=== PATIENT | female | born 1945 | race Caucasian/White ===

== ENCOUNTER 2019-12-14 10:10 | Outpatient (REF) | payer MEDICARE, SELFPAY ==
[2019-12-14 11:24] LABS: Hematocrit 44.5 % (37-47); Hemoglobin 14.5 g/dl (12.0-16.0); Mean Corpuscular HGB Conc 32.6 g/dl (31.0-35.0); Mean Corpuscular Volume 98.2 fL (80-98); Mean Platelet Volume 9.4 fL (9.4-12.3); Platelet Count 350 X10*3/uL (160-400); Red Blood Count 4.53 X10*6/uL (4.20-5.50); Red Cell Distribution Width 13.3 % (11.0-16.0); White Blood Count 7.1 X10*3/uL (4.8-10.8)
[2019-12-14 11:39] LABS: Alanine Aminotransferase 22 U/L (0-31); Albumin Level 4.3 g/dL (3.5-5.0); Alkaline Phosphatase 99 U/L (39-117); Anion Gap 14 (12-20); Aspartate Amino Transferase 26 U/L (5-31); Bilirubin Total 0.6 mg/dL (0.0-1.0); Blood Urea Nitrogen 9 mg/dL (9-16); Calcium 9.4 mg/dL (8.4-10.2); Carbon Dioxide 27 mmol/L (22-29); Chloride 104 mmol/L (96-108); Estimated Glomerular Filt Rate > 60; Glucose Fasting 96 mg/dL (60-99); Potassium 4.5 mmol/l (3.3-5.1); Sodium 140 mmol/L (135-145); Total Protein 7.3 g/dL (6.5-8.0)
[2019-12-14 11:50] LABS: Estimated Average Glucose 100 mg/dL; Hemoglobin A1c % 5.1 %
[2019-12-14 12:00] LABS: Vitamin D 25-OH Total 30.3 ng/mL (>30)
[2019-12-14 12:16] LABS: Folate 15.8 ng/mL (> or = 4.0); Vitamin B12 919 pg/mL (200-900)
== END 2019-12-14 10:11 | disposition home or self-care (01) ==
LOC: HO.HMGCLDS 10:10
PROVIDERS: PCP Internal Medicine; Visit Provider Internal Medicine
DX: Z01.810 Encounter for preprocedural cardiovascular examination (principal); E78.2 Mixed hyperlipidemia; I48.0 Paroxysmal atrial fibrillation; E55.9 Vitamin D deficiency, unspecified; F41.9 Anxiety disorder, unspecified; E53.8 Deficiency of other specified B group vitamins; I71.4 Abdominal aortic aneurysm, without rupture; F17.200 Nicotine dependence, unspecified, uncomplicated; E78.5 Hyperlipidemia, unspecified; I10 Essential (primary) hypertension
CPT/HCPCS: 36415; 80053; 82306; 82607; 82746; 83036; 85027; 99214

== ENCOUNTER → 2020-01-27 11:01 | Outpatient (BNVA) | payer MEDICARE, SELFPAY | PROVIDERS: PCP Internal Medicine; Visit Provider Internal Medicine | DX: I48.0 Paroxysmal atrial fibrillation (principal); I48.92 Unspecified atrial flutter; Z79.01 Long term (current) use of anticoagulants; Z51.81 Encounter for therapeutic drug level monitoring | CPT/HCPCS: 85610; 99201 ==

== ENCOUNTER → 2020-01-29 13:46 | Outpatient (BNVA) | payer MEDICARE, SELFPAY | PROVIDERS: PCP Internal Medicine; Visit Provider Internal Medicine | DX: I48.0 Paroxysmal atrial fibrillation (principal); Z51.81 Encounter for therapeutic drug level monitoring; Z79.01 Long term (current) use of anticoagulants | CPT/HCPCS: 85610; 99211 ==

== ENCOUNTER → 2020-02-01 13:23 | Outpatient (BNVA) | payer MEDICARE, SELFPAY | PROVIDERS: PCP Internal Medicine; Visit Provider Internal Medicine | DX: I48.0 Paroxysmal atrial fibrillation (principal); Z51.81 Encounter for therapeutic drug level monitoring; Z79.01 Long term (current) use of anticoagulants | CPT/HCPCS: 85610; 99211 ==

== ENCOUNTER → 2020-02-05 13:02 | Outpatient (BNVA) | payer MEDICARE, SELFPAY | PROVIDERS: PCP Internal Medicine; Visit Provider Internal Medicine | DX: I48.0 Paroxysmal atrial fibrillation (principal); Z51.81 Encounter for therapeutic drug level monitoring; Z79.01 Long term (current) use of anticoagulants | CPT/HCPCS: 85610; 99211 ==

== ENCOUNTER → 2020-02-12 13:02 | Outpatient (BNVA) | payer MEDICARE, SELFPAY | PROVIDERS: PCP Internal Medicine; Visit Provider Internal Medicine | DX: I48.0 Paroxysmal atrial fibrillation (principal); Z51.81 Encounter for therapeutic drug level monitoring; Z79.01 Long term (current) use of anticoagulants | CPT/HCPCS: 85610; 99211 ==

== ENCOUNTER → 2020-02-23 13:12 | Outpatient (BNVA) | payer MEDICARE, SELFPAY | PROVIDERS: PCP Internal Medicine; Visit Provider Internal Medicine | DX: I48.0 Paroxysmal atrial fibrillation (principal); Z51.81 Encounter for therapeutic drug level monitoring; Z79.01 Long term (current) use of anticoagulants | CPT/HCPCS: 85610; 99211 ==

== ENCOUNTER → 2020-03-07 11:57 | Outpatient (BNVA) | payer MEDICARE, SELFPAY | PROVIDERS: PCP Internal Medicine; Visit Provider Nurse Practitioner Family | DX: I48.92 Unspecified atrial flutter (principal); I71.4 Abdominal aortic aneurysm, without rupture; F17.200 Nicotine dependence, unspecified, uncomplicated; E78.5 Hyperlipidemia, unspecified; I10 Essential (primary) hypertension; Z79.01 Long term (current) use of anticoagulants | CPT/HCPCS: 99212 ==

== ENCOUNTER → 2020-03-08 13:12 | Outpatient (BNVA) | payer MEDICARE, SELFPAY | PROVIDERS: PCP Internal Medicine; Visit Provider Internal Medicine | DX: I48.0 Paroxysmal atrial fibrillation (principal); Z51.81 Encounter for therapeutic drug level monitoring; Z79.01 Long term (current) use of anticoagulants | CPT/HCPCS: 85610; 99211 ==

== ENCOUNTER → 2020-03-17 12:59 | Outpatient (BNVA) | payer MEDICARE, SELFPAY | PROVIDERS: PCP Internal Medicine; Visit Provider Internal Medicine | DX: I48.0 Paroxysmal atrial fibrillation (principal); Z51.81 Encounter for therapeutic drug level monitoring; Z79.01 Long term (current) use of anticoagulants | CPT/HCPCS: 85610; 99211 ==

== ENCOUNTER → 2020-03-31 13:03 | Outpatient (BNVA) | payer MEDICARE, SELFPAY | PROVIDERS: PCP Internal Medicine; Visit Provider Internal Medicine | DX: I48.0 Paroxysmal atrial fibrillation (principal); Z51.81 Encounter for therapeutic drug level monitoring; Z79.01 Long term (current) use of anticoagulants | CPT/HCPCS: 85610; 99211 ==

== ENCOUNTER → 2020-04-14 11:08 | Outpatient (BNVA) | payer MEDICARE, SELFPAY | PROVIDERS: PCP Internal Medicine; Visit Provider Internal Medicine | DX: I48.0 Paroxysmal atrial fibrillation (principal); Z51.81 Encounter for therapeutic drug level monitoring; Z79.01 Long term (current) use of anticoagulants | CPT/HCPCS: 85610; 99211 ==

== ENCOUNTER → 2020-05-05 11:19 | Outpatient (BNVA) | payer MEDICARE, SELFPAY | PROVIDERS: PCP Internal Medicine; Visit Provider Internal Medicine | DX: I48.0 Paroxysmal atrial fibrillation (principal); Z51.81 Encounter for therapeutic drug level monitoring; Z79.01 Long term (current) use of anticoagulants | CPT/HCPCS: 85610; 99211 ==

== ENCOUNTER → 2020-06-02 11:21 | Outpatient (BNVA) | payer MEDICARE, SELFPAY | PROVIDERS: PCP Internal Medicine; Visit Provider Internal Medicine | DX: I48.0 Paroxysmal atrial fibrillation (principal); Z79.01 Long term (current) use of anticoagulants; Z51.81 Encounter for therapeutic drug level monitoring | CPT/HCPCS: 85610; 99211 ==

== ENCOUNTER → 2020-06-06 11:27 | Outpatient (BNVA) | payer MEDICARE, SELFPAY | PROVIDERS: PCP Internal Medicine; Visit Provider Internal Medicine | DX: I48.0 Paroxysmal atrial fibrillation (principal); Z79.01 Long term (current) use of anticoagulants; Z51.81 Encounter for therapeutic drug level monitoring | CPT/HCPCS: 85610; 99211 ==

== ENCOUNTER → 2020-06-14 11:14 | Outpatient (BNVA) | payer MEDICARE, SELFPAY | PROVIDERS: PCP Internal Medicine; Visit Provider Internal Medicine | DX: I48.0 Paroxysmal atrial fibrillation (principal); Z79.01 Long term (current) use of anticoagulants; Z51.81 Encounter for therapeutic drug level monitoring | CPT/HCPCS: 85610; 99211 ==

== ENCOUNTER → 2020-06-28 11:15 | Outpatient (BNVA) | payer MEDICARE, SELFPAY | PROVIDERS: PCP Internal Medicine; Visit Provider Internal Medicine | DX: I48.0 Paroxysmal atrial fibrillation (principal); Z51.81 Encounter for therapeutic drug level monitoring; Z79.01 Long term (current) use of anticoagulants | CPT/HCPCS: 85610; 99211 ==

== ENCOUNTER → 2020-07-06 11:13 | Outpatient (BNVA) | payer MEDICARE, SELFPAY | PROVIDERS: PCP Internal Medicine; Visit Provider Internal Medicine | DX: I48.0 Paroxysmal atrial fibrillation (principal); Z51.81 Encounter for therapeutic drug level monitoring; Z79.01 Long term (current) use of anticoagulants | CPT/HCPCS: 85610; 99211 ==

== ENCOUNTER → 2020-07-20 11:26 | Outpatient (BNVA) | payer MEDICARE, SELFPAY | PROVIDERS: PCP Internal Medicine; Visit Provider Internal Medicine | DX: I48.0 Paroxysmal atrial fibrillation (principal); Z51.81 Encounter for therapeutic drug level monitoring; Z79.01 Long term (current) use of anticoagulants | CPT/HCPCS: 85610; 99211 ==

== ENCOUNTER → 2020-07-22 10:39 | Outpatient (BNVA) | payer MEDICARE, SELFPAY | PROVIDERS: PCP Internal Medicine; Visit Provider Internal Medicine | DX: I48.0 Paroxysmal atrial fibrillation (principal); Z51.81 Encounter for therapeutic drug level monitoring; Z79.01 Long term (current) use of anticoagulants | CPT/HCPCS: 85610; 99211 ==

== ENCOUNTER → 2020-07-29 11:02 | Outpatient (BNVA) | payer MEDICARE, SELFPAY | PROVIDERS: PCP Internal Medicine; Visit Provider Internal Medicine | DX: I48.0 Paroxysmal atrial fibrillation (principal); Z51.81 Encounter for therapeutic drug level monitoring; Z79.01 Long term (current) use of anticoagulants | CPT/HCPCS: 85610; 99211 ==

== ENCOUNTER → 2020-08-12 11:14 | Outpatient (BNVA) | payer MEDICARE, SELFPAY | PROVIDERS: PCP Internal Medicine; Visit Provider Internal Medicine | DX: I48.0 Paroxysmal atrial fibrillation (principal); Z51.81 Encounter for therapeutic drug level monitoring; Z79.01 Long term (current) use of anticoagulants | CPT/HCPCS: 85610; 99211 ==

== ENCOUNTER → 2020-08-26 11:09 | Outpatient (BNVA) | payer MEDICARE, SELFPAY | PROVIDERS: PCP Internal Medicine; Visit Provider Internal Medicine | DX: I48.0 Paroxysmal atrial fibrillation (principal); Z51.81 Encounter for therapeutic drug level monitoring; Z79.01 Long term (current) use of anticoagulants | CPT/HCPCS: 85610; 99211 ==

== ENCOUNTER → 2020-09-05 12:09 | Outpatient (BNVA) | payer MEDICARE, SELFPAY | PROVIDERS: PCP Internal Medicine; Referring Provider Internal Medicine; Visit Provider Internal Medicine | DX: I48.92 Unspecified atrial flutter (principal); F10.10 Alcohol abuse, uncomplicated; F17.200 Nicotine dependence, unspecified, uncomplicated; I71.4 Abdominal aortic aneurysm, without rupture | CPT/HCPCS: 99212 ==

== ENCOUNTER 2020-09-11 17:09 | Inpatient (IN) | payer MEDICARE, SELFPAY ==
[2020-09-11] VITALS (8 sets, daily range): BP systolic 101–129; BP diastolic 64–84; PULSE 94–103; RESP 20–24; TEMP 36.8; O2SAT 93–96; BMI 29.2
--- NOTE | ~2020-09-11 | XR_ITS ---
EXAMINATION: XR CHEST CLINICAL INFORMATION: Syncope. COMPARISON: Most recent chest radiograph dated 01/06/2019. TECHNIQUE: Frontal view of the chest was obtained. FINDINGS: Diffuse interstitial prominence with patchy bilateral airspace opacities, increased when compared to the most recent chest radiograph. Findings could indicate a chronic infectious or inflammatory process versus multifocal pneumonia. No pleural effusion or pneumothorax. Stable cardiomediastinal silhouette. XR/XR chest 1V IMPRESSION: Interstitial prominence and patchy bilateral airspace opacities which has increased when compared to the prior chest radiograph. This could indicate a chronic infectious or inflammatory process versus multifocal pneumonia.
--- NOTE | ~2020-09-11 | CT_ITS ---
EXAMINATION: CT CHEST WITHOUT CONTRAST CLINICAL INFORMATION: Bilateral lung disease. Fibrosis. Infiltrate. COMPARISON: Most recent chest radiograph done earlier the same day and most recent CTA chest dated 05/31/2015. TECHNIQUE: Multidetector volumetric CT imaging of the chest was done. Axial MIP volume rendering provided. Sagittal and coronal reformatted images were obtained. This CT examination was performed using dose optimization techniques as appropriate, variously including the following: Automated exposure control. Adjustment of mA and/or kV according to patient size (this includes techniques or standardized protocols for targeted exams where dose is matched to indication/reason for exam; i.e. extremities or head). Use of iterative reconstruction technique. DLP: 261 mGy-cm FINDINGS: INTERACTIVE ACCOUNT MANAGER: Diffuse interstitial prominence. LUNGS: Diffuse interstitial prominence with peripheral honeycombing as well as scattered areas of traction bronchiectasis and patchy ground-glass airspace opacities. Findings are consistent with chronic interstitial lung disease and pulmonary fibrosis. Findings have significantly increased when compared to the CT from 2016. No large, confluent airspace consolidation. No concerning pulmonary mass. MEDIASTINUM: No cardiomegaly. Mild thoracic aortic dilatation measuring up to 4 cm, unchanged when compared to the CT from 2016. No significant superior mediastinal or hilar lymphadenopathy. Unremarkable thyroid. PLEURA: No pleural effusion or pneumothorax. AXILLA: No lymphadenopathy. UPPER ABDOMEN: Unremarkable. OSSEOUS STRUCTURES: Unremarkable. CT/CT chest wo con IMPRESSION: 1. Diffuse interstitial prominence with peripheral honeycombing as well as traction bronchiectasis and ground-glass airspace opacities, consistent with chronic interstitial lung disease/pulmonary fibrosis. Findings have significantly increased when compared to the CT from 2016. 2. Mild thoracic aortic dilatation, unchanged when compared to the CT from 2016.
--- NOTE | ~2020-09-11 | CT_ITS ---
EXAMINATION: CT HEAD WITHOUT CONTRAST CT CERVICAL SPINE WITHOUT CONTRAST CLINICAL INFORMATION: Fall. Anticoagulated. COMPARISON: Multiple priors, most recent CT head dated 06/24/2018. TECHNIQUE: Contiguous axial imaging was performed from the skull base to vertex without intravenous administration of contrast. Contiguous axial CT images of the cervical spine were obtained without contrast. Sagittal and coronal reformats were provided and reviewed. This CT examination was performed using dose optimization techniques as appropriate, variously including the following: Automated exposure control. Adjustment of mA and/or kV according to patient size (this includes techniques or standardized protocols for targeted exams where dose is matched to indication/reason for exam; i.e. extremities or head). Use of iterative reconstruction technique. DLP: 1055 mGy-cm FINDINGS: HEAD: There is no evidence of acute intracranial hemorrhage or territorial infarction. No abnormal mass effect or midline shift is seen. Wh[place] to white matter differentiation is well preserved. No extra-axial fluid collections are identified. The ventricles are normal in size. There is no abnormal attenuation within the brain parenchyma. The osseous structures and soft tissues are normal. The mastoid air cells and visualized portions of the paranasal sinuses are well aerated. CERVICAL SPINE: Reversal of the normal cervical lordosis, which may be positional or related to muscular spasm. Minimal grade 1 anterolisthesis of C4 on C5. No acute fracture. No loss of vertebral body height. Loss of intervertebral disc height with degenerative endplate changes at C5-C6 and C6-C7. Mild multilevel bilateral facet arthropathy. No lytic or blastic osseous lesion. Unremarkable prevertebral soft tissues. No abnormal soft tissue mass or fluid collection. Thyroid within normal limits. Diffuse interstitial prominence within the visualized lung apices. Mild multilevel bilateral neural foraminal stenosis. CT/CT cervical spine wo con IMPRESSION: HEAD: No acute intracranial hemorrhage or mass effect. CERVICAL SPINE: No acute fracture. Reversal of the normal cervical lordosis, which may be positional or related to muscular spasm. Minimal grade 1 anterolisthesis of C4 on C5. Prominent degenerative disc disease at C5-C6 and C6-C7 with mild multilevel bilateral facet arthropathy and multilevel bilateral neural foraminal stenosis.
--- NOTE | 2020-09-11 17:21 | ED_ITS ---
HPI - Syncope General Chief Complaint: Syncope Stated Complaint: SYNCOPE Time Seen by Provider: 09/11/20 17:21 Source: patient Mode of arrival: EMS Limitations: no limitations History of Present Illness HPI narrative: Patient drinks alcohol had couple of glasses of wine was in the parking lot and just passed out, patient had few similar episodes in the past no Holter applied, reports lightheadedness immediately prior to syncope slump down and fall. Denies any headache no chest pain no increased shortness of breath patient did not feel any palpitation or skipped beats. Also patient complaining of increased shortness of breath for last 3 months with cough with wheezing especially in the evening has not seen her primary doctor for this no fever no chest pain no leg swelling MD complaint: loss of consciousness Related Data Home Medications Medication Instructions Recorded Confirmed cholecalciferol (vitamin D3) 25 mcg PO DAILY 09/11/20 09/11/20 [Vitamin D3] Previous Rx's Medication Instructions Recorded folic acid 1 mg tablet 1 mg PO DAILY #90 tab 04/14/20 cyanocobalamin (vitamin B-12) 1,000 mcg PO DAILY #90 tab 05/05/20 1,000 mcg tablet thiamine HCl (vitamin B1) 100 mg 100 mg PO DAILY #90 tab 05/09/20 tablet metoprolol succinate 25 mg 25 mg PO DAILY #90 tab 05/10/20 tablet,extended release 24 hr atorvastatin 20 mg tablet 20 mg PO DAILY #90 tab 05/27/20 warfarin 1 mg tablet See Rx Instructions PO DAILY #90 05/31/20 tab Allergies Allergy/AdvReac Type Severity Reaction Status Date / Time citalopram AdvReac Unknown nausea Verified 09/11/20 20:49 Review of Systems Review of Systems: Constitutional : No Weight loss, No Fever, No Chills ENT/Mouth : No sore throat, No Rhinorrhea Eyes: No Eye Pain, No Swelling Cardiovascular : No Chest Pain, no palpitations Respiratory : No Cough, No Sputum, no shortness of breath Gastrointestinal : no Nausea, No Vomiting, No Diarrhea, No abdominal Pain, no black stools Genitourinary : No Dysuria, No Urinary Frequency Musculoskeletal : No joint pain, No Myalgias, No Joint Swelling Skin : No Skin Lesions, No rash Neuro : No Weakness, No Numbness, No Dizziness, No Headache Psych : No Anxiety/Panic, No Depression Heme/Lymph: No Bruising, No Lymphadenopathy Endocrine : No Polyuria, No Polydipsia All other systems reviewed and are negative [facility] Past Medical History Medical History AAA (abdominal aortic aneurysm) Anxiety Atrial flutter ETOH abuse HLD (hyperlipidemia) Insomnia Mammogram declined Nausea Osteopenia Pure hypercholesterolemia Smoking Surgical History H/O colonoscopy No pertinent past surgical history Total knee replacement status (~12/2019) Family History Family History Father CVD (cardiovascular disease) Stomach cancer History of heart attack Mother No problems noted. Sister Brain tumor Brother No problems noted. Sister No problems noted. Social History Social History Alcohol intake: current Alcohol intake frequency: a few times a week Alcohol type: wine Patient Tobacco Use Status: Current everyday Tobacco user Cigarettes Per Day: 6 Use of substances other than those prescribed or required for medical reasons: No Advance Directives: No Advance Directives Information Provided: No Physical Exam Vital Signs: Vital Signs: Last Vital Signs Temp 98.2 F 09/11/20 17:18 Pulse 98 09/11/20 23:41 Resp 24 H 09/11/20 23:41 BP 129/84 09/11/20 23:41 Pulse Ox 96 09/11/20 23:41 Body Mass Index 29.2 Appearance: Alert. Oriented X3. No acute distress. Eyes: PERRLA, No Nystagmus ENT: Pharynx normal. Oral Mucosa moist atraumatic normocephalic Neck: Normal inspection. Neck supple. No midline tenderness CVS: Normal heart rate and rhythm. Pulses normal. Respiratory: No respiratory distress. Equal air entry bilateral, prolonged expiration with fine expiratory crackles bilaterally Abdomen: Soft and nontender. Bowel sounds are present, no mass palpable, no CVA tenderness Skin: Skin warm and dry. Normal skin color. Normal skin turgor. Extremities: No lower extremity edema. No calf tenderness Neuro: Oriented X 3. No motor deficit. No sensory deficit.No cerebellar signs , cranial nerves II-XII intact MDM - Syncope MDM Narrative Medical decision making narrative: Patient had a CT chest in 2015 which showed pulmonary fibrosis patient unaware of that , not using any inhaler has not seen any contracting analyst patient used to smoke 1 pack a day now smoking 3 or 4 cigarettes a day. Patient orthostatic vitals are stable .Case discussed Dr. Sim caterpillar operator advised to give patient 324 mg aspirin daily along with Coumadin plan to do echo in the morning likely patient had an episode of AFib which cause increased troponin no acute ischemic changes in the EKG. Will admit patient for syncope with elevated troponin Medical Records Attestation: I reviewed the patient's medical records. Lab Data Attestation: I reviewed the patient's lab results. Result diagrams: 09/11/20 18:48 09/11/20 18:48 Labs: Lab Results 09/11/20 09/11/20 09/11/20 Range/Units 17:27 18:48 18:48 WBC 10.1 (4.8-10.8) X10*3/uL RBC 4.11 L (4.20-5.50) X10*6/uL Hgb 13.2 (12.0-16.0) g/dl Hct 39.5 (37-47) % MCV 96.1 (80-98) fL MCH 32.1 (27.0-33.0) pg MCHC 33.4 (31.0-35.0) g/dl RDW 15.8 (11.0-16.0) % Plt Count 272 (160-400) X10*3/uL MPV 8.8 L (9.4-12.3) fL Immature Gran % (Auto) 0.6 H (0.0-0.4) % Neut % (Auto) 78.7 H (45-73) % Lymph % (Auto) 8.8 L (20-40) % [place] % (Auto) 10.4 (2-11) % Eos % (Auto) 0.9 (0-4) % Baso % (Auto) 0.6 (0-2) % Lymph # (Auto) 0.9 L (1.2-4.9) X10*3/uL [place] # (Auto) 1.1 (0.1-1.2) X10*3/uL Eos # (Auto) 0.1 (0.0-0.4) X10*3/uL Baso # (Auto) 0.1 (0.0-0.2) X10*3/uL Abs Immat Gran (auto) 0.06 H (0.00-0.03) X10*3/uL Absolute Neuts (auto) 8.0 (2.0-8.3) X10*3/uL Absolute Nucleated RBC 0.000 (0.0-0.012) X10*3/uL Nucleated RBC % (auto) 0.0 (0.0-0.2) /100WBC PT 39.1 H (9.9-13.0) SEC INR 3.4 H (0.9-1.1) APTT 45.5 H (24.1-38.0) SEC Sodium (135-145) mmol/L Potassium (3.3-5.1) mmol/L Chloride (96-108) mmol/L Carbon Dioxide (22-29) mmol/L Anion Gap (12-20) BUN (9-16) mg/dL Creatinine (0.5-1.4) mg/dL Estim Creat Clear Calc Estimated GFR POC Glucose 144 H (60-115) mg/dL Random Glucose (60-115) mg/dL Calcium (8.4-10.2) mg/dL Magnesium (1.6-2.6) mg/dL Total Bilirubin (0.0-1.0) mg/dL Direct Bilirubin (0.0-0.5) mg/dL AST (5-31) U/L ALT (0-31) U/L Alkaline Phosphatase (39-117) U/L Troponin I High Sens (<3.5-17.0) ng/L B-Natriuretic Peptide (<100) pg/mL Total Protein (6.5-8.0) g/dL Albumin (3.5-5.0) g/dL Ethyl Alcohol mg/dL COVID-19 ([facility]) (Negative) COVID-19 Clin Com 09/11/20 09/11/20 09/11/20 Range/Units 18:48 18:48 18:48 WBC (4.8-10.8) X10*3/uL RBC (4.20-5.50) X10*6/uL Hgb (12.0-16.0) g/dl Hct (37-47) % MCV (80-98) fL MCH (27.0-33.0) pg MCHC (31.0-35.0) g/dl RDW (11.0-16.0) % Plt Count (160-400) X10*3/uL MPV (9.4-12.3) fL Immature Gran % (Auto) (0.0-0.4) % Neut % (Auto) (45-73) % Lymph % (Auto) (20-40) % [place] % (Auto) (2-11) % Eos % (Auto) (0-4) % Baso % (Auto) (0-2) % Lymph # (Auto) (1.2-4.9) X10*3/uL [place] # (Auto) (0.1-1.2) X10*3/uL Eos # (Auto) (0.0-0.4) X10*3/uL Baso # (Auto) (0.0-0.2) X10*3/uL Abs Immat Gran (auto) (0.00-0.03) X10*3/uL Absolute Neuts (auto) (2.0-8.3) X10*3/uL Absolute Nucleated RBC (0.0-0.012) X10*3/uL Nucleated RBC % (auto) (0.0-0.2) /100WBC PT (9.9-13.0) SEC INR (0.9-1.1) APTT (24.1-38.0) SEC Sodium 136 (135-145) mmol/L Potassium 4.2 (3.3-5.1) mmol/L Chloride 109 H (96-108) mmol/L Carbon Dioxide 15 L (22-29) mmol/L Anion Gap 16 (12-20) BUN 8 L (9-16) mg/dL Creatinine 0.71 (0.5-1.4) mg/dL Estim Creat Clear Calc 63.2 Estimated GFR > 60 POC Glucose (60-115) mg/dL Random Glucose 96 (60-115) mg/dL Calcium 8.2 L D (8.4-10.2) mg/dL Magnesium 2.0 (1.6-2.6) mg/dL Total Bilirubin 0.3 (0.0-1.0) mg/dL Direct Bilirubin 0.2 (0.0-0.5) mg/dL AST 32 H (5-31) U/L ALT 19 (0-31) U/L Alkaline Phosphatase 93 (39-117) U/L Troponin I High Sens 673.1 H* (<3.5-17.0) ng/L B-Natriuretic Peptide 157 H (<100) pg/mL Total Protein 6.9 (6.5-8.0) g/dL Albumin 4.0 (3.5-5.0) g/dL Ethyl Alcohol 172 mg/dL COVID-19 ([facility]) (Negative) COVID-19 Clin Com 09/11/20 09/11/20 Range/Units 20:40 21:17 WBC (4.8-10.8) X10*3/uL RBC (4.20-5.50) X10*6/uL Hgb (12.0-16.0) g/dl Hct (37-47) % MCV (80-98) fL MCH (27.0-33.0) pg MCHC (31.0-35.0) g/dl RDW (11.0-16.0) % Plt Count (160-400) X10*3/uL MPV (9.4-12.3) fL Immature Gran % (Auto) (0.0-0.4) % Neut % (Auto) (45-73) % Lymph % (Auto) (20-40) % [place] % (Auto) (2-11) % Eos % (Auto) (0-4) % Baso % (Auto) (0-2) % Lymph # (Auto) (1.2-4.9) X10*3/uL [place] # (Auto) (0.1-1.2) X10*3/uL Eos # (Auto) (0.0-0.4) X10*3/uL Baso # (Auto) (0.0-0.2) X10*3/uL Abs Immat Gran (auto) (0.00-0.03) X10*3/uL Absolute Neuts (auto) (2.0-8.3) X10*3/uL Absolute Nucleated RBC (0.0-0.012) X10*3/uL Nucleated RBC % (auto) (0.0-0.2) /100WBC PT (9.9-13.0) SEC INR (0.9-1.1) APTT (24.1-38.0) SEC Sodium (135-145) mmol/L Potassium (3.3-5.1) mmol/L Chloride (96-108) mmol/L Carbon Dioxide (22-29) mmol/L Anion Gap (12-20) BUN (9-16) mg/dL Creatinine (0.5-1.4) mg/dL Estim Creat Clear Calc Estimated GFR POC Glucose (60-115) mg/dL Random Glucose (60-115) mg/dL Calcium (8.4-10.2) mg/dL Magnesium (1.6-2.6) mg/dL Total Bilirubin (0.0-1.0) mg/dL Direct Bilirubin (0.0-0.5) mg/dL AST (5-31) U/L ALT (0-31) U/L Alkaline Phosphatase (39-117) U/L Troponin I High Sens 1738.2 H* D (<3.5-17.0) ng/L B-Natriuretic Peptide (<100) pg/mL Total Protein (6.5-8.0) g/dL Albumin (3.5-5.0) g/dL Ethyl Alcohol mg/dL COVID-19 ([facility]) Negative (Negative) COVID-19 Clin Com See Note ECG Data Attestation: I personally reviewed and interpreted this ECG as follows: Interpretation: Normal sinus rhythm heart rate 95 beats per minute left anterior fascicular block LVH no acute ST T wave changes no acute ischemia Discharge Plan Discharge Clinical Impression: Paroxysmal A-fib, Elevated troponin level not due myocardial infarction Syncope Qualifiers: Syncope type: unspecified Qualified Code(s): R55 - Syncope and collapse Patient Disposition: Admitted As Inpatient
--- NOTE | 2020-09-11 17:32 | ECG_ITS ---
Test Reason : SYNCOPE Blood Pressure : / mmHG Vent. Rate : 095 BPM Atrial Rate : 095 BPM P-R Int : 160 ms QRS Dur : 100 ms QT Int : 380 ms P-R-T Axes : 051 -45 060 degrees QTc Int : 477 ms Normal sinus rhythm Incomplete right bundle branch block Left anterior fascicular block Moderate voltage criteria for LVH, may be normal variant Abnormal ECG When compared with ECG of 06-JAN-2019 14:35, Left anterior fascicular block is now Present Incomplete right bundle branch block is now Present Referred By: Frantz Lemon Electronically Signed By:Thierno Sim
--- NOTE | 2020-09-11 17:45 | PC.NURSE ---
Pt alert and oriented x3. Pt had syncopal episode this afternoon while coming out of her car. She states she felt lightheaded then fell to the ground. Pt has hx of syncope and reports the same symptoms. Pt remembers events pre and post fall however she is unsure of how long she was down but denies hitting her head. No c/o pain/discomfort at this time, no apparent distress noted. Pt has hx of afib and is on coumadin.
[2020-09-11 18:17] LABS: Glucose, Whole Blood 144 mg/dL (60-115)
[2020-09-11 19:06] LABS: MANUAL DIFF FLAG NO
[2020-09-11 19:08] LABS: Basophils Absolute Auto 0.1 X10*3/uL (0.0-0.2); Basophils Percent Auto 0.6 % (0-2); Eosinophils Absolute Auto 0.1 X10*3/uL (0.0-0.4); Eosinophils Percent Auto 0.9 % (0-4); Hematocrit 39.5 % (37-47); Hemoglobin 13.2 g/dl (12.0-16.0); Imm Gran Abs Auto 0.06 X10*3/uL (0.00-0.03); Imm Gran Pct Auto 0.6 % (0.0-0.4); Lymphocytes Absolute Auto 0.9 X10*3/uL (1.2-4.9); Lymphocytes Percent Auto 8.8 % (20-40); Mean Corpuscular HGB Conc 33.4 g/dl (31.0-35.0); Mean Corpuscular Hemoglobin 32.1 pg (27.0-33.0); Mean Corpuscular Volume 96.1 fL (80-98); Mean Platelet Volume 8.8 fL (9.4-12.3); Monocytes Absolute Auto 1.1 X10*3/uL (0.1-1.2); Monocytes Percent Auto 10.4 % (2-11); Neutrophils Percent Auto 78.7 % (45-73); Platelet Count 272 X10*3/uL (160-400); Red Blood Count 4.11 X10*6/uL (4.20-5.50); Red Cell Distribution Width 15.8 % (11.0-16.0); White Blood Count 10.1 X10*3/uL (4.8-10.8)
[2020-09-11 19:13] LABS: INTERNATIONAL NORM RATIO 3.4 (0.9-1.1); Prothrombin Time 39.1 SEC (9.9-13.0)
[2020-09-11 19:16] LABS: Partial Thromboplastin Time 45.5 SEC (24.1-38.0)
[2020-09-11 19:34] LABS: Ethanol 172 mg/dL
[2020-09-11 19:37] LABS: Anion Gap 16 (12-20); Blood Urea Nitrogen 8 mg/dL (9-16); Calcium 8.2 mg/dL (8.4-10.2); Carbon Dioxide 15 mmol/L (22-29); Chloride 109 mmol/L (96-108); Creatinine Clr Calc Pharmacy 63.2; Estimated Glomerular Filt Rate > 60; Glucose Random 96 mg/dL (60-115); Potassium 4.2 mmol/L (3.3-5.1); Sodium 136 mmol/L (135-145)
[2020-09-11 19:48] LABS: Troponin-I High Sensitivity 673.1 ng/L (<3.5-17.0)
[2020-09-11 20:43] LABS: Alanine Aminotransferase 19 U/L (0-31); Alkaline Phosphatase 93 U/L (39-117); Aspartate Amino Transferase 32 U/L (5-31); Bilirubin Direct 0.2 mg/dL (0.0-0.5); Bilirubin Total 0.3 mg/dL (0.0-1.0); Total Protein 6.9 g/dL (6.5-8.0)
[2020-09-11] MEDS: Albuterol/Iprat 2.5/0.5MG 3 ML AMPUL.NEB INHALE (20:46)
[2020-09-11 20:49] LABS: B Type Natriuretic Peptide 157 pg/mL (<100)
[2020-09-11] MEDS: methylPREDNISolone Sod Succ 125 MG/2 ML VIAL IVPUSH (21:02)
[2020-09-11 21:04] LABS: COVID-19 Test Negative (Negative); IDNOW Serial# 9DD0AD1C
[2020-09-11 21:59] LABS: Troponin-I High Sensitivity 1738.2 ng/L (<3.5-17.0)
--- NOTE | 2020-09-11 22:05 | ECG_ITS ---
Test Reason : ELEVATED TROPONIN Blood Pressure : / mmHG Vent. Rate : 102 BPM Atrial Rate : 102 BPM P-R Int : 158 ms QRS Dur : 086 ms QT Int : 362 ms P-R-T Axes : 061 -35 029 degrees QTc Int : 471 ms Sinus tachycardia Possible Left atrial enlargement Left axis deviation Left ventricular hypertrophy Abnormal ECG When compared with ECG of 11-SEP-2020 17:38, No significant change was found Referred By: Frantz Lemon Electronically Signed By:JAN NOYOLA MD
[2020-09-11] MEDS: Aspirin 81 MG TAB.CHEW 324 MG PO (22:13)
--- NOTE | 2020-09-11 22:39 | PC.NURSE ---
Pt requesting something to help me sleep . notified. Hospitalist to evaluate patient for admission. Pt aware. Pt continues to deny pain. Repeat EKG obtained and reviewed by due to increased troponin level. training program developer (Janet Aburto) also aware of care plan.
--- NOTE | 2020-09-11 23:57 | P.HPHOSP_ITS ---
History of Present Illness Date of Service: 09/11/20 Chief Complaint: Syncope This is a 74-year-old female with past medical history of AAA, paroxysmal AFib, insomnia, HLD, HTN, GERD who presents to the hospital with complaints of syncope. Patient reports that she had 1 episode in April but at that time she went to [facility] and was told that it was secondary to her AFib, and then reoccurred today while she was getting at of somebody's car in a parking lot. She reports that the syncope occurred with no prodromal symptoms and no postictal confusion. It lasted few seconds, she did not hit her head. Patient reports no headache, no change in vision, no dizziness or vertigo, reports no chest pain or palpitations prior. Reports that she gets nervous right prior but does not have any sense that she is about to pass out. She denies any abdominal pain nausea or vomiting, no diarrhea constipation, no urinary symptoms. She reports that she drinks 1 cup of wine every day but was not drinking or drunk at the time that she syncopized. Denies any urinary symptoms and no lower extremity edema. On arrival to the ED patient hemodynamically stable with no significant abnormal vitals except for a transient heart rate of 103 that resolved Labs are significant for unremarkable CBC, PT INR of 39 with an INR 3.4, sodium of 136, BUN of 8, initial troponin of 6073, repeat of 1738, BNP of 157 EKG shows sinus rhythm with T inversion in lead [address] T-wave abnormality Case was discussed by ED physician with Cardiology and as patient has no chest pain, no significant EKG changes troponin will just be monitored. Patient will be admitted for further management Review of Systems Review of Systems: Yes all other systems are reviewed and are negative [facility] Medical History AAA (abdominal aortic aneurysm) Anxiety Atrial flutter ETOH abuse HLD (hyperlipidemia) Insomnia Mammogram declined Nausea Osteopenia Pure hypercholesterolemia Smoking Family History Father CVD (cardiovascular disease) Stomach cancer History of heart attack Mother No problems noted. Sister Brain tumor Brother No problems noted. Sister No problems noted. Surgical History H/O colonoscopy No pertinent past surgical history Total knee replacement status (~12/2019) Social History Alcohol intake: current Alcohol intake frequency: a few times a week Alcohol type: wine Patient Tobacco Use Status: Current everyday Tobacco user Cigarettes Per Day: 6 Use of substances other than those prescribed or required for medical reasons: No Advance Directives: No Advance Directives Information Provided: No Meds Allergies Allergy/AdvReac Type Severity Reaction Status Date / Time citalopram AdvReac Unknown nausea Verified 09/11/20 20:49 Active Medications: Current Medications Generic Name Dose Route Start Last Admin Trade Name Freq PRN Reason Stop Dose Admin Atorvastatin Calcium 20 mg 09/12/20 09:00 Atorvastatin Calcium 20 Mg Tablet PO DAILY [facility] Cyanocobalamin 1,000 mcg 09/12/20 09:00 Cyanocobalamin (Vitamin B-12) 1,000 Mcg Tablet PO DAILY [facility] Folic Acid 1 mg 09/12/20 09:00 Folic Acid 1 Mg Tablet PO DAILY [facility] Metoprolol Succinate 25 mg 09/12/20 09:00 Metoprolol Succinate Er 25 Mg Tab.Er.24h PO DAILY [facility] Protocol Thiamine HCl 100 mg 09/12/20 09:00 Thiamine Hcl 100 Mg Tablet PO DAILY [facility] Vitamin D 25 mcg 09/12/20 09:00 Cholecalciferol (Vitamin D3) 25 Mcg Tablet PO DAILY [facility] Home Medications Medication Instructions Recorded Confirmed Last Taken Type cholecalciferol (vitamin D3) 25 mcg PO DAILY 09/11/20 09/11/20 09/11/20 History [Vitamin D3] Physical Exam Vital Signs and Narrative: Vital Signs: Last Vital Signs Temp 98.2 F 09/11/20 17:18 Pulse 98 09/11/20 23:41 Resp 24 H 09/11/20 23:41 BP 129/84 09/11/20 23:41 Pulse Ox 96 09/11/20 23:41 Body Mass Index 29.2 Const: General: cooperative and no acute distress Orientation/consciousness: patient oriented x3 Eyes: General: appearance normal, both eyes and all related structures Pupils: Equal, round and reactive pupils present Resp: Effort & Inspection: normal respiratory effort Auscultation: clear to auscultation bilaterally Cardio: Rate: regular rate Rhythm: regular rhythm GI: Palpation (GI): Soft to palpation Auscultation: normal bowel sounds Skin: General skin exam: no rashes or lesions noted Neuro: Other: No neurological deficits General: patient oriented x3 Cranial nerves: Yes Equal, round and reactive pupils present Cognition (Neuro): normal cognition Extrem: General: Yes normal to inspection and Yes no pedal edema Results Labs CBC and Chem 7: 09/11/20 18:48 09/11/20 18:48 Labs: Laboratory Results - last 24 hr 09/11/20 09/11/20 09/11/20 17:27 18:48 18:48 MCV 96.1 MCH 32.1 MCHC 33.4 RDW 15.8 Plt Count 272 MPV 8.8 L Immature Gran % (Auto) 0.6 H Neut % (Auto) 78.7 H Lymph % (Auto) 8.8 L [place] % (Auto) 10.4 Eos % (Auto) 0.9 Baso % (Auto) 0.6 Lymph # (Auto) 0.9 L Mitchell # (Auto) 1.1 Eos # (Auto) 0.1 Baso # (Auto) 0.1 Abs Immat Gran (auto) 0.06 H Absolute Neuts (auto) 8.0 Absolute Nucleated RBC 0.000 Nucleated RBC % (auto) 0.0 PT 39.1 H INR 3.4 H APTT 45.5 H Anion Gap Estim Creat Clear Calc Estimated GFR POC Glucose 144 H Random Glucose Calcium Magnesium Total Bilirubin Direct Bilirubin AST ALT Alkaline Phosphatase Troponin I High Sens B-Natriuretic Peptide Total Protein Albumin Ethyl Alcohol COVID-19 ([facility]) COVID-19 Clin Com 09/11/20 09/11/20 09/11/20 18:48 18:48 18:48 MCV MCH MCHC RDW Plt Count MPV Immature Gran % (Auto) Neut % (Auto) Lymph % (Auto) [place] % (Auto) Eos % (Auto) Baso % (Auto) Lymph # (Auto) Mitchell # (Auto) Eos # (Auto) Baso # (Auto) Abs Immat Gran (auto) Absolute Neuts (auto) Absolute Nucleated RBC Nucleated RBC % (auto) PT INR APTT Anion Gap 16 Estim Creat Clear Calc 63.2 Estimated GFR > 60 POC Glucose Random Glucose 96 Calcium 8.2 L D Magnesium 2.0 Total Bilirubin 0.3 Direct Bilirubin 0.2 AST 32 H ALT 19 Alkaline Phosphatase 93 Troponin I High Sens 673.1 H* B-Natriuretic Peptide 157 H Total Protein 6.9 Albumin 4.0 Ethyl Alcohol 172 COVID-19 ([facility]) COVID-19 Clin Com 09/11/20 09/11/20 20:40 21:17 MCV MCH MCHC RDW Plt Count MPV Immature Gran % (Auto) Neut % (Auto) Lymph % (Auto) Mitchell % (Auto) Eos % (Auto) Baso % (Auto) Lymph # (Auto) Mitchell # (Auto) Eos # (Auto) Baso # (Auto) Abs Immat Gran (auto) Absolute Neuts (auto) Absolute Nucleated RBC Nucleated RBC % (auto) PT INR APTT Anion Gap Estim Creat Clear Calc Estimated GFR POC Glucose Random Glucose Calcium Magnesium Total Bilirubin Direct Bilirubin AST ALT Alkaline Phosphatase Troponin I High Sens 1738.2 H* D B-Natriuretic Peptide Total Protein Albumin Ethyl Alcohol COVID-19 ([facility]) Negative COVID-19 Clin Com See Note Imaging Radiologist's Impressions: Impressions Cervical Spine CT 09/11/20 17:29 IMPRESSION: HEAD: No acute intracranial hemorrhage or mass effect. CERVICAL SPINE: No acute fracture. Reversal of the normal cervical lordosis, which may be positional or related to muscular spasm. Minimal grade 1 anterolisthesis of C4 on C5. Prominent degenerative disc disease at C5-C6 and C6-C7 with mild multilevel bilateral facet arthropathy and multilevel bilateral neural foraminal stenosis. Chest X-Ray 09/11/20 17:33 IMPRESSION: Interstitial prominence and patchy bilateral airspace opacities which has increased when compared to the prior chest radiograph. This could indicate a chronic infectious or inflammatory process versus multifocal pneumonia. Head CT 09/11/20 17:33 IMPRESSION: HEAD: No acute intracranial hemorrhage or mass effect. CERVICAL SPINE: No acute fracture. Reversal of the normal cervical lordosis, which may be positional or related to muscular spasm. Minimal grade 1 anterolisthesis of C4 on C5. Prominent degenerative disc disease at C5-C6 and C6-C7 with mild multilevel bilateral facet arthropathy and multilevel bilateral neural foraminal stenosis. Chest CT 09/11/20 20:22 IMPRESSION: 1. Diffuse interstitial prominence with peripheral honeycombing as well as traction bronchiectasis and ground-glass airspace opacities, consistent with chronic interstitial lung disease/pulmonary fibrosis. Findings have significantly increased when compared to the CT from 2016. 2. Mild thoracic aortic dilatation, unchanged when compared to the CT from 2016. Assessment and Plan (1) Syncope: Qualifiers: Syncope type: unspecified Qualified Code(s): R55 - Syncope and collapse Status: Acute (2) Paroxysmal A-fib: Status: Acute (3) Elevated troponin level not due myocardial infarction: Status: Acute 74-year-old female with past medical history of paroxysmal AFib who presents the hospital with syncope # syncope - cardiogenic versus vasovagal versus neurogenic less likely - orthostatic vitals negative - has history of paroxysmal AFib - will obtain echocardiogram - consult cardiology # elevated troponin - denies any chest pain - no EKG changes suggestive of ACS - will trend troponin - cardiology on consult # daily alcohol drinker - drinks 1 cup of wine daily - denies any history of withdrawal seizures or DTs - will monitor # paroxysmal AFib - continue metoprolol - warfarin was held last night but will resume once INR less than 3 DVT prophylaxis: Coumadin Quality Stroke Does the patient have a stroke diagnosis?: No VTE Prior VTE?: No VTE Risk Level:: Medical - moderate - high VTE Device Contraindication: Treatment Not Indicated VTE Drug Contraindication: N/A - Med Ordered
[2020-09-12] VITALS (7 sets, daily range): BP systolic 104–123; BP diastolic 64–79; PULSE 83–92; RESP 14–19; TEMP 36.4–36.8; O2SAT 94–98
--- NOTE | 2020-09-12 00:03 | CA_ITS ---
Transthoracic Echocardiogram Patient (Last, First, Middle): Angeles Robert C Gender: Female Date of : 1945 Age: 74 Procedure Date: 09/12/2020 Procedure Type: Transthoracic Echocardiogram Location: ER Height: 154.94 cm Weight: 69.4 kg BSA: 1.69 m2 Heart Rate: bpm BP: 110 / 79 mmHg Alemite Operator: NELL/JOSE A Referring MD: Christiane Vera MD Symptoms: syncope Study Quality: Fair/Contrast Conclusions: - 1. [id number] LV systolic dysfunction with regional wall motion abnormality in LAD territory with pseudonormal filling pattern 2. Normal cardiac valvular Doppler with fibrocalcific aortic valve changes 3. Normal RV systolic pressure 4. Mildly dilated ascending aorta 5. No gross pericardial effusion Findings Procedure Information Contrast agent, definity, is being given per protocol without apparent complications. Left Ventricle Normal left ventricular cavity size. There is normal left ventricular wall thickness. The left ventricular systolic function is mild to moderately decreased. The visually estimated ejection fraction is between 40-45%. Spectral Doppler is indicative of a pseudonormal filling pattern. E/E prime ratio is between 8 and 15 consistent with indeterminate filling pressures. Wall Motion Rest Echo Findings The mid anterolateral and mid inferoseptal segments are hypokinetic. The apical anterior, mid anterior, apical septum, basal anterolateral, and mid anteroseptal segments are akinetic. All other scored wall segments showed normal motion. Right Ventricle Normal right ventricular cavity size and systolic function. Atria Both atria are normal in size. There is no evidence of interatrial shunt. Aortic Valve There is mild calcification of the aortic valve. There is no aortic valve stenosis. There is no aortic valve regurgitation. Mitral Valve Normal mitral valve structure and function. There is trace mitral valve regurgitation. There is no mitral valve stenosis. Pulmonic Valve The pulmonic valve was not well visualized. Tricuspid Valve Likely normal tricuspid valve structure and function. There is trace tricuspid valve regurgitation. The right ventricular systolic pressure is normal. There is no evidence of pulmonary hypertension. Great Vessels The pulmonary artery was not well visualized. There is mild dilatation of the ascending aorta measuring 3.80 cm. Venous The inferior vena cava is normal in size and collapses greater than 50% with inspiration. Pericardium/Pleural There is no evidence of pericardial effusion. Prior Study Comparison No prior study available for comparison. Measurements 2D Linear Measurements IVSd: 1.03 0.6-0.9/0.6-1.0 cm LVIDd: 4.56 3.9-5.3/4.2-5.9 cm LVIDd Index: 2.70 2.4-3.2/2.2-3.1 cm/m2 LVIDs: 3.49 2.0-3.6 cm LVPWd: 1.07 0.7-1.1 cm Ao Root: 3.30 2.1-3.5 cm LA Diam: 3.50 2.7-3.8/3.0-4.0 cm LAIDs Index: 2.07 1.5-2.3 cm/m2 LV Mass: 208.61 67-162/88-224 g LV Mass Index: 123.44 43-95/49-115 g/m2 LVOT Diam: 2.10 3.0+(-)1.3 cm Mitral Valve MV Pk E: 0.99 MV PK A: 0.73 MV Decel Time: 205.00 E/A: 1.40 E'Lateral: 4.90 E'Medial: 6.53 E/E' Med: 15.10 E/E' Lat: 20.10 PHT: 60.00 MVA PHT: 3.67 Decel Mcdonough: 4.80 Aortic Valve AoV Pk João: 1.48 AoV Mn João: 1.11 AoV VTI: 0.31 AoV Pk Grad: 9.00 Aov Mn Grad: 5.00 BRAD Cont.VTI: 2.00 LVOT LVOT Pk João: 0.80 LVOT Mn João: 0.56 LVOT VTI: 0.18 LVOT Pk Grad: 3.00 LVOT Mn Grad: 1.00 LVOT Diam: 2.10 LVOT Area: 3.46 Diastolic Function MV Pk E: 0.99 MV Pk A: 0.73 E/A: 1.40 E'Medial: 6.53 E/E' Med: 15.10 E' Laterial: 4.90 E/E' Lat: 20.10 Tricuspid Valve TR Pk João: 1.33 TR Pk Grad: 7.00 RA Press: 3.00 RVSP: 10.00 Great Vessels Aorta Ao Root-2D: 3.30 2.0-3.7 cm Ao Asc: 3.80 2.1-3.4 cm Ao Arch: 3.30 Updated in Other Vendor System with Status of Final Moi Kohler MD electronically signed on 09/12/2020 11:08:41 AM with status of Final
[2020-09-12] MEDS: traZODone HCL 25 MG HALFTAB PO (01:25)
[2020-09-12] MEDS: PHENobarbitaL sodium 130 MG/ML VIAL 192 MG IM (01:26)
[2020-09-12] MEDS: PHENobarbitaL sodium 130 MG/ML VIAL 144 MG IM ×2 (03:51→07:29)
[2020-09-12 07:16] LABS: MANUAL DIFF FLAG NO
[2020-09-12 07:24] LABS: Basophils Percent Auto 0.2 % (0-2); Hematocrit 42.9 % (37-47); Hemoglobin 13.9 g/dl (12.0-16.0); Imm Gran Abs Auto 0.04 X10*3/uL (0.00-0.03); Imm Gran Pct Auto 0.6 % (0.0-0.4); Lymphocytes Absolute Auto 0.6 X10*3/uL (1.2-4.9); Lymphocytes Percent Auto 8.9 % (20-40); Mean Corpuscular HGB Conc 32.4 g/dl (31.0-35.0); Mean Corpuscular Hemoglobin 31.5 pg (27.0-33.0); Mean Corpuscular Volume 97.3 fL (80-98); Monocytes Absolute Auto 0.1 X10*3/uL (0.1-1.2); Monocytes Percent Auto 1.8 % (2-11); Neutrophils Absolute Auto 5.5 X10*3/uL (2.0-8.3); Neutrophils Percent Auto 88.5 % (45-73); Platelet Count 278 X10*3/uL (160-400); Red Blood Count 4.41 X10*6/uL (4.20-5.50); Red Cell Distribution Width 15.9 % (11.0-16.0); White Blood Count 6.2 X10*3/uL (4.8-10.8)
[2020-09-12 07:26] LABS: INTERNATIONAL NORM RATIO 3.2 (0.9-1.1); Prothrombin Time 37.4 SEC (9.9-13.0)
[2020-09-12] MEDS: 0.9 % Sodium Chloride Flush 3 ML SYRINGE IVFLUSH ×2 (07:30→18:07)
--- NOTE | 2020-09-12 07:30 | PC.NURSE ---
Addendum entered by Erendira Gomez 09/12/20 09:03: B/L elbow abrasions noted Original Note: Pt alert/oriented x3. Denies chest pain or SOB or dizziness, reports mild nausea but pt relates to eating breakfast to fast. NSR on monitor. VSS. LS with crackles to right upper lobe and throughout left side, however pt declines any SOB. Skin pink warm and dry. Speaking full sentences. Dr Martinez aware of repeat Troponin this AM, no new orders at this time. Ambulatory with steady gait. Phenbarb given as ordered to right deltoid, no withdrawal sx noted.
[2020-09-12 07:51] LABS: Anion Gap 15 (12-20); Blood Urea Nitrogen 8 mg/dL (9-16); Carbon Dioxide 23 mmol/L (22-29); Chloride 103 mmol/L (96-108); Creatinine Clr Calc Pharmacy 53.5; Estimated Glomerular Filt Rate > 60; Glucose Random 151 mg/dL (60-115); Potassium 4.6 mmol/L (3.3-5.1); Sodium 136 mmol/L (135-145)
[2020-09-12 07:54] LABS: Troponin-I High Sensitivity 1255.4 ng/L (<3.5-17.0)
[2020-09-12] MEDS: Thiamine HCL 100 MG TABLET PO (08:23)
[2020-09-12] MEDS: Folic Acid 1 MG TABLET PO (08:23)
[2020-09-12] MEDS: Atorvastatin Calcium 20 MG TABLET PO (08:23)
[2020-09-12] MEDS: Cyanocobalamin (Vitamin B-12) 1,000 MCG TABLET 1000 MCG PO (08:23)
[2020-09-12] MEDS: Metoprolol Succinate ER 25 MG TAB.ER.24H PO (08:23)
[2020-09-12] MEDS: Cholecalciferol (Vitamin D3) 25 MCG TABLET PO (08:23)
--- NOTE | 2020-09-12 08:41 | P.PNIM_ITS ---
Subjective Subjective Date of Service: 09/12/20 Interval History: Syncope, elevated troponin Physical Exam Vital Signs: Vital Signs: Last Vital Signs Temp 98.2 F 09/11/20 17:18 Pulse 92 09/12/20 08:23 Resp 14 09/12/20 07:33 BP 110/79 09/12/20 08:23 Pulse Ox 96 09/12/20 07:33 Body Mass Index 29.2 Objective Data Current Medications Generic Name Dose Route Start Last Admin Trade Name Yanick PRN Reason Stop Dose Admin Acetaminophen 650 mg 09/12/20 00:03 Acetaminophen 325 Mg Tablet PO Q6H PRN Pain, Mild (Pain Scale 1-3) Aspirin 325 mg 09/12/20 09:00 Aspirin Enteric Coated 325 Mg Tablet. PO DAILY [facility] Atorvastatin Calcium 20 mg 09/12/20 09:00 09/12/20 08:23 Atorvastatin Calcium 20 Mg Tablet PO 20 mg DAILY [facility] Administration Cyanocobalamin 1,000 mcg 09/12/20 09:00 09/12/20 08:23 Cyanocobalamin (Vitamin B-12) 1,000 Mcg Tablet PO 1,000 mcg DAILY [facility] Administration Docusate Sodium 100 mg 09/12/20 00:03 Docusate Sodium 100 Mg Capsule PO DAILY PRN Constipation Folic Acid 1 mg 09/12/20 09:00 09/12/20 08:23 Folic Acid 1 Mg Tablet PO 1 mg DAILY [facility] Administration Medication 1 each 09/12/20 09:00 No Benzodiazepines MISCELLANE DAILY [facility] Metoprolol Succinate 25 mg 09/12/20 09:00 09/12/20 08:23 Metoprolol Succinate Er 25 Mg Tab.Er.24h PO 25 mg DAILY [facility] Administration Protocol Nicotine 21 mg 09/12/20 09:00 Nicotine 21 Mg Patch.Td24 TRANSDERMA DAILY [facility] Ondansetron HCl 4 mg 09/12/20 00:03 Ondansetron Hcl 4 Mg/2 Ml Vial IVPUSH Q8H PRN Nausea and Vomiting Phenobarbital 30 mg 09/12/20 21:00 Phenobarbital 30 Mg Tablet PO 09/14/20 09:01 BID [facility] Protocol Phenobarbital 15 mg 09/14/20 21:00 Phenobarbital 15 Mg Tablet PO 09/16/20 09:01 BID [facility] Protocol Phenobarbital 15 mg 09/17/20 09:00 Phenobarbital 15 Mg Tablet PO 09/18/20 09:01 DAILY [facility] Protocol Sodium Chloride 3 ml 09/12/20 00:03 09/12/20 07:30 0.9 % Sodium Chloride Flush 3 Ml Syringe IVFLUSH 3 ml QSHIFT [facility] Administration Thiamine HCl 100 mg 09/12/20 09:00 09/12/20 08:23 Thiamine Hcl 100 Mg Tablet PO 100 mg DAILY [facility] Administration Vitamin D 25 mcg 09/12/20 09:00 09/12/20 08:23 Cholecalciferol (Vitamin D3) 25 Mcg Tablet PO 25 mcg DAILY [facility] Administration Labs CBC & Chem 7: 09/12/20 06:57 09/12/20 06:57 Labs: Laboratory Results - last 24 hr 09/11/20 09/11/20 09/11/20 17:27 18:48 18:48 WBC 10.1 RBC 4.11 L Hgb 13.2 Hct 39.5 MCV 96.1 MCH 32.1 MCHC 33.4 RDW 15.8 Plt Count 272 MPV 8.8 L Immature Gran % (Auto) 0.6 H Neut % (Auto) 78.7 H Lymph % (Auto) 8.8 L Lipscomb % (Auto) 10.4 Eos % (Auto) 0.9 Baso % (Auto) 0.6 Lymph # (Auto) 0.9 L Lipscomb # (Auto) 1.1 Eos # (Auto) 0.1 Baso # (Auto) 0.1 Abs Immat Gran (auto) 0.06 H Absolute Neuts (auto) 8.0 Absolute Nucleated RBC 0.000 Nucleated RBC % (auto) 0.0 PT 39.1 H INR 3.4 H APTT 45.5 H Sodium Potassium Chloride Carbon Dioxide Anion Gap BUN Creatinine Estim Creat Clear Calc Estimated GFR POC Glucose 144 H Random Glucose Calcium Magnesium Total Bilirubin Direct Bilirubin AST ALT Alkaline Phosphatase Troponin I High Sens B-Natriuretic Peptide Total Protein Albumin Ethyl Alcohol COVID-19 ([facility]) COVID-19 Clin Com 09/11/20 09/11/20 09/11/20 18:48 18:48 18:48 WBC RBC Hgb Hct MCV MCH MCHC RDW Plt Count MPV Immature Gran % (Auto) Neut % (Auto) Lymph % (Auto) Lipscomb % (Auto) Eos % (Auto) Baso % (Auto) Lymph # (Auto) Lipscomb # (Auto) Eos # (Auto) Baso # (Auto) Abs Immat Gran (auto) Absolute Neuts (auto) Absolute Nucleated RBC Nucleated RBC % (auto) PT INR APTT Sodium 136 Potassium 4.2 Chloride 109 H Carbon Dioxide 15 L Anion Gap 16 BUN 8 L Creatinine 0.71 Estim Creat Clear Calc 63.2 Estimated GFR > 60 POC Glucose Random Glucose 96 Calcium 8.2 L D Magnesium 2.0 Total Bilirubin 0.3 Direct Bilirubin 0.2 AST 32 H ALT 19 Alkaline Phosphatase 93 Troponin I High Sens 673.1 H* B-Natriuretic Peptide 157 H Total Protein 6.9 Albumin 4.0 Ethyl Alcohol 172 COVID-19 ([facility]) COVID-19 [employer] Com 09/11/20 09/11/20 09/12/20 20:40 21:17 06:57 WBC 6.2 RBC 4.41 Hgb 13.9 Hct 42.9 MCV 97.3 MCH 31.5 MCHC 32.4 RDW 15.9 Plt Count 278 MPV 9.0 L Immature Gran % (Auto) 0.6 H Neut % (Auto) 88.5 H Lymph % (Auto) 8.9 L Lipscomb % (Auto) 1.8 L Eos % (Auto) 0.0 Baso % (Auto) 0.2 Lymph # (Auto) 0.6 L Lipscomb # (Auto) 0.1 Eos # (Auto) 0.0 Baso # (Auto) 0.0 Abs Immat Gran (auto) 0.04 H Absolute Neuts (auto) 5.5 Absolute Nucleated RBC 0.000 Nucleated RBC % (auto) 0.0 PT INR APTT Sodium Potassium Chloride Carbon Dioxide Anion Gap BUN Creatinine Estim Creat Clear Calc Estimated GFR POC Glucose Random Glucose Calcium Magnesium Total Bilirubin Direct Bilirubin AST ALT Alkaline Phosphatase Troponin I High Sens 1738.2 H* D B-Natriuretic Peptide Total Protein Albumin Ethyl Alcohol COVID-19 ([facility]) Negative COVID-19 [employer] Com See Note 09/12/20 09/12/20 09/12/20 06:57 06:57 06:57 WBC RBC Hgb Hct MCV MCH MCHC RDW Plt Count MPV Immature Gran % (Auto) Neut % (Auto) Lymph % (Auto) Lipscomb % (Auto) Eos % (Auto) Baso % (Auto) Lymph # (Auto) Lipscomb # (Auto) Eos # (Auto) Baso # (Auto) Abs Immat Gran (auto) Absolute Neuts (auto) Absolute Nucleated RBC Nucleated RBC % (auto) PT 37.4 H INR 3.2 H APTT Sodium 136 Potassium 4.6 Chloride 103 Carbon Dioxide 23 Anion Gap 15 BUN 8 L Creatinine 0.84 Estim Creat Clear Calc 53.5 Estimated GFR > 60 POC Glucose Random Glucose 151 H D Calcium 9.0 D Magnesium Total Bilirubin Direct Bilirubin AST ALT Alkaline Phosphatase Troponin I High Sens 1255.4 H* B-Natriuretic Peptide Total Protein Albumin Ethyl Alcohol COVID-19 ([facility]) COVID-19 Clin Com Quality Stroke Does the patient have a stroke diagnosis?: No VTE Prior VTE?: No VTE Risk Level:: Medical - moderate - high VTE Device Contraindication: Treatment Not Indicated VTE Drug Contraindication: N/A - Med Ordered
--- NOTE | 2020-09-12 09:03 | PC.NURSE ---
Bedside echo at this time
--- NOTE | 2020-09-12 10:23 | MHC.CM.PN ---
met with pt who explins that she had no services priro t o admission pt has own transportation home ?care team referral
[2020-09-12] MEDS: Nicotine 21 MG PATCH.TD24 TRANSDERMA (11:10)
--- NOTE | 2020-09-12 11:15 | P.CONCA_ITS ---
History of Present Illness History of Present Illness Date of Service: 09/12/20 Requesting physician: Josh Martinez Consult reason: troponin elevation and other (Syncope) Chief complaint: Syncope Narrative: I was requested to see Angeles in cardiology consultation today for syncope. She is a pleasant 74-year-old woman who sees Dr. Schmid in cardiology for paroxysmal atrial fibrillation, last seen Mira in February. She also has prior history of abdominal aorta atherosclerosis as well as mild abdominal aortic aneurysm. No evidence of known prior coronary artery disease with normal myocardial perfusion imaging in December of 2018. History of hypertension hyperlipidemia daily alcohol use. She was admitted in April to [facility] with syncope and was felt that this was probably alcohol related at that time. Heart yesterday she was in usual state of health came home from shopping and her friend dropped her off at her place of living. She walked to the car and was not dealing with grocery bag and then she found herself on the ground. She has lacerations on her right elbow. She had lost consciousness. Exact duration unknown but she says she was not very long. A fellow dweller noted her to be on the ground and called 911. She came to the emergency room. Initial EKG nonischemic. However troponin was significantly elevated and jennifer initially from [id number] and down trended this morning to 1255. She was not anticoagulated as she is on warfarin with supratherapeutic INR at 3.4 on admission. She says she felt funny but did not have any clear prodrome well symptoms. No chest pain or shortness of breath. No recent exertional chest pain or shortness of breath. Echocardiogram done this morning shows [id number] LV systolic dysfunction with LVEF of 40-45% with LAD territory wall motion abnormality. Cardiology consult was sought for further management. Review of Systems Constitutional: Constitutional: Reports no additional constitutional complaints Cardiovascular: Cardiovascular: Denies chest pain, Denies chest pain with activity, Denies rapid heart rate, Denies lightheadedness, Reports Loss of Consciousness, Denies palpitations, Denies dyspnea and Denies dyspnea on exertion Respiratory: Respiratory: Reports no additional respiratory complaints, Denies dyspnea and Denies dyspnea on exertion Gastrointestinal: Gastrointestinal: Reports no additional gastrointestinal complaints Musculoskeletal: Musculoskeletal: Reports no additional musculoskeletal complaints Neurologic: Reports system reviewed and no additional complaints, except as documented Psychiatric: Psychiatric: Reports no additional psychiatric complaints Endocrine: Endocrine: Reports no additional endocrine complaints and Denies palpitations Hematologic/Lymphatic: Hematologic/Lymphatic: Reports no additional hematologic/lymphatic complaints [facility] Past Medical History Medical History AAA (abdominal aortic aneurysm) Anxiety Atrial flutter ETOH abuse HLD (hyperlipidemia) Insomnia Mammogram declined Nausea Osteopenia Pure hypercholesterolemia Smoking Family History Family History Father CVD (cardiovascular disease) Stomach cancer History of heart attack Mother No problems noted. Sister Brain tumor Brother No problems noted. Sister No problems noted. Surgical History Surgical History H/O colonoscopy No pertinent past surgical history Total knee replacement status (~12/2019) Social History Social History Household Members: Significant Other Housing: Apartment Do you presently have visiting nurse or other home services: No Alcohol intake: current Alcohol intake frequency: a few times a week Alcohol type: wine Patient Tobacco Use Status: Current everyday Tobacco user Tobacco use type: Cigarette Cigarettes Per Day: 6 Smoked in Last 30 Days: Yes Patient Interested in Nicotine Replacement: No Patient Given Instructions on How to Stop Smoking: No Second Hand Smoke Exposure: No Use of substances other than those prescribed or required for medical reasons: No Currently Displaying Signs/Symptoms of Drug Intoxication Withdrawal: No Any prior treatment program specific to substance use: No Have you been hit, kicked, punched, or otherwise hurt by someone within the past year? If so, by whom?: No Do you feel safe in your current relationship?: Yes Is there a partner from a previous relationship who is making you feel unsafe now?: No Are you made to feel afraid or neglected: No Spiritual Healthcare Practices: christianity Advance Directives: No Advance Directives Information Provided: No Do you have thoughts of harming others: None Do you have a plan to hurt others: No Plan Recently lost weight without trying: No Eating poorly because of decreased appetite: Yes Nutrition Risks: No Nutritional Risk Patient : No : No Poor oral hygiene: No service: No Meds Allergies Allergy/AdvReac Type Severity Reaction Status Date / Time citalopram AdvReac Unknown nausea Verified 09/11/20 20:49 Active Medications: Current Medications Generic Name Dose Route Start Last Admin Trade Name Yanick PRN Reason Stop Dose Admin Acetaminophen 650 mg 09/12/20 00:03 Acetaminophen 325 Mg Tablet PO Q6H PRN Pain, Mild (Pain Scale 1-3) Aspirin 325 mg 09/12/20 09:00 09/12/20 10:28 Aspirin Enteric Coated 325 Mg Tablet. PO Not Given DAILY BOUBACAR Atorvastatin Calcium 20 mg 09/12/20 09:00 09/12/20 08:23 Atorvastatin Calcium 20 Mg Tablet PO 20 mg DAILY BOUBACAR Administration Cyanocobalamin 1,000 mcg 09/12/20 09:00 09/12/20 08:23 Cyanocobalamin (Vitamin B-12) 1,000 Mcg Tablet PO 1,000 mcg DAILY BOUBACAR Administration Docusate Sodium 100 mg 09/12/20 00:03 Docusate Sodium 100 Mg Capsule PO DAILY PRN Constipation Folic Acid 1 mg 09/12/20 09:00 09/12/20 08:23 Folic Acid 1 Mg Tablet PO 1 mg DAILY BOUBACAR Administration Medication 1 each 09/12/20 09:00 No Benzodiazepines MISCELLANE DAILY BOUBACAR Metoprolol Succinate 25 mg 09/12/20 09:00 09/12/20 08:23 Metoprolol Succinate Er 25 Mg Tab.Er.24h PO 25 mg DAILY BOUBACAR Administration Protocol Nicotine 21 mg 09/12/20 09:00 09/12/20 11:10 Nicotine 21 Mg Patch.Td24 TRANSDERMA 21 mg DAILY BOUBACAR Administration Ondansetron HCl 4 mg 09/12/20 00:03 Ondansetron Hcl 4 Mg/2 Ml Vial IVPUSH Q8H PRN Nausea and Vomiting Phenobarbital 30 mg 09/12/20 21:00 Phenobarbital 30 Mg Tablet PO 09/14/20 09:01 BID BOUBACAR Protocol Phenobarbital 15 mg 09/14/20 21:00 Phenobarbital 15 Mg Tablet PO 09/16/20 09:01 BID BOUBACAR Protocol Phenobarbital 15 mg 09/17/20 09:00 Phenobarbital 15 Mg Tablet PO 09/18/20 09:01 DAILY BOUBACAR Protocol Sodium Chloride 3 ml 09/12/20 00:03 09/12/20 07:30 0.9 % Sodium Chloride Flush 3 Ml Syringe IVFLUSH 3 ml QSHIFT BOUBACAR Administration Thiamine HCl 100 mg 09/12/20 09:00 09/12/20 08:23 Thiamine Hcl 100 Mg Tablet PO 100 mg DAILY BOUBACAR Administration Vitamin D 25 mcg 09/12/20 09:00 09/12/20 08:23 Cholecalciferol (Vitamin D3) 25 Mcg Tablet PO 25 mcg DAILY BOUBACAR Administration Home Medications Medication Instructions Recorded Confirmed Last Taken Type cholecalciferol (vitamin D3) 25 mcg PO DAILY 09/11/20 09/11/20 09/11/20 History [Vitamin D3] warfarin 3 mg PO BEDTIME 09/12/20 09/12/20 09/10/20 History Physical Exam Vital Signs: Vital Signs: Last Vital Signs Temp 97.5 F 09/12/20 09:53 Pulse 84 09/12/20 09:53 Resp 18 09/12/20 09:53 BP 106/64 09/12/20 09:53 Pulse Ox 96 09/12/20 09:53 Body Mass Index 29.2 Const: General: cooperative, comfortable, no acute distress, alert and awake Nutritional Appearance: overweight Orientation/consciousness: patient oriented x3 Limitations: no limitations HENMT: Head: Yes normocephalic and Yes atraumatic Neck: Neck: Yes trachea midline, Yes supple and Yes no JVD Resp: Effort & Inspection: normal respiratory effort Auscultation: clear to auscultation bilaterally Cardio: Jugular venous distension: no JVD Palpation: normal PMI Rate: regular rate Rhythm: regular rhythm Heart sounds: S1 normal heart sound present and S2 normal heart sound present GI: Auscultation: normal bowel sounds Skin: General skin exam: no rashes or lesions noted Neuro: General: patient oriented x3 and no focal motor deficits Extrem: General: Yes no clubbing, cyanosis or edema Psych: Appearance: grossly normal Results Labs and Meds Result diagrams: 09/12/20 06:57 09/12/20 06:57 Lab results: Laboratory Results - last 24 hr 09/11/20 09/11/20 09/11/20 17:27 18:48 18:48 WBC 10.1 RBC 4.11 L Hgb 13.2 Hct 39.5 MCV 96.1 MCH 32.1 MCHC 33.4 RDW 15.8 Plt Count 272 MPV 8.8 L Immature Gran % (Auto) 0.6 H Neut % (Auto) 78.7 H Lymph % (Auto) 8.8 L [place] % (Auto) 10.4 Eos % (Auto) 0.9 Baso % (Auto) 0.6 Lymph # (Auto) 0.9 L [place] # (Auto) 1.1 Eos # (Auto) 0.1 Baso # (Auto) 0.1 Abs Immat Gran (auto) 0.06 H Absolute Neuts (auto) 8.0 Absolute Nucleated RBC 0.000 Nucleated RBC % (auto) 0.0 PT 39.1 H INR 3.4 H APTT 45.5 H Sodium Potassium Chloride Carbon Dioxide Anion Gap BUN Creatinine Estim Creat Clear Calc Estimated GFR POC Glucose 144 H Random Glucose Calcium Magnesium Total Bilirubin Direct Bilirubin AST ALT Alkaline Phosphatase Troponin I High Sens B-Natriuretic Peptide Total Protein Albumin Ethyl Alcohol COVID-19 ([facility]) COVID-19 Clin Com 09/11/20 09/11/20 09/11/20 18:48 18:48 18:48 WBC RBC Hgb Hct MCV MCH MCHC RDW Plt Count MPV Immature Gran % (Auto) Neut % (Auto) Lymph % (Auto) [place] % (Auto) Eos % (Auto) Baso % (Auto) Lymph # (Auto) [place] # (Auto) Eos # (Auto) Baso # (Auto) Abs Immat Gran (auto) Absolute Neuts (auto) Absolute Nucleated RBC Nucleated RBC % (auto) PT INR APTT Sodium 136 Potassium 4.2 Chloride 109 H Carbon Dioxide 15 L Anion Gap 16 BUN 8 L Creatinine 0.71 Estim Creat Clear Calc 63.2 Estimated GFR > 60 POC Glucose Random Glucose 96 Calcium 8.2 L D Magnesium 2.0 Total Bilirubin 0.3 Direct Bilirubin 0.2 AST 32 H ALT 19 Alkaline Phosphatase 93 Troponin I High Sens 673.1 H* B-Natriuretic Peptide 157 H Total Protein 6.9 Albumin 4.0 Ethyl Alcohol 172 COVID-19 ([facility]) COVID-19 Clin Com 09/11/20 09/11/20 09/12/20 20:40 21:17 06:57 WBC 6.2 RBC 4.41 Hgb 13.9 Hct 42.9 MCV 97.3 MCH 31.5 MCHC 32.4 RDW 15.9 Plt Count 278 MPV 9.0 L Immature Gran % (Auto) 0.6 H Neut % (Auto) 88.5 H Lymph % (Auto) 8.9 L [place] % (Auto) 1.8 L Eos % (Auto) 0.0 Baso % (Auto) 0.2 Lymph # (Auto) 0.6 L [place] # (Auto) 0.1 Eos # (Auto) 0.0 Baso # (Auto) 0.0 Abs Immat Gran (auto) 0.04 H Absolute Neuts (auto) 5.5 Absolute Nucleated RBC 0.000 Nucleated RBC % (auto) 0.0 PT INR APTT Sodium Potassium Chloride Carbon Dioxide Anion Gap BUN Creatinine Estim Creat Clear Calc Estimated GFR POC Glucose Random Glucose Calcium Magnesium Total Bilirubin Direct Bilirubin AST ALT Alkaline Phosphatase Troponin I High Sens 1738.2 H* D B-Natriuretic Peptide Total Protein Albumin Ethyl Alcohol COVID-19 ([facility]) Negative COVID-19 Clin Com See Note 09/12/20 09/12/20 09/12/20 06:57 06:57 06:57 WBC RBC Hgb Hct MCV MCH MCHC RDW Plt Count MPV Immature Gran % (Auto) Neut % (Auto) Lymph % (Auto) [place] % (Auto) Eos % (Auto) Baso % (Auto) Lymph # (Auto) [place] # (Auto) Eos # (Auto) Baso # (Auto) Abs Immat Gran (auto) Absolute Neuts (auto) Absolute Nucleated RBC Nucleated RBC % (auto) PT 37.4 H INR 3.2 H APTT Sodium 136 Potassium 4.6 Chloride 103 Carbon Dioxide 23 Anion Gap 15 BUN 8 L Creatinine 0.84 Estim Creat Clear Calc 53.5 Estimated GFR > 60 POC Glucose Random Glucose 151 H D Calcium 9.0 D Magnesium Total Bilirubin Direct Bilirubin AST ALT Alkaline Phosphatase Troponin I High Sens 1255.4 H* B-Natriuretic Peptide Total Protein Albumin Ethyl Alcohol COVID-19 ([facility]) COVID-19 Clin Com EKG shows sinus tachycardia with left axis deviation with left ventricular hypertrophy Echocardiogram shows Conclusions: - 1. [id number] LV systolic dysfunction with regional wall motion abnormality in LAD territory with pseudonormal filling pattern 2. Normal cardiac valvular Doppler with fibrocalcific aortic valve changes 3. Normal RV systolic pressure 4. Mildly dilated ascending aorta 5. No gross pericardial effusion Imaging Radiologist's impression: Impressions Cervical Spine CT 09/11/20 17:29 IMPRESSION: HEAD: No acute intracranial hemorrhage or mass effect. CERVICAL SPINE: No acute fracture. Reversal of the normal cervical lordosis, which may be positional or related to muscular spasm. Minimal grade 1 anterolisthesis of C4 on C5. Prominent degenerative disc disease at C5-C6 and C6-C7 with mild multilevel bilateral facet arthropathy and multilevel bilateral neural foraminal stenosis. Chest X-Ray 09/11/20 17:33 IMPRESSION: Interstitial prominence and patchy bilateral airspace opacities which has increased when compared to the prior chest radiograph. This could indicate a chronic infectious or inflammatory process versus multifocal pneumonia. Head CT 09/11/20 17:33 IMPRESSION: HEAD: No acute intracranial hemorrhage or mass effect. CERVICAL SPINE: No acute fracture. Reversal of the normal cervical lordosis, which may be positional or related to muscular spasm. Minimal grade 1 anterolisthesis of C4 on C5. Prominent degenerative disc disease at C5-C6 and C6-C7 with mild multilevel bilateral facet arthropathy and multilevel bilateral neural foraminal stenosis. Chest CT 09/11/20 20:22 IMPRESSION: 1. Diffuse interstitial prominence with peripheral honeycombing as well as traction bronchiectasis and ground-glass airspace opacities, consistent with chronic interstitial lung disease/pulmonary fibrosis. Findings have significantly increased when compared to the CT from 2016. 2. Mild thoracic aortic dilatation, unchanged when compared to the CT from 2016. Assessment and Plan (1) NSTEMI (non-ST elevated myocardial infarction): Status: Acute Patient with elevation of troponin consistent with myocardial injury with echocardiogram showing wall motion abnormality in LAD territory. Potential differential diagnosis include significant obstructive LAD stenosis versus variant of stress-induced cardiomyopathy. She needs cardiac catheterization. This was discussed with her. She seems to have a lot of questions, they were answered. Risks, benefits, alternatives 2nd opinion to procedure were discussed. She will be transferred to [facility]. 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 Given that her INR is still elevated would hold off on any other anticoagulation. Low-dose aspirin. Beta-blockers to continue. High-intensity statin therapy. Further treatment based on the findings of cardiac catheterization. (2) Syncope: Qualifiers: Syncope type: unspecified Qualified Code(s): R55 - Syncope and collapse Status: Acute Syncope as a very unusual manifestation of cardiac ischemia. Cardiac catheterization above. Further treatment based on the findings of cardiac ernesto terization. (3) Paroxysmal A-fib: Status: Acute Paroxysmal atrial fibrillation, currently sinus rhythm. Continue m etoprolol therapy. Continue to pursue rhythm control approach. Avoidance of alcohol use was discussed. Currently on full oral anticoagulation as outpatient on warfarin therapy. Maintain target INR between 2 and 3. Will follow with the patient as outpatient. Thank you for allowing me to partake in the care Procedures Date of Service Date of Service: 09/12/20
--- NOTE | 2020-09-12 12:22 | P.DS_ITS ---
DS: Providers Provider Date of Service: 09/12/20 Date of admission: 09/11/20 23:53 Primary care physician: Brisa Cortes MD Consults: 09/12/20 05:51 Consult to Cardiology Routine Consulting Provider: Thierno Sim Reason for consultation: elevated trop, syncope Has provider been notified: No DS: Diagnosis Discharge Diagnosis (1) NSTEMI (non-ST elevated myocardial infarction): Status: Acute (2) Syncope: Status: Acute DS: Medications Discharge Medications Home Medications: Home Medications Medication Instructions Recorded Confirmed cholecalciferol (vitamin D3) 25 mcg PO DAILY 09/11/20 09/11/20 [Vitamin D3] warfarin 3 mg PO BEDTIME 09/12/20 09/12/20 Previous Rx's Medication Instructions Recorded folic acid 1 mg tablet 1 mg PO DAILY #90 tab 04/14/20 cyanocobalamin (vitamin B-12) 1,000 mcg PO DAILY #90 tab 05/05/20 1,000 mcg tablet thiamine HCl (vitamin B1) 100 mg 100 mg PO DAILY #90 tab 05/09/20 tablet metoprolol succinate 25 mg 25 mg PO DAILY #90 tab 05/10/20 tablet,extended release 24 hr atorvastatin 20 mg tablet 20 mg PO DAILY #90 tab 05/27/20 phenobarbital 15 mg PO BID #2 tab 09/12/20 phenobarbital 15 mg PO DAILY #2 tab 09/12/20 phenobarbital 30 mg PO BID #2 tab 09/12/20 DS: Summary Hospital Course Hospital Course: 74-year-old female with past medical history of AAA, paroxysmal AFib, insomnia, HLD, HTN, GERD who presents to the hospital with complaints of syncope. Patient reports that she had 1 episode in April but at that time she went to [facility] and was told that it was secondary to her AFib, and then reoccurred today while she was getting at of somebody's car in a parking lot. She reports that the syncope occurred with no prodromal symptoms and no postictal confusion. It lasted few seconds, she did not hit her head. Patient reports no headache, no change in vision, no dizziness or vertigo, reports no chest pain or palpitations prior. Reports that she gets nervous right prior but does not have any sense that she is about to pass out. She denies any abdominal pain nausea or vomiting, no diarrhea constipation, no urinary symptoms. She reports that she drinks 1 cup of wine every day but was not drinking or drunk at the time that she syncopized. Denies any urinary symptoms and no lower extremity edema. On arrival to the ED patient hemodynamically stable with no significant abnormal vitals except for a transient heart rate of 103 that resolved Labs are significant for unremarkable CBC, PT INR of 39 with an INR 3.4, sodium of 136, BUN of 8, initial troponin of 6073, repeat of 1738, BNP of 157 EKG shows sinus rhythm with T inversion in lead [address] T-wave abnormality Case was discussed by ED physician with Cardiology and as patient has no chest pain, no significant EKG changes troponin will just be monitored. Hospital Course problem ramírez section: 74-year-old female with past medical history of paroxysmal AFib who presents the hospital with syncope: Patient came with syncopal episode found to have elevated troponin subsequently seen by Cardiology and workup ramírez echo done showed wall motion abnormality in LAD territory-differential diagnosis probably stress-induced cardiomyopathy versus obstructive LAD stenosis, elevated troponins probable sec to above (secondary Nstemi)-for that region patient is to cardiac catheterization and need to go to [facility]. Cardiology recommended to start small dose aspirin which is added. Patient has AFib: What is currently on Coumadin, INR today is 3.2, hold off Coumadin for today please recheck INR in [facility] tomorrow and further and adjustment of Coumadin accordingly needs to be done. Patient also has history of alcohol use: Currently does not seem in any withdrawal, precaution only she was started on phenobarb p.o. will continue that. Monitor CIWA scale. Above management discussed with the patient in detail length she understand and in agreement with the above plan, time spent 50 minutes and 50% time spent on counseling. Significant findings: As above. Procedures performed: None. Treatment and response: As above. Complications: None. Time Spent with Patient Time attestation: Total time spent providing and/or coordinating discharge services: Discharge coordination time: Greater than 30 minutes Quality: Stroke Does the patient have a stroke diagnosis?: No Physical Exam Vital Signs: Vital Signs: Last Vital Signs Temp 97.8 F 09/12/20 11:18 Pulse 83 09/12/20 11:18 Resp 18 09/12/20 11:18 BP 104/65 09/12/20 11:18 Pulse Ox 97 09/12/20 11:18 Body Mass Index 29.2 Physical exam: Constitutional: Noted acute distress. Heent: eyes anicteric , no discharge. Cvs: rrr, [id number] , no murmur res: clear to auscultation ,no rhonchii or wheezing abd: no rebound or guarding ,nt, bs present. ext pulses present , no cyanosis neuro: axo3 , nonfocal. DS: Data Data Completed and Pending Labs on day of discharge: Laboratory Results - last 24 hr 09/11/20 09/11/20 09/11/20 17:27 18:48 18:48 WBC 10.1 RBC 4.11 L Hgb 13.2 Hct 39.5 MCV 96.1 MCH 32.1 MCHC 33.4 RDW 15.8 Plt Count 272 MPV 8.8 L Immature Gran % (Auto) 0.6 H Neut % (Auto) 78.7 H Lymph % (Auto) 8.8 L [place] % (Auto) 10.4 Eos % (Auto) 0.9 Baso % (Auto) 0.6 Lymph # (Auto) 0.9 L [place] # (Auto) 1.1 Eos # (Auto) 0.1 Baso # (Auto) 0.1 Abs Immat Gran (auto) 0.06 H Absolute Neuts (auto) 8.0 Absolute Nucleated RBC 0.000 Nucleated RBC % (auto) 0.0 PT 39.1 H INR 3.4 H APTT 45.5 H Sodium Potassium Chloride Carbon Dioxide Anion Gap BUN Creatinine Estim Creat Clear Calc Estimated GFR POC Glucose 144 H Random Glucose Calcium Magnesium Total Bilirubin Direct Bilirubin AST ALT Alkaline Phosphatase Troponin I High Sens B-Natriuretic Peptide Total Protein Albumin Ethyl Alcohol COVID-19 ([facility]ACEY) COVID-19 Clin Com 09/11/20 09/11/20 09/11/20 18:48 18:48 18:48 WBC RBC Hgb Hct MCV MCH MCHC RDW Plt Count MPV Immature Gran % (Auto) Neut % (Auto) Lymph % (Auto) [place] % (Auto) Eos % (Auto) Baso % (Auto) Lymph # (Auto) [place] # (Auto) Eos # (Auto) Baso # (Auto) Abs Immat Gran (auto) Absolute Neuts (auto) Absolute Nucleated RBC Nucleated RBC % (auto) PT INR APTT Sodium 136 Potassium 4.2 Chloride 109 H Carbon Dioxide 15 L Anion Gap 16 BUN 8 L Creatinine 0.71 Estim Creat Clear Calc 63.2 Estimated GFR > 60 POC Glucose Random Glucose 96 Calcium 8.2 L D Magnesium 2.0 Total Bilirubin 0.3 Direct Bilirubin 0.2 AST 32 H ALT 19 Alkaline Phosphatase 93 Troponin I High Sens 673.1 H* B-Natriuretic Peptide 157 H Total Protein 6.9 Albumin 4.0 Ethyl Alcohol 172 COVID-19 ([facility]ACEY) COVID-19 Clin Com 09/11/20 09/11/20 09/12/20 20:40 21:17 06:57 WBC 6.2 RBC 4.41 Hgb 13.9 Hct 42.9 MCV 97.3 MCH 31.5 MCHC 32.4 RDW 15.9 Plt Count 278 MPV 9.0 L Immature Gran % (Auto) 0.6 H Neut % (Auto) 88.5 H Lymph % (Auto) 8.9 L [place] % (Auto) 1.8 L Eos % (Auto) 0.0 Baso % (Auto) 0.2 Lymph # (Auto) 0.6 L [place] # (Auto) 0.1 Eos # (Auto) 0.0 Baso # (Auto) 0.0 Abs Immat Gran (auto) 0.04 H Absolute Neuts (auto) 5.5 Absolute Nucleated RBC 0.000 Nucleated RBC % (auto) 0.0 PT INR APTT Sodium Potassium Chloride Carbon Dioxide Anion Gap BUN Creatinine Estim Creat Clear Calc Estimated GFR POC Glucose Random Glucose Calcium Magnesium Total Bilirubin Direct Bilirubin AST ALT Alkaline Phosphatase Troponin I High Sens 1738.2 H* D B-Natriuretic Peptide Total Protein Albumin Ethyl Alcohol COVID-19 (KACEY) Negative COVID-19 Clin Com See Note 09/12/20 09/12/20 09/12/20 06:57 06:57 06:57 WBC RBC Hgb Hct MCV MCH MCHC RDW Plt Count MPV Immature Gran % (Auto) Neut % (Auto) Lymph % (Auto) [place] % (Auto) Eos % (Auto) Baso % (Auto) Lymph # (Auto) [place] # (Auto) Eos # (Auto) Baso # (Auto) Abs Immat Gran (auto) Absolute Neuts (auto) Absolute Nucleated RBC Nucleated RBC % (auto) PT 37.4 H INR 3.2 H APTT Sodium 136 Potassium 4.6 Chloride 103 Carbon Dioxide 23 Anion Gap 15 BUN 8 L Creatinine 0.84 Estim Creat Clear Calc 53.5 Estimated GFR > 60 POC Glucose Random Glucose 151 H D Calcium 9.0 D Magnesium Total Bilirubin Direct Bilirubin AST ALT Alkaline Phosphatase Troponin I High Sens 1255.4 H* B-Natriuretic Peptide Total Protein Albumin Ethyl Alcohol COVID-19 (KACEY) COVID-19 Clin Com Discharge Plan Discharge Patient Disposition: Xfer Acute Care Hospital Discharge Diagnosis: probale nstemi, syncope Referrals: [facility] [Other] - 1 Week Brisa Cortes MD [Primary Care Provider] - 1 Week Discharge Medications: New nicotine 21 mg/24 hr Patch 24 Hour 21 mg transdermal DAILY Qty: 1 RF: 0 aspirin 81 mg tablet,delayed release (DR/EC) 81 mg PO DAILY Qty: 1 RF: 0 phenobarbital 15 mg Tablet 15 mg PO BID Qty: 2 RF: 0 phenobarbital 15 mg Tablet 15 mg PO DAILY Qty: 2 RF: 0 phenobarbital 30 mg Tablet 30 mg PO BID Qty: 2 RF: 0 Continued folic acid 1 mg tablet 1 mg PO DAILY Qty: 90 RF: 3 cyanocobalamin (vitamin B-12) 1,000 mcg tablet 1,000 mcg PO DAILY Qty: 90 RF: 3 thiamine HCl (vitamin B1) 100 mg tablet 100 mg PO DAILY Qty: 90 RF: 3 metoprolol succinate 25 mg tablet extended release 24 hr 25 mg PO DAILY Qty: 90 RF: 3 atorvastatin 20 mg tablet 20 mg PO DAILY Qty: 90 RF: 0 cholecalciferol (vitamin D3) [Vitamin D3] 25 mcg (1,000 unit) Tablet 25 mcg PO DAILY RF: 0 Held warfarin 3 mg Tablet 3 mg PO BEDTIME RF: 0 Hold Instructions: Resume on 09/14/20. hold until cleared by cardiology Discharge Orders: Discharge Order (Routine); Ordered 09/12/20 Ordered By: Josh Martinez Diet: advance to usual diet, low fat, low cholesterol and low salt diet Activity on Discharge: As tolerated Stand Alone Forms: Patient Portal Discharge page Care Plan Goals: Patient came with syncopal episode found to have elevated troponin subsequently seen by Cardiology and workup ramírez echo done showed wall motion abnormality in LAD territory-differential diagnosis probably stress-induced cardiomyopathy versus obstructive LAD stenosis-for that region patient is to cardiac catheterization and need to go to [facility]. Will hold off Coumadin her last INR is 3.2 today morning. Cardiology recommended to start small dose aspirin which is added. Patient also has history of alcohol use: Currently does not seem in any withdrawal, precaution only she was started on phenobarb p.o. will continue that. Monitor CIWA scale. Health Concerns: As above. Plan of Treatment: As above. Assessment: As above. Discharge Date/Time: 09/12/20 21:45
--- NOTE | 2020-09-12 13:22 | MHC.CM.PN ---
DISCHARGE ORDER RECEIVED FEMALE 74 DX SYNCOPE. PATIENT IS DISCHARGED TODAY TO HOME NO SERVICES. FAMILY IS PROVIDING TRANSPORTATION.
--- NOTE | 2020-09-12 13:44 | MHC.CM.PN ---
Female 74 DX Syncope. She will be transfered to [facility] [place] via [facility].
--- NOTE | 2020-09-12 14:50 | MHC.CM.PN ---
transfer to [facility] today
[2020-09-12] MEDS: PHENobarbitaL 30 MG TABLET PO (20:50)
== END 2020-09-12 21:45 | disposition short-term general hospital (02) | DRG 282 ==
LOC: HO.ED 22:17 → HO.EDOVER 09-12 00:59 → HO.IMC 09-12 07:34
PROVIDERS: Admitting Provider Internal Medicine; Emergency Provider Internal Medicine; PCP Internal Medicine; Visit Provider Internal Medicine
DX: I48.0 Paroxysmal atrial fibrillation (principal); I21.A1 Myocardial infarction type 2; F41.9 Anxiety disorder, unspecified; F17.210 Nicotine dependence, cigarettes, uncomplicated; Z71.6 Tobacco abuse counseling; E78.5 Hyperlipidemia, unspecified; I10 Essential (primary) hypertension; K21.9 Gastro-esophageal reflux disease without esophagitis; Z20.822 Contact with and (suspected) exposure to COVID-19; Z79.01 Long term (current) use of anticoagulants; Z79.82 Long term (current) use of aspirin; Z79.899 Other long term (current) drug therapy
CPT/HCPCS: 36415; 70450; 71045; 71250; 72125; 80048; 80076; 82077; 82947; 83735; 83880; 84484; 85025; 85610; 85730; 87635; 93005; 93306; 94640; 99219; 99285; J2560; J2930; Q9957

== ENCOUNTER → 2020-09-16 11:10 | Outpatient (BNVA) | payer MEDICARE, SELFPAY | PROVIDERS: PCP Internal Medicine; Visit Provider Internal Medicine | DX: I48.0 Paroxysmal atrial fibrillation (principal); Z51.81 Encounter for therapeutic drug level monitoring; Z79.01 Long term (current) use of anticoagulants | CPT/HCPCS: 85610; 99211 ==

== ENCOUNTER → 2020-09-20 11:10 | Outpatient (BNVA) | payer MEDICARE, SELFPAY | PROVIDERS: PCP Internal Medicine; Visit Provider Internal Medicine | DX: I48.0 Paroxysmal atrial fibrillation (principal); Z51.81 Encounter for therapeutic drug level monitoring; Z79.01 Long term (current) use of anticoagulants | CPT/HCPCS: 85610; 99211 ==

== ENCOUNTER → 2020-09-22 13:38 | Outpatient (BNVA) | payer MEDICARE, SELFPAY | PROVIDERS: PCP Internal Medicine; Referring Provider Internal Medicine; Visit Provider Internal Medicine | DX: I48.92 Unspecified atrial flutter (principal); F10.10 Alcohol abuse, uncomplicated; F17.200 Nicotine dependence, unspecified, uncomplicated; I71.4 Abdominal aortic aneurysm, without rupture; I21.4 Non-ST elevation (NSTEMI) myocardial infarction | CPT/HCPCS: 99212 ==

== ENCOUNTER → 2020-09-26 11:43 | Outpatient (BNVA) | payer MEDICARE, SELFPAY | PROVIDERS: PCP Internal Medicine; Visit Provider Internal Medicine | DX: I48.0 Paroxysmal atrial fibrillation (principal); Z51.81 Encounter for therapeutic drug level monitoring; Z79.01 Long term (current) use of anticoagulants | CPT/HCPCS: 85610; 99211 ==

== ENCOUNTER → 2020-09-30 11:12 | Outpatient (BNVA) | payer MEDICARE, SELFPAY | PROVIDERS: PCP Internal Medicine; Visit Provider Internal Medicine | DX: I48.0 Paroxysmal atrial fibrillation (principal); Z51.81 Encounter for therapeutic drug level monitoring; Z79.01 Long term (current) use of anticoagulants | CPT/HCPCS: 85610; 99211 ==

== ENCOUNTER 2020-10-07 08:30 | Outpatient (REF) | payer MEDICARE, SELFPAY ==
[2020-10-07 11:27] LABS: Prothrombin Time 80.4 SEC (9.9-13.0)
[2020-10-07 11:31] LABS: INTERNATIONAL NORM RATIO 6.8 (0.9-1.1)
== END 2020-10-07 08:31 | disposition home or self-care (01) ==
LOC: HO.LAB 08:30
PROVIDERS: PCP Internal Medicine; Visit Provider Internal Medicine
DX: I48.0 Paroxysmal atrial fibrillation (principal); Z51.81 Encounter for therapeutic drug level monitoring; Z79.01 Long term (current) use of anticoagulants
CPT/HCPCS: 36415; 85610; 99212

== ENCOUNTER → 2020-10-11 10:59 | Outpatient (BNVA) | payer MEDICARE, SELFPAY | PROVIDERS: PCP Internal Medicine; Visit Provider Internal Medicine | DX: I48.0 Paroxysmal atrial fibrillation (principal); Z51.81 Encounter for therapeutic drug level monitoring; Z79.01 Long term (current) use of anticoagulants | CPT/HCPCS: 85610; 99211 ==

== ENCOUNTER → 2020-10-18 10:56 | Outpatient (BNVA) | payer MEDICARE, SELFPAY | PROVIDERS: PCP Internal Medicine; Visit Provider Internal Medicine | DX: I48.0 Paroxysmal atrial fibrillation (principal); Z51.81 Encounter for therapeutic drug level monitoring; Z79.01 Long term (current) use of anticoagulants | CPT/HCPCS: 85610; 99211 ==

== ENCOUNTER → 2020-10-21 11:00 | Outpatient (BNVA) | payer MEDICARE, SELFPAY | PROVIDERS: PCP Internal Medicine; Visit Provider Internal Medicine | DX: I48.0 Paroxysmal atrial fibrillation (principal); Z51.81 Encounter for therapeutic drug level monitoring; Z79.01 Long term (current) use of anticoagulants | CPT/HCPCS: 85610; 99211 ==

== ENCOUNTER → 2020-10-27 11:19 | Outpatient (BNVA) | payer MEDICARE, SELFPAY | PROVIDERS: PCP Internal Medicine; Visit Provider Internal Medicine | DX: I48.0 Paroxysmal atrial fibrillation (principal); Z51.81 Encounter for therapeutic drug level monitoring; Z79.01 Long term (current) use of anticoagulants | CPT/HCPCS: 85610; 99211 ==

== ENCOUNTER → 2020-11-02 09:04 | Outpatient (REF) | payer MEDICARE, SELFPAY ==
--- NOTE | 2020-11-02 09:08 | CA_ITS ---
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 The calculated ejection fraction is 65% by biplane method. Findings Left Ventricle Normal left ventricular cavity size. There is normal left ventricular wall thickness. The left ventricular systolic function is normal. The calculated ejection fraction is 65% by biplane method. There is no evidence of regional wall motion abnormalities. Right Ventricle Normal right ventricular cavity size and systolic function. Prior Study Comparison Changes noted compared to prior study dated: 09/12/2020. Improved LVEF. Wall motion normalized. Measurements 2D Systolic Function EF 4C: 57.30 >55% EF 2C: 68.90 >55% EF BiP: 64.50 >55% Mitral Valve MV Pk E: 0.68 MV PK A: 0.84 MV Decel Time: 74.00 E/A: 0.80 E'Lateral: 8.70 E'Medial: 7.62 E/E' Med: 8.90 E/E' Lat: 7.80 PHT: 22.00 MVA PHT: 10.00 Decel [place]: 9.10 Diastolic Function MV Pk E: 0.68 MV Pk A: 0.84 E/A: 0.80 E'Medial: 7.62 E/E' Med: 8.90 E' Laterial: 8.70 E/E' Lat: 7.80 Right Ventricle TAPSE (mm): 2.17 Updated in Other Vendor System with Status of Final Miller Schmid MD electronically signed on 11/04/2020 10:56:20 AM with status of Final
== END ==
LOC: HO.CARD 09:04
PROVIDERS: PCP Internal Medicine; Visit Provider Internal Medicine
DX: I21.4 Non-ST elevation (NSTEMI) myocardial infarction (principal)
CPT/HCPCS: 93308

== ENCOUNTER → 2020-11-08 19:11 | Outpatient (REF) | payer MEDICARE, SELFPAY | LOC: HO.SL 19:11 | PROVIDERS: PCP Internal Medicine; Visit Provider Internal Medicine | DX: G47.33 Obstructive sleep apnea (adult) (pediatric) (principal); I48.0 Paroxysmal atrial fibrillation | CPT/HCPCS: 95810 ==

== ENCOUNTER → 2020-11-11 11:32 | Outpatient (BNVA) | payer MEDICARE, SELFPAY | PROVIDERS: PCP Internal Medicine; Visit Provider Internal Medicine | DX: I48.0 Paroxysmal atrial fibrillation (principal); Z51.81 Encounter for therapeutic drug level monitoring; Z79.01 Long term (current) use of anticoagulants | CPT/HCPCS: 85610; 99211 ==

== ENCOUNTER → 2020-11-21 13:01 | Outpatient (BNVA) | payer MEDICARE, SELFPAY | PROVIDERS: PCP Internal Medicine; Visit Provider Internal Medicine | DX: I48.0 Paroxysmal atrial fibrillation (principal); Z51.81 Encounter for therapeutic drug level monitoring; Z79.01 Long term (current) use of anticoagulants | CPT/HCPCS: 85610; 99211 ==

== ENCOUNTER → 2020-11-24 12:13 | Outpatient (BNVA) | payer MEDICARE, SELFPAY | PROVIDERS: PCP Internal Medicine; Referring Provider Internal Medicine; Visit Provider Internal Medicine | DX: I48.92 Unspecified atrial flutter (principal); I21.4 Non-ST elevation (NSTEMI) myocardial infarction; I71.4 Abdominal aortic aneurysm, without rupture; F10.10 Alcohol abuse, uncomplicated; F17.200 Nicotine dependence, unspecified, uncomplicated; Z71.6 Tobacco abuse counseling | CPT/HCPCS: 99212 ==

== ENCOUNTER → 2020-12-09 14:13 | Outpatient (BNVA) | payer MEDICARE, SELFPAY | PROVIDERS: PCP Internal Medicine; Visit Provider Internal Medicine | DX: I48.0 Paroxysmal atrial fibrillation (principal); Z51.81 Encounter for therapeutic drug level monitoring; Z79.01 Long term (current) use of anticoagulants | CPT/HCPCS: 85610; 99211 ==

== ENCOUNTER 2020-12-13 08:36 | Outpatient (REF) | payer MEDICARE, SELFPAY ==
[2020-12-13 12:24] LABS: Thyroid Stimulating Hormone 1.69 uIU/mL (0.32-4.0)
[2020-12-13 12:32] LABS: Cholesterol 184 mg/dL; HDL Cholesterol 87 mg/dL; LDL Cholesterol Calculated 85 mg/dl; Triglycerides 61 mg/dL
== END 2020-12-13 08:37 | disposition home or self-care (01) ==
LOC: HO.HMGCLDS 08:36
PROVIDERS: PCP Internal Medicine; Visit Provider Internal Medicine
DX: E78.5 Hyperlipidemia, unspecified (principal); I10 Essential (primary) hypertension; I71.4 Abdominal aortic aneurysm, without rupture; I48.92 Unspecified atrial flutter
CPT/HCPCS: 36415; 80061; 84443

== ENCOUNTER → 2020-12-30 14:19 | Outpatient (BNVA) | payer MEDICARE, SELFPAY | PROVIDERS: PCP Internal Medicine; Visit Provider Internal Medicine | DX: I48.0 Paroxysmal atrial fibrillation (principal); Z51.81 Encounter for therapeutic drug level monitoring; Z79.01 Long term (current) use of anticoagulants | CPT/HCPCS: 85610; 99211 ==

== ENCOUNTER → 2021-01-17 11:00 | Outpatient (BNVA) | payer MEDICARE, SELFPAY | PROVIDERS: PCP Internal Medicine; Visit Provider Internal Medicine | DX: I48.0 Paroxysmal atrial fibrillation (principal); Z51.81 Encounter for therapeutic drug level monitoring; Z79.01 Long term (current) use of anticoagulants | CPT/HCPCS: 85610; 99211 ==

== ENCOUNTER → 2021-01-25 13:05 | Outpatient (BNVA) | payer MEDICARE, SELFPAY | PROVIDERS: PCP Internal Medicine; Visit Provider Internal Medicine | DX: I48.0 Paroxysmal atrial fibrillation (principal); Z51.81 Encounter for therapeutic drug level monitoring; Z79.01 Long term (current) use of anticoagulants | CPT/HCPCS: 85610; 99211 ==

== ENCOUNTER → 2021-02-08 11:00 | Outpatient (BNVA) | payer MEDICARE, SELFPAY | PROVIDERS: PCP Internal Medicine; Visit Provider Internal Medicine | DX: I48.0 Paroxysmal atrial fibrillation (principal); Z51.81 Encounter for therapeutic drug level monitoring; Z79.01 Long term (current) use of anticoagulants | CPT/HCPCS: 85610; 99211 ==

== ENCOUNTER 2021-02-14 09:31 | Outpatient (REF) | payer MEDICARE, SELFPAY ==
[2021-02-14 11:48] LABS: Estimated Average Glucose 105 mg/dL; Hemoglobin A1c % 5.3 %
[2021-02-14 12:00] LABS: Alanine Aminotransferase 26 U/L (0-31); Albumin Level 4.3 g/dL (3.5-5.0); Alkaline Phosphatase 127 U/L (39-117); Anion Gap 12 (12-20); Aspartate Amino Transferase 31 U/L (5-31); Bilirubin Total 0.9 mg/dL (0.0-1.0); Blood Urea Nitrogen 9 mg/dL (9-16); Calcium 9.7 mg/dL (8.4-10.2); Carbon Dioxide 27 mmol/L (22-29); Chloride 106 mmol/L (96-108); Estimated Glomerular Filt Rate > 60; Glucose Fasting 112 mg/dL (60-99); Sodium 141 mmol/L (135-145); Total Protein 7.4 g/dL (6.5-8.0)
[2021-02-14 13:00] LABS: Folate > 20.0 ng/mL (> or = 4.0); Vitamin B12 836 pg/mL (200-900)
[2021-02-14 17:35] LABS: Influenza A PCR NEGATIVE (Negative); Influenza B PCR NEGATIVE (Negative); Resp Syncy Virus RNA Qual PCR NEGATIVE (Negative); SARS COV2 PCR INHOUSE NEGATIVE (Negative)
[2021-02-20 06:06] LABS: Vitamin B1 17 nmol/L (8-30)
== END 2021-02-14 09:32 | disposition home or self-care (01) ==
LOC: HO.HMGCLDS 09:31
PROVIDERS: Internal Medicine; PCP Internal Medicine; Visit Provider Internal Medicine
DX: E78.5 Hyperlipidemia, unspecified (principal); I10 Essential (primary) hypertension; I21.4 Non-ST elevation (NSTEMI) myocardial infarction; I48.92 Unspecified atrial flutter; J44.9 Chronic obstructive pulmonary disease, unspecified; R43.9 Unspecified disturbances of smell and taste; Z20.822 Contact with and (suspected) exposure to COVID-19
CPT/HCPCS: 0241U; 36415; 80053; 82607; 82746; 83036; 84425

== ENCOUNTER → 2021-02-22 11:18 | Outpatient (BNVA) | payer MEDICARE, SELFPAY | PROVIDERS: PCP Internal Medicine; Visit Provider Internal Medicine | DX: I48.0 Paroxysmal atrial fibrillation (principal); Z51.81 Encounter for therapeutic drug level monitoring; Z79.01 Long term (current) use of anticoagulants | CPT/HCPCS: 85610; 99211 ==

== ENCOUNTER 2021-03-02 13:17 | Outpatient (REF) | payer MEDICARE, SELFPAY ==
[2021-03-02 16:00] LABS: Binax Internal Control QC Valid; Binax Now Covid-19 Ag Negative (Negative)
== END 2021-03-02 13:18 | disposition home or self-care (01) ==
LOC: HO.LAB 13:17
PROVIDERS: Visit Provider Internal Medicine
DX: Z20.822 Contact with and (suspected) exposure to COVID-19 (principal)
CPT/HCPCS: 36415; C9803

== ENCOUNTER → 2021-03-08 11:24 | Outpatient (BNVA) | payer MEDICARE, SELFPAY | PROVIDERS: PCP Internal Medicine; Visit Provider Internal Medicine | DX: I48.0 Paroxysmal atrial fibrillation (principal); Z51.81 Encounter for therapeutic drug level monitoring; Z79.01 Long term (current) use of anticoagulants | CPT/HCPCS: 85610; 99211 ==

== ENCOUNTER → 2021-03-29 11:14 | Outpatient (BNVA) | payer MEDICARE, SELFPAY | PROVIDERS: PCP Internal Medicine; Visit Provider Internal Medicine | DX: I48.0 Paroxysmal atrial fibrillation (principal); Z51.81 Encounter for therapeutic drug level monitoring; Z79.01 Long term (current) use of anticoagulants | CPT/HCPCS: 85610; 99211 ==

== ENCOUNTER → 2021-04-19 11:12 | Outpatient (BNVA) | payer MEDICARE, SELFPAY | PROVIDERS: PCP Internal Medicine; Visit Provider Internal Medicine | DX: I48.0 Paroxysmal atrial fibrillation (principal); Z51.81 Encounter for therapeutic drug level monitoring; Z79.01 Long term (current) use of anticoagulants | CPT/HCPCS: 85610; 99211 ==

== ENCOUNTER 2021-05-01 09:14 | Outpatient (REF) | payer MEDICARE, SELFPAY ==
[2021-05-01 11:36] LABS: Hematocrit 44.3 % (37.0-47.0); Hemoglobin 14.4 g/dl (12.0-16.0); Mean Corpuscular HGB Conc 32.5 g/dl (31.0-35.0); Mean Corpuscular Volume 95.5 fL (80.0-98.0); Mean Platelet Volume 9.2 fL (9.4-12.3); Platelet Count 381 X10*3/uL (160-400); Red Blood Count 4.64 X10*6/uL (4.20-5.50); Red Cell Distribution Width 14.8 % (11.0-16.0); White Blood Count 8.4 X10*3/uL (4.8-10.8)
[2021-05-01 12:11] LABS: Alanine Aminotransferase 19 U/L (0-31); Albumin Level 4.2 g/dL (3.5-5.0); Alkaline Phosphatase 122 U/L (39-117); Anion Gap 15 (12-20); Aspartate Amino Transferase 27 U/L (5-31); Bilirubin Total 0.8 mg/dL (0.0-1.0); Blood Urea Nitrogen 10 mg/dL (9-16); Calcium 9.4 mg/dL (8.4-10.2); Carbon Dioxide 22 mmol/L (22-29); Chloride 105 mmol/L (96-108); Cholesterol 166 mg/dL; Estimated Glomerular Filt Rate > 60; Glucose Fasting 105 mg/dL (60-99); HDL Cholesterol 80 mg/dL; LDL Cholesterol Calculated 75 mg/dl; Potassium 4.2 mmol/L (3.3-5.1); Sodium 138 mmol/L (135-145); Total Protein 7.5 g/dL (6.5-8.0); Triglycerides 58 mg/dL
[2021-05-01 12:20] LABS: Estimated Average Glucose 103 mg/dL; Hemoglobin A1c % 5.2 %
== END 2021-05-01 09:15 | disposition home or self-care (01) ==
LOC: HO.HMGCLDS 09:14
PROVIDERS: Visit Provider Internal Medicine
DX: E78.5 Hyperlipidemia, unspecified (principal); I10 Essential (primary) hypertension; I48.0 Paroxysmal atrial fibrillation
CPT/HCPCS: 36415; 80053; 80061; 83036; 85027

== ENCOUNTER → 2021-05-10 11:12 | Outpatient (BNVA) | payer MEDICARE, SELFPAY | PROVIDERS: PCP Internal Medicine; Visit Provider Internal Medicine | DX: Z13.89 Encounter for screening for other disorder (principal) | CPT/HCPCS: 99211 ==

== ENCOUNTER 2021-05-10 11:37 | Emergency (ER) | payer MEDICARE, SELFPAY ==
[2021-05-10 11:38] VITALS: BP 162/107; PULSE 105; RESP 18; TEMP 36.3; O2SAT 94; BMI 29.6
--- NOTE | 2021-05-10 11:50 | ED.BACK ---
HPI - Back Pain/Injury General Chief Complaint: Back Pain/Injury Stated Complaint: pain - back pain, leg pain Time Seen by Provider: 05/10/21 11:47 Source: patient Mode of arrival: ambulatory Limitations: no limitations History of Present Illness HPI Narrative: 75 y/o female with history of COPD, GERD, anxiety, NSTEMI, paroxysmal afib, AAA, HTN, HLD, ETOH abuse who presents to the ER with lower back pain and bilateral leg pain for the last 5-6 days. She denies any known injury or trauma. She states the pains are worse at night and are aching in her entire lower back as well as cramping in her legs. She feels like her legs are restless at night. She denies any numbness, weakness or tingling sensation. She denies urinary symptoms. She denies bladder or bowel incontinence. MD elicited complaint: back pain and other (leg pain) Onset (ago): day(s) (5) Timing: intermittent Severity: moderate Similar Symptoms Previously: No Quality: aching and spasming Location: right lower back and left lower back Radiation: left upper leg, right upper leg, left leg below the knee and right leg below the knee Exacerbating factors: other (night) Relieving factors: none Context: unknown Associated symptoms: myalgias Treatments prior to arrival: acetaminophen Work related injury: No Related Data Home Medications Medication Instructions Recorded Confirmed cholecalciferol (vitamin D3) 25 25 mcg PO DAILY 09/11/20 05/02/21 mcg (1,000 unit) tablet (Vitamin D3) magnesium 250 mg tablet 250 mg PO DAILY 02/08/21 05/02/21 Previous Rx's Medication Instructions Recorded folic acid 1 mg tablet 1 mg PO DAILY #90 tab 04/14/20 cyanocobalamin (vitamin B-12) 1,000 mcg PO DAILY #90 tab 05/05/20 1,000 mcg tablet metoprolol succinate 25 mg 25 mg PO DAILY #90 tab 05/10/20 tablet,extended release 24 hr atorvastatin 40 mg tablet 40 mg PO DAILY #90 tab 11/11/20 warfarin 1 mg tablet 3 mg PO DAILY #270 tab 11/30/20 umeclidinium 62.5 mcg/actuation 1 inh INHALATION DAILY #30 ea 12/23/20 blister powder for inhalation (Incruse Ellipta) hydrocortisone 2.5 % topical cream 1 appl TOPICAL BID PRN #453.6 g 04/28/21 albuterol sulfate 90 mcg/actuation 2 puff INHALATION Q6H PRN #8.5 g 05/02/21 aerosol inhaler fluticasone 250 mcg-salmeterol 50 1 inh INHALATION BID #60 ea 05/02/21 mcg/dose blistr powdr for inhalation (Advair Diskus) thiamine HCl (vitamin B1) 100 mg 100 mg PO DAILY #90 tab 05/02/21 tablet cyclobenzaprine 5 mg tablet 5 mg PO TID PRN #10 tab 05/10/21 Allergies Allergy/AdvReac Type Severity Reaction Status Date / Time citalopram AdvReac Unknown nausea Verified 05/10/21 11:14 Review of Systems Review of Systems: Constitutional: No Fever, No Chills ENT/Mouth: No sore throat, No Rhinorrhea, No Swallowing Difficulty Cardiovascular: No Chest Pain, No SOB, No Orthopnea, No Edema Respiratory: No Cough, No Sputum, No Wheezing, No dyspnea Gastrointestinal: No Nausea, No Vomiting, No Diarrhea, No abdominal Pain Genitourinary: No Dysuria, No Urinary Frequency, No Hematuria, No incontinence Musculoskeletal: No joint pain, + Myalgias Skin: + Skin Lesions, No rash Neuro: No Weakness, No Numbness, No Dizziness, No Headache Heme/Lymph: No Bruising, No Lymphadenopathy Endocrine: No Polyuria, No Polydipsia PMFSH Past Medical History Medical History AAA (abdominal aortic aneurysm) Anxiety Atrial flutter COPD (chronic obstructive pulmonary disease) Elevated troponin level not due myocardial infarction ETOH abuse HLD (hyperlipidemia) Insomnia Mammogram declined Osteopenia Pure hypercholesterolemia Smoking Surgical History H/O colonoscopy History of cardiac catheterization (~08/2020) No pertinent past surgical history Total knee replacement status (~12/2019) Family History Family History Father CVD (cardiovascular disease) Stomach cancer History of heart attack Mother No problems noted. Sister Brain tumor Brother No problems noted. Sister No problems noted. Social History Social History Household Members: Significant Other Housing: Apartment Do you presently have visiting nurse or other home services: No Alcohol intake: current Alcohol intake frequency: a few times a week Alcohol type: wine Patient Tobacco Use Status: Former Tobacco user (2 months ago) Cigarette Packs Per Day: 0.01 Cigarettes Per Day: 2 Years Smoked: 50+ e-Cigarette/Vaping Use: Never Used Second Hand Smoke Exposure: No Advance Directives: No Advance Directives Information Provided: Yes service: No Current occupational status: retired Physical Exam Vital Signs: Vital Signs: Last Vital Signs Temp 97.3 F 05/10/21 11:38 Pulse 105 H 05/10/21 11:38 Resp 18 05/10/21 11:38 BP 162/107 H 05/10/21 11:38 Pulse Ox 94 05/10/21 11:38 BMI result Body Mass Index 29.6 Appearance: Alert. Oriented X3. No acute distress. Eyes: Normal internal inspection ENT: Pharynx normal. Neck: Normal inspection. Neck supple. CVS: Normal heart rate and rhythm. Pulses normal. Respiratory: No respiratory distress. Breath sounds normal. Abdomen: Soft and nontender. +BS x4 Back: normal inspection. mild soft tissue tenderness of the right and left lower lumbar area, no midline tenderness. normal spinal ROM. Skin: Skin warm and dry. Normal skin color. Normal skin turgor. Right lateral trunk with scarring, hyperpigmented rash consistent with prior shingles. Extremities: No lower extremity edema. Compartments soft and compressible. Neuro: Oriented X 3. No motor deficit. No sensory deficit. Steady gait. Course Course Course Narrative: 75-year-old female presenting to the ER with 5 days of low back pain and bilateral leg cramping and spasms. Symptoms are worse at night. Denies any injury. she has no red flag symptoms of low back pain. Exam is unremarkable. Will check urinalysis and basic lab workup. Reevaluation(s) Reevaluation #1: Labs are normal. Urinalysis shows microscopic hematuria, upon review this is chronic. She admits that this has been going on for years. she has never seen a urologist. She denies any urinary symptoms at this time. Will refer to urology for further evaluation. She is a former smoker. She admits to not drinking enough water throughout the day and her cramping in her legs could be due to mild dehydration or transient electrolyte derangement. Her back pain in her leg pain do not seem to be related as the leg pain starts in the calves and is in the muscles, does not radiate from the back. Her low back pain seems to be due to strain. will prescribe low-dose Flexeril and have her follow-up with her PCP for further management. Stable for discharge home. Patient agrees with plan. Return precautions were discussed. MDM - Back Pain/Injury Lab Data Result diagrams: 05/10/21 12:07 05/10/21 12:07 Labs: Lab Results 05/10/21 05/10/21 05/10/21 Range/Units 11:55 12:07 12:07 WBC 9.7 (4.8-10.8) X10*3/uL RBC 4.63 (4.20-5.50) X10*6/uL Hgb 14.3 (12.0-16.0) g/dl Hct 44.9 (37.0-47.0) % MCV 97.0 (80.0-98.0) fL MCH 30.9 (27.0-33.0) pg MCHC 31.8 (31.0-35.0) g/dl RDW 14.6 (11.0-16.0) % Plt Count 389 (160-400) X10*3/uL MPV 8.8 L (9.4-12.3) fL Immature Gran % (Auto) 0.4 (0.0-0.4) % Neut % (Auto) 68.9 (45-73) % Lymph % (Auto) 12.3 L (20-40) % [place] % (Auto) 15.4 H (2-11) % Eos % (Auto) 2.0 (0-4) % Baso % (Auto) 1.0 (0-2) % Lymph # (Auto) 1.2 (1.2-4.9) X10*3/uL [place] # (Auto) 1.5 H (0.1-1.2) X10*3/uL Eos # (Auto) 0.2 (0.0-0.4) X10*3/uL Baso # (Auto) 0.1 (0.0-0.2) X10*3/uL Abs Immat Gran (auto) 0.04 H (0.00-0.03) X10*3/uL Absolute Neuts (auto) 6.6 (2.0-8.3) x10*3/uL Absolute Nucleated RBC 0.000 (0.0-0.012) X10*3/uL Nucleated RBC % (auto) 0.0 (0.0-0.2) /100WBC Sodium 138 (135-145) mmol/L Potassium 4.1 (3.3-5.1) mmol/L Chloride 102 (96-108) mmol/L Carbon Dioxide 24 (22-29) mmol/L Anion Gap 16 (12-20) BUN 11 (9-16) mg/dL Creatinine 0.77 (0.5-1.4) mg/dL Estim Creat Clear Calc 57.8 Estimated GFR > 60 Random Glucose 112 (60-115) mg/dL Calcium 9.9 (8.4-10.2) mg/dL Magnesium 2.1 (1.6-2.6) mg/dL TSH 1.91 (0.32-4.0) uIU/mL Urine Color YELLOW Urine Appearance HAZY Urine pH 6.0 (5.0-8.0) Ur Specific [place] 1.015 (1.005-1.025) Urine Protein NEG (NEG-TRACE) MG/DL Urine Glucose (UA) NEG (NEG) MG/DL Urine Ketones NEG (NEG) MG/DL Urine Blood 1+ H (NEG) Urine Nitrite NEG (NEG) Ur Leukocyte Esterase NEG (NEG) Urine RBC 5-9 H (0) /HPF Urine WBC 5-9 H (0-4) /HPF Ur Squamous Epith Cells 1+ /LPF Urine Bacteria TRACE /LPF Discharge Plan Discharge Clinical Impression: Microscopic hematuria, Bilateral leg cramps, Low back pain Patient Disposition: Home, Self-Care Instructions: Acute Low Back Pain (ED), Leg Cramps (ED), Lower Back Exercises (ED) Additional Instructions: Your lab workup was normal today. Your urine test showed trace amounts of blood, this is a chronic issue for you and should be evaluated by a urology doctor. Call the name and number below to arrange evaluation. Take the prescribed muscle relaxer as needed for muscle spasm and cramping. Take Tylenol 1000 mg every 6 hours as needed for low back pain. Limit bending, lifting or twisting. Use ice several times per day for 20 minutes at a time for the next 48 hours and then change to heat. Follow up with your Primary Care Doctor this week. If your pain worsens, if you develop new numbness, tingling, weakness, loss of function or incontinence call 911 or come back to the ER right away for evaluation. Prescriptions: New cyclobenzaprine 5 mg tablet 5 mg PO TID PRN (Reason: muscle spasm) Qty: 10 0RF No Action folic acid 1 mg tablet 1 mg PO DAILY Qty: 90 3RF cyanocobalamin (vitamin B-12) 1,000 mcg tablet 1,000 mcg PO DAILY Qty: 90 3RF metoprolol succinate 25 mg tablet extended release 24 hr 25 mg PO DAILY Qty: 90 3RF atorvastatin 40 mg tablet 40 mg PO DAILY Qty: 90 3RF warfarin 1 mg tablet 3 mg PO DAILY Qty: 270 3RF Protocol: Dose Management Condition: Saturday (Week One) Dose/Route: 3 mg Instruction: 3 x 1 mg tablets Condition: Saturday Dose/Route: 2 mg Instruction: 2 x 1 mg tablets Condition: Saturday Dose/Route: 3 mg Instruction: 3 x 1 mg tablets Condition: Saturday Dose/Route: 2 mg Instruction: 2 x 1 mg tablets Condition: Dose/Route: 3 mg Instruction: 3 x 1 mg tablets Condition: Saturday Dose/Route: 2 mg Instruction: 2 x 1 mg tablets Condition: Saturday Dose/Route: 3 mg Instruction: 3 x 1 mg tablets Condition: Saturday (Week Two) Dose/Route: 3 mg Instruction: 3 x 1 mg tablets Condition: Saturday Dose/Route: 2 mg Instruction: 2 x 1 mg tablets Condition: Saturday Dose/Route: 3 mg Instruction: 3 x 1 mg tablets Condition: Saturday Dose/Route: 2 mg Instruction: 2 x 1 mg tablets Condition: Dose/Route: 3 mg Instruction: 3 x 1 mg tablets Condition: Saturday Dose/Route: 2 mg Instruction: 2 x 1 mg tablets Condition: Saturday Dose/Route: 3 mg Instruction: 3 x 1 mg tablets Protocol Text: Adjustment Start Date: Saturday05/10/21 INR Value: 2.3 INR Date: 05/10/21 Recheck Date: 06/07/21 Additional Instructions: CONT REG DOSING CALL WITH ANY MEDICATION CHANGES Incruse Ellipta 62.5 mcg/actuation blister with device 1 inh inhalation DAILY Qty: 30 4RF hydrocortisone 2.5 % cream 1 appl topical BID PRN (Reason: skin irritation) Qty: 453.6 0RF thiamine HCl (vitamin B1) 100 mg tablet 100 mg PO DAILY Qty: 90 3RF cholecalciferol (vitamin D3) [Vitamin D3] 25 mcg (1,000 unit) Tablet 25 mcg PO DAILY 0RF albuterol sulfate 90 mcg/actuation HFA aerosol inhaler 2 puff inhalation Q6H PRN (Reason: shortness of breath or wheezing) Qty: 8.5 3RF fluticasone propion-salmeterol [Advair Diskus] 250-50 mcg/dose blister with device 1 inh inhalation BID Qty: 60 0RF magnesium 250 mg tablet 250 mg PO DAILY 0RF Referrals: Abelino Boyle MD [Physician] - 1 week ( Chronic microscopic hematuria, former smoker)
[2021-05-10 12:03] LABS: Appearance Urine HAZY; Color Urine YELLOW; Glucose Urine UA NEG (NEG); Leukocyte Esterase Urine NEG (NEG); Nitrite Urine NEG (NEG); Specific Gravity - Urine 1.015 (1.005-1.025); UACC Culture Trigger NO; Urine Blood 1+ (NEG); Urine Ketones NEG (NEG); Urine Protein NEG (NEG-TRACE)
[2021-05-10 12:13] LABS: UACC CULT YES
[2021-05-10 12:14] LABS: Bacteria Urine TRACE /LPF; Squamous Epithelial Cell Urine 1+ /LPF
[2021-05-10 12:18] LABS: MANUAL DIFF FLAG NO
[2021-05-10 12:19] LABS: Basophils Absolute Auto 0.1 X10*3/uL (0.0-0.2); Eosinophils Absolute Auto 0.2 X10*3/uL (0.0-0.4); Hematocrit 44.9 % (37.0-47.0); Hemoglobin 14.3 g/dl (12.0-16.0); Imm Gran Abs Auto 0.04 X10*3/uL (0.00-0.03); Imm Gran Pct Auto 0.4 % (0.0-0.4); Lymphocytes Absolute Auto 1.2 X10*3/uL (1.2-4.9); Lymphocytes Percent Auto 12.3 % (20-40); Mean Corpuscular HGB Conc 31.8 g/dl (31.0-35.0); Mean Corpuscular Hemoglobin 30.9 pg (27.0-33.0); Mean Platelet Volume 8.8 fL (9.4-12.3); Monocytes Absolute Auto 1.5 X10*3/uL (0.1-1.2); Monocytes Percent Auto 15.4 % (2-11); Neutrophils Absolute Auto 6.6 x10*3/uL (2.0-8.3); Neutrophils Percent Auto 68.9 % (45-73); Platelet Count 389 X10*3/uL (160-400); Red Blood Count 4.63 X10*6/uL (4.20-5.50); Red Cell Distribution Width 14.6 % (11.0-16.0); White Blood Count 9.7 X10*3/uL (4.8-10.8)
[2021-05-10 12:37] LABS: Anion Gap 16 (12-20); Blood Urea Nitrogen 11 mg/dL (9-16); Calcium 9.9 mg/dL (8.4-10.2); Carbon Dioxide 24 mmol/L (22-29); Chloride 102 mmol/L (96-108); Creatinine Clr Calc Pharmacy 57.8; Estimated Glomerular Filt Rate > 60; Glucose Random 112 mg/dL (60-115); Magnesium 2.1 mg/dL (1.6-2.6); Potassium 4.1 mmol/L (3.3-5.1); Sodium 138 mmol/L (135-145)
[2021-05-10 12:58] LABS: TSH reflex Free T4 1.91 uIU/mL (0.32-4.0)
== END 2021-05-10 13:32 | disposition home or self-care (01) ==
PROVIDERS: Physician Assistant; Emergency Provider Emergency Medicine; PCP Internal Medicine
DX: M54.50 Low back pain, unspecified (principal); R25.2 Cramp and spasm; R31.9 Hematuria, unspecified; F17.210 Nicotine dependence, cigarettes, uncomplicated; Z79.899 Other long term (current) drug therapy; Z71.6 Tobacco abuse counseling
CPT/HCPCS: 36415; 80048; 81001; 81003; 83735; 84443; 85025; 85610; 87086; 99211; 99283

== ENCOUNTER 2021-05-14 09:17 | Emergency (ER) | payer MEDICARE, SELFPAY ==
--- NOTE | ~2021-05-14 | XR_ITS ---
EXAMINATION: XR CHEST CLINICAL INFORMATION: Palpitations COMPARISON: September 11, 2020 TECHNIQUE: AP portable view of the chest was obtained. FINDINGS: There is again noted to be diffuse bilateral interstitial lung. There is a region of increased density about the right apex and developing mass cannot be excluded. Heart normal size. No pneumothorax or pleural effusion. XR/XR chest 1V IMPRESSION: Diffuse chronic interstitial lung disease. Question increasing density about the right apex. CT scan of the chest would be of help in further evaluation of possible new mass lesion.
--- NOTE | ~2021-05-14 | CT_ITS ---
EXAMINATION: CT HEAD WITHOUT CONTRAST CLINICAL INFORMATION: Status post fall COMPARISON: Multiple previous head CT with the last CT of 09/11/2020. TECHNIQUE: Contiguous axial imaging was performed from the skull base to vertex without intravenous administration of contrast. This CT examination was performed using dose optimization techniques as appropriate, variously including the following: *Automated exposure control *Adjustment of mA and/or kV according to patient size (this includes techniques or standardized protocols for targeted exams where dose is matched to indication/reason for exam; i.e. extremities or head) *Use of iterative reconstruction technique DLP: 950 mGy-cm FINDINGS: There is no evidence of acute intracranial hemorrhage or territorial infarction. No abnormal mass effect or midline shift is seen. [place] to white matter differentiation is well preserved. No extra-axial fluid collections are identified. Ventricles and sulci are age-appropriate. There is mild global volume loss. There is no abnormal attenuation within the brain parenchyma. The osseous structures and soft tissues are normal. The mastoid air cells and visualized portions of the paranasal sinuses are well aerated. CT/CT head/brain wo con IMPRESSION: No acute intracranial pathology. Specifically, there is no evidence of acute intracranial hemorrhage or fracture of the osseous calvarium.
--- NOTE | ~2021-05-14 | CT_ITS ---
EXAMINATION: CT ANGIOGRAM ABDOMEN AND PELVIS CLINICAL INFORMATION: Low back pain. History of aortic aneurysm. Question dissection. COMPARISON: CT abdomen and pelvis 10/05/2014, chest CT 09/11/2020. TECHNIQUE: Multiple axial images were obtained through the abdomen and pelvis following the administration of 85 mL of Omnipaque 350 intravenous contrast. Images were reviewed on a dedicated 3-D workstation. This CT examination was performed using dose optimization techniques as appropriate, variously including the following: *Automated exposure control *Adjustment of mA and/or kV according to patient size (this includes techniques or standardized protocols for targeted exams where dose is matched to indication/reason for exam; i.e. extremities or head) *Use of iterative reconstruction technique DLP: 601.29 mGy-cm FINDINGS: Vascular: The descending thoracic aorta is at the upper limits of normal size, though essentially normal in course and caliber. No dissection of the thoracic aorta or other acute aortic syndrome. There is mild scattered calcified and noncalcified disease. There is an eccentric infrarenal abdominal aortic aneurysm which measures 3.3 x 2.9 cm at the level of the L3 vertebral body. When viewed on coronal images, the aneurysm arises predominantly from the left lateral aspect of the wall of the aorta. There is mild ectasia of the aorta proximally. Beyond the level of the L4 vertebral body, the aorta tapers to A more normal diameter. At the upper margin of the aneurysmal segment (image 328, series 18) as well as at the inferior margin (image 353, series 18), there is suggestion of ulceration without dissection. There are no reactive changes or extraluminal contrast to suggest rupture. Iliac bifurcation is unremarkable. The bilateral common, internal, and external iliac arteries are widely patent and there is mild scattered calcific disease. Proximal femoral vessels are patent and well opacified. There is a J-shaped orientation of the celiac trunk with calcification at its origin resulting in moderate narrowing. The branches of the celiac caliber are well opacified. Superior mesenteric artery is patent and well opacified. The inferior mesenteric artery is patent and arises just beyond the inferior margin of the aneurysmal segment of the aorta. There are 2 right renal arteries and a single left renal artery. The right kidney receives an accessory renal artery originating from the right common iliac. There is minimal plaque at the origin of each of the renal arteries without significant stenosis. There is an unremarkable appearance of the iliofemoral vessels, inferior vena cava, renal veins and portal mesenteric venous system for an arterial phase of contrast. Nonvascular: There are increasing reticular fibrotic changes of the lung bases with honeycombing more prominent on the right. There are no pleural effusions. Imaged heart is unremarkable. The liver is mildly enlarged and measures 19 cm craniocaudal. No focal hepatic lesions are identified. No intrahepatic duct dilation. The gallbladder is unremarkable. Pancreas is unremarkable. No pancreatic duct dilation. Spleen is not enlarged and is otherwise unremarkable. Adrenal glands are unremarkable. The kidneys are normal in size, shape and overall attenuation. There is no hydronephrosis, renal calculi, or hydronephrosis. No perinephric stranding. Bladder is normal in contour. No bladder calculi. There are coarse calcifications within the body of the uterus, likely degenerated fibroids. There are no adnexal lesions. The distal esophagus and stomach are unremarkable. The small and large bowel are normal in caliber. There is an unusual position of the cecum in the right upper quadrant and question trace edema within its mesentery. There is no dilation of the cecum, nor is there medial positioning of the expected in a cecal bascule. There is a normal appendix, located within the right upper quadrant as well. No bowel wall inflammatory changes are seen. No free peritoneal fluid. No abdominopelvic or retroperitoneal lymphadenopathy identified. There are multilevel degenerative changes of the thoracolumbar spine with an inferior endplate deformity of the L4 vertebral body which is new from the prior study of 2014, though given the lack of surrounding soft tissue changes I suspect is chronic. CT/CT angio abdomen pelvis IMPRESSION: Infrarenal abdominal aortic aneurysm, eccentric to the left with possible ulceration at the superior and inferior margins, as described. There are no reactive changes in the periaortic fat, nor is there contrast extravasation to suggest rupture at this time. Aortic ulceration would be on the spectrum acute aortic syndromes. Moderate stenosis of the celiac origin, likely accentuated by the position of the diaphragm. Unusual positioning of the cecum within the right upper quadrant without medial positioning or dilation of the cecum as would be expected in the setting of cecal bascule. However, there is a suggestion of mild edema within the mesentery of the cecum/ascending colon. Would correlate with clinical findings. Redemonstration of fibrotic changes of the lung bases. Fleischner guidelines were followed.
--- NOTE | 2021-05-14 09:23 | ECG_ITS ---
Test Reason : palpitations Blood Pressure : / mmHG Vent. Rate : 116 BPM Atrial Rate : 116 BPM P-R Int : 154 ms QRS Dur : 080 ms QT Int : 314 ms P-R-T Axes : 056 -29 055 degrees QTc Int : 436 ms Sinus tachycardia Minimal voltage criteria for LVH, may be normal variant ( R in aVL ) Borderline ECG When compared with ECG of 11-SEP-2020 22:05, No significant change was found Referred By: Generic ED Physician Electronically Signed By:Thierno Sim
[2021-05-14 09:33] VITALS: BP 143/83; PULSE 118; RESP 18; TEMP 36.9; O2SAT 98
[2021-05-14 09:59] VITALS: BP 157/89; PULSE 107; RESP 20; TEMP 36.8; O2SAT 94
--- NOTE | 2021-05-14 10:36 | ED_ITS ---
HPI - Arrhythmia/Palpitations General Chief Complaint: Arrhythmia/Palpitations Stated Complaint: CHEST PAIN Time Seen by Provider: 05/14/21 10:33 History of Present Illness HPI narrative: Patient is a 75-year-old female with a history of hypertension history of smoking history of hypercholesterolemia presents today with having palpitation patient feel very anxious. Has not been able to sleep in days. Patient denies any coughing congestion upper respiratory symptoms. Has a history of paroxysmal AFib and is on Coumadin. No fever no chills. No diaphoresis. Patient is from home. No AR in the past patient complaining of back pain that radiates to the legs. Been ongoing. There is no bowel urinary incontinence. There is no leg swelling. Patient feels that her heart is going fast. Related Data Home Medications Medication Instructions Recorded Confirmed cholecalciferol (vitamin D3) 25 25 mcg PO DAILY 09/11/20 05/02/21 mcg (1,000 unit) tablet (Vitamin D3) magnesium 250 mg tablet 250 mg PO DAILY 02/08/21 05/02/21 Previous Rx's Medication Instructions Recorded folic acid 1 mg tablet 1 mg PO DAILY #90 tab 04/14/20 cyanocobalamin (vitamin B-12) 1,000 mcg PO DAILY #90 tab 05/05/20 1,000 mcg tablet metoprolol succinate 25 mg 25 mg PO DAILY #90 tab 05/10/20 tablet,extended release 24 hr atorvastatin 40 mg tablet 40 mg PO DAILY #90 tab 11/11/20 warfarin 1 mg tablet 3 mg PO DAILY #270 tab 11/30/20 umeclidinium 62.5 mcg/actuation 1 inh INHALATION DAILY #30 ea 12/23/20 blister powder for inhalation (Incruse Ellipta) hydrocortisone 2.5 % topical cream 1 appl TOPICAL BID PRN #453.6 g 04/28/21 albuterol sulfate 90 mcg/actuation 2 puff INHALATION Q6H PRN #8.5 g 05/02/21 aerosol inhaler fluticasone 250 mcg-salmeterol 50 1 inh INHALATION BID #60 ea 05/02/21 mcg/dose blistr powdr for inhalation (Advair Diskus) thiamine HCl (vitamin B1) 100 mg 100 mg PO DAILY #90 tab 05/02/21 tablet cyclobenzaprine 5 mg tablet 5 mg PO TID PRN #10 tab 05/10/21 oxycodone 5 mg tablet 5 mg PO Q8H PRN #7 tab 05/14/21 Allergies Allergy/AdvReac Type Severity Reaction Status Date / Time citalopram AdvReac Unknown nausea Verified 05/14/21 09:33 Review of Systems Review of Systems: No fever no chills no chest pain no diaphoresis Yes all other systems are reviewed and are negative [facility] Past Medical History Attestation statement: The following information was validated with the patient. Medical History AAA (abdominal aortic aneurysm) Anxiety Atrial flutter COPD (chronic obstructive pulmonary disease) Elevated troponin level not due myocardial infarction ETOH abuse HLD (hyperlipidemia) Insomnia Mammogram declined Osteopenia Pure hypercholesterolemia Smoking Surgical History H/O colonoscopy History of cardiac catheterization (~08/2020) No pertinent past surgical history Total knee replacement status (~12/2019) Family History Family History Father CVD (cardiovascular disease) Stomach cancer History of heart attack Mother No problems noted. Sister Brain tumor Brother No problems noted. Sister No problems noted. Social History Social History Household Members: Significant Other Housing: Apartment Do you presently have visiting nurse or other home services: No Alcohol intake: current Alcohol intake frequency: a few times a week Alcohol type: wine Patient Tobacco Use Status: Former Tobacco user (2 months ago) Cigarette Packs Per Day: 0.01 Cigarettes Per Day: 2 Years Smoked: 50+ e-Cigarette/Vaping Use: Never Used Second Hand Smoke Exposure: No Advance Directives: Yes Advance Directives Information Provided: Yes Advance Directives on File: No service: No Current occupational status: retired Physical Exam Vital Signs: Vital Signs: Last Vital Signs Temp 98.3 F 05/14/21 09:59 Pulse 85 05/14/21 16:18 Resp 19 05/14/21 16:18 BP 135/79 05/14/21 16:18 Pulse Ox 95 05/14/21 16:18 BMI result Body Mass Index 0.0 Appearance: Alert. Oriented X3. No acute distress. Eyes: Pupils equal, round and reactive to light. ENT: Pharynx normal. Neck: Normal inspection. Neck supple. No lymph nodes noted. No crepitus CVS: Normal heart rate and rhythm. Pulses normal. Normal S1 and S2 Respiratory: No respiratory distress. Breath sounds normal. No Wheezing. No rales Abdomen: Soft and nontender. No rigidity. No distention. good BS x4 Skin: Skin warm and dry. Normal skin color. Normal skin turgor. Extremities: No lower extremity edema. Neurovascular intact to all extremities. No Lacerations. No Rash Neuro: Oriented X 3. No motor deficit. No sensory deficit. Moving all extermities. No slurred speech MDM - Arrhythmia/Palpitations MDM Narrative Medical decision making narrative: Patient had history of anxiety feels short of breath has some palpitation. Patient's INR is 3.7 unlikely to have a pulmonary emboli. Patient's cardiac enzymes were negative x2 sets. Unlikely secondary to ACS. With a history of no chest pain. Patient had some nonspecific abdominal pain. Had a history of abdominal aortic aneurysm. A CT abdomen with contrast was done. There is question ulcer noted. There is no enlargement in size of the aneurysm. There is no leaks noted. The finding was discussed with Dr. Hammond is covering for vascular. [place] comfortable follow-up on an outpatient basis. Patient given some benzo with good relief of symptoms. No distress. Patient's EKG showed a sinus tachycardia heart rate is 100 there is no acute ST segment elevation noted. There is no changes from previous. Chest x-ray showed no focal infi ltrate there is a nonspecific scarring in the apex will need follow-up on an outpatient basis. No evidence for congestive heart failure. Ambulated well symptom has relieved. We will discharge patient home. Medical Records Attestation: I reviewed the patient's medical records. Medical records narrative: Patient had Lab Data Attestation: I reviewed the patient's lab results. Result diagrams: 05/14/21 10:50 05/14/21 10:50 Labs: Lab Results 05/14/21 05/14/21 05/14/21 Range/Units 10:49 10:49 10:50 WBC 11.5 H (4.8-10.8) X10*3/uL RBC 4.70 (4.20-5.50) X10*6/uL Hgb 14.7 (12.0-16.0) g/dl Hct 45.0 (37.0-47.0) % MCV 95.7 (80.0-98.0) fL MCH 31.3 (27.0-33.0) pg MCHC 32.7 (31.0-35.0) g/dl RDW 14.3 (11.0-16.0) % Plt Count 364 (160-400) X10*3/uL MPV 8.7 L (9.4-12.3) fL Immature Gran % (Auto) 0.4 (0.0-0.4) % Neut % (Auto) 78.7 H (45-73) % Lymph % (Auto) 7.6 L (20-40) % [place] % (Auto) 11.4 H (2-11) % Eos % (Auto) 1.2 (0-4) % Baso % (Auto) 0.7 (0-2) % Lymph # (Auto) 0.9 L (1.2-4.9) X10*3/uL [place] # (Auto) 1.3 H (0.1-1.2) X10*3/uL Eos # (Auto) 0.1 (0.0-0.4) X10*3/uL Baso # (Auto) 0.1 (0.0-0.2) X10*3/uL Abs Immat Gran (auto) 0.05 H (0.00-0.03) X10*3/uL Absolute Neuts (auto) 9.0 H (2.0-8.3) x10*3/uL Absolute Nucleated RBC 0.000 (0.0-0.012) X10*3/uL Nucleated RBC % (auto) 0.0 (0.0-0.2) /100WBC PT 42.9 H (9.9-13.0) SEC INR 3.7 H (0.9-1.1) Sodium (135-145) mmol/L Potassium (3.3-5.1) mmol/L Chloride (96-108) mmol/L Carbon Dioxide (22-29) mmol/L Anion Gap (12-20) BUN (9-16) mg/dL Creatinine (0.5-1.4) mg/dL Estim Creat Clear Calc Estimated GFR Random Glucose (60-115) mg/dL Calcium (8.4-10.2) mg/dL Troponin I High Sens < 3.5 (<3.5-17.0) ng/L 05/14/21 05/14/21 Range/Units 10:50 13:01 WBC (4.8-10.8) X10*3/uL RBC (4.20-5.50) X10*6/uL Hgb (12.0-16.0) g/dl Hct (37.0-47.0) % MCV (80.0-98.0) fL MCH (27.0-33.0) pg MCHC (31.0-35.0) g/dl RDW (11.0-16.0) % Plt Count (160-400) X10*3/uL MPV (9.4-12.3) fL Immature Gran % (Auto) (0.0-0.4) % Neut % (Auto) (45-73) % Lymph % (Auto) (20-40) % [place] % (Auto) (2-11) % Eos % (Auto) (0-4) % Baso % (Auto) (0-2) % Lymph # (Auto) (1.2-4.9) X10*3/uL [place] # (Auto) (0.1-1.2) X10*3/uL Eos # (Auto) (0.0-0.4) X10*3/uL Baso # (Auto) (0.0-0.2) X10*3/uL Abs Immat Gran (auto) (0.00-0.03) X10*3/uL Absolute Neuts (auto) (2.0-8.3) x10*3/uL Absolute Nucleated RBC (0.0-0.012) X10*3/uL Nucleated RBC % (auto) (0.0-0.2) /100WBC PT (9.9-13.0) SEC INR (0.9-1.1) Sodium 138 (135-145) mmol/L Potassium 4.5 (3.3-5.1) mmol/L Chloride 104 (96-108) mmol/L Carbon Dioxide 24 (22-29) mmol/L Anion Gap 15 (12-20) BUN 13 (9-16) mg/dL Creatinine 0.77 (0.5-1.4) mg/dL Estim Creat Clear Calc TNP Estimated GFR > 60 Random Glucose 106 (60-115) mg/dL Calcium 10.0 (8.4-10.2) mg/dL Troponin I High Sens 3.5 (<3.5-17.0) ng/L Discharge Plan Discharge Clinical Impression: Sinus tachycardia Patient Disposition: Home, Self-Care Instructions: Chest Pain (DC) Additional Instructions: Nonspecific scarring at the top of your lung was noted. Please closely follow- up with her doctor. Please get a CT scan/MRI on an outpatient basis to rule out the possibility of malignancy. Prescriptions: New oxycodone 5 mg tablet 5 mg PO Q8H PRN (Reason: pain) Qty: 7 0RF No Action folic acid 1 mg tablet 1 mg PO DAILY Qty: 90 3RF cyanocobalamin (vitamin B-12) 1,000 mcg tablet 1,000 mcg PO DAILY Qty: 90 3RF metoprolol succinate 25 mg tablet extended release 24 hr 25 mg PO DAILY Qty: 90 3RF atorvastatin 40 mg tablet 40 mg PO DAILY Qty: 90 3RF warfarin 1 mg tablet 3 mg PO DAILY Qty: 270 3RF Protocol: Dose Management Condition: Saturday (Week One) Dose/Route: 3 mg Instruction: 3 x 1 mg tablets Condition: Saturday Dose/Route: 2 mg Instruction: 2 x 1 mg tablets Condition: Saturday Dose/Route: 3 mg Instruction: 3 x 1 mg tablets Condition: Saturday Dose/Route: 2 mg Instruction: 2 x 1 mg tablets Condition: Dose/Route: 3 mg Instruction: 3 x 1 mg tablets Condition: Saturday Dose/Route: 2 mg Instruction: 2 x 1 mg tablets Condition: Saturday Dose/Route: 3 mg Instruction: 3 x 1 mg tablets Condition: Saturday (Week Two) Dose/Route: 3 mg Instruction: 3 x 1 mg tablets Condition: Saturday Dose/Route: 2 mg Instruction: 2 x 1 mg tablets Condition: Saturday Dose/Route: 3 mg Instruction: 3 x 1 mg tablets Condition: Saturday Dose/Route: 2 mg Instruction: 2 x 1 mg tablets Condition: Dose/Route: 3 mg Instruction: 3 x 1 mg tablets Condition: Saturday Dose/Route: 2 mg Instruction: 2 x 1 mg tablets Condition: Saturday Dose/Route: 3 mg Instruction: 3 x 1 mg tablets Protocol Text: Adjustment Start Date: Saturday05/10/21 INR Value: 2.3 INR Date: 05/10/21 Recheck Date: 06/07/21 Additional Instructions: CONT REG DOSING CALL WITH ANY MEDICATION CHANGES Incruse Ellipta 62.5 mcg/actuation blister with device 1 inh inhalation DAILY Qty: 30 4RF hydrocortisone 2.5 % cream 1 appl topical BID PRN (Reason: skin irritation) Qty: 453.6 0RF thiamine HCl (vitamin B1) 100 mg tablet 100 mg PO DAILY Qty: 90 3RF cholecalciferol (vitamin D3) [Vitamin D3] 25 mcg (1,000 unit) Tablet 25 mcg PO DAILY 0RF cyclobenzaprine 5 mg tablet 5 mg PO TID PRN (Reason: muscle spasm) Qty: 10 0RF albuterol sulfate 90 mcg/actuation HFA aerosol inhaler 2 puff inhalation Q6H PRN (Reason: shortness of breath or wheezing) Qty: 8.5 3RF fluticasone propion-salmeterol [Advair Diskus] 250-50 mcg/dose blister with device 1 inh inhalation BID Qty: 60 0RF magnesium 250 mg tablet 250 mg PO DAILY 0RF Referrals: Brisa Cortes MD [Primary Care Provider] - 2 days
[2021-05-14 10:55] LABS: MANUAL DIFF FLAG NO
[2021-05-14 10:56] LABS: Basophils Absolute Auto 0.1 X10*3/uL (0.0-0.2); Basophils Percent Auto 0.7 % (0-2); Eosinophils Absolute Auto 0.1 X10*3/uL (0.0-0.4); Eosinophils Percent Auto 1.2 % (0-4); Hemoglobin 14.7 g/dl (12.0-16.0); Imm Gran Abs Auto 0.05 X10*3/uL (0.00-0.03); Imm Gran Pct Auto 0.4 % (0.0-0.4); Lymphocytes Absolute Auto 0.9 X10*3/uL (1.2-4.9); Lymphocytes Percent Auto 7.6 % (20-40); Mean Corpuscular HGB Conc 32.7 g/dl (31.0-35.0); Mean Corpuscular Hemoglobin 31.3 pg (27.0-33.0); Mean Corpuscular Volume 95.7 fL (80.0-98.0); Mean Platelet Volume 8.7 fL (9.4-12.3); Monocytes Absolute Auto 1.3 X10*3/uL (0.1-1.2); Monocytes Percent Auto 11.4 % (2-11); Neutrophils Percent Auto 78.7 % (45-73); Platelet Count 364 X10*3/uL (160-400); Red Cell Distribution Width 14.3 % (11.0-16.0); White Blood Count 11.5 X10*3/uL (4.8-10.8)
[2021-05-14] MEDS: LORazepam 2 MG/ML VIAL 1 MG IVPUSH (11:01)
[2021-05-14] MEDS: Aspirin 81 MG TAB.CHEW 243 MG PO (11:01)
[2021-05-14 11:05] LABS: INTERNATIONAL NORM RATIO 3.7 (0.9-1.1); Prothrombin Time 42.9 SEC (9.9-13.0)
[2021-05-14 11:13] LABS: Anion Gap 15 (12-20); Blood Urea Nitrogen 13 mg/dL (9-16); Carbon Dioxide 24 mmol/L (22-29); Chloride 104 mmol/L (96-108); Estimated Glomerular Filt Rate > 60; Glucose Random 106 mg/dL (60-115); Potassium 4.5 mmol/L (3.3-5.1); Sodium 138 mmol/L (135-145)
[2021-05-14 11:20] LABS: Troponin-I High Sensitivity < 3.5 ng/L (<3.5-17.0)
[2021-05-14 12:03] VITALS: BP 147/82; PULSE 98; RESP 21; O2SAT 95
[2021-05-14] MEDS: iohexoL 350 MG/ML 100 ML INFUS..BTL IV (12:47)
[2021-05-14 13:50] LABS: Troponin-I High Sensitivity 3.5 ng/L (<3.5-17.0)
[2021-05-14 16:18] VITALS: BP 135/79; PULSE 85; RESP 19; O2SAT 95
== END 2021-05-14 17:05 | disposition home or self-care (01) ==
PROVIDERS: Emergency Provider Emergency Medicine Emergency Medical Services; PCP Internal Medicine
DX: R00.0 Tachycardia, unspecified (principal); R00.2 Palpitations; F41.1 Generalized anxiety disorder; R07.89 Other chest pain; R51.9 Headache, unspecified; F43.0 Acute stress reaction; F17.210 Nicotine dependence, cigarettes, uncomplicated; Z79.899 Other long term (current) drug therapy; Z71.6 Tobacco abuse counseling; Z79.01 Long term (current) use of anticoagulants
CPT/HCPCS: 36415; 70450; 71045; 74174; 80048; 84484; 85025; 85610; 93005; 96374; 99284; J2060; Q9967

== ENCOUNTER → 2021-05-18 12:09 | Outpatient (BNVA) | payer MEDICARE, SELFPAY | PROVIDERS: PCP Internal Medicine; Referring Provider Internal Medicine; Visit Provider Internal Medicine | DX: I48.92 Unspecified atrial flutter (principal); I71.4 Abdominal aortic aneurysm, without rupture; F10.10 Alcohol abuse, uncomplicated; F17.200 Nicotine dependence, unspecified, uncomplicated; I25.2 Old myocardial infarction; Z79.01 Long term (current) use of anticoagulants; Z79.899 Other long term (current) drug therapy | CPT/HCPCS: 99212 ==

== ENCOUNTER 2021-05-24 09:29 | Emergency (ER) | payer MEDICARE, SELFPAY ==
--- NOTE | ~2021-05-24 | CT_ITS ---
EXAMINATION: CT LUMBAR SPINE WITHOUT CONTRAST CLINICAL INFORMATION: Back pain. Difficulty walking. COMPARISON: CT angiogram of of the abdomen and pelvis done on 05/14/2021. TECHNIQUE: Helical CT scan of the lumbosacral spine was obtained without administration of any contrast. Images were reconstructed in axial, sagittal and coronal plane. This CT examination was performed using dose optimization techniques as appropriate, variously including the following: *Automated exposure control *Adjustment of mA and/or kV according to patient size (this includes techniques or standardized protocols for targeted exams where dose is matched to indication/reason for exam; i.e. extremities or head) *Use of iterative reconstruction technique DLP; 401 mGy-cm FINDINGS: Marked diffuse osteopenia is present. Concordant with the prior CT study dated 05/14/2021, there is indeed [id number] compression fracture of mid to anterior inferior part of L4 vertebral body present. There is no evidence of any retropulsion of fracture fragment. The remainder of the lumbar vertebrae appear normal in height. Alignment is intact. Significant facet joint arthritic changes are noted bilaterally at lower lumbar spine. Moderate degenerative spondylosis related changes are noted at L5-S1 and L1-2. Mild lower lumbar levoscoliosis is noted. There is a no evidence of any paraspinal hematoma identified. No evidence of any soft tissue hematoma within the central spinal canal. Moderate diffuse disc bulge is noted at L4-5 and L5-S1. Infrarenal abdominal aortic aneurysm as was documented on the prior study dated 05/14/2021 is reidentified, measures 3.4 cm. Previously documented outpouching along the left lateral wall of the aorta is not reproduced on this noncontrast study. There is no periaortic hematoma present. The visualized bowel loops are decompressed. The visualized part of the kidney, liver and the gallbladder mostly appear unremarkable. CT/CT lumbar spine wo con IMPRESSION: 1. Marked diffuse osteopenia. 2. Mild to moderate compression fracture of mid to anterior inferior part of L4 vertebral body, similar to prior study dated 05/14/2021, indeterminate etiology. No evidence of any new additional vertebral fracture. 3. No CT evidence of any paraspinal or intraspinal soft tissue hematoma. 4. Previously documented infrarenal abdominal aortic aneurysm measuring 3.4 cm appear unchanged. Previously documented ulceration of the left lateral wall is not reproduced in the current study since no intravenous contrast was administered. 5. Moderate diffuse disc bulge at L4-5 and L5-S1.
--- NOTE | ~2021-05-24 | XR_ITS ---
EXAMINATION: XR CHEST CLINICAL INFORMATION: Decreased breath sounds in the right lower lobe. COMPARISON: 05/14/2021 portable chest, chest radiograph and chest CT scan dated 09/11/2020. TECHNIQUE: Frontal view of the chest was obtained. FINDINGS: Diffuse coarsened pulmonary interstitial markings are seen, left greater than right with mild interval increase. The heart and mediastinal structures are unremarkable. XR/XR chest 1V IMPRESSION: Diffuse coarsened pulmonary interstitial markings, left greater than right, show similar distribution, but mild interval increase suggesting an acute on chronic process, likely infectious/inflammatory. No definitive consolidation of the right lung base.
--- NOTE | 2021-05-24 09:34 | ECG_ITS ---
Test Reason : cp Blood Pressure : / mmHG Vent. Rate : 117 BPM Atrial Rate : 117 BPM P-R Int : 144 ms QRS Dur : 078 ms QT Int : 312 ms P-R-T Axes : 061 -26 058 degrees QTc Int : 435 ms Sinus tachycardia Possible Left atrial enlargement Minimal voltage criteria for LVH, may be normal variant ( R in aVL ) Borderline ECG When compared with ECG of 14-MAY-2021 09:22, No significant change was found Referred By: Generic ED Physician Electronically Signed By:DEB LÓPEZ
[2021-05-24 09:35] VITALS: BP 138/80; PULSE 116; RESP 16; TEMP 36.3; O2SAT 92; BMI 28.9
--- NOTE | 2021-05-24 10:00 | ED_ITS ---
HPI - Chest Pain General Chief Complaint: Chest Pain Stated Complaint: Chest pain Time Seen by Provider: 05/24/21 09:52 Source: patient Mode of arrival: ambulatory Limitations: no limitations History of Present Illness HPI narrative: Patient comes emergency room complaining of palpitations, intermittent chest pain with palpitations since last night. At this time, patient denies any chest pain or shortness of breath. Patient also complaining of chronic lower back pain and chronic leg pain. Patient states that she was evaluated by her primary care physician 3 days ago. She has an appointment pending for MRI. Patient states that today she has not taking any of her medications. Related Data Home Medications Medication Instructions Recorded Confirmed cholecalciferol (vitamin D3) 25 25 mcg PO DAILY 09/11/20 05/19/21 mcg (1,000 unit) tablet (Vitamin D3) magnesium 250 mg tablet 250 mg PO DAILY 02/08/21 05/19/21 Previous Rx's Medication Instructions Recorded folic acid 1 mg tablet 1 mg PO DAILY #90 tab 04/14/20 cyanocobalamin (vitamin B-12) 1,000 mcg PO DAILY #90 tab 05/05/20 1,000 mcg tablet metoprolol succinate 25 mg 25 mg PO DAILY #90 tab 05/10/20 tablet,extended release 24 hr atorvastatin 40 mg tablet 40 mg PO DAILY #90 tab 11/11/20 warfarin 1 mg tablet 3 mg PO DAILY #270 tab 11/30/20 umeclidinium 62.5 mcg/actuation 1 inh INHALATION DAILY #30 ea 12/23/20 blister powder for inhalation (Incruse Ellipta) hydrocortisone 2.5 % topical cream 1 appl TOPICAL BID PRN #453.6 g 04/28/21 albuterol sulfate 90 mcg/actuation 2 puff INHALATION Q6H PRN #8.5 g 05/02/21 aerosol inhaler thiamine HCl (vitamin B1) 100 mg 100 mg PO DAILY #90 tab 05/02/21 tablet cyclobenzaprine 5 mg tablet 5 mg PO TID PRN #10 tab 05/10/21 oxycodone 5 mg tablet 5 mg PO Q8H PRN #7 tab 05/14/21 fluticasone 250 mcg-salmeterol 50 1 inh INHALATION BID #60 ea 05/19/21 mcg/dose blistr powdr for inhalation (Advair Diskus) gabapentin 300 mg capsule 300 mg PO BEDTIME #30 cap 05/19/21 Allergies Allergy/AdvReac Type Severity Reaction Status Date / Time citalopram AdvReac Unknown nausea Verified 05/24/21 09:42 Review of Systems Review of Systems: Constitutional : No Weight loss, No Fever, No Chills, No Night Sweats, No Fatigue, No Malaise ENT/Mouth : No Hearing loss, No Ear Pain, No Nasal Congestion, No Sinus Pain, No Hoarseness, No sore throat, No Rhinorrhea, No Swallowing Difficulty Eyes: No Eye Pain, No Swelling, No Redness, No Foreign Body, No Discharge, No Vision Changes Cardiovascular : No chest pain, no shortness of breath, complaining of palpitations Respiratory : No Cough, No Sputum, No Wheezing, No Smoke Exposure, No Dyspnea Gastrointestinal : No Nausea, No Vomiting, No Diarrhea, No Constipation, No abdominal Pain, No Hematochezia, No Melena Genitourinary : no irregular bleeding, No Dysuria, No Urinary Frequency, No Hematuria, No Urinary Incontinence, No Urgency, No Flank Pain, No Urinary Flow Changes, No Hesitancy Musculoskeletal : Complaining of lower back pain and bilateral leg cramping Skin : No Skin Lesions, No rash Neuro : No Weakness, No Numbness, No Paresthesias, No Loss of Consciousness, No Dizziness, No Headache Psych : No Anxiety/Panic, No Depression, No SI/HI/AH/VH, No Social Issues, Heme/Lymph: No Bruising, No Bleeding,No Lymphadenopathy Endocrine : No Polyuria, No Polydipsia, No Temperature Intolerance [facility] Past Medical History Medical History AAA (abdominal aortic aneurysm) Anxiety Atrial flutter COPD (chronic obstructive pulmonary disease) Elevated troponin level not due myocardial infarction ETOH abuse HLD (hyperlipidemia) Insomnia Mammogram declined Osteopenia Pure hypercholesterolemia Right upper lobe pulmonary nodule Sciatica Smoking Spinal stenosis Surgical History H/O colonoscopy History of cardiac catheterization (~08/2020) No pertinent past surgical history Total knee replacement status (~12/2019) Family History Family History Father CVD (cardiovascular disease) Stomach cancer History of heart attack Mother No problems noted. Sister Brain tumor Brother No problems noted. Sister No problems noted. Social History Social History Household Members: Significant Other Housing: Apartment Do you presently have visiting nurse or other home services: No Alcohol intake: current Alcohol intake frequency: a few times a week Alcohol type: wine Patient Tobacco Use Status: Former Tobacco user (2 months ago) Cigarette Packs Per Day: 0.01 Cigarettes Per Day: 2 Years Smoked: 50+ e-Cigarette/Vaping Use: Never Used Second Hand Smoke Exposure: No Advance Directives: Yes Advance Directives Information Provided: No Advance Directives on File: No service: No Current occupational status: retired Physical Exam Vital Signs: Vital Signs: Last Vital Signs Temp 97.4 F 05/24/21 09:35 Pulse 108 H 05/24/21 12:23 Resp 18 05/24/21 12:23 BP 138/80 05/24/21 09:35 Pulse Ox 92 05/24/21 09:35 BMI result Body Mass Index 28.9 Const: Other: Appearance: Alert. Oriented X3. No acute distress. Slightly anxious Eyes: Pupils equal, round and reactive to light. ENT: Pharynx normal. Neck: Normal inspection. Neck supple. No lymph nodes noted. No crepitus CVS: Normal heart rate and rhythm. Pulses normal. Normal S1 and S2 Respiratory: No respiratory distress. Breath sounds normal. No Wheezing. No rales Abdomen: Soft and nontender. No rigidity. No distention. Skin: Skin warm and dry. Normal skin color. Normal skin turgor. Extremities: No lower extremity edema. No Lacerations. No Rash Neuro: Oriented X 3. No motor deficit. No sensory deficit. Moving all extremities. No slurred speech. CN 2 through 12 grossly intact Psych: calm, cooperative, anxious Course Course Course Narrative: Patient no longer has any chest pain or shortness of breath. Patient's INR is therapeutic. Patient seems to have trouble walking due to pain. I discussed with the patient that today we can get a CT scan, but not to miss her appointment for MRI Patient states that she was feeling a bit short of breath, she has not had any breathing treatments today, patient was offered albuterol. Muscle given her dose of metoprolol here in the emergency room I discussed the CT scan findings with the patient, patient has old compression fractures and bulging discs. Patient may need an MRI, possibly physical therapy. she will discuss this with her PCP. Patient states that she has enough pain medication at home. Patient does not require additional prescription at this time MDM - Chest Pain Lab Data Result diagrams: 05/24/21 10:37 05/24/21 10:37 Labs: Lab Results 05/24/21 05/24/21 05/24/21 Range/Units 10:37 10:37 10:37 WBC 11.7 H (4.8-10.8) X10*3/uL RBC 5.09 (4.20-5.50) X10*6/uL Hgb 15.7 (12.0-16.0) g/dl Hct 48.3 H (37.0-47.0) % MCV 94.9 (80.0-98.0) fL MCH 30.8 (27.0-33.0) pg MCHC 32.5 (31.0-35.0) g/dl RDW 14.2 (11.0-16.0) % Plt Count 372 (160-400) X10*3/uL MPV 8.8 L (9.4-12.3) fL Immature Gran % (Auto) 0.4 (0.0-0.4) % Neut % (Auto) 78.1 H (45-73) % Lymph % (Auto) 8.6 L (20-40) % [place] % (Auto) 10.5 (2-11) % Eos % (Auto) 1.5 (0-4) % Baso % (Auto) 0.9 (0-2) % Lymph # (Auto) 1.0 L (1.2-4.9) X10*3/uL [place] # (Auto) 1.2 (0.1-1.2) X10*3/uL Eos # (Auto) 0.2 (0.0-0.4) X10*3/uL Baso # (Auto) 0.1 (0.0-0.2) X10*3/uL Abs Immat Gran (auto) 0.05 H (0.00-0.03) X10*3/uL Absolute Neuts (auto) 9.1 H (2.0-8.3) x10*3/uL Absolute Nucleated RBC 0.000 (0.0-0.012) X10*3/uL Nucleated RBC % (auto) 0.0 (0.0-0.2) /100WBC PT 34.3 H (9.9-13.0) SEC INR 2.9 H (0.9-1.1) Sodium 141 (135-145) mmol/L Potassium 5.0 (3.3-5.1) mmol/L Chloride 104 (96-108) mmol/L Carbon Dioxide 25 (22-29) mmol/L Anion Gap 17 (12-20) BUN 12 (9-16) mg/dL Creatinine 0.77 (0.5-1.4) mg/dL Estim Creat Clear Calc 57.0 Estimated GFR > 60 Random Glucose 94 (60-115) mg/dL Calcium 10.1 (8.4-10.2) mg/dL Magnesium 1.9 (1.6-2.6) mg/dL Total Bilirubin 0.7 (0.0-1.0) mg/dL Direct Bilirubin 0.3 (0.0-0.5) mg/dL AST 39 H D (5-31) U/L ALT 30 (0-31) U/L Alkaline Phosphatase 128 H (39-117) U/L Troponin I High Sens (<3.5-17.0) ng/L B-Natriuretic Peptide (<100) pg/mL Total Protein 8.3 H (6.5-8.0) g/dL Albumin 4.5 (3.5-5.0) g/dL Ethyl Alcohol mg/dL COVID-19 ([facility]) (Negative) COVID-19 Clin Com 05/24/21 05/24/21 05/24/21 Range/Units 10:37 10:37 10:37 WBC (4.8-10.8) X10*3/uL RBC (4.20-5.50) X10*6/uL Hgb (12.0-16.0) g/dl Hct (37.0-47.0) % MCV (80.0-98.0) fL MCH (27.0-33.0) pg MCHC (31.0-35.0) g/dl RDW (11.0-16.0) % Plt Count (160-400) X10*3/uL MPV (9.4-12.3) fL Immature Gran % (Auto) (0.0-0.4) % Neut % (Auto) (45-73) % Lymph % (Auto) (20-40) % [place] % (Auto) (2-11) % Eos % (Auto) (0-4) % Baso % (Auto) (0-2) % Lymph # (Auto) (1.2-4.9) X10*3/uL [place] # (Auto) (0.1-1.2) X10*3/uL Eos # (Auto) (0.0-0.4) X10*3/uL Baso # (Auto) (0.0-0.2) X10*3/uL Abs Immat Gran (auto) (0.00-0.03) X10*3/uL Absolute Neuts (auto) (2.0-8.3) x10*3/uL Absolute Nucleated RBC (0.0-0.012) X10*3/uL Nucleated RBC % (auto) (0.0-0.2) /100WBC PT (9.9-13.0) SEC INR (0.9-1.1) Sodium (135-145) mmol/L Potassium (3.3-5.1) mmol/L Chloride (96-108) mmol/L Carbon Dioxide (22-29) mmol/L Anion Gap (12-20) BUN (9-16) mg/dL Creatinine (0.5-1.4) mg/dL Estim Creat Clear Calc Estimated GFR Random Glucose (60-115) mg/dL Calcium (8.4-10.2) mg/dL Magnesium (1.6-2.6) mg/dL Total Bilirubin (0.0-1.0) mg/dL Direct Bilirubin (0.0-0.5) mg/dL AST (5-31) U/L ALT (0-31) U/L Alkaline Phosphatase (39-117) U/L Troponin I High Sens < 3.5 (<3.5-17.0) ng/L B-Natriuretic Peptide 48 (<100) pg/mL Total Protein (6.5-8.0) g/dL Albumin (3.5-5.0) g/dL Ethyl Alcohol < 10 mg/dL COVID-19 ([facility]) (Negative) COVID-19 Clin Com 05/24/21 Range/Units 10:38 WBC (4.8-10.8) X10*3/uL RBC (4.20-5.50) X10*6/uL Hgb (12.0-16.0) g/dl Hct (37.0-47.0) % MCV (80.0-98.0) fL MCH (27.0-33.0) pg MCHC (31.0-35.0) g/dl RDW (11.0-16.0) % Plt Count (160-400) X10*3/uL MPV (9.4-12.3) fL Immature Gran % (Auto) (0.0-0.4) % Neut % (Auto) (45-73) % Lymph % (Auto) (20-40) % [place] % (Auto) (2-11) % Eos % (Auto) (0-4) % Baso % (Auto) (0-2) % Lymph # (Auto) (1.2-4.9) X10*3/uL [place] # (Auto) (0.1-1.2) X10*3/uL Eos # (Auto) (0.0-0.4) X10*3/uL Baso # (Auto) (0.0-0.2) X10*3/uL Abs Immat Gran (auto) (0.00-0.03) X10*3/uL Absolute Neuts (auto) (2.0-8.3) x10*3/uL Absolute Nucleated RBC (0.0-0.012) X10*3/uL Nucleated RBC % (auto) (0.0-0.2) /100WBC PT (9.9-13.0) SEC INR (0.9-1.1) Sodium (135-145) mmol/L Potassium (3.3-5.1) mmol/L Chloride (96-108) mmol/L Carbon Dioxide (22-29) mmol/L Anion Gap (12-20) BUN (9-16) mg/dL Creatinine (0.5-1.4) mg/dL Estim Creat Clear Calc Estimated GFR Random Glucose (60-115) mg/dL Calcium (8.4-10.2) mg/dL Magnesium (1.6-2.6) mg/dL Total Bilirubin (0.0-1.0) mg/dL Direct Bilirubin (0.0-0.5) mg/dL AST (5-31) U/L ALT (0-31) U/L Alkaline Phosphatase (39-117) U/L Troponin I High Sens (<3.5-17.0) ng/L B-Natriuretic Peptide (<100) pg/mL Total Protein (6.5-8.0) g/dL Albumin (3.5-5.0) g/dL Ethyl Alcohol mg/dL COVID-19 ([facility]) Negative (Negative) COVID-19 Clin Com See Note Discharge Plan Discharge Clinical Impression: Atypical chest pain, Bulging lumbar disc Patient Disposition: Home, Self-Care Instructions: Back Pain (ED), Chest Pain (ED) Additional Instructions: Please follow-up with your primary care physician tomorrow. If you have any worsening or new symptoms, please return to the emergency room or call 911 Prescriptions: No Action folic acid 1 mg tablet 1 mg PO DAILY Qty: 90 3RF cyanocobalamin (vitamin B-12) 1,000 mcg tablet 1,000 mcg PO DAILY Qty: 90 3RF metoprolol succinate 25 mg tablet extended release 24 hr 25 mg PO DAILY Qty: 90 3RF atorvastatin 40 mg tablet 40 mg PO DAILY Qty: 90 3RF warfarin 1 mg tablet 3 mg PO DAILY Qty: 270 3RF Protocol: Dose Management Condition: Saturday (Week One) Dose/Route: 3 mg Instruction: 3 x 1 mg tablets Condition: Saturday Dose/Route: 2 mg Instruction: 2 x 1 mg tablets Condition: Saturday Dose/Route: 3 mg Instruction: 3 x 1 mg tablets Condition: Saturday Dose/Route: 2 mg Instruction: 2 x 1 mg tablets Condition: Dose/Route: 3 mg Instruction: 3 x 1 mg tablets Condition: Saturday Dose/Route: 2 mg Instruction: 2 x 1 mg tablets Condition: Saturday Dose/Route: 3 mg Instruction: 3 x 1 mg tablets Condition: Saturday (Week Two) Dose/Route: 3 mg Instruction: 3 x 1 mg tablets Condition: Saturday Dose/Route: 2 mg Instruction: 2 x 1 mg tablets Condition: Saturday Dose/Route: 3 mg Instruction: 3 x 1 mg tablets Condition: Saturday Dose/Route: 2 mg Instruction: 2 x 1 mg tablets Condition: Dose/Route: 3 mg Instruction: 3 x 1 mg tablets Condition: Saturday Dose/Route: 2 mg Instruction: 2 x 1 mg tablets Condition: Saturday Dose/Route: 3 mg Instruction: 3 x 1 mg tablets Protocol Text: Adjustment Start Date: Saturday05/10/21 INR Value: 2.3 INR Date: 05/10/21 Recheck Date: 06/07/21 Additional Instructions: CONT REG DOSING CALL WITH ANY MEDICATION CHANGES Incruse Ellipta 62.5 mcg/actuation blister with device 1 inh inhalation DAILY Qty: 30 4RF hydrocortisone 2.5 % cream 1 appl topical BID PRN (Reason: skin irritation) Qty: 453.6 0RF thiamine HCl (vitamin B1) 100 mg tablet 100 mg PO DAILY Qty: 90 3RF cholecalciferol (vitamin D3) [Vitamin D3] 25 mcg (1,000 unit) Tablet 25 mcg PO DAILY 0RF cyclobenzaprine 5 mg tablet 5 mg PO TID PRN (Reason: muscle spasm) Qty: 10 0RF oxycodone 5 mg tablet 5 mg PO Q8H PRN (Reason: pain) Qty: 7 0RF albuterol sulfate 90 mcg/actuation HFA aerosol inhaler 2 puff inhalation Q6H PRN (Reason: shortness of breath or wheezing) Qty: 8.5 3RF fluticasone propion-salmeterol [Advair Diskus] 250-50 mcg/dose blister with device 1 inh inhalation BID Qty: 60 6RF gabapentin 300 mg capsule 300 mg PO BEDTIME Qty: 30 3RF magnesium 250 mg tablet 250 mg PO DAILY 0RF
[2021-05-24 10:44] LABS: MANUAL DIFF FLAG NO
[2021-05-24 10:46] LABS: Basophils Absolute Auto 0.1 X10*3/uL (0.0-0.2); Basophils Percent Auto 0.9 % (0-2); Eosinophils Absolute Auto 0.2 X10*3/uL (0.0-0.4); Eosinophils Percent Auto 1.5 % (0-4); Hematocrit 48.3 % (37.0-47.0); Hemoglobin 15.7 g/dl (12.0-16.0); Imm Gran Abs Auto 0.05 X10*3/uL (0.00-0.03); Imm Gran Pct Auto 0.4 % (0.0-0.4); Lymphocytes Percent Auto 8.6 % (20-40); Mean Corpuscular HGB Conc 32.5 g/dl (31.0-35.0); Mean Corpuscular Hemoglobin 30.8 pg (27.0-33.0); Mean Corpuscular Volume 94.9 fL (80.0-98.0); Mean Platelet Volume 8.8 fL (9.4-12.3); Monocytes Absolute Auto 1.2 X10*3/uL (0.1-1.2); Monocytes Percent Auto 10.5 % (2-11); Neutrophils Absolute Auto 9.1 x10*3/uL (2.0-8.3); Neutrophils Percent Auto 78.1 % (45-73); Platelet Count 372 X10*3/uL (160-400); Red Blood Count 5.09 X10*6/uL (4.20-5.50); Red Cell Distribution Width 14.2 % (11.0-16.0); White Blood Count 11.7 X10*3/uL (4.8-10.8)
[2021-05-24] MEDS: traMADoL HCL 50 MG TABLET PO (10:50)
[2021-05-24 11:00] LABS: Ethanol < 10 mg/dL
[2021-05-24 11:01] LABS: COVID-19 Test Negative (Negative)
[2021-05-24 11:04] LABS: Alanine Aminotransferase 30 U/L (0-31); Albumin Level 4.5 g/dL (3.5-5.0); Alkaline Phosphatase 128 U/L (39-117); Anion Gap 17 (12-20); Aspartate Amino Transferase 39 U/L (5-31); Bilirubin Direct 0.3 mg/dL (0.0-0.5); Bilirubin Total 0.7 mg/dL (0.0-1.0); Blood Urea Nitrogen 12 mg/dL (9-16); Calcium 10.1 mg/dL (8.4-10.2); Carbon Dioxide 25 mmol/L (22-29); Chloride 104 mmol/L (96-108); Estimated Glomerular Filt Rate > 60; Glucose Random 94 mg/dL (60-115); INTERNATIONAL NORM RATIO 2.9 (0.9-1.1); Magnesium 1.9 mg/dL (1.6-2.6); Prothrombin Time 34.3 SEC (9.9-13.0); Sodium 141 mmol/L (135-145); Total Protein 8.3 g/dL (6.5-8.0)
[2021-05-24 11:06] LABS: B Type Natriuretic Peptide 48 pg/mL (<100); Troponin-I High Sensitivity < 3.5 ng/L (<3.5-17.0)
[2021-05-24] MEDS: Metoprolol Tartrate 25 MG TABLET PO (12:17)
[2021-05-24] MEDS: Albuterol Sulfate (0.083%) 2.5 MG/3 ML VIAL.NEB 5 MG INHALE (12:21)
[2021-05-24 12:23] VITALS: PULSE 108; RESP 18; O2SAT 93
[2021-05-24 15:14] VITALS: BP 158/88; PULSE 83; RESP 16; O2SAT 94
== END 2021-05-24 15:15 | disposition home or self-care (01) ==
PROVIDERS: Emergency Provider Emergency Medicine; PCP Internal Medicine
DX: R07.89 Other chest pain (principal); M51.26 Other intervertebral disc displacement, lumbar region; R06.02 Shortness of breath; R25.2 Cramp and spasm; E78.5 Hyperlipidemia, unspecified; I48.0 Paroxysmal atrial fibrillation; F17.200 Nicotine dependence, unspecified, uncomplicated; Z20.822 Contact with and (suspected) exposure to COVID-19; Z79.01 Long term (current) use of anticoagulants; Z79.02 Long term (current) use of antithrombotics/antiplatelets
CPT/HCPCS: 36415; 71045; 72131; 80048; 80076; 82077; 83735; 83880; 84484; 85025; 85610; 87635; 93005; 94640; 99284

== ENCOUNTER 2021-05-26 08:16 | Outpatient (REF) | payer MEDICARE, SELFPAY ==
--- NOTE | ~2021-05-26 | CT_ITS ---
EXAMINATION: CT CHEST WITH CONTRAST CLINICAL INFORMATION: Solitary pulmonary nodule COMPARISON: None TECHNIQUE: Multidetector volumetric CT imaging of the chest was obtained after the administration of 50 mL of Omnipaque 350 intravenous contrast without immediate adverse reactions. Axial MIP volume rendering provided. Sagittal and coronal reformatted images were obtained. This CT examination was performed using dose optimization techniques as appropriate, variously including the following: *Automated exposure control *Adjustment of mA and/or kV according to patient size (this includes techniques or standardized protocols for targeted exams where dose is matched to indication/reason for exam; i.e. extremities or head) *Use of iterative reconstruction technique DLP: 95 mGy-cm FINDINGS: CHIEF CONTROLLER STATION: Well-inflated lungs with diffuse increase interstitial markings. LUNGS: The lungs are well-expanded with diffuse increase interstitial markings throughout both lungs with honeycombing along the dependent segments of both lower lobe suggestive chronic interstitial lung disease. No consolidation, mass or pulmonary nodule visualized. MEDIASTINUM: The heart size and grade vessels are normal caliber. Mild prominence of ascending aorta measuring 3.5 x 4.0 cm axial image 23/4. The central trachea and bronchi are widely patent. The thyroid lobes are symmetrical and normal. There is no pericardial effusion. There are coronary artery calcification seen. PLEURA: There is no pleural effusion. No pleural mass or thickening. AXILLA: There are small shotty bilateral axillary lymph nodes seen.. The largest right axillary lymph node measures 1.10 CM on axial image 7/4. UPPER ABDOMEN: The liver is diffusely attenuated but normal size. No focal lesion. Visualized spleen, pancreas and bilateral adrenal glands are unremarkable. OSSEOUS STRUCTURES: No lytic or sclerotic process seen. No compression fracture in dorsal spine except for mild spondylosis. CT/CT chest w con IMPRESSION: No acute intrathoracic process seen. Diffuse chronic interstitial fibrosis. Overall no change. Fleischner guidelines were followed.
[2021-05-26] MEDS: iohexoL 350 MG/ML 100 ML INFUS..BTL IV (09:29)
== END 2021-05-26 08:17 | disposition home or self-care (01) ==
LOC: HO.CT 08:16
PROVIDERS: Visit Provider Internal Medicine
DX: R91.1 Solitary pulmonary nodule (principal)
CPT/HCPCS: 71260; Q9967

== ENCOUNTER 2021-06-02 13:14 | Outpatient (REF) | payer MEDICARE, SELFPAY ==
--- NOTE | ~2021-06-02 | MR_ITS ---
MR LUMBAR SPINE WITHOUT CONTRAST CLINICAL INFORMATION: Spinal stenosis. COMPARISON: Lumbar spine CT May 24, 2021. TECHNIQUE: MRI of the lumbar spine was obtained using routine sequences without contrast. FINDINGS: 5 nonrib-bearing lumbar-type vertebral bodies. Grade 1 retrolisthesis of L1 on L2 and L2 on L3. Chronic inferior endplate Schmorl's noted L4 results in mild L4 vertebral body height loss. Remaining vertebral body heights are maintained. Modic type I endplate signal changes at L2-L3 and L5-S1. No additional bone marrow edema. No acute fractures. Moderate disc volume loss at L1-L2 and L5-S1. There is disc desiccation at all lumbar levels. Conus terminates at the L2 level. L1-L2: Slight grade 1 retrolisthesis. Small annular disc bulge and mild bilateral facet arthropathy. No central canal stenosis and no foraminal stenosis. L2-L3: Slight grade 1 retrolisthesis. Small annular disc bulge and mild bilateral facet arthropathy and ligamentum flavum thickening. No central canal stenosis. There is mild foraminal encroachment bilaterally. L3-L4: Diffuse annular disc bulge and severe bilateral facet arthropathy and ligamentum flavum thickening. Mild narrowing of the central canal and mild bilateral foraminal encroachment. L4-L5: Broad-based right paracentral disc protrusion results in mass effect on the traversing right L5 nerve root within the right subarticular zone. Severe bilateral facet arthropathy. Background annular disc bulge. No central canal stenosis. Right lateral disc osteophyte and facet arthropathy result in moderate right-sided foraminal stenosis and mild mass effect on the exiting right L4 nerve root. L5-S1: Diffuse annular disc bulge that is in part disc osteophyte and there is moderate bilateral facet arthropathy. No central canal stenosis. Moderate to severe left and moderate right foraminal stenosis with mass effect on the exiting left greater than right L5 nerve root. MR/MR lumbar spine wo con IMPRESSION: - At L4-L5, a broad-based right paracentral disc protrusion results in mass effect on the traversing right L5 nerve root within the right subarticular zone and right lateral disc osteophyte and facet arthropathy result in moderate right-sided foraminal stenosis and mild mass effect on the exiting right L4 nerve root. Severe bilateral facet arthropathy at this level. - At L5-S1, multifactorial degenerative changes result in moderate to severe left and moderate right foraminal stenosis with mass effect on the exiting left greater than right L5 nerve root. Severe bilateral facet arthropathy at this level. - There is also severe bilateral facet arthropathy at L3-L4. Additional degenerative changes throughout the lumbar spine as described.
== END 2021-06-02 13:15 | disposition home or self-care (01) ==
LOC: HO.MRI 13:14
PROVIDERS: Visit Provider Internal Medicine
DX: M48.00 Spinal stenosis, site unspecified (principal)
CPT/HCPCS: 72148

== ENCOUNTER → 2021-06-07 11:35 | Outpatient (BNVA) | payer MEDICARE, SELFPAY | PROVIDERS: PCP Internal Medicine; Visit Provider Internal Medicine | DX: I48.0 Paroxysmal atrial fibrillation (principal); Z79.01 Long term (current) use of anticoagulants; Z51.81 Encounter for therapeutic drug level monitoring | CPT/HCPCS: 85610; 99211 ==

== ENCOUNTER → 2021-06-15 15:13 | Outpatient (BNVA) | payer MEDICARE, SELFPAY | PROVIDERS: PCP Internal Medicine; Visit Provider Surgery Vascular Surgery | DX: I71.4 Abdominal aortic aneurysm, without rupture (principal); Z79.01 Long term (current) use of anticoagulants; Z79.899 Other long term (current) drug therapy; Z87.891 Personal history of nicotine dependence | CPT/HCPCS: 99202 ==

== ENCOUNTER → 2021-06-21 11:18 | Outpatient (BNVA) | payer MEDICARE, SELFPAY | PROVIDERS: PCP Internal Medicine; Visit Provider Internal Medicine | DX: I48.0 Paroxysmal atrial fibrillation (principal); Z79.01 Long term (current) use of anticoagulants; Z51.81 Encounter for therapeutic drug level monitoring | CPT/HCPCS: 85610; 99211 ==

== ENCOUNTER 2021-06-27 10:19 | Inpatient (IN) | payer MEDICARE, SELFPAY ==
[2021-06-27] VITALS (9 sets, daily range): BP systolic 106–131; BP diastolic 59–84; PULSE 83–94; RESP 19–34; TEMP 36.6–37.1; O2SAT 82–93; BMI 29.2
--- NOTE | ~2021-06-27 | CT_ITS ---
EXAMINATION: CT ANGIOGRAM OF THE CHEST WITH AND WITHOUT CONTRAST (CT PULMONARY ANGIOGRAM FOR PE) CLINICAL INFORMATION: Reason for Exam SOB, elevated dimer COMPARISON: Previous chest CT most recent 05/26/2021 TECHNIQUE: Prior to contrast administration, noncontrast localization images were obtained. Subsequently, multidetector volumetric imaging was performed from the thoracic inlet to below the diaphragms following the administration of 65 mL Omnipaque 350 intravenous contrast. No contrast reaction reported Sagittal, coronal, and MIP oblique sagittal reformatted images were obtained on the CT workstation, uploaded to PACS, and reviewed. This CT examination was performed using dose optimization techniques as appropriate, variously including the following: *Automated exposure control *Adjustment of mA and/or kV according to patient size (this includes techniques or standardized protocols for targeted exams where dose is matched to indication/reason for exam; i.e. extremities or head) *Use of iterative reconstruction technique Total exam dose-length product 235 mGy-cm FINDINGS: QUALITY OF STUDY/CONTRAST BOLUS: Satisfactory. PULMONARY ARTERIES: No central or segmental pulmonary emboli. THORACIC AORTA: No aneurysm or dissection. LUNG: There is evidence of interstitial lung disease with increased peripheral reticulation and attenuation. This is seen diffusely throughout the lungs but greatest at the lung bases. There is no significant traction bronchiolectasis. No honeycombing is seen. Compared to previous exam there is increased groundglass attenuation seen at the lung bases. This may represent acute alveolitis secondary to interstitial lung disease. Differential would include pulmonary edema and pneumonia. PLEURA: No pleural effusion or pneumothorax. MEDIASTINUM: The heart is enlarged. There is coronary artery calcification. There is no pericardial effusion. There are no enlarged hilar or mediastinal. CHEST WALL/AXILLA: No axillary or internal mammary lymphadenopathy. OSSEOUS STRUCTURES: No acute or suspicious osseous abnormality. There are degenerative changes of the spine. UPPER ABDOMEN: The stomach is not optimally distended. It is difficult to exclude gastric wall thickening. No reflux of contrast into the hepatic veins to suggest elevated right heart pressures. CT/CT angio chest PE protocol IMPRESSION: No evidence of pulmonary embolism. Interstitial lung disease. There is increased groundglass attenuation seen particularly in the lower lobes. This may represent acute alveolitis related to interstitial lung disease. Differential would include pulmonary edema and pneumonia. VTE: negative
--- NOTE | ~2021-06-27 | XR_ITS ---
EXAMINATION: XR CHEST CLINICAL INFORMATION: Shortness of breath COMPARISON: 06/28/2021 and prior TECHNIQUE: AP portable upright view of the chest was obtained. FINDINGS: Multifocal patchy and predominantly peripheral airspace opacities persists without improvement. Underlying coarse reticular markings again noted due to known pulmonary fibrosis with honeycomb cyst formation. Recent CT with groundglass opacities superimposed on fibrosis. This could represent acute atypical pneumonia, pulmonary hemorrhage, or acute on chronic interstitial lung disease. Clinical correlation required. Stable heart and mediastinum. XR/XR chest 1V IMPRESSION: Persistent patchy opacities throughout both lungs superimposed on underlying pulmonary fibrosis.
--- NOTE | ~2021-06-27 | XR_ITS ---
EXAMINATION: XR CHEST CLINICAL INFORMATION: Chest pain. COMPARISON: 05/24/2021 chest radiographs and 05/26/[address] scan TECHNIQUE: 2 views of the chest were obtained. FINDINGS: Diffuse coarsened increased interstitial markings are seen bilaterally with increased patchy opacities most pronounced in the right upper lobe. The heart and mediastinal structures are unremarkable. XR/XR chest 2V IMPRESSION: Known chronic interstitial changes with increased patchy opacities bilaterally suggesting an acute infectious/inflammatory process.
--- NOTE | ~2021-06-27 | XR_ITS ---
EXAMINATION: XR CHEST CLINICAL INFORMATION: Pneumonitis versus CHF. COMPARISON: Chest CTA and chest radiographs dated 06/27/2021 TECHNIQUE: Frontal view of the chest was obtained. FINDINGS: Persistent coarse interstitial markings are seen bilaterally with similar distribution and severity. The heart and mediastinal structures are unremarkable. XR/XR chest 1V IMPRESSION: Similar appearance of pulmonary markings. Coupled with the CTA findings, these findings appear consistent with chronic interstitial lung disease with a UIP pattern. An overlying mild infectious/inflammatory process cannot be excluded. A cardiogenic etiology would be less likely.
--- NOTE | 2021-06-27 10:28 | ECG_ITS ---
Test Reason : cp Blood Pressure : / mmHG Vent. Rate : 085 BPM Atrial Rate : 085 BPM P-R Int : 112 ms QRS Dur : 082 ms QT Int : 346 ms P-R-T Axes : 060 -29 035 degrees QTc Int : 411 ms Normal sinus rhythm Minimal voltage criteria for LVH, may be normal variant ( R in aVL ) Borderline ECG When compared with ECG of 24-MAY-2021 09:31, No significant change was found Referred By: Generic ED Physician Electronically Signed By:JAN NOYOLA MD
[2021-06-27 10:49] LABS: Basophils Absolute Auto 0.1 X10*3/uL (0.0-0.2); Basophils Percent Auto 0.8 % (0-2); Eosinophils Absolute Auto 0.4 X10*3/uL (0.0-0.4); Eosinophils Percent Auto 3.9 % (0-4); Hematocrit 48.2 % (37.0-47.0); Hemoglobin 15.5 g/dl (12.0-16.0); Imm Gran Abs Auto 0.07 X10*3/uL (0.00-0.03); Imm Gran Pct Auto 0.6 % (0.0-0.4); Lymphocytes Absolute Auto 0.9 X10*3/uL (1.2-4.9); Lymphocytes Percent Auto 7.5 % (20-40); MANUAL DIFF FLAG SCAN; Mean Corpuscular HGB Conc 32.2 g/dl (31.0-35.0); Mean Corpuscular Hemoglobin 30.6 pg (27.0-33.0); Mean Corpuscular Volume 95.3 fL (80.0-98.0); Mean Platelet Volume 8.9 fL (9.4-12.3); Monocytes Absolute Auto 1.6 X10*3/uL (0.1-1.2); Monocytes Percent Auto 13.6 % (2-11); Neutrophils Absolute Auto 8.4 x10*3/uL (2.0-8.3); Neutrophils Percent Auto 73.6 % (45-73); Platelet Count 402 X10*3/uL (160-400); Red Blood Count 5.06 X10*6/uL (4.20-5.50); Red Cell Distribution Width 13.3 % (11.0-16.0); SCAN SMEAR FLAG 1; White Blood Count 11.4 X10*3/uL (4.8-10.8)
[2021-06-27 10:50] LABS: INTERNATIONAL NORM RATIO 1.6 (0.9-1.1); Prothrombin Time 18.5 SEC (9.9-13.0)
[2021-06-27 10:57] LABS: Anion Gap 12 (12-20); Blood Urea Nitrogen 10 mg/dL (9-16); Calcium 9.8 mg/dL (8.4-10.2); Carbon Dioxide 27 mmol/L (22-29); Chloride 102 mmol/L (96-108); Creatinine Clr Calc Pharmacy 60.6; Estimated Glomerular Filt Rate > 60; Glucose Random 102 mg/dL (60-115); Potassium 4.6 mmol/L (3.3-5.1); Sodium 136 mmol/L (135-145)
[2021-06-27 11:01] LABS: B Type Natriuretic Peptide 102 pg/mL (<100); Troponin-I High Sensitivity < 3.5 ng/L (<3.5-17.0)
--- NOTE | 2021-06-27 11:13 | ED_ITS ---
HPI - General Adult General Chief complaint: General Medical Stated complaint: Rapid heartbeat/SOB Time Seen by Provider: 06/27/21 11:02 Source: patient Mode of arrival: ambulatory Limitations: no limitations History of Present Illness HPI narrative: Patient comes to the emergency room complaining of shortness of breath for several days, decrease exercise tolerance, orthopnea. Patient denies fever chills. Patient coughing more than usual. Patient denies chest pain, has had occasional palpitations. Patient is not O2 dependent, denies leg pain or leg swelling. Related Data Home Medications Medication Instructions Recorded Confirmed cholecalciferol (vitamin D3) 25 25 mcg PO DAILY 09/11/20 06/27/21 mcg (1,000 unit) tablet (Vitamin D3) magnesium 250 mg tablet 250 mg PO DAILY 02/08/21 06/27/21 aspirin 81 mg tablet,delayed 81 mg PO DAILY 06/21/21 06/27/21 release valerian root 450 mg capsule 1,350 mg PO DAILY 06/27/21 06/27/21 warfarin 1 mg tablet 2 mg PO [id number]/27/21 06/27/21 warfarin 1 mg tablet 3 mg PO [id number]/27/21 06/27/21 Previous Rx's Medication Instructions Recorded cyanocobalamin (vitamin B-12) 1,000 mcg PO DAILY #90 tab 05/05/20 1,000 mcg tablet atorvastatin 40 mg tablet 40 mg PO DAILY #90 tab 11/11/20 albuterol sulfate 90 mcg/actuation 2 puff INHALATION Q6H PRN #8.5 g 05/02/21 aerosol inhaler thiamine HCl (vitamin B1) 100 mg 100 mg PO DAILY #90 tab 05/02/21 tablet fluticasone 250 mcg-salmeterol 50 1 inh INHALATION BID #60 ea 05/19/21 mcg/dose blistr powdr for inhalation (Advair Diskus) umeclidinium 62.5 mcg/actuation 1 inh INHALATION DAILY #180 ea 05/26/21 blister powder for inhalation (Incruse Ellipta) folic acid 1 mg tablet 1 mg PO DAILY #90 tab 06/26/21 metoprolol succinate 25 mg 25 mg PO DAILY #90 tab 06/26/21 tablet,extended release 24 hr Allergies Allergy/AdvReac Type Severity Reaction Status Date / Time citalopram AdvReac Unknown nausea Verified 06/21/21 11:28 Review of Systems Review of Systems: Constitutional : No Weight loss, No Fever, No Chills, No Night Sweats, No Fatigue, No Malaise ENT/Mouth : No Hearing loss, No Ear Pain, No Nasal Congestion, No Sinus Pain, No Hoarseness, No sore throat, No Rhinorrhea, No Swallowing Difficulty Eyes: No Eye Pain, No Swelling, No Redness, No Foreign Body, No Discharge, No Vision Changes Cardiovascular : No Chest Pain, No SOB, No Dyspnea on Exertion, No Orthopnea, No Edema, No Palpitations Respiratory : No Cough, No Sputum, No Wheezing, No Smoke Exposure, No Dyspnea Gastrointestinal : No Nausea, No Vomiting, No Diarrhea, No Constipation, No abdominal Pain, No Hematochezia, No Melena Genitourinary : no irregular bleeding, No Dysuria, No Urinary Frequency, No Hematuria, No Urinary Incontinence, No Urgency, No Flank Pain, No Urinary Flow Changes, No Hesitancy Musculoskeletal : No joint pain, No Myalgias, No Joint Swelling Skin : No Skin Lesions, No rash Neuro : No Weakness, No Numbness, No Paresthesias, No Loss of Consciousness, No Dizziness, No Headache Psych : No Anxiety/Panic, No Depression, No SI/HI/AH/VH, No Social Issues, Heme/Lymph: No Bruising, No Bleeding,No Lymphadenopathy Endocrine : No Polyuria, No Polydipsia, No Temperature Intolerance [facility] Past Medical History Medical History AAA (abdominal aortic aneurysm) Anxiety Atrial flutter COPD (chronic obstructive pulmonary disease) Elevated troponin level not due myocardial infarction ETOH abuse HLD (hyperlipidemia) Insomnia Mammogram declined Osteopenia Pure hypercholesterolemia Right upper lobe pulmonary nodule Sciatica Smoking Spinal stenosis Surgical History H/O colonoscopy History of cardiac catheterization (~08/2020) No pertinent past surgical history Total knee replacement status (~12/2019) Family History Family History Father CVD (cardiovascular disease) Stomach cancer History of heart attack Mother No problems noted. Sister Brain tumor Brother No problems noted. Sister No problems noted. Social History Social History Household Members: Significant Other Housing: Apartment Do you presently have visiting nurse or other home services: No Alcohol intake: current Alcohol intake frequency: a few times a week Alcohol type: wine Patient Tobacco Use Status: Former Tobacco user Cigarette Packs Per Day: 0.01 Cigarettes Per Day: 2 Years Smoked: 50+ e-Cigarette/Vaping Use: Never Used Second Hand Smoke Exposure: No Advance Directives: Yes Advance Directives Information Provided: No Advance Directives on File: No service: No Current occupational status: retired Physical Exam ED Vital Signs: Vital Signs - 24 hr 06/27/21 10:22 06/27/21 11:01 06/27/21 12:16 Temperature 98 F 98.7 F 98.8 F Pulse Rate 90 85 89 Respiratory Rate 19 20 26 H Blood Pressure 125/81 131/84 122/83 Pulse Oximetry 89 L 93 92 BMI result Body Mass Index 29.2 Course Course Course Narrative: When patient is taking off oxygen, without any exertion, her oxygen drops to the low 80s. COVID and flu test pending. Patient breathing comfortably at [address] of the chest negative for PE Patient's blood pressure stable, no fever, sepsis not suspected at this time. Patient was already given IV ceftriaxone and azithromycin, IV fluids Patient being admitted, I discussed the patient with Dr. Martinez Medical Decision Making Lab Data Result diagrams: 06/27/21 10:34 06/27/21 10:34 Labs: Lab Results 06/27/21 06/27/21 06/27/21 Range/Units 10:34 10:34 10:34 WBC 11.4 H (4.8-10.8) X10*3/uL RBC 5.06 (4.20-5.50) X10*6/uL Hgb 15.5 (12.0-16.0) g/dl Hct 48.2 H (37.0-47.0) % MCV 95.3 (80.0-98.0) fL MCH 30.6 (27.0-33.0) pg MCHC 32.2 (31.0-35.0) g/dl RDW 13.3 (11.0-16.0) % Plt Count 402 H (160-400) X10*3/uL MPV 8.9 L (9.4-12.3) fL Immature Gran % (Auto) 0.6 H (0.0-0.4) % Neut % (Auto) 73.6 H (45-73) % Lymph % (Auto) 7.5 L (20-40) % Jenkins % (Auto) 13.6 H (2-11) % Eos % (Auto) 3.9 (0-4) % Baso % (Auto) 0.8 (0-2) % Lymph # (Auto) 0.9 L (1.2-4.9) X10*3/uL Jenkins # (Auto) 1.6 H (0.1-1.2) X10*3/uL Eos # (Auto) 0.4 (0.0-0.4) X10*3/uL Baso # (Auto) 0.1 (0.0-0.2) X10*3/uL Abs Immat Gran (auto) 0.07 H (0.00-0.03) X10*3/uL Absolute Neuts (auto) 8.4 H (2.0-8.3) x10*3/uL Absolute Nucleated RBC 0.000 (0.0-0.012) X10*3/uL Nucleated RBC % (auto) 0.0 (0.0-0.2) /100WBC Smear Tech's Comments VERIFIED PT (9.9-13.0) SEC INR (0.9-1.1) D-Dimer High Sensitivty NG/ML Sodium 136 (135-145) mmol/L Potassium 4.6 (3.3-5.1) mmol/L Chloride 102 (96-108) mmol/L Carbon Dioxide 27 (22-29) mmol/L Anion Gap 12 (12-20) BUN 10 (9-16) mg/dL Creatinine 0.73 (0.5-1.4) mg/dL Estim Creat Clear Calc 60.6 Estimated GFR > 60 Random Glucose 102 (60-115) mg/dL Lactic Acid (0.5-2.0) mmol/L Calcium 9.8 (8.4-10.2) mg/dL Troponin I High Sens < 3.5 (<3.5-17.0) ng/L B-Natriuretic Peptide 102 H (<100) pg/mL COVID-19 (KACEY) (Negative) COVID-19 Clin Com Influenza Type A (MARLA) (Negative) Influenza Type B (MARLA) (Negative) Influenza A & B Note 06/27/21 06/27/21 06/27/21 Range/Units 10:34 13:11 16:11 WBC (4.8-10.8) X10*3/uL RBC (4.20-5.50) X10*6/uL Hgb (12.0-16.0) g/dl Hct (37.0-47.0) % MCV (80.0-98.0) fL MCH (27.0-33.0) pg MCHC (31.0-35.0) g/dl RDW (11.0-16.0) % Plt Count (160-400) X10*3/uL MPV (9.4-12.3) fL Immature Gran % (Auto) (0.0-0.4) % Neut % (Auto) (45-73) % Lymph % (Auto) (20-40) % Jenkins % (Auto) (2-11) % Eos % (Auto) (0-4) % Baso % (Auto) (0-2) % Lymph # (Auto) (1.2-4.9) X10*3/uL Jenkins # (Auto) (0.1-1.2) X10*3/uL Eos # (Auto) (0.0-0.4) X10*3/uL Baso # (Auto) (0.0-0.2) X10*3/uL Abs Immat Gran (auto) (0.00-0.03) X10*3/uL Absolute Neuts (auto) (2.0-8.3) x10*3/uL Absolute Nucleated RBC (0.0-0.012) X10*3/uL Nucleated RBC % (auto) (0.0-0.2) /100WBC Smear Tech's Comments PT 18.5 H (9.9-13.0) SEC INR 1.6 H (0.9-1.1) D-Dimer High Sensitivty 512 NG/ML Sodium (135-145) mmol/L Potassium (3.3-5.1) mmol/L Chloride (96-108) mmol/L Carbon Dioxide (22-29) mmol/L Anion Gap (12-20) BUN (9-16) mg/dL Creatinine (0.5-1.4) mg/dL Estim Creat Clear Calc Estimated GFR Random Glucose (60-115) mg/dL Lactic Acid 1.2 (0.5-2.0) mmol/L Calcium (8.4-10.2) mg/dL Troponin I High Sens (<3.5-17.0) ng/L B-Natriuretic Peptide (<100) pg/mL COVID-19 (KACEY) (Negative) COVID-19 Clin Com Influenza Type A (MARLA) Negative (Negative) Influenza Type B (MARLA) Negative (Negative) Influenza A & B Note See Note 06/27/21 Range/Units 16:11 WBC (4.8-10.8) X10*3/uL RBC (4.20-5.50) X10*6/uL Hgb (12.0-16.0) g/dl Hct (37.0-47.0) % MCV (80.0-98.0) fL MCH (27.0-33.0) pg MCHC (31.0-35.0) g/dl RDW (11.0-16.0) % Plt Count (160-400) X10*3/uL MPV (9.4-12.3) fL Immature Gran % (Auto) (0.0-0.4) % Neut % (Auto) (45-73) % Lymph % (Auto) (20-40) % Jenkins % (Auto) (2-11) % Eos % (Auto) (0-4) % Baso % (Auto) (0-2) % Lymph # (Auto) (1.2-4.9) X10*3/uL Jenkins # (Auto) (0.1-1.2) X10*3/uL Eos # (Auto) (0.0-0.4) X10*3/uL Baso # (Auto) (0.0-0.2) X10*3/uL Abs Immat Gran (auto) (0.00-0.03) X10*3/uL Absolute Neuts (auto) (2.0-8.3) x10*3/uL Absolute Nucleated RBC (0.0-0.012) X10*3/uL Nucleated RBC % (auto) (0.0-0.2) /100WBC Smear Tech's Comments PT (9.9-13.0) SEC INR (0.9-1.1) D-Dimer High Sensitivty NG/ML Sodium (135-145) mmol/L Potassium (3.3-5.1) mmol/L Chloride (96-108) mmol/L Carbon Dioxide (22-29) mmol/L Anion Gap (12-20) BUN (9-16) mg/dL Creatinine (0.5-1.4) mg/dL Estim Creat Clear Calc Estimated GFR Random Glucose (60-115) mg/dL Lactic Acid (0.5-2.0) mmol/L Calcium (8.4-10.2) mg/dL Troponin I High Sens (<3.5-17.0) ng/L B-Natriuretic Peptide (<100) pg/mL COVID-19 (KACEY) Negative (Negative) COVID-19 Clin Com A Influenza Type A (MARLA) (Negative) Influenza Type B (MARLA) (Negative) Influenza A & B Note Imaging Data Chest CT: Radiologist's impression: FINDINGS: QUALITY OF STUDY/CONTRAST BOLUS: Satisfactory. PULMONARY ARTERIES: No central or segmental pulmonary emboli.? THORACIC AORTA: No aneurysm or dissection. LUNG: There is evidence of interstitial lung disease with increased peripheral reticulation and attenuation. This is seen diffusely throughout the lungs but greatest at the lung bases. There is no significant traction bronchiolectasis. No honeycombing is seen. Compared to previous exam there is increased groundglass attenuation seen at the lung bases. This may represent acute alveolitis secondary to interstitial lung disease. Differential would include pulmonary edema and pneumonia. PLEURA: No pleural effusion or pneumothorax. MEDIASTINUM: The heart is enlarged. There is coronary artery calcification. There is no pericardial effusion. There are no enlarged hilar or mediastinal. CHEST WALL/AXILLA: No axillary or internal mammary lymphadenopathy. OSSEOUS STRUCTURES: No acute or suspicious osseous abnormality. There are degenerative changes of the spine. UPPER ABDOMEN: The stomach is not optimally distended. It is difficult to exclude gastric wall thickening. No reflux of contrast into the hepatic veins to suggest elevated right heart pressures. CT/CT angio chest PE protocol IMPRESSION: No evidence of pulmonary embolism. Interstitial lung disease. There is increased groundglass attenuation seen particularly in the lower lobes. This may represent acute alveolitis related to interstitial lung disease. Differential would include pulmonary edema and pneumonia. ? VTE: negative Discharge Plan Discharge Clinical Impression: Pneumonia Patient Disposition: Admitted As Inpatient
[2021-06-27 11:19] LABS: D Dimer High Sensitivity 512 NG/ML
[2021-06-27 11:35] LABS: SLIDE REVIEW VERIFIED
[2021-06-27 13:33] LABS: Lactic Acid 1.2 mmol/L (0.5-2.0)
[2021-06-27] MEDS: iohexoL 350 MG/ML 100 ML INFUS..BTL IV (13:42)
[2021-06-27] MEDS: cefTRIAXone sodium 1 GM in 0.9 % Sodium Chloride 50 ML IV (14:12)
--- NOTE | 2021-06-27 14:20 | MHC.CM.ED ---
Received notification from MILENA Back and MILENA Olivera that patient wanted to complete a HCP. HCP completed, signed and witnessed. Original given to patient. Copy placed in chart.
[2021-06-27] MEDS: Azithromycin 500 MG in 0.9 % Sodium Chloride 250 ML 125 MG IV (14:24)
[2021-06-27 16:38] LABS: COVID-19 Note A; COVID-19 Test Negative (Negative); IDNOW Serial# 16C4AD1C; Influenza A Negative (Negative); Influenza B2 Negative (Negative)
--- NOTE | 2021-06-27 16:57 | PHA.MEDREC ---
Pharmacy Consult ? Medication Reconciliation Pharmacy has completed the medication reconciliation.
--- NOTE | 2021-06-27 17:07 | PM.DS ---
DS: Providers Provider Date of Service: 06/27/21 Primary care physician: Brisa Cortes MD DS: Summary Time Spent with Patient Time attestation: Total time spent providing and/or coordinating discharge services: Physical Exam Vital Signs: Vital Signs: Last Vital Signs Temp 98.8 F 06/27/21 12:16 Pulse 89 06/27/21 12:16 Resp 26 H 06/27/21 12:16 BP 122/83 06/27/21 12:16 Pulse Ox 82 L 06/27/21 16:00 BMI result Body Mass Index 29.2 DS: Data Data Completed and Pending Labs on day of discharge: Laboratory Results - last 24 hr 06/27/21 06/27/21 06/27/21 10:34 10:34 10:34 WBC 11.4 H RBC 5.06 Hgb 15.5 Hct 48.2 H MCV 95.3 MCH 30.6 MCHC 32.2 RDW 13.3 Plt Count 402 H MPV 8.9 L Immature Gran % (Auto) 0.6 H Neut % (Auto) 73.6 H Lymph % (Auto) 7.5 L Preble % (Auto) 13.6 H Eos % (Auto) 3.9 Baso % (Auto) 0.8 Lymph # (Auto) 0.9 L Preble # (Auto) 1.6 H Eos # (Auto) 0.4 Baso # (Auto) 0.1 Abs Immat Gran (auto) 0.07 H Absolute Neuts (auto) 8.4 H Absolute Nucleated RBC 0.000 Nucleated RBC % (auto) 0.0 Smear Tech's Comments VERIFIED PT INR D-Dimer High Sensitivty Sodium 136 Potassium 4.6 Chloride 102 Carbon Dioxide 27 Anion Gap 12 BUN 10 Creatinine 0.73 Estim Creat Clear Calc 60.6 Estimated GFR > 60 Random Glucose 102 Lactic Acid Calcium 9.8 Troponin I High Sens < 3.5 B-Natriuretic Peptide 102 H COVID-19 (KACEY) COVID-19 Clin Com Influenza Type A (MARLA) Influenza Type B (MARLA) Influenza A & B Note 06/27/21 06/27/21 06/27/21 10:34 13:11 16:11 WBC RBC Hgb Hct MCV MCH MCHC RDW Plt Count MPV Immature Gran % (Auto) Neut % (Auto) Lymph % (Auto) Preble % (Auto) Eos % (Auto) Baso % (Auto) Lymph # (Auto) Preble # (Auto) Eos # (Auto) Baso # (Auto) Abs Immat Gran (auto) Absolute Neuts (auto) Absolute Nucleated RBC Nucleated RBC % (auto) Smear Tech's Comments PT 18.5 H INR 1.6 H D-Dimer High Sensitivty 512 Sodium Potassium Chloride Carbon Dioxide Anion Gap BUN Creatinine Estim Creat Clear Calc Estimated GFR Random Glucose Lactic Acid 1.2 Calcium Troponin I High Sens B-Natriuretic Peptide COVID-19 (KACEY) COVID-19 Clin Com Influenza Type A (MARLA) Negative Influenza Type B (MARLA) Negative Influenza A & B Note See Note 06/27/21 16:11 WBC RBC Hgb Hct MCV MCH MCHC RDW Plt Count MPV Immature Gran % (Auto) Neut % (Auto) Lymph % (Auto) Preble % (Auto) Eos % (Auto) Baso % (Auto) Lymph # (Auto) Preble # (Auto) Eos # (Auto) Baso # (Auto) Abs Immat Gran (auto) Absolute Neuts (auto) Absolute Nucleated RBC Nucleated RBC % (auto) Smear Tech's Comments PT INR D-Dimer High Sensitivty Sodium Potassium Chloride Carbon Dioxide Anion Gap BUN Creatinine Estim Creat Clear Calc Estimated GFR Random Glucose Lactic Acid Calcium Troponin I High Sens B-Natriuretic Peptide COVID-19 (KACEY) Negative COVID-19 Clin Com A Influenza Type A (MARLA) Influenza Type B (MARLA) Influenza A & B Note Discharge Plan Discharge Clinical Impression: Pneumonia Patient Disposition: Admitted As Inpatient
--- NOTE | 2021-06-27 17:14 | PM.IMHP ---
History of Present Illness Date of Service: 06/27/21 Attending physician on admission: Josh Martinez Chief Complaint: pneumonia 75-year-old F with past medical history anxiety, a flutter, COPD, ETOH use hyperlipidemia: Patient came to the hospital because of progressive shortness of breath she said it started last Saturday and subsequently she was feeling more short of breath since then not to the point she is difficult to move even to the bathroom. She says that see also feels some chest tightness, which relieves with a her added albuterol and standing up, not reproducible, nonradiating. She has some dry cough, denies any fever or chills or nausea or vomiting or weakness or numbness or any abdominal pain. Because patient was getting short of breath progressive getting worse decided to come to the hospital-ED physician's saw the patient and patient is sats in 80's range with with minimal walking decided to admit admit patient for possible pneumonia. Social history patient lives with partner, has 25 year pack history of smoking, quit 8 months ago, started drinking alcohol 8 month ago 6-7 drinks of wine (4 oz each) a day, no recreation drug use. Surgical history: Knee replacement a year ago as per patient. Lab imaging EKG reviewed: Chest x-ray: Pulmonary congestion versus pneumonia versus interstitial lung disease. Troponin x1 flat, EKG NSR. BNP 102, procalcitonin level pending. Review of Systems Review of Systems: As above. [facility] Medical History AAA (abdominal aortic aneurysm) Anxiety Atrial flutter COPD (chronic obstructive pulmonary disease) Elevated troponin level not due myocardial infarction ETOH abuse HLD (hyperlipidemia) Insomnia Mammogram declined Osteopenia Pure hypercholesterolemia Right upper lobe pulmonary nodule Sciatica Smoking Spinal stenosis Family History Father CVD (cardiovascular disease) Stomach cancer History of heart attack Mother No problems noted. Sister Brain tumor Brother No problems noted. Sister No problems noted. Pertinent family history: Denies family history of any pneumonia or anybody with similar symptoms. Surgical History H/O colonoscopy History of cardiac catheterization (~08/2020) No pertinent past surgical history Total knee replacement status (~12/2019) Social History Household Members: Significant Other Housing: Apartment Do you presently have visiting nurse or other home services: No Alcohol intake: current Alcohol intake frequency: a few times a week Alcohol type: wine Patient Tobacco Use Status: Former Tobacco user Cigarette Packs Per Day: 0.01 Cigarettes Per Day: 2 Years Smoked: 50+ e-Cigarette/Vaping Use: Never Used Second Hand Smoke Exposure: No Advance Directives: Yes Advance Directives Information Provided: No Advance Directives on File: No service: No Current occupational status: retired Meds Allergies Allergy/AdvReac Type Severity Reaction Status Date / Time citalopram AdvReac Unknown nausea Verified 06/21/21 11:28 Active Medications: Current Medications Aspirin (Aspirin Enteric Coated 81 Mg Tablet.Dr) 81 mg PO DAILY [facility] Atorvastatin Calcium (Atorvastatin Calcium 40 Mg Tablet) 40 mg PO DAILY [facility] Cyanocobalamin (Cyanocobalamin (Vitamin B-12) 1,000 Mcg Tablet) 1,000 mcg PO DAILY [facility] Folic Acid (Folic Acid 1 Mg Tablet) 1 mg PO DAILY [facility] Furosemide (Furosemide 20 Mg/2 Ml Vial) 20 mg IVPUSH BID [facility]OU[facility]ACAR; Protocol Ceftriaxone Sodium 1 gm/ (Sodium Chloride) 50 mls @ 100 mls/hr IV Q24H [facility] Azithromycin 500 mg/ Sodium (Chloride) 250 mls @ 125 mls/hr IV Q24H [facility] Methylprednisolone Sodium Succinate (Methylprednisolone Sod Succ 40 Mg/Ml Vial) 40 mg IVPUSH BID [facility] Metoprolol Succinate (Metoprolol Succinate Er 25 Mg Tab.Er.24h) 25 mg PO DAILY [facility]; Protocol Non-Formulary Medication (Magnesium) 250 mg PO DAILY [facility] Non-Formulary Medication (Valerian Root) 1,350 mg PO DAILY [facility] Pharmacy Consult (Consult Rx Perform Med Rec) 1 each MISCELLANE ONCE PRN PRN Reason: Consult order Sodium Chloride (0.9 % Sodium Chloride Flush 3 Ml Syringe) 3 ml IVFLUSH QSHIFT [facility] Thiamine HCl (Thiamine Hcl 100 Mg Tablet) 100 mg PO DAILY [facility] Vitamin D (Cholecalciferol (Vitamin D3) 25 Mcg Tablet) 25 mcg PO DAILY [facility] Warfarin Sodium (Warfarin Sodium 2 Mg Tablet) 2 mg PO MOWEFR@2100 [facility] Warfarin Sodium (Warfarin Sodium 3 Mg Tablet) 3 mg PO SUTUTHSA@2100 [facility] Home Medications Medication Instructions Recorded Confirmed Last Taken Type cholecalciferol (vitamin D3) 25 25 mcg PO DAILY 09/11/20 06/27/21 06/27/21 History mcg (1,000 unit) tablet (Vitamin D3) magnesium 250 mg tablet 250 mg PO DAILY 02/08/21 06/27/21 06/27/21 History aspirin 81 mg tablet,delayed 81 mg PO DAILY 06/21/21 06/27/21 06/27/21 History release valerian root 450 mg capsule 1,350 mg PO DAILY 06/27/21 06/27/21 06/27/21 History warfarin 1 mg tablet 2 mg PO MOWEFR@209906/27/21 06/27/21 06/26/21 History warfarin 1 mg tablet 3 mg PO SUTUTHSA@209906/27/21 06/27/21 06/25/21 History Physical Exam Vital Signs and Narrative: Vital Signs: Last Vital Signs Temp 98.8 F 06/27/21 12:16 Pulse 89 06/27/21 12:16 Resp 26 H 06/27/21 12:16 BP 122/83 06/27/21 12:16 Pulse Ox 82 L 06/27/21 16:00 BMI result Body Mass Index 29.2 Appearance: Alert.? Oriented X3.? Somewhat short of breath. Eyes: Pupils equal, round and reactive to light.? Sclera nonicteric.? ENT: Pharynx normal.? Moist mucous membranes. cvs: rrr, t2p3oclgl , no murmur res: fair air entry, diminshed at bases , few rhonchii b/l abd: no rebound or guarding ,nt, bs present. ext pulses present , no cyanosis,no edema neuro: axo3 , nonfocal. Results Labs CBC and Chem 7: 06/27/21 10:34 06/27/21 10:34 Labs: Laboratory Results - last 24 hr 06/27/21 06/27/21 06/27/21 10:34 10:34 10:34 MCV 95.3 MCH 30.6 MCHC 32.2 RDW 13.3 Plt Count 402 H MPV 8.9 L Immature Gran % (Auto) 0.6 H Neut % (Auto) 73.6 H Lymph % (Auto) 7.5 L Duval % (Auto) 13.6 H Eos % (Auto) 3.9 Baso % (Auto) 0.8 Lymph # (Auto) 0.9 L Duval # (Auto) 1.6 H Eos # (Auto) 0.4 Baso # (Auto) 0.1 Abs Immat Gran (auto) 0.07 H Absolute Neuts (auto) 8.4 H Absolute Nucleated RBC 0.000 Nucleated RBC % (auto) 0.0 Smear Tech's Comments VERIFIED PT INR D-Dimer High Sensitivty Anion Gap 12 Estim Creat Clear Calc 60.6 Estimated GFR > 60 Random Glucose 102 Lactic Acid Calcium 9.8 Troponin I High Sens < 3.5 B-Natriuretic Peptide 102 H COVID-19 (KACEY) COVID-19 Clin Com Influenza Type A (MARLA) Influenza Type B (MARLA) Influenza A & B Note 06/27/21 06/27/21 06/27/21 10:34 13:11 16:11 MCV MCH MCHC RDW Plt Count MPV Immature Gran % (Auto) Neut % (Auto) Lymph % (Auto) Duval % (Auto) Eos % (Auto) Baso % (Auto) Lymph # (Auto) Duval # (Auto) Eos # (Auto) Baso # (Auto) Abs Immat Gran (auto) Absolute Neuts (auto) Absolute Nucleated RBC Nucleated RBC % (auto) Smear Tech's Comments PT 18.5 H INR 1.6 H D-Dimer High Sensitivty 512 Anion Gap Estim Creat Clear Calc Estimated GFR Random Glucose Lactic Acid 1.2 Calcium Troponin I High Sens B-Natriuretic Peptide COVID-19 (KACEY) COVID-19 Clin Com Influenza Type A (MARLA) Negative Influenza Type B (MARLA) Negative Influenza A & B Note See Note 06/27/21 16:11 MCV MCH MCHC RDW Plt Count MPV Immature Gran % (Auto) Neut % (Auto) Lymph % (Auto) Duval % (Auto) Eos % (Auto) Baso % (Auto) Lymph # (Auto) Duval # (Auto) Eos # (Auto) Baso # (Auto) Abs Immat Gran (auto) Absolute Neuts (auto) Absolute Nucleated RBC Nucleated RBC % (auto) Smear Tech's Comments PT INR D-Dimer High Sensitivty Anion Gap Estim Creat Clear Calc Estimated GFR Random Glucose Lactic Acid Calcium Troponin I High Sens B-Natriuretic Peptide COVID-19 (KACEY) Negative COVID-19 Clin Com A Influenza Type A (MARLA) Influenza Type B (MARLA) Influenza A & B Note Imaging Radiologist's Impressions: Impressions Chest X-Ray 06/27/21 11:35 IMPRESSION: Known chronic interstitial changes with increased patchy opacities bilaterally suggesting an acute infectious/inflammatory process. Chest CTA 06/27/21 13:43 IMPRESSION: No evidence of pulmonary embolism. Interstitial lung disease. There is increased groundglass attenuation seen particularly in the lower lobes. This may represent acute alveolitis related to interstitial lung disease. Differential would include pulmonary edema and pneumonia. VTE: negative Assessment and Plan (1) Pneumonia: Status: Acute (2) Acute hypoxemic respiratory failure: Status: Acute Plan 75 y/o f with past medical history anxiety, a flutter, COPD, ETOH use hyperlipidemia: 1. Acute hypoxemic respiratory failure secondary to Pneumonia: no sepsis Has mild leukocytosis 11.4, tachypnea started on ceftriaxone/azithromycin, oxygen Lactic acid 1.2, blood culture pending. res panel added. cta -neg for pulm embolism 2.copd/ILD: added nebs, added steriods 3. elevated bnp, echo in 11/15 seems fine-less likely chf. will give trial of lasix and recheck cxr in am. 4.hx afib: continue bb, warfarin ,inr 1.6. 5. etoh use: ciwa , thiamine ,folic acid dvt prophylax : on warfrain Above management discussed the patient in detail length she understand in agreement with the above plan, considering acute hypoxemia and pneumonia may need IV antibiotics and may need stay for 2 midnights. Quality Stroke Does the patient have a stroke diagnosis?: No VTE Prior VTE?: No VTE Risk Level:: Medical - moderate - high VTE Device Contraindication: N/A - Device Ordered VTE Drug Contraindication: N/A - Med Ordered
[2021-06-27 17:36] LABS: Procalcitonin 0.16 ng/mL
--- NOTE | 2021-06-27 18:08 | PC.NURSE ---
CONTACT MADE TO LAB REGARDING OVERDUE TROP POST ADMISSION. CONTACT MADE TO SAAR WHO STATED SHE WOULD LOOK INTO IT.
[2021-06-27] MEDS: Albuterol/Iprat 2.5/0.5MG 3 ML AMPUL.NEB INHALE (19:13)
[2021-06-27 19:20] LABS: Troponin-I High Sensitivity < 3.5 ng/L (<3.5-17.0)
--- NOTE | 2021-06-27 19:29 | PC.NURSE ---
son given update regarding his mother and given permission to come visit pt in ER
[2021-06-27] MEDS: Warfarin Sodium 3 MG TABLET PO (19:50)
[2021-06-27] MEDS: methylPREDNISolone Sod Succ 40 MG/ML VIAL IVPUSH (23:12)
[2021-06-27] MEDS: traZODone HCL 50 MG TABLET PO (23:12)
[2021-06-28] VITALS (12 sets, daily range): BP systolic 106–115; BP diastolic 62–73; PULSE 78–106; RESP 14–18; TEMP 36.1–36.7; O2SAT 82–95; BMI 29.1
[2021-06-28 07:06] LABS: INTERNATIONAL NORM RATIO 1.6 (0.9-1.1); Prothrombin Time 18.9 SEC (9.9-13.0)
[2021-06-28] MEDS: Albuterol/Iprat 2.5/0.5MG 3 ML AMPUL.NEB INHALE ×4 (07:29→19:24)
--- NOTE | 2021-06-28 08:00 | CA_ITS ---
Transthoracic Echocardiogram Patient (Last, First, Middle): Angeles Rboert C Gender: Female Date of : 1945 Age: 75 Procedure Date: 06/28/2021 Procedure Type: Transthoracic Echocardiogram Location: S3E Height: 154.94 cm Weight: 69.85 kg BSA: 1.69 m2 Heart Rate: bpm BP: 110 / 65 mmHg Chief Digital Media Officer: NELL Bliss MD: Josh Martinez MD Ethnic Studies Professor: Moi Kohler MD Symptoms: chf Study Quality: Fair ECG Rhythm: Sinus Conclusions: - 1. Normal LV systolic function with grade 1 diastolic dysfunction 2. Normal cardiac valvular Doppler 3. Normal RV systolic pressure 4. No gross pericardial effusion Findings Left Ventricle Normal left ventricular size, thickness, and systolic function. The visually estimated ejection fraction is between 65-70%. Spectral Doppler is indicative of an impaired relaxation filling pattern. E/E prime ratio is <8, consistent with normal filling pressures. Right Ventricle The right ventricle was not well visualized. Atria The left atrium is normal in size. Interatrial shunt cannot be excluded. The right atrium was not well visualized. Aortic Valve The aortic valve was not well visualized. There is no aortic valve stenosis. There is no aortic valve regurgitation. Mitral Valve Likely normal mitral valve structure and function. There is trace mitral valve regurgitation. There is no mitral valve stenosis. Pulmonic Valve The pulmonic valve was not well visualized. Tricuspid Valve Likely normal tricuspid valve structure and function. There is trace tricuspid valve regurgitation. The right ventricular systolic pressure is normal. Normal right atrial pressure. There is no evidence of pulmonary hypertension. Great Vessels All visible segments of the aorta are normal in size. The pulmonary artery was not well visualized. Venous The inferior vena cava is normal in size and collapses greater than 50% with inspiration. Pericardium/Pleural There is no evidence of pericardial effusion. Prior Study Comparison No significant change compared to prior study dated: 11/02/2020. Measurements 2D Linear Measurements IVSd: 0.99 0.6-0.9/0.6-1.0 cm LVIDd: 4.07 3.9-5.3/4.2-5.9 cm LVIDd Index: 2.41 2.4-3.2/2.2-3.1 cm/m2 LVIDs: 2.33 2.0-3.6 cm LVPWd: 0.95 0.7-1.1 cm LA Diam: 3.10 2.7-3.8/3.0-4.0 cm LAIDs Index: 1.83 1.5-2.3 cm/m2 LV Mass: 154.97 67-162/88-224 g LV Mass Index: 91.70 43-95/49-115 g/m2 LVOT Diam: 2.00 3.0+(-)1.3 cm Mitral Valve E'Lateral: 8.38 E'Medial: 6.64 Aortic Valve AoV Pk João: 1.78 AoV Mn João: 1.15 AoV VTI: 0.27 AoV Pk Grad: 13.00 Aov Mn Grad: 6.00 BRAD Cont.VTI: 2.01 LVOT LVOT Pk João: 1.00 LVOT Mn João: 0.62 LVOT VTI: 0.18 LVOT Pk Grad: 4.00 LVOT Mn Grad: 2.00 LVOT Diam: 2.00 LVOT Area: 3.14 Diastolic Function E'Medial: 6.64 E' Laterial: 8.38 Right Ventricle TAPSE (mm): 16.10 TVS' João: 14.60 Tricuspid Valve TR Pk João: 2.88 TR Pk Grad: 33.00 RA Press: 3.00 RVSP: 36.00 Great Vessels Aorta Sinus of Valsalva: 3.13 2.0-3.[address] Ridge: 3.06 1.7-3.4 cm Ao Asc: 3.30 2.1-3.4 cm Ao Arch: 2.30 Updated in Other Vendor System with Status of Final Moi Kohler MD electronically signed on 06/29/2021 1:15:06 PM with status of Final
[2021-06-28] MEDS: Aspirin Enteric Coated 81 MG TABLET.DR PO (08:38)
[2021-06-28] MEDS: Atorvastatin Calcium 40 MG TABLET PO (08:38)
[2021-06-28] MEDS: Metoprolol Succinate ER 25 MG TAB.ER.24H PO (08:38)
[2021-06-28] MEDS: Thiamine HCL 100 MG TABLET PO (08:38)
[2021-06-28] MEDS: Magnesium Oxide 400 MG TABLET 200 MG PO (08:39)
[2021-06-28] MEDS: Cyanocobalamin (Vitamin B-12) 1,000 MCG TABLET 1000 MCG PO (08:39)
[2021-06-28] MEDS: Folic Acid 1 MG TABLET PO (08:41)
[2021-06-28] MEDS: Cholecalciferol (Vitamin D3) 25 MCG TABLET PO (08:41)
[2021-06-28] MEDS: methylPREDNISolone Sod Succ 40 MG/ML VIAL IVPUSH ×3 (08:41→19:54)
[2021-06-28] MEDS: Furosemide 20 MG/2 ML VIAL IVPUSH (08:43)
[2021-06-28] MEDS: 0.9 % Sodium Chloride Flush 3 ML SYRINGE IVFLUSH ×2 (08:43→19:54)
--- NOTE | 2021-06-28 08:49 | P.PNIM_ITS ---
Subjective Subjective Date of Service: 06/28/21 Interval History: Pneumonia vs ild excerebation Review of Systems Still short of breath Physical Exam Vital Signs: Vital Signs: Last Vital Signs Temp 98.0 F 06/28/21 07:55 Pulse 89 06/28/21 07:55 Resp 16 06/28/21 07:55 BP 110/68 06/28/21 07:55 Pulse Ox 93 06/28/21 07:55 Oxygen Flow Rate 2 06/27/21 20:05 BMI result Body Mass Index 29.1 Appearance: Alert.? Oriented X3.? short of breath with minimum excersion. cvs: rrr, [id number] , no murmur res: fair air entry, diminshed at bases , few rhonchii b/l abd: no rebound or guarding ,nt, bs present. ext pulses present , no cyanosis,no edema neuro: axo3 , nonfocal. Objective Data Active Medications Albuterol/Ipratropium (Albuterol/Iprat 2.5/0.5mg 3 Ml Ampul.Neb) 3 ml INHALE Q3H PRN PRN Reason: sob Albuterol/Ipratropium (Albuterol/Iprat 2.5/0.5mg 3 Ml Ampul.Neb) 3 ml INHALE RQ4H WHILE AWAKE [facility] Last Admin: 06/28/21 07:29 Dose: 3 ml Documented by: VALENTINO Aspirin (Aspirin Enteric Coated 81 Mg Tablet.) 81 mg PO DAILY [facility] Last Admin: 06/28/21 08:38 Dose: 81 mg Documented by: NAZARIO Atorvastatin Calcium (Atorvastatin Calcium 40 Mg Tablet) 40 mg PO DAILY [facility] Last Admin: 06/28/21 08:38 Dose: 40 mg Documented by: NAZARIO Cyanocobalamin (Cyanocobalamin (Vitamin B-12) 1,000 Mcg Tablet) 1,000 mcg PO DAILY [facility] Last Admin: 06/28/21 08:39 Dose: 1,000 mcg Documented by: NAZARIO Folic Acid (Folic Acid 1 Mg Tablet) 1 mg PO DAILY [facility] Last Admin: 06/28/21 08:41 Dose: 1 mg Documented by: NAZARIO Folic Acid (Folic Acid 1 Mg Tablet) 1 mg PO DAILY [facility] Last Admin: 06/28/21 08:42 Dose: Not Given Documented by: NAZARIO Non-Admin Reason: Duplicate Order Furosemide (Furosemide 20 Mg/2 Ml Vial) 20 mg IVPUSH DAILY [facility]; Protocol Last Admin: 06/28/21 08:43 Dose: 20 mg Documented by: NAZARIO Ceftriaxone Sodium 1 gm/ (Sodium Chloride) 50 mls @ 100 mls/hr IV Q24H [facility] Azithromycin 500 mg/ Sodium (Chloride) 250 mls @ 125 mls/hr IV Q24H [facility] Magnesium Oxide (Magnesium Oxide 400 Mg Tablet) 200 mg PO DAILY [facility] Last Admin: 06/28/21 08:39 Dose: 200 mg Documented by: NAZARIO Methylprednisolone Sodium Succinate (Methylprednisolone Sod Succ 40 Mg/Ml Vial) 40 mg IVPUSH BID [facility] Last Admin: 06/28/21 08:41 Dose: 40 mg Documented by: NAZARIO Metoprolol Succinate (Metoprolol Succinate Er 25 Mg Tab.Er.24h) 25 mg PO DAILY [facility]; Protocol Last Admin: 06/28/21 08:38 Dose: 25 mg Documented by: NAZARIO Pharmacy Consult (Consult Rx Perform Med Rec) 1 each MISCELLANE ONCE PRN PRN Reason: Consult order Sodium Chloride (0.9 % Sodium Chloride Flush 3 Ml Syringe) 3 ml IVFLUSH QSHIFT [facility] Last Admin: 06/28/21 08:43 Dose: 3 ml Documented by: NAZARIO Thiamine HCl (Thiamine Hcl 100 Mg Tablet) 100 mg PO DAILY [facility] Last Admin: 06/28/21 08:38 Dose: 100 mg Documented by: NAZARIO Vitamin D (Cholecalciferol (Vitamin D3) 25 Mcg Tablet) 25 mcg PO DAILY [facility] Last Admin: 06/28/21 08:41 Dose: 25 mcg Documented by: NAZARIO Warfarin Sodium (Warfarin Sodium 3 Mg Tablet) 3 mg PO DAILY@1800 [facility] Last Admin: 06/27/21 19:50 Dose: 3 mg Documented by: DORIS Labs CBC & Chem 7: 06/27/21 10:34 06/28/21 12:26 Labs: Laboratory Results - last 24 hr 06/27/21 06/27/21 06/27/21 10:34 10:34 10:34 MCV 95.3 MCH 30.6 MCHC 32.2 RDW 13.3 Plt Count 402 H MPV 8.9 L Immature Gran % (Auto) 0.6 H Neut % (Auto) 73.6 H Lymph % (Auto) 7.5 L [place] % (Auto) 13.6 H Eos % (Auto) 3.9 Baso % (Auto) 0.8 Lymph # (Auto) 0.9 L [place] # (Auto) 1.6 H Eos # (Auto) 0.4 Baso # (Auto) 0.1 Abs Immat Gran (auto) 0.07 H Absolute Neuts (auto) 8.4 H Absolute Nucleated RBC 0.000 Nucleated RBC % (auto) 0.0 Smear Tech's Comments VERIFIED PT INR D-Dimer High Sensitivty Anion Gap 12 Estim Creat Clear Calc 60.6 Estimated GFR > 60 Random Glucose 102 Lactic Acid Calcium 9.8 Troponin I High Sens < 3.5 B-Natriuretic Peptide 102 H Procalcitonin COVID-19 (KACEY) COVID-19 Clin Com Influenza Type A (MARLA) Influenza Type B (MARLA) Influenza A & B Note 06/27/21 06/27/21 06/27/21 10:34 10:34 13:11 MCV MCH MCHC RDW Plt Count MPV Immature Gran % (Auto) Neut % (Auto) Lymph % (Auto) [place] % (Auto) Eos % (Auto) Baso % (Auto) Lymph # (Auto) [place] # (Auto) Eos # (Auto) Baso # (Auto) Abs Immat Gran (auto) Absolute Neuts (auto) Absolute Nucleated RBC Nucleated RBC % (auto) Smear Tech's Comments PT 18.5 H INR 1.6 H D-Dimer High Sensitivty 512 Anion Gap Estim Creat Clear Calc Estimated GFR Random Glucose Lactic Acid 1.2 Calcium Troponin I High Sens B-Natriuretic Peptide Procalcitonin 0.16 COVID-19 (KACEY) COVID-19 Clin Com Influenza Type A (MARLA) Influenza Type B (MARLA) Influenza A & B Note 06/27/21 06/27/21 06/27/21 16:11 16:11 18:47 MCV MCH MCHC RDW Plt Count MPV Immature Gran % (Auto) Neut % (Auto) Lymph % (Auto) [place] % (Auto) Eos % (Auto) Baso % (Auto) Lymph # (Auto) [place] # (Auto) Eos # (Auto) Baso # (Auto) Abs Immat Gran (auto) Absolute Neuts (auto) Absolute Nucleated RBC Nucleated RBC % (auto) Smear Tech's Comments PT INR D-Dimer High Sensitivty Anion Gap Estim Creat Clear Calc Estimated GFR Random Glucose Lactic Acid Calcium Troponin I High Sens < 3.5 B-Natriuretic Peptide Procalcitonin COVID-19 (KACEY) Negative COVID-19 Clin Com A Influenza Type A (MARLA) Negative Influenza Type B (MARLA) Negative Influenza A & B Note See Note 06/28/21 05:31 MCV MCH MCHC RDW Plt Count MPV Immature Gran % (Auto) Neut % (Auto) Lymph % (Auto) [place] % (Auto) Eos % (Auto) Baso % (Auto) Lymph # (Auto) [place] # (Auto) Eos # (Auto) Baso # (Auto) Abs Immat Gran (auto) Absolute Neuts (auto) Absolute Nucleated RBC Nucleated RBC % (auto) Smear Tech's Comments PT 18.9 H INR 1.6 H D-Dimer High Sensitivty Anion Gap Estim Creat Clear Calc Estimated GFR Random Glucose Lactic Acid Calcium Troponin I High Sens B-Natriuretic Peptide Procalcitonin COVID-19 (KACEY) COVID-19 Clin Com Influenza Type A (MARLA) Influenza Type B (MARLA) Influenza A & B Note Assessment and Plan (1) Acute hypoxemic respiratory failure: Status: Acute (2) Pneumonia: Status: Acute Plan 75 y/o f with past medical history anxiety, a flutter, COPD, ETOH use hyperlipidemia: 1. Acute hypoxemic respiratory failure secondary to Pneumonia: no sepsis Has mild leukocytosis 11.4, tachypnea started on ceftriaxone/azithromycin, oxygen Lactic acid 1.2, blood culture pending. res panel added. cta -neg for pulm embolism 2.copd/ILD excerbation: added nebs, added steriods 3. elevated bnp, echo in 11/15 seems fine-less likely chf. continue lasix and recheck cxr in am. echo added 4.hx afib: continue bb, warfarin ,inr 1.6. 5. etoh use: ciwa , thiamine ,folic acid dvt prophylax : on warfrain inpatient need :Acute hypoxemic respiratory failure secondary to Pneumonia,copd/ILD excerbation. Quality Stroke Does the patient have a stroke diagnosis?: No VTE Prior VTE?: No VTE Risk Level:: Medical - moderate - high VTE Device Contraindication: N/A - Device Ordered VTE Drug Contraindication: N/A - Med Ordered
--- NOTE | 2021-06-28 08:50 | MHC.CM.PN ---
CM met with Patient at bedside and addressed IMM with her, providing her with the original and placing a copy on the chart. Patient lives in an apartment with her Partner/Garcia and she uses a cane to assist with mobility.Home no services is the goal and cM has initiated and will follow for dc planning. Patient received Moderna vax X3 and PCP is Dr. Brisa Cortes.
--- NOTE | 2021-06-28 09:25 | P.CDIC_ITS ---
CDI Concurrent Query Documentation Clarification: PHYSICIAN'S DOCUMENTATION REQUEST Date of Query: 06/28/21925 Patient Name: Angeles Robert Admit Date: 06/27/21 Dear Doctor, A review of the medical record indicates additional documentation may be needed. Please review below and update the documentation accordingly. Clinical Indicators: Risk Factors/Clinical Indicators/Treatments Clarify which of the following accurately represents the acuity of the [insert diagnosis]. Possible options might include: * Acute * Acute on chronic * Exacerbated/Decompensated * Compensated * Other ? please specify * Unable to determine Use of terms such as suspected, likely, concern for, or probable (associated with a specific diagnosis that is being evaluated, monitored, or treated as if it exists) are acceptable and can be coded in the inpatient setting, when documented at the time of discharge. Thank you, Kim Rojas [insert CDI's credentials] Extension: [4-digit phone extension] Please use your independent medical judgment in providing your response. THIS QUERY IS PART OF THE PERMANENT MEDICAL RECORD
[2021-06-28 09:33] LABS: Adenovirus PCR Not Detected (Not Detect.); Bordetella parapertussis PCR Not Detected (Not Detect.); Bordetella pertussis PCR Not Detected (Not Detect.); Chlamydia pneumoniae PCR Not Detected (Not Detect.); Coronavirus 229E PCR Not Detected (Not Detect.); Coronavirus HKU1 PCR Not Detected (Not Detect.); Coronavirus NL63 PCR Not Detected (Not Detect.); Coronavirus OC43 PCR Not Detected (Not Detect.); Human metapneumovirus PCR Not Detected (Not Detect.); Influenza A PCR Not Detected (Not Detect.); Influenza B PCR Not Detected (Not Detect.); Mycoplasma pneumoniae PCR Not Detected (Not Detect.); Parainfluenza 1 PCR Not Detected (Not Detect.); Parainfluenza 2 PCR Not Detected (Not Detect.); Parainfluenza 3 PCR Not Detected (Not Detect.); Parainfluenza 4 PCR Not Detected (Not Detect.); RSV PCR Not Detected (Not Detect.); Rhino/Enterovirus PCR Not Detected (Not Detect.); SARS-CoV-2 PCR Not Detected (Not Detect.)
--- NOTE | 2021-06-28 12:22 | P.CDIC_ITS ---
CDI Concurrent Query Documentation Clarification: PHYSICIAN'S DOCUMENTATION REQUEST Date of Query: 06/28/21 1223 Patient Name: Angeles Robert Admit Date: 06/27/21 Dear Doctor, A review of the medical record indicates additional documentation may be needed. Please review below and update the documentation accordingly. Clinical Indicators: Risk Factors/Clinical Indicators/Treatments PN: 06/27 -Assessment/plan - COPD/ILD Added nebs, added steroids. CXR - pulmonary congestion vs. pneumonia vs. ILD Based on the above, could you clarify in the Progress Notes the appropriate diagnosis, if significant, that supports the above abnormalities and additional evaluation, monitoring, and/or treatment rendered: * COPD/ILD * COPD/ILD exacerbation * Other (please specify) * Unable to determine Use of terms such as suspected, likely, concern for, or probable (associated with a specific diagnosis that is being evaluated, monitored, or treated as if it exists) are acceptable and can be coded in the inpatient setting, when documented at the time of discharge. Thank you, Kim Rojas [facility], CDIS Extension: [phone] Please use your independent medical judgment in providing your response. THIS QUERY IS PART OF THE PERMANENT MEDICAL RECORD Provider Response: Other Other Diagnosis: copd /ild excerbation
--- NOTE | 2021-06-28 12:32 | MHC.CM.PN ---
PER PHYSICIAN ROUNDS, PATIENT IS STILL ON O2 AND MAY BE HERE A FEW MORE DAYS. CASE MANAGEMENT FOLLOWING
[2021-06-28 12:50] LABS: Anion Gap 16 (12-20); Blood Urea Nitrogen 13 mg/dL (9-16); Calcium 9.5 mg/dL (8.4-10.2); Carbon Dioxide 24 mmol/L (22-29); Chloride 103 mmol/L (96-108); Creatinine Clr Calc Pharmacy 56.6; Estimated Glomerular Filt Rate > 60; Glucose Random 124 mg/dL (60-115); Potassium 4.1 mmol/L (3.3-5.1); Sodium 139 mmol/L (135-145)
[2021-06-28] MEDS: cefTRIAXone sodium 1 GM in 0.9 % Sodium Chloride 50 ML IV (13:52)
[2021-06-28] MEDS: Azithromycin 500 MG in 0.9 % Sodium Chloride 250 ML 125 MG IV (14:43)
[2021-06-28] MEDS: Warfarin Sodium 3 MG TABLET PO (17:37)
[2021-06-28] MEDS: traZODone HCL 25 MG HALFTAB PO (21:43)
[2021-06-29] VITALS (12 sets, daily range): BP systolic 100–131; BP diastolic 61–80; PULSE 78–97; RESP 14–20; TEMP 36.2–36.6; O2SAT 78–98
[2021-06-29 06:05] LABS: Hematocrit 42.5 % (37.0-47.0); Hemoglobin 13.8 g/dl (12.0-16.0); Mean Corpuscular HGB Conc 32.5 g/dl (31.0-35.0); Mean Corpuscular Hemoglobin 30.6 pg (27.0-33.0); Mean Corpuscular Volume 94.2 fL (80.0-98.0); Mean Platelet Volume 9.2 fL (9.4-12.3); Platelet Count 372 X10*3/uL (160-400); Red Blood Count 4.51 X10*6/uL (4.20-5.50); Red Cell Distribution Width 13.2 % (11.0-16.0); White Blood Count 14.5 X10*3/uL (4.8-10.8)
[2021-06-29 06:45] LABS: Anion Gap 17 (12-20); Blood Urea Nitrogen 13 mg/dL (9-16); Calcium 9.7 mg/dL (8.4-10.2); Carbon Dioxide 22 mmol/L (22-29); Chloride 104 mmol/L (96-108); Creatinine Clr Calc Pharmacy 63.9; Estimated Glomerular Filt Rate > 60; Glucose Random 121 mg/dL (60-115); Sodium 138 mmol/L (135-145)
--- NOTE | 2021-06-29 07:47 | HO.PM.IMPN ---
Subjective Subjective Date of Service: 06/29/21 Interval History: acute hypoxemic respiratory failure Review of Systems Still short of breath with minimal exertion, denies any chest pain or abdominal pain . Dry cough. Physical Exam Vital Signs: Vital Signs: Last Vital Signs Temp 97.1 F 06/29/21 03:56 Pulse 88 06/29/21 03:56 Resp 18 06/29/21 03:56 BP 127/77 06/29/21 03:56 Pulse Ox 92 06/29/21 03:56 Oxygen Flow Rate 2 06/27/21 20:05 BMI result Body Mass Index 29.1 Appearance: Alert.? Oriented X3.?? short of breath with minimum excersion. cvs: rrr, [id number] , no murmur res: fair air entry, diminshed at bases , few rhonchii b/l abd: no rebound or guarding ,nt, bs present. ext pulses present , no cyanosis,no edema neuro: axo3 , nonfocal. Objective Data Active Medications Albuterol/Ipratropium (Albuterol/Iprat 2.5/0.5mg 3 Ml Ampul.Neb) 3 ml INHALE Q3H PRN PRN Reason: sob Albuterol/Ipratropium (Albuterol/Iprat 2.5/0.5mg 3 Ml Ampul.Neb) 3 ml INHALE RQ4H WHILE AWAKE [facility] Last Admin: 06/28/21 19:24 Dose: 3 ml Documented by: GIANNA Aspirin (Aspirin Enteric Coated 81 Mg Tablet.) 81 mg PO DAILY [facility] Last Admin: 06/28/21 08:38 Dose: 81 mg Documented by: NAZARIO Atorvastatin Calcium (Atorvastatin Calcium 40 Mg Tablet) 40 mg PO DAILY [facility] Last Admin: 06/28/21 08:38 Dose: 40 mg Documented by: NAZARIO Cyanocobalamin (Cyanocobalamin (Vitamin B-12) 1,000 Mcg Tablet) 1,000 mcg PO DAILY [facility] Last Admin: 06/28/21 08:39 Dose: 1,000 mcg Documented by: NAZARIO Folic Acid (Folic Acid 1 Mg Tablet) 1 mg PO DAILY [facility] Last Admin: 06/28/21 08:41 Dose: 1 mg Documented by: NAZARIO Folic Acid (Folic Acid 1 Mg Tablet) 1 mg PO DAILY [facility] Last Admin: 06/28/21 08:42 Dose: Not Given Documented by: NAZARIO Non-Admin Reason: Duplicate Order Furosemide (Furosemide 20 Mg/2 Ml Vial) 20 mg IVPUSH DAILY [facility]; Protocol Last Admin: 06/28/21 08:43 Dose: 20 mg Documented by: NAZARIO Ceftriaxone Sodium 1 gm/ (Sodium Chloride) 50 mls @ 100 mls/hr IV Q24H [facility] Last Infusion: 06/28/21 14:44 Dose: 100 mls/hr Documented by: NAZARIO Azithromycin 500 mg/ Sodium (Chloride) 250 mls @ 125 mls/hr IV Q24H [facility] Last Infusion: 06/28/21 16:44 Dose: 0 mls/hr Documented by: DABArabella Magnesium Oxide (Magnesium Oxide 400 Mg Tablet) 200 mg PO DAILY [facility] Last Admin: 06/28/21 08:39 Dose: 200 mg Documented by: NAZARIO Methylprednisolone Sodium Succinate (Methylprednisolone Sod Succ 40 Mg/Ml Vial) 40 mg IVPUSH TID [facility] Last Admin: 06/28/21 19:54 Dose: 40 mg Documented by: APRIL Metoprolol Succinate (Metoprolol Succinate Er 25 Mg Tab.Er.24h) 25 mg PO DAILY [facility]; Protocol Last Admin: 06/28/21 08:38 Dose: 25 mg Documented by: NAZARIO Pharmacy Consult (Consult Rx Perform Med Rec) 1 each MISCELLANE ONCE PRN PRN Reason: Consult order Sodium Chloride (0.9 % Sodium Chloride Flush 3 Ml Syringe) 3 ml IVFLUSH [facility]I Last Admin: 06/28/21 19:54 Dose: 3 ml Documented by: APRIL Thiamine HCl (Thiamine Hcl 100 Mg Tablet) 100 mg PO DAILY [facility] Last Admin: 06/28/21 08:38 Dose: 100 mg Documented by: NAZARIO Trazodone HCl (Trazodone Hcl 25 Mg Halftab) 25 mg PO BEDTIME PRN PRN Reason: insomnia Last Admin: 06/28/21 21:43 Dose: 25 mg Documented by: APRIL Vitamin D (Cholecalciferol (Vitamin D3) 25 Mcg Tablet) 25 mcg PO DAILY [facility] Last Admin: 06/28/21 08:41 Dose: 25 mcg Documented by: NAZARIO Warfarin Sodium (Warfarin Sodium 3 Mg Tablet) 3 mg PO DAILY@1800 [facility] Last Admin: 06/28/21 17:37 Dose: 3 mg Documented by: PAT Labs CBC & Chem 7: 06/29/21 05:28 06/29/21 05:28 Labs: Laboratory Results - last 24 hr 06/28/21 06/28/21 06/29/21 00:51 12:26 05:28 MCV MCH MCHC RDW Plt Count MPV Absolute Nucleated RBC Nucleated RBC % (auto) Anion Gap 16 17 Estim Creat Clear Calc 56.6 63.9 Estimated GFR > 60 > 60 Random Glucose 124 H 121 H Calcium 9.5 9.7 Respiratory Panel Andrade See Note Adenovirus (Rapid PCR) Not Detected B.pert (TEM-PCR) Not Detected B.parapertussis DNA PCR Not Detected C. pneumoniae DNA (PCR) Not Detected Coronavirus OC43 (PCR) Not Detected Coronavirus HKU1 (PCR) Not Detected Coronavirus 229E (PCR) Not Detected Coronavirus NL63 (PCR) Not Detected Human Metapneumovir PCR Not Detected Influenza A (RT-PCR) Not Detected Influenza B (RT-PCR) Not Detected M. pneumoniae (PCR) Not Detected Parainfluenza 1 (PCR) Not Detected Parainfluenza 2 (PCR) Not Detected Parainfluenza 3 (PCR) Not Detected Parainfluenza 4 (PCR) Not Detected RSV (PCR) Not Detected Entero/Rhino (PCR) Not Detected SARS-CoV-2 RNA (RT-PCR) Not Detected 06/29/21 05:28 MCV 94.2 MCH 30.6 MCHC 32.5 RDW 13.2 Plt Count 372 MPV 9.2 L Absolute Nucleated RBC 0.000 Nucleated RBC % (auto) 0.0 Anion Gap Estim Creat Clear Calc Estimated GFR Random Glucose Calcium Respiratory Panel Andrade Adenovirus (Rapid PCR) B.pert (TEM-PCR) B.parapertussis DNA PCR C. pneumoniae DNA (PCR) Coronavirus OC43 (PCR) Coronavirus HKU1 (PCR) Coronavirus 229E (PCR) Coronavirus NL63 (PCR) Human Metapneumovir PCR Influenza A (RT-PCR) Influenza B (RT-PCR) M. pneumoniae (PCR) Parainfluenza 1 (PCR) Parainfluenza 2 (PCR) Parainfluenza 3 (PCR) Parainfluenza 4 (PCR) RSV (PCR) Entero/Rhino (PCR) SARS-CoV-2 RNA (RT-PCR) Microbiology Microbiology Results: Microbiology 06/27/21 13:11 Blood Culture - Preliminary Blood - Venous No growth after 24 hours. 06/27/21 13:11 Blood Culture - Preliminary Blood - Venous No growth after 24 hours. Assessment and Plan (1) Acute hypoxemic respiratory failure: Status: Acute (2) Pneumonia: Status: Acute (3) COPD (chronic obstructive pulmonary disease): Status: Acute Plan 75 y/o f with past medical history anxiety, a flutter, COPD, ETOH use hyperlipidemia: 1. Acute hypoxemic respiratory failure secondary to Pneumonia: no sepsis leukocytosis slight bump 14.5, tachypnea started on ceftriaxone/azithromycin, oxygen Lactic acid 1.2, blood culture neg@24hrs. res panel -neg. cta -neg for pulm embolism 2.copd/ILD excerbation: minimum improvement continue nebs, steriods. 3. elevated bnp, echo in 11/15 seems fine-less likely chf. continue lasix and recheck cxr (06/28)-ILD . echo added 4.hx afib: continue bb, warfarin ,inr 1.6. 5. etoh use: ciwa , thiamine ,folic acid dvt prophylax : on warfrain Patient and her son updated. inpatient need :Acute hypoxemic respiratory failure secondary to Pneumonia,copd/ILD excerbation. Quality Stroke Does the patient have a stroke diagnosis?: No VTE Prior VTE?: No VTE Risk Level:: Medical - moderate - high VTE Device Contraindication: N/A - Device Ordered VTE Drug Contraindication: N/A - Med Ordered
[2021-06-29] MEDS: methylPREDNISolone Sod Succ 40 MG/ML VIAL IVPUSH ×3 (08:07→20:41)
[2021-06-29] MEDS: Cholecalciferol (Vitamin D3) 25 MCG TABLET PO (08:07)
[2021-06-29] MEDS: Furosemide 20 MG/2 ML VIAL IVPUSH (08:07)
[2021-06-29] MEDS: Atorvastatin Calcium 40 MG TABLET PO (08:08)
[2021-06-29] MEDS: Magnesium Oxide 400 MG TABLET 200 MG PO (08:08)
[2021-06-29] MEDS: Cyanocobalamin (Vitamin B-12) 1,000 MCG TABLET 1000 MCG PO (08:08)
[2021-06-29] MEDS: Folic Acid 1 MG TABLET PO (08:08)
[2021-06-29] MEDS: Thiamine HCL 100 MG TABLET PO (08:08)
[2021-06-29] MEDS: Aspirin Enteric Coated 81 MG TABLET.DR PO (08:08)
[2021-06-29] MEDS: Metoprolol Succinate ER 25 MG TAB.ER.24H PO (08:09)
[2021-06-29] MEDS: 0.9 % Sodium Chloride Flush 3 ML SYRINGE IVFLUSH ×3 (08:09→20:42)
[2021-06-29] MEDS: Albuterol/Iprat 2.5/0.5MG 3 ML AMPUL.NEB INHALE ×4 (08:38→20:52)
[2021-06-29 08:53] LABS: INTERNATIONAL NORM RATIO 2.3 (0.9-1.1); Prothrombin Time 26.6 SEC (9.9-13.0)
[2021-06-29] MEDS: cefTRIAXone sodium 1 GM in 0.9 % Sodium Chloride 50 ML IV (13:04)
[2021-06-29] MEDS: Azithromycin 500 MG in 0.9 % Sodium Chloride 250 ML 125 MG IV (13:46)
[2021-06-29] MEDS: Warfarin Sodium 2.5 MG TABLET PO (17:42)
[2021-06-29] MEDS: traZODone HCL 25 MG HALFTAB PO (22:29)
[2021-06-30] VITALS (9 sets, daily range): BP systolic 96–143; BP diastolic 58–82; PULSE 70–101; RESP 16–22; TEMP 36.1–36.9; O2SAT 89–97
[2021-06-30 06:14] LABS: Hematocrit 41.1 % (37.0-47.0); Mean Corpuscular HGB Conc 31.6 g/dl (31.0-35.0); Mean Corpuscular Hemoglobin 30.4 pg (27.0-33.0); Mean Platelet Volume 9.4 fL (9.4-12.3); Platelet Count 377 X10*3/uL (160-400); Red Blood Count 4.28 X10*6/uL (4.20-5.50); Red Cell Distribution Width 13.3 % (11.0-16.0); White Blood Count 13.9 X10*3/uL (4.8-10.8)
[2021-06-30 06:23] LABS: INTERNATIONAL NORM RATIO 2.7 (0.9-1.1); Prothrombin Time 31.6 SEC (9.9-13.0)
[2021-06-30 08:25] LABS: B Type Natriuretic Peptide 195 pg/mL (<100)
[2021-06-30] MEDS: Metoprolol Succinate ER 25 MG TAB.ER.24H PO (08:54)
[2021-06-30] MEDS: Albuterol/Iprat 2.5/0.5MG 3 ML AMPUL.NEB INHALE ×4 (08:54→20:34)
[2021-06-30] MEDS: Atorvastatin Calcium 40 MG TABLET PO (08:54)
[2021-06-30] MEDS: Folic Acid 1 MG TABLET PO (08:55)
[2021-06-30] MEDS: Cholecalciferol (Vitamin D3) 25 MCG TABLET PO (08:55)
[2021-06-30] MEDS: Magnesium Oxide 400 MG TABLET 200 MG PO (08:55)
[2021-06-30] MEDS: Thiamine HCL 100 MG TABLET PO (08:55)
[2021-06-30] MEDS: Aspirin Enteric Coated 81 MG TABLET.DR PO (08:55)
[2021-06-30] MEDS: Cyanocobalamin (Vitamin B-12) 1,000 MCG TABLET 1000 MCG PO (08:56)
[2021-06-30] MEDS: 0.9 % Sodium Chloride Flush 3 ML SYRINGE IVFLUSH ×2 (08:57→20:15)
[2021-06-30] MEDS: methylPREDNISolone Sod Succ 40 MG/ML VIAL IVPUSH ×4 (08:57→20:14)
--- NOTE | 2021-06-30 11:38 | MHC.CM.PN ---
PLAN IS TO INCREASE STEROIDS TODAY AND MONITOR NO PLAN FOR WEEKEND DISCHARGE
--- NOTE | 2021-06-30 13:03 | HO.PM.IMPN ---
Subjective Subjective Date of Service: 06/30/21 Interval History: acute hypoxemic respiratory failure Review of Systems Still short of breath with minimal exertion, denies any chest pain or abdominal pain . Dry cough. Physical Exam Vital Signs: Vital Signs: Last Vital Signs Temp 97.2 F 06/30/21 11:32 Pulse 73 06/30/21 11:51 Resp 18 06/30/21 11:51 BP 96/70 06/30/21 11:32 Pulse Ox 91 L 06/30/21 11:32 Oxygen Flow Rate 2 06/27/21 20:05 BMI result Body Mass Index 29.1 Appearance: Alert.? Oriented X3.?? short of breath with minimum excersion. cvs: rrr, [id number] , no murmur res: fair air entry, diminshed at bases , few rhonchii b/l abd: no rebound or guarding ,nt, bs present. ext pulses present , no cyanosis,no edema neuro: axo3 , nonfocal. Objective Data Active Medications Albuterol/Ipratropium (Albuterol/Iprat 2.5/0.5mg 3 Ml Ampul.Neb) 3 ml INHALE Q3H PRN PRN Reason: sob Albuterol/Ipratropium (Albuterol/Iprat 2.5/0.5mg 3 Ml Ampul.Neb) 3 ml INHALE RQ4H WHILE AWAKE [facility] Last Admin: 06/30/21 11:51 Dose: 3 ml Documented by: MERT Aspirin (Aspirin Enteric Coated 81 Mg Tablet.) 81 mg PO DAILY [facility] Last Admin: 06/30/21 08:55 Dose: 81 mg Documented by: NATASHA Atorvastatin Calcium (Atorvastatin Calcium 40 Mg Tablet) 40 mg PO DAILY [facility] Last Admin: 06/30/21 08:54 Dose: 40 mg Documented by: NATASHA Cyanocobalamin (Cyanocobalamin (Vitamin B-12) 1,000 Mcg Tablet) 1,000 mcg PO DAILY [facility] Last Admin: 06/30/21 08:56 Dose: 1,000 mcg Documented by: NATASHA Folic Acid (Folic Acid 1 Mg Tablet) 1 mg PO DAILY [facility] Last Admin: 06/30/21 08:55 Dose: 1 mg Documented by: NATASHA Folic Acid (Folic Acid 1 Mg Tablet) 1 mg PO DAILY [facility] Last Admin: 06/30/21 08:56 Dose: Not Given Documented by: NATASHA Non-Admin Reason: Duplicate Order Ceftriaxone Sodium 1 gm/ (Sodium Chloride) 50 mls @ 100 mls/hr IV Q24H [facility] Last Infusion: 06/29/21 13:35 Dose: 0 mls/hr Documented by: PAT Azithromycin 500 mg/ Sodium (Chloride) 250 mls @ 125 mls/hr IV Q24H [facility] Last Infusion: 06/29/21 15:54 Dose: 0 mls/hr Documented by: PAT Magnesium Oxide (Magnesium Oxide 400 Mg Tablet) 200 mg PO DAILY [facility] Last Admin: 06/30/21 08:55 Dose: 200 mg Documented by: NATASHA Methylprednisolone Sodium Succinate (Methylprednisolone Sod Succ 40 Mg/Ml Vial) 40 mg IVPUSH QID [facility] Metoprolol Succinate (Metoprolol Succinate Er 25 Mg Tab.Er.24h) 25 mg PO DAILY [facility]; Protocol Last Admin: 06/30/21 08:54 Dose: 25 mg Documented by: NATASHA Pharmacy Consult (Consult Rx Perform Med Rec) 1 each MISCELLANE ONCE PRN PRN Reason: Consult order Sodium Chloride (0.9 % Sodium Chloride Flush 3 Ml Syringe) 3 ml IVFLUSH QSHIFT [facility] Last Admin: 06/30/21 08:57 Dose: 3 ml Documented by: NATASHA Thiamine HCl (Thiamine Hcl 100 Mg Tablet) 100 mg PO DAILY [facility] Last Admin: 06/30/21 08:55 Dose: 100 mg Documented by: NATASHA Trazodone HCl (Trazodone Hcl 25 Mg Halftab) 25 mg PO BEDTIME PRN PRN Reason: insomnia Last Admin: 06/29/21 22:29 Dose: 25 mg Documented by: DELL Vitamin D (Cholecalciferol (Vitamin D3) 25 Mcg Tablet) 25 mcg PO DAILY [facility] Last Admin: 06/30/21 08:55 Dose: 25 mcg Documented by: NATASHA Warfarin Sodium (Warfarin Sodium 2.5 Mg Tablet) 2.5 mg PO DAILY@1800 [facility] Last Admin: 06/29/21 17:42 Dose: 2.5 mg Documented by: PAT Labs CBC & Chem 7: 06/30/21 05:43 06/29/21 05:28 Labs: Laboratory Results - last 24 hr 06/30/21 06/30/21 06/30/21 05:43 05:43 05:43 MCV 96.0 MCH 30.4 MCHC 31.6 RDW 13.3 Plt Count 377 MPV 9.4 Absolute Nucleated RBC 0.000 Nucleated RBC % (auto) 0.0 PT 31.6 H INR 2.7 H B-Natriuretic Peptide 195 H Microbiology Microbiology Results: Microbiology 06/27/21 13:11 Blood Culture - Preliminary Blood - Venous No growth after 48 hours. 06/27/21 13:11 Blood Culture - Preliminary Blood - Venous No growth after 48 hours. Assessment and Plan (1) Acute hypoxemic respiratory failure: Status: Acute (2) Pneumonia: Status: Acute Plan 75 y/o f with past medical history anxiety, a flutter, COPD, ETOH use hyperlipidemia: 1. Acute hypoxemic respiratory failure secondary to Pneumonia: no sepsis still hypoxic and sob ?leukocytosis slight bump 14.5, tachypnea started on ceftriaxone/azithromycin, oxygen Lactic acid 1.2, blood culture neg@24hrs. res panel -neg. cta -neg for pulm embolism 2.copd/ILD excerbation: minimum improvement continue? nebs,uptitrated ? steriods. 3. elevated bnp, echo in 11/15 seems fine-less likely chf. continue lasix and recheck cxr (06/28)-ILD . echo added 4.hx afib: continue bb, warfarin ,inr 2.7. 5. etoh use: ciwa , thiamine ,folic acid dvt prophylax : on warfrain Patient and her son updated. inpatient need :Acute hypoxemic respiratory failure secondary to Pneumonia,copd/ILD excerbation. Quality Stroke Does the patient have a stroke diagnosis?: No VTE Prior VTE?: No VTE Risk Level:: Medical - moderate - high VTE Device Contraindication: N/A - Device Ordered VTE Drug Contraindication: N/A - Med Ordered
--- NOTE | 2021-06-30 13:57 | MHC.CLN ---
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
[2021-06-30] MEDS: cefTRIAXone sodium 1 GM in 0.9 % Sodium Chloride 50 ML IV (14:21)
[2021-06-30] MEDS: Azithromycin 500 MG in 0.9 % Sodium Chloride 250 ML 125 MG IV (15:07)
[2021-06-30] MEDS: Warfarin Sodium 2 MG TABLET PO (17:10)
[2021-06-30] MEDS: traZODone HCL 25 MG HALFTAB PO (22:03)
[2021-07-01] VITALS (10 sets, daily range): BP systolic 100–128; BP diastolic 56–84; PULSE 52–92; RESP 17–20; TEMP 36–37; O2SAT 88–98
[2021-07-01] MEDS: Acetaminophen 325 MG TABLET 650 MG PO (05:49)
[2021-07-01 06:55] LABS: INTERNATIONAL NORM RATIO 2.8 (0.9-1.1); Prothrombin Time 32.2 SEC (9.9-13.0)
[2021-07-01] MEDS: Albuterol/Iprat 2.5/0.5MG 3 ML AMPUL.NEB INHALE ×4 (07:36→20:50)
--- NOTE | 2021-07-01 08:51 | P.PNIM_ITS ---
Subjective Subjective Date of Service: 07/01/21 Interval History: acute hypoxemic respiratory failure Review of Systems Still short of breath with minimal exertion, denies any chest pain or abdominal pain . Dry cough. Physical Exam Vital Signs: Vital Signs: Last Vital Signs Temp 97.2 F 07/01/21 08:00 Pulse 92 07/01/21 08:00 Resp 20 07/01/21 08:00 BP 126/67 07/01/21 08:00 Pulse Ox 88 L 07/01/21 08:00 Oxygen Flow Rate 2 06/27/21 20:05 BMI result Body Mass Index 29.1 Appearance: Alert.? Oriented X3.?? short of breath with minimum excersion. cvs: rrr, [id number] , no murmur res: fair air entry, diminshed at bases , few rhonchii b/l unchanged . abd: no rebound or guarding ,nt, bs present. ext pulses present , no cyanosis,no edema neuro: axo3 , nonfocal. Objective Data Active Medications Acetaminophen (Acetaminophen 325 Mg Tablet) 650 mg PO Q6H PRN PRN Reason: Pain, Mild (Pain Scale 1-3) Last Admin: 07/01/21 05:49 Dose: 650 mg Documented by: RANDY Albuterol/Ipratropium (Albuterol/Iprat 2.5/0.5mg 3 Ml Ampul.Neb) 3 ml INHALE Q3H PRN PRN Reason: sob Albuterol/Ipratropium (Albuterol/Iprat 2.5/0.5mg 3 Ml Ampul.Neb) 3 ml INHALE RQ4H WHILE AWAKE [facility] Last Admin: 07/01/21 07:36 Dose: 3 ml Documented by: VALENTINO Aspirin (Aspirin Enteric Coated 81 Mg Tablet.) 81 mg PO DAILY [facility] Last Admin: 06/30/21 08:55 Dose: 81 mg Documented by: NATASHA Atorvastatin Calcium (Atorvastatin Calcium 40 Mg Tablet) 40 mg PO DAILY [facility] Last Admin: 06/30/21 08:54 Dose: 40 mg Documented by: NATASHA Cyanocobalamin (Cyanocobalamin (Vitamin B-12) 1,000 Mcg Tablet) 1,000 mcg PO DAILY [facility] Last Admin: 06/30/21 08:56 Dose: 1,000 mcg Documented by: NATASHA Folic Acid (Folic Acid 1 Mg Tablet) 1 mg PO DAILY [facility] Last Admin: 06/30/21 08:55 Dose: 1 mg Documented by: NATASHA Folic Acid (Folic Acid 1 Mg Tablet) 1 mg PO DAILY [facility] Last Admin: 06/30/21 08:56 Dose: Not Given Documented by: NATASHA Non-Admin Reason: Duplicate Order Ceftriaxone Sodium 1 gm/ (Sodium Chloride) 50 mls @ 100 mls/hr IV Q24H [facility] Last Infusion: 06/30/21 15:10 Dose: 0 mls/hr Documented by: NATASHA Azithromycin 500 mg/ Sodium (Chloride) 250 mls @ 125 mls/hr IV Q24H [facility] Last Infusion: 06/30/21 17:15 Dose: 0 mls/hr Documented by: NATASHA Magnesium Oxide (Magnesium Oxide 400 Mg Tablet) 200 mg PO DAILY [facility] Last Admin: 06/30/21 08:55 Dose: 200 mg Documented by: NATASHA Methylprednisolone Sodium Succinate (Methylprednisolone Sod Succ 40 Mg/Ml Vial) 40 mg IVPUSH QID [facility] Last Admin: 06/30/21 20:14 Dose: 40 mg Documented by: RANDY Metoprolol Succinate (Metoprolol Succinate Er 25 Mg Tab.Er.24h) 25 mg PO DAILY [facility]; Protocol Last Admin: 06/30/21 08:54 Dose: 25 mg Documented by: NATASHA Pharmacy Consult (Consult Rx Perform Med Rec) 1 each MISCELLANE ONCE PRN PRN Reason: Consult order Sodium Chloride (0.9 % Sodium Chloride Flush 3 Ml Syringe) 3 ml IVFLUSH QSHIFT [facility] Last Admin: 06/30/21 20:15 Dose: 3 ml Documented by: RANDY Thiamine HCl (Thiamine Hcl 100 Mg Tablet) 100 mg PO DAILY [facility] Last Admin: 06/30/21 08:55 Dose: 100 mg Documented by: NATASHA Trazodone HCl (Trazodone Hcl 25 Mg Halftab) 25 mg PO BEDTIME PRN PRN Reason: insomnia Last Admin: 06/30/21 22:03 Dose: 25 mg Documented by: RANDY Vitamin D (Cholecalciferol (Vitamin D3) 25 Mcg Tablet) 25 mcg PO DAILY [facility] Last Admin: 06/30/21 08:55 Dose: 25 mcg Documented by: NATASHA Warfarin Sodium (Warfarin Sodium 2 Mg Tablet) 2 mg PO DAILY@1800 [facility] Last Admin: 06/30/21 17:10 Dose: 2 mg Documented by: NATASHA Labs CBC & Chem 7: 06/30/21 05:43 06/29/21 05:28 Labs: Laboratory Results - last 24 hr 07/01/21 06:08 PT 32.2 H INR 2.8 H Assessment and Plan (1) Acute hypoxemic respiratory failure: Status: Acute (2) Pneumonia: Status: Acute (3) ILD (interstitial lung disease): Status: Acute Plan 75 y/o f with past medical history anxiety, a flutter, COPD, ETOH use hyp erlipidemia: 1. Acute hypoxemic respiratory failure secondary toIld Pneumonia: no sepsis still hypoxic and sob ?leukocytosis slight bump 13.9 Lactic acid 1.2, blood culture neg@24hrs. res panel -neg. cta -neg for pulm embolism continue? nebs,uptitrated ? steriods,switched to po ceftin/azithro, oxygen. 3. elevated bnp, echo in 11/15 seems fine-less likely chf. continue lasix and recheck cxr (06/28)-ILD . echo -Conclusions: - 1.? Normal LV systolic function with grade 1 diastolic ? dysfunction? 2.? Normal cardiac valvular Doppler? 3.? Normal RV systolic pressure? 4. No gross pericardial effusion ? 4.hx afib: continue bb, warfarin ,inr 2.8. 5. etoh use: ciwa , thiamine ,folic acid dvt prophylax : on warfrain Patient and her son updated. inpatient need :Acute hypoxemic respiratory failure secondary to Pneumonia,copd/ILD excerbation. Quality Stroke Does the patient have a stroke diagnosis?: No VTE Prior VTE?: No VTE Risk Level:: Medical - moderate - high VTE Device Contraindication: N/A - Device Ordered VTE Drug Contraindication: N/A - Med Ordered
[2021-07-01] MEDS: 0.9 % Sodium Chloride Flush 3 ML SYRINGE IVFLUSH ×3 (09:04→20:36)
[2021-07-01] MEDS: methylPREDNISolone Sod Succ 40 MG/ML VIAL IVPUSH (09:04)
[2021-07-01] MEDS: Folic Acid 1 MG TABLET PO (09:05)
[2021-07-01] MEDS: Cholecalciferol (Vitamin D3) 25 MCG TABLET PO (09:05)
[2021-07-01] MEDS: Aspirin Enteric Coated 81 MG TABLET.DR PO (09:05)
[2021-07-01] MEDS: Metoprolol Succinate ER 25 MG TAB.ER.24H PO (09:06)
[2021-07-01] MEDS: Thiamine HCL 100 MG TABLET PO (09:06)
[2021-07-01] MEDS: Atorvastatin Calcium 40 MG TABLET PO (09:06)
[2021-07-01] MEDS: Magnesium Oxide 400 MG TABLET 200 MG PO (09:06)
[2021-07-01] MEDS: Cyanocobalamin (Vitamin B-12) 1,000 MCG TABLET 1000 MCG PO (09:06)
[2021-07-01] MEDS: Azithromycin 250 MG TABLET PO (12:49)
[2021-07-01] MEDS: methylPREDNISolone Sod Succ 40 MG/ML VIAL 60 MG IVPUSH ×3 (12:50→20:36)
[2021-07-01] MEDS: Warfarin Sodium 2 MG TABLET PO (16:57)
[2021-07-01] MEDS: Omeprazole 20 MG CAPSULE.DR PO (16:57)
[2021-07-01] MEDS: traZODone HCL 25 MG HALFTAB PO (20:37)
[2021-07-02] VITALS (8 sets, daily range): BP systolic 119–145; BP diastolic 64–94; PULSE 72–91; RESP 16–20; TEMP 36.1–36.6; O2SAT 90–97
[2021-07-02] MEDS: Omeprazole 20 MG CAPSULE.DR PO (06:47)
[2021-07-02 07:22] LABS: Anion Gap 12 (12-20); Blood Urea Nitrogen 20 mg/dL (9-16); Calcium 9.1 mg/dL (8.4-10.2); Carbon Dioxide 26 mmol/L (22-29); Chloride 105 mmol/L (96-108); Creatinine Clr Calc Pharmacy 64.9; Estimated Glomerular Filt Rate > 60; Glucose Random 134 mg/dL (60-115); Potassium 4.2 mmol/L (3.3-5.1); Sodium 139 mmol/L (135-145)
[2021-07-02] MEDS: Albuterol/Iprat 2.5/0.5MG 3 ML AMPUL.NEB INHALE ×4 (07:27→19:58)
--- NOTE | 2021-07-02 08:04 | P.PNIM_ITS ---
Subjective Subjective Date of Service: 07/02/21 Interval History: acute hypoxemic respiratory failure Review of Systems sob seems worsening than yesterday Denies any abdominal pain or nausea or vomiting or fever or chills Has mild cough. Physical Exam Vital Signs: Vital Signs: Last Vital Signs Temp 97.8 F 07/02/21 03:55 Pulse 76 07/02/21 07:28 Resp 18 07/02/21 07:28 BP 145/84 H 07/02/21 03:55 Pulse Ox 96 07/02/21 03:55 Oxygen Flow Rate 2 06/27/21 20:05 BMI result Body Mass Index 29.1 Appearance: Alert.? Oriented X3.?? short of breath with minimum excersion. cvs: rrr, [id number] , no murmur res: fair air entry, diminshed at bases , few rhonchii b/l unchanged . abd: no rebound or guarding ,nt, bs present. ext pulses present , no cyanosis,no edema neuro: axo3 , nonfocal. Objective Data Active Medications Acetaminophen (Acetaminophen 325 Mg Tablet) 650 mg PO Q6H PRN PRN Reason: Pain, Mild (Pain Scale 1-3) Last Admin: 07/01/21 05:49 Dose: 650 mg Documented by: RANDY Albuterol/Ipratropium (Albuterol/Iprat 2.5/0.5mg 3 Ml Ampul.Neb) 3 ml INHALE Q3H PRN PRN Reason: sob Albuterol/Ipratropium (Albuterol/Iprat 2.5/0.5mg 3 Ml Ampul.Neb) 3 ml INHALE RQ4H WHILE AWAKE [facility] Last Admin: 07/02/21 07:27 Dose: 3 ml Documented by: VALENTINO Aspirin (Aspirin Enteric Coated 81 Mg Tablet.) 81 mg PO DAILY [facility] Last Admin: 07/01/21 09:05 Dose: 81 mg Documented by: EDWARD Atorvastatin Calcium (Atorvastatin Calcium 40 Mg Tablet) 40 mg PO DAILY [facility] Last Admin: 07/01/21 09:06 Dose: 40 mg Documented by: EDWARD Azithromycin (Azithromycin 250 Mg Tablet) 250 mg PO Q24H [facility] Last Admin: 07/01/21 12:49 Dose: 250 mg Documented by: EDWARD Cefuroxime Axetil (Cefuroxime Axetil 500 Mg Tablet) 500 mg PO Q12H [facility] Last Admin: 07/02/21 01:09 Dose: 500 mg Documented by: RALPH Cyanocobalamin (Cyanocobalamin (Vitamin B-12) 1,000 Mcg Tablet) 1,000 mcg PO DAILY [facility] Last Admin: 07/01/21 09:06 Dose: 1,000 mcg Documented by: EDWARD Folic Acid (Folic Acid 1 Mg Tablet) 1 mg PO DAILY [facility] Last Admin: 07/01/21 09:05 Dose: 1 mg Documented by: EDWARD Magnesium Oxide (Magnesium Oxide 400 Mg Tablet) 200 mg PO DAILY [facility] Last Admin: 07/01/21 09:06 Dose: 200 mg Documented by: EDWARD Methylprednisolone Sodium Succinate (Methylprednisolone Sod Succ 40 Mg/Ml Vial) 60 mg IVPUSH QID [facility] Last Admin: 07/01/21 20:36 Dose: 60 mg Documented by: RANDY Metoprolol Succinate (Metoprolol Succinate Er 25 Mg Tab.Er.24h) 25 mg PO DAILY [facility]; Protocol Last Admin: 07/01/21 09:06 Dose: 25 mg Documented by: EDWARD Omeprazole (Omeprazole 20 Mg Capsule.Dr) 20 mg PO BID@0630,1630 [facility] Last Admin: 07/02/21 06:47 Dose: 20 mg Documented by: RALPH Pharmacy Consult (Consult Rx Perform Med Rec) 1 each MISCELLANE ONCE PRN PRN Reason: Consult order Sodium Chloride (0.9 % Sodium Chloride Flush 3 Ml Syringe) 3 ml IVFLUSH QSHIFT [facility] Last Admin: 07/01/21 20:36 Dose: 3 ml Documented by: RANDY Thiamine HCl (Thiamine Hcl 100 Mg Tablet) 100 mg PO DAILY [facility] Last Admin: 07/01/21 09:06 Dose: 100 mg Documented by: EDWARD Trazodone HCl (Trazodone Hcl 25 Mg Halftab) 25 mg PO BEDTIME PRN PRN Reason: insomnia Last Admin: 07/01/21 20:37 Dose: 25 mg Documented by: RANDY Vitamin D (Cholecalciferol (Vitamin D3) 25 Mcg Tablet) 25 mcg PO DAILY [facility] Last Admin: 07/01/21 09:05 Dose: 25 mcg Documented by: EDWARD Warfarin Sodium (Warfarin Sodium 2 Mg Tablet) 2 mg PO DAILY@1800 [facility] Last Admin: 07/01/21 16:57 Dose: 2 mg Documented by: EDWARD Labs CBC & Chem 7: 06/30/21 05:43 07/02/21 05:36 Labs: Laboratory Results - last 24 hr 07/02/21 05:36 Anion Gap 12 Estim Creat Clear Calc 64.9 Estimated GFR > 60 Random Glucose 134 H Calcium 9.1 D Assessment and Plan (1) ILD (interstitial lung disease): Status: Acute (2) Acute hypoxemic respiratory failure: Status: Acute Plan 75 y/o f with past medical history anxiety, a flutter, COPD, ETOH use hyperlipidemia: 1. Acute hypoxemic respiratory failure secondary toIld Pneumonia: no sepsis still hypoxic and sob slightly worse vbg and cxr noted. ?leukocytosis slight bump 13.9 Lactic acid 1.2, blood culture neg@48hrs. res panel -neg. cta -neg for pulm embolism continue? nebs,adjusted ? steriods,switched to po ceftin/azithro, oxygen. we may consider pulm eval if does not improve. 3. elevated bnp, echo in 11/15 seems fine-less likely chf. continue lasix and recheck cxr (06/28)-ILD . echo -Conclusions: - 1.? Normal LV systolic function with grade 1 diastolic ? dysfunction? 2.? Normal cardiac valvular Doppler? 3.? Normal RV systolic pressure? 4. No gross pericardial effusion ? 4.hx afib: continue bb, continue warfarin ,inr 2.8 yesterday, inr pending for today. 5. etoh use: continue thiamine ,folic acid dvt prophylax : on warfrain Patient and her son updated. inpatient need :Acute hypoxemic respiratory failure secondary to Pneumonia,copd/ILD excerbation requiring high dose iv steriods. Quality Stroke Does the patient have a stroke diagnosis?: No VTE Prior VTE?: No VTE Risk Level:: Medical - moderate - high VTE Device Contraindication: N/A - Device Ordered VTE Drug Contraindication: N/A - Med Ordered
[2021-07-02] MEDS: 0.9 % Sodium Chloride Flush 3 ML SYRINGE IVFLUSH ×4 (09:06→23:22)
[2021-07-02] MEDS: Folic Acid 1 MG TABLET PO (09:06)
[2021-07-02] MEDS: Cholecalciferol (Vitamin D3) 25 MCG TABLET PO (09:06)
[2021-07-02] MEDS: Aspirin Enteric Coated 81 MG TABLET.DR PO (09:06)
[2021-07-02] MEDS: Thiamine HCL 100 MG TABLET PO (09:06)
[2021-07-02] MEDS: Cyanocobalamin (Vitamin B-12) 1,000 MCG TABLET 1000 MCG PO (09:06)
[2021-07-02] MEDS: Metoprolol Succinate ER 25 MG TAB.ER.24H PO (09:07)
[2021-07-02] MEDS: Magnesium Oxide 400 MG TABLET 200 MG PO (09:07)
[2021-07-02] MEDS: Atorvastatin Calcium 40 MG TABLET PO (09:07)
[2021-07-02] MEDS: methylPREDNISolone Sod Succ 40 MG/ML VIAL 60 MG IVPUSH ×2 (09:08→12:52)
[2021-07-02 11:50] LABS: VBG Base Excess 4.6 mmol/L; VBG HCO3 29 mmol/L (22-26); VBG pCO2 44 mmHg; VBG pH 7.43 (7.32-7.43); VBG pO2 49 mmHg
[2021-07-02 11:52] LABS: Venous Blood Gas Refer to POC result
[2021-07-02] MEDS: Azithromycin 250 MG TABLET PO (12:52)
[2021-07-02 13:52] LABS: INTERNATIONAL NORM RATIO 2.7 (0.9-1.1); Prothrombin Time 31.9 SEC (9.9-13.0)
[2021-07-02] MEDS: Omeprazole 40 MG CAPSULE.DR PO (17:02)
[2021-07-02] MEDS: Warfarin Sodium 2 MG TABLET PO (17:02)
[2021-07-02] MEDS: methylPREDNISolone Sod Succ 40 MG/ML VIAL 80 MG IVPUSH ×2 (17:03→19:52)
[2021-07-02] MEDS: traZODone HCL 25 MG HALFTAB PO (19:54)
[2021-07-03] VITALS (11 sets, daily range): BP systolic 111–135; BP diastolic 58–84; PULSE 61–88; RESP 14–18; TEMP 36.2–36.8; O2SAT 90–98
[2021-07-03] MEDS: Omeprazole 40 MG CAPSULE.DR PO ×2 (06:17→17:12)
[2021-07-03] MEDS: Albuterol/Iprat 2.5/0.5MG 3 ML AMPUL.NEB INHALE ×4 (07:47→19:13)
--- NOTE | 2021-07-03 08:01 | P.PNIM_ITS ---
Subjective Subjective Date of Service: 07/03/21 Interval History: ILd Excerebation Review of Systems Patient is still feel winded with minimal exertion, generalized weak. Feel short of breath Denies any chest pain on abdominal pain or nausea or vomiting or fever or chills. Physical Exam 2 Vital Signs: Vital Signs: Last Vital Signs Temp 97.8 F 07/03/21 07:57 Pulse 83 07/03/21 07:57 Resp 18 07/03/21 07:57 BP 134/84 07/03/21 07:57 Pulse Ox 94 07/03/21 07:57 Oxygen Flow Rate 2 06/27/21 20:05 BMI result Body Mass Index 29.1 Appearance: Alert.? Oriented X3.?? short of breath with minimum excersion. cvs: rrr, [id number] , no murmur res: fair air entry, diminshed at bases , few rhonchii b/l unchanged . abd: no rebound or guarding ,nt, bs present. ext pulses present , no cyanosis,no edema neuro: axo3 , nonfocal. Objective Data Active Medications Acetaminophen (Acetaminophen 325 Mg Tablet) 650 mg PO Q6H PRN PRN Reason: Pain, Mild (Pain Scale 1-3) Last Admin: 07/01/21 05:49 Dose: 650 mg Documented by: RANDY Albuterol/Ipratropium (Albuterol/Iprat 2.5/0.5mg 3 Ml Ampul.Neb) 3 ml INHALE Q3H PRN PRN Reason: sob Albuterol/Ipratropium (Albuterol/Iprat 2.5/0.5mg 3 Ml Ampul.Neb) 3 ml INHALE RQ4H WHILE AWAKE REPLACED BY [facility] Last Admin: 07/03/21 07:47 Dose: 3 ml Documented by: VALENTINO Aspirin (Aspirin Enteric Coated 81 Mg Tablet.) 81 mg PO DAILY [facility] Last Admin: 07/02/21 09:06 Dose: 81 mg Documented by: EDWARD Atorvastatin Calcium (Atorvastatin Calcium 40 Mg Tablet) 40 mg PO DAILY [facility] Last Admin: 07/02/21 09:07 Dose: 40 mg Documented by: EDWARD Azithromycin (Azithromycin 250 Mg Tablet) 250 mg PO Q24H [facility] Last Admin: 07/02/21 12:52 Dose: 250 mg Documented by: EDWARD Cefuroxime Axetil (Cefuroxime Axetil 500 Mg Tablet) 500 mg PO Q12H [facility] Last Admin: 07/02/21 23:20 Dose: 500 mg Documented by: RANDY Cyanocobalamin (Cyanocobalamin (Vitamin B-12) 1,000 Mcg Tablet) 1,000 mcg PO DAILY [facility] Last Admin: 07/02/21 09:06 Dose: 1,000 mcg Documented by: EDWARD Folic Acid (Folic Acid 1 Mg Tablet) 1 mg PO DAILY [facility] Last Admin: 07/02/21 09:06 Dose: 1 mg Documented by: EDWARD Magnesium Oxide (Magnesium Oxide 400 Mg Tablet) 200 mg PO DAILY [facility] Last Admin: 07/02/21 09:07 Dose: 200 mg Documented by: EDWARD Methylprednisolone Sodium Succinate (Methylprednisolone Sod Succ 40 Mg/Ml Vial) 80 mg IVPUSH QID [facility]PL[facility] Last Admin: 07/02/21 19:52 Dose: 80 mg Documented by: RANDY Metoprolol Succinate (Metoprolol Succinate Er 25 Mg Tab.Er.24h) 25 mg PO DAILY [facility]; Protocol Last Admin: 07/02/21 09:07 Dose: 25 mg Documented by: EDWARD Omeprazole (Omeprazole 40 Mg Capsule.Dr) 40 mg PO BID@0630,1630 [facility] Last Admin: 07/03/21 06:17 Dose: 40 mg Documented by: RANDY Pharmacy Consult (Consult Rx Perform Med Rec) 1 each MISCELLANE ONCE PRN PRN Reason: Consult order Sodium Chloride (0.9 % Sodium Chloride Flush 3 Ml Syringe) 3 ml IVFLUSH QSHIFT [facility]PLACED BY [facility] Last Admin: 07/02/21 19:53 Dose: 3 ml Documented by: RANDY Thiamine HCl (Thiamine Hcl 100 Mg Tablet) 100 mg PO DAILY [facility] Last Admin: 07/02/21 09:06 Dose: 100 mg Documented by: EDWARD Trazodone HCl (Trazodone Hcl 25 Mg Halftab) 25 mg PO BEDTIME PRN PRN Reason: insomnia Last Admin: 07/02/21 19:54 Dose: 25 mg Documented by: RANDY Vitamin D (Cholecalciferol (Vitamin D3) 25 Mcg Tablet) 25 mcg PO DAILY [facility] Last Admin: 07/02/21 09:06 Dose: 25 mcg Documented by: EDWARD Warfarin Sodium (Warfarin Sodium 2 Mg Tablet) 2 mg PO DAILY@1800 [facility] Last Admin: 07/02/21 17:02 Dose: 2 mg Documented by: EDWARD Labs CBC & Chem 7: 06/30/21 05:43 07/02/21 05:36 Labs: Laboratory Results - last 24 hr 07/02/21 07/02/21 11:43 13:10 PT 31.9 H INR 2.7 H VBG pH 7.43 VBG pCO2 44 VBG pO2 49 VBG HCO3 29 H VBG O2 Saturation 76.0 VBG Base Excess 4.6 Microbiology Microbiology Results: Microbiology 06/27/21 13:11 Blood Culture - Final Blood - Venous No growth after 5 days. 06/27/21 13:11 Blood Culture - Final Blood - Venous No growth after 5 days. Assessment and Plan (1) ILD (interstitial lung disease): Status: Acute (2) Acute hypoxemic respiratory failure: Status: Acute Plan 75 y/o f with past medical history anxiety, a flutter, COPD, ETOH use hyperlipidemia: 1. Acute hypoxemic respiratory failure secondary toIld Pneumonia: no sepsis still hypoxic and sob slightly worse 07/02/21 -vbg and cxr noted. ?leukocytosis Lactic acid 1.2, blood culture neg@48hrs. res panel -neg. cta -neg for pulm embolism continue? nebs,adjusted ? iv steriods,switched to po ceftin/azithro, oxygen. pulm eval noted -adjusted iv steriods. 3. elevated bnp, echo in 11/15 seems fine-less likely chf. continue lasix and recheck cxr (06/28)-ILD . echo -Conclusions: - 1.? Normal LV systolic function with grade 1 diastolic ? dysfunction? 2.? Normal cardiac valvular Doppler? 3.? Normal RV systolic pressure? 4. No gross pericardial effusion ? 4.hx afib: continue bb, continue warfarin ,inr 2.2 . 5. etoh use: continue thiamine ,folic acid dvt prophylax : on warfrain will need PT eval before dsicharge. Patient updated.callled her son multiple times last few days -messages left. inpatient need :Acute hypoxemic respiratory failure secondary to Pneumonia,copd/ILD excerbation requiring high dose iv steriods. Quality Stroke Does the patient have a stroke diagnosis?: No VTE Prior VTE?: No VTE Risk Level:: Medical - moderate - high VTE Device Contraindication: N/A - Device Ordered VTE Drug Contraindication: N/A - Med Ordered
[2021-07-03 08:46] LABS: INTERNATIONAL NORM RATIO 2.2 (0.9-1.1); Prothrombin Time 25.6 SEC (9.9-13.0)
[2021-07-03] MEDS: methylPREDNISolone Sod Succ 40 MG/ML VIAL 80 MG IVPUSH (08:46)
[2021-07-03] MEDS: 0.9 % Sodium Chloride Flush 3 ML SYRINGE IVFLUSH ×3 (08:47→21:28)
[2021-07-03] MEDS: Cyanocobalamin (Vitamin B-12) 1,000 MCG TABLET 1000 MCG PO (08:47)
[2021-07-03] MEDS: Thiamine HCL 100 MG TABLET PO (08:47)
[2021-07-03] MEDS: Folic Acid 1 MG TABLET PO (08:47)
[2021-07-03] MEDS: Atorvastatin Calcium 40 MG TABLET PO (08:47)
[2021-07-03] MEDS: Metoprolol Succinate ER 25 MG TAB.ER.24H PO (08:47)
[2021-07-03] MEDS: Aspirin Enteric Coated 81 MG TABLET.DR PO (08:47)
[2021-07-03] MEDS: Cholecalciferol (Vitamin D3) 25 MCG TABLET PO (08:47)
[2021-07-03] MEDS: Magnesium Oxide 400 MG TABLET 200 MG PO (08:48)
[2021-07-03] MEDS: Azithromycin 250 MG TABLET PO (13:16)
[2021-07-03] MEDS: methylPREDNISolone Sod Succ 40 MG/ML VIAL IVPUSH ×2 (13:16→21:28)
--- NOTE | 2021-07-03 16:25 | MHC.CM.PN ---
PT NOT YET MEDICALLY CLEARED, DCP REMAINS HOME WITH NO SERVICES.
[2021-07-03] MEDS: Warfarin Sodium 2 MG TABLET PO (17:12)
--- NOTE | 2021-07-03 17:26 | P.CONPL_ITS ---
History of Present Illness History of Present Illness Consult date: 07/03/21 Requesting physician: Josh Martinez Reason for consult: dyspnea and cough Chief complaint: pneumonia vs chf Narrative: THIS 75 YEARS OLD FEMALE HAS BEEN ADMITTED SINCE 06/27/21 which chief complaint of progressive shortness of breath over the last few weeks. She is not sure if she had any acute respiratory infection. She denied any fever or chills but did have generalized weakness. She has not been exposed to any sick person recently. In the emergency room her O2 sats were quite low and she has required oxygen supplementation. Chest x-ray and CT scan were grossly abnormal showing bilateral interstitial lung disease. Question of congestive heart failure worse is bilateral pneumonitis was raise. She has been treated with antibiotics as well as IV Solu-Medrol. The patient claims that she has gradually improved, her shortness of breath is less, but she remains very weak. And she is afraid that she will not be able to take care of herself at home at this time. Past history is reviewed. It is noted that her CT scans since 2015 have shown bilateral interstitial lung disease/ fibrotic changes. CT scan on 09/11/2020 did show bilateral interstitial lung disease and much increase disease since 2016. The current CT scan again shows the same bilateral interstitial lung disease. Review of Systems Review of Systems: Yes all other systems are reviewed and are negative Constitutional: Constitutional: Reports weakness Eyes: Eyes: Reports no additional eye complaints ENT: Reports system reviewed and no additional complaints, except as d ocumented Cardiovascular: Cardiovascular: Denies chest pain, Reports leg edema and Reports dyspnea Respiratory: Respiratory: Reports as per HPI and Reports dyspnea Gastrointestinal: Gastrointestinal: Reports no additional gastrointestinal complaints Genitourinary: Genitourinary: Reports no additional female genitourinary complaints Musculoskeletal: Musculoskeletal: Reports muscle weakness Integumentary/Breasts: Skin/Breast: Reports system reviewed and no additional complaints, except as docu Neurologic: Reports system reviewed and no additional complaints, except as documented and Reports weakness PMFSH Past Medical History Medical History AAA (abdominal aortic aneurysm) Anxiety Atrial flutter COPD (chronic obstructive pulmonary disease) Elevated troponin level not due myocardial infarction ETOH abuse HLD (hyperlipidemia) Insomnia Mammogram declined Osteopenia Pure hypercholesterolemia Right upper lobe pulmonary nodule Sciatica Smoking Spinal stenosis Family History Family History Father CVD (cardiovascular disease) Stomach cancer History of heart attack Mother No problems noted. Sister Brain tumor Brother No problems noted. Sister No problems noted. Surgical History Surgical History H/O colonoscopy History of cardiac catheterization (~08/2020) No pertinent past surgical history Total knee replacement status (~12/2019) Social History Social History Household Members: Friend(s) Housing: House Do you presently have visiting nurse or other home services: No Alcohol intake: current Alcohol intake frequency: a few times a week Alcohol type: wine Patient Tobacco Use Status: Former Tobacco user Cigarette Packs Per Day: 0.01 Cigarettes Per Day: 2 Years Smoked: 50+ e-Cigarette/Vaping Use: Never Used Second Hand Smoke Exposure: No Advance Directives Date on File: 06/27/21 service: No Current occupational status: retired [employer] Allergies Allergy/AdvReac Type Severity Reaction Status Date / Time citalopram AdvReac Unknown nausea Verified 06/21/21 11:28 Active Medications: Current Medications Acetaminophen (Acetaminophen 325 Mg Tablet) 650 mg PO Q6H PRN PRN Reason: Pain, Mild (Pain Scale 1-3) Last Admin: 07/01/21 05:49 Dose: 650 mg Documented by: Albuterol/Ipratropium (Albuterol/Iprat 2.5/0.5mg 3 Ml Ampul.Neb) 3 ml INHALE Q3H PRN PRN Reason: sob Albuterol/Ipratropium (Albuterol/Iprat 2.5/0.5mg 3 Ml Ampul.Neb) 3 ml INHALE RQ4H WHILE AWAKE [facility] Last Admin: 07/03/21 15:42 Dose: 3 ml Documented by: Aspirin (Aspirin Enteric Coated 81 Mg Tablet.) 81 mg PO DAILY [facility] Last Admin: 07/03/21 08:47 Dose: 81 mg Documented by: Atorvastatin Calcium (Atorvastatin Calcium 40 Mg Tablet) 40 mg PO DAILY [facility] Last Admin: 07/03/21 08:47 Dose: 40 mg Documented by: Azithromycin (Azithromycin 250 Mg Tablet) 250 mg PO Q24H [facility] Last Admin: 07/03/21 13:16 Dose: 250 mg Documented by: Cefuroxime Axetil (Cefuroxime Axetil 500 Mg Tablet) 500 mg PO Q12H [facility] Last Admin: 07/03/21 13:16 Dose: 500 mg Documented by: Cyanocobalamin (Cyanocobalamin (Vitamin B-12) 1,000 Mcg Tablet) 1,000 mcg PO DAILY [facility] Last Admin: 07/03/21 08:47 Dose: 1,000 mcg Documented by: Folic Acid (Folic Acid 1 Mg Tablet) 1 mg PO DAILY [facility] Last Admin: 07/03/21 08:47 Dose: 1 mg Documented by: Magnesium Oxide (Magnesium Oxide 400 Mg Tablet) 200 mg PO DAILY [facility] Last Admin: 07/03/21 08:48 Dose: 200 mg Documented by: Methylprednisolone Sodium Succinate (Methylprednisolone Sod Succ 40 Mg/Ml Vial) 40 mg IVPUSH Q8H [facility] Last Admin: 07/03/21 13:16 Dose: 40 mg Documented by: Metoprolol Succinate (Metoprolol Succinate Er 25 Mg Tab.Er.24h) 25 mg PO DAILY [facility]; Protocol Last Admin: 07/03/21 08:47 Dose: 25 mg Documented by: Omeprazole (Omeprazole 40 Mg Capsule.Dr) 40 mg PO BID@0630,1630 [facility] Last Admin: 07/03/21 17:12 Dose: 40 mg Documented by: Pharmacy Consult (Consult Rx Perform Med Rec) 1 each MISCELLANE ONCE PRN PRN Reason: Consult order Sodium Chloride (0.9 % Sodium Chloride Flush 3 Ml Syringe) 3 ml IVFLUSH QSHIFT [facility] Last Admin: 07/03/21 17:12 Dose: 3 ml Documented by: Thiamine HCl (Thiamine Hcl 100 Mg Tablet) 100 mg PO DAILY [facility] Last Admin: 07/03/21 08:47 Dose: 100 mg Documented by: Trazodone HCl (Trazodone Hcl 25 Mg Halftab) 25 mg PO BEDTIME PRN PRN Reason: insomnia Last Admin: 07/02/21 19:54 Dose: 25 mg Documented by: Vitamin D (Cholecalciferol (Vitamin D3) 25 Mcg Tablet) 25 mcg PO DAILY [facility] Last Admin: 07/03/21 08:47 Dose: 25 mcg Documented by: Warfarin Sodium (Warfarin Sodium 2 Mg Tablet) 2 mg PO DAILY@1800 [facility] Last Admin: 07/03/21 17:12 Dose: 2 mg Documented by: Home Medications Medication Instructions Recorded Confirmed Last Taken Type cholecalciferol (vitamin D3) 25 25 mcg PO DAILY 09/11/20 06/27/21 06/27/21 History mcg (1,000 unit) tablet (Vitamin D3) magnesium 250 mg tablet 250 mg PO DAILY 02/08/21 06/27/21 06/27/21 History aspirin 81 mg tablet,delayed 81 mg PO DAILY 06/21/21 06/27/21 06/27/21 History release valerian root 450 mg capsule 1,350 mg PO DAILY 06/27/21 06/27/21 06/27/21 History warfarin 1 mg tablet 2 mg PO MOWEFR@209906/27/21 06/27/21 06/26/21 History warfarin 1 mg tablet 3 mg PO SUTUTHSA@209906/27/21 06/27/21 06/25/21 History Physical Exam Vital Signs: Vital Signs: Last Vital Signs Temp 97.5 F 07/03/21 15:32 Pulse 82 07/03/21 15:43 Resp 18 07/03/21 15:43 BP 133/71 07/03/21 15:32 Pulse Ox 94 07/03/21 15:32 Oxygen Flow Rate 2 06/27/21 20:05 BMI result Body Mass Index 29.1 Const: General: comfortable (But weak), no acute distress, alert and awake Orientation/consciousness: patient oriented x3 HEENT: Head: Yes normal to inspection General nose exam: No nasal polyps present and No nasal discharge present Face and sinus: Yes sinuses nontender Mouth: oropharynx normal Throat: Yes posterior oropharynx normal Eyes: General: appearance normal, both eyes and all related structures Neck: Neck: Yes normal visual inspection, Yes no lymphadenopathy, Yes trachea midline and Yes no JVD Thyroid: Thyroid normal Chest: Chest palpation & inspection: normal inspection of the chest, normal palpation of entire chest wall and no tenderness Resp: Other: Percussion note is resonant,, breath sounds equal on both sides, There are inspiratory crackles over the lower lobes, no wheezes are heard. Cardio: Palpation: normal PMI Rate: regular rate Rhythm: regular rhythm Heart sounds: no gallops and no murmurs Peripheral pulses: Peripheral pulses 2+ throughout GI: Palpation (GI): Soft to palpation, nontender, No hepatosplenomegaly present and no masses Auscultation: normal bowel sounds Back/Spine/Pelvis: Thoracic/Lumbar Spine: thoracic and lumbar spine normal to inspection Skin: General skin exam: no rashes or lesions noted Neuro: General: patient oriented x3, No gait normal (Gait impaired because of her general weakness) and no focal motor deficits Cranial nerves: Yes CN's II-XII intact bilaterally Extrem: General: Yes normal to inspection, Yes no calf tenderness and Yes edema (Minimal pitting edema around the ankles) Psych: Speech and movement: Normal speech and movement present Results Laboratory Findings CBC and BMP: 06/30/21 05:43 07/02/21 05:36 ABG, PT/INR, D-dimer: PT/INR, D-dimer PT 25.6 SEC (9.9-13.0) H 07/03/21 08:18 INR 2.2 (0.9-1.1) H 07/03/21 08:18 Abnormal lab findings: Abnormal Labs 06/27/21 06/27/21 06/27/21 10:34 10:34 10:34 WBC 11.4 H Hct 48.2 H Plt Count 402 H MPV 8.9 L Immature Gran % (Auto) 0.6 H Neut % (Auto) 73.6 H Lymph % (Auto) 7.5 L [place] % (Auto) 13.6 H Lymph # (Auto) 0.9 L [place] # (Auto) 1.6 H Abs Immat Gran (auto) 0.07 H Absolute Neuts (auto) 8.4 H PT 18.5 H INR 1.6 H VBG HCO3 BUN Random Glucose B-Natriuretic Peptide 102 H 06/28/21 06/28/21 06/29/21 05:31 12:26 05:28 WBC Hct Plt Count MPV Immature Gran % (Auto) Neut % (Auto) Lymph % (Auto) [place] % (Auto) Lymph # (Auto) [place] # (Auto) Abs Immat Gran (auto) Absolute Neuts (auto) PT 18.9 H INR 1.6 H VBG HCO3 BUN Random Glucose 124 H 121 H B-Natriuretic Peptide 06/29/21 06/29/21 06/30/21 05:28 08:19 05:43 WBC 14.5 H 13.9 H Hct Plt Count MPV 9.2 L Immature Gran % (Auto) Neut % (Auto) Lymph % (Auto) [place] % (Auto) Lymph # (Auto) [place] # (Auto) Abs Immat Gran (auto) Absolute Neuts (auto) PT 26.6 H INR 2.3 H VBG HCO3 BUN Random Glucose B-Natriuretic Peptide 06/30/21 06/30/21 07/01/21 05:43 05:43 06:08 WBC Hct Plt Count MPV Immature Gran % (Auto) Neut % (Auto) Lymph % (Auto) [place] % (Auto) Lymph # (Auto) [place] # (Auto) Abs Immat Gran (auto) Absolute Neuts (auto) PT 31.6 H 32.2 H INR 2.7 H 2.8 H VBG HCO3 BUN Random Glucose B-Natriuretic Peptide 195 H 07/02/21 07/02/21 07/02/21 05:36 11:43 13:10 WBC Hct Plt Count MPV Immature Gran % (Auto) Neut % (Auto) Lymph % (Auto) [place] % (Auto) Lymph # (Auto) [place] # (Auto) Abs Immat Gran (auto) Absolute Neuts (auto) PT 31.9 H INR 2.7 H VBG HCO3 29 H BUN 20 H D Random Glucose 134 H B-Natriuretic Peptide 07/03/21 08:18 WBC Hct Plt Count MPV Immature Gran % (Auto) Neut % (Auto) Lymph % (Auto) [place] % (Auto) Lymph # (Auto) [place] # (Auto) Abs Immat Gran (auto) Absolute Neuts (auto) PT 25.6 H INR 2.2 H VBG HCO3 BUN Random Glucose B-Natriuretic Peptide Microbiology: Microbiology 06/27/21 13:11 Blood - Venous Blood Culture - Final No growth after 5 days. 06/27/21 13:11 Blood - Venous Blood Culture - Final No growth after 5 days. Diagnostic Findings Chest x-ray: report reviewed and image reviewed CT scan - chest: report reviewed and image reviewed Assessment and Plan (1) ILD (interstitial lung disease): Status: Acute (2) Acute hypoxemic respiratory failure: Status: Acute (3) Pneumonia: Status: Acute (4) COPD (chronic obstructive pulmonary disease): Status: Acute Plan I think the predominant picture is that of interstitial lung disease which has gradually worsened. She may have had super added acute respiratory infection, causing an acute worsening of her condition. At this point, she has improved, at least partially, but is expected to remain debilitated for several weeks. Recc . Gradually wean off IV Solu-Medrol , I suggest changing to 40 mg IV q.8 hours, for 1 or 2 days, then switching to prednisone 40 mg a day, with gradual tapering down by 10 mg every week. DuoNeb updrafts Q 6 hours while awake. Continue oxygen supplementation to maintain O2 sat above 90%, currently she is requiring 2 L/minute. Antibiotics by oral route, for 1 more week. * patient may benefit from, [facility] pulmonary rehab program, followed by close monitoring as outpatient. Thank you very much for asthma to see this patient. Procedures Date of Service Date of Service: 07/03/21
[2021-07-03] MEDS: traZODone HCL 25 MG HALFTAB PO (21:28)
[2021-07-04] VITALS (11 sets, daily range): BP systolic 108–135; BP diastolic 68–85; PULSE 72–106; RESP 14–22; TEMP 36.2–36.8; O2SAT 94–98
[2021-07-04] MEDS: methylPREDNISolone Sod Succ 40 MG/ML VIAL IVPUSH ×3 (04:31→22:47)
[2021-07-04] MEDS: Acetaminophen 325 MG TABLET 650 MG PO (04:31)
[2021-07-04] MEDS: Albuterol/Iprat 2.5/0.5MG 3 ML AMPUL.NEB INHALE ×4 (05:23→16:36)
[2021-07-04] MEDS: Omeprazole 40 MG CAPSULE.DR PO ×2 (05:32→17:21)
[2021-07-04 06:58] LABS: Hematocrit 43.3 % (37.0-47.0); Hemoglobin 13.9 g/dl (12.0-16.0); Mean Corpuscular HGB Conc 32.1 g/dl (31.0-35.0); Mean Corpuscular Hemoglobin 30.3 pg (27.0-33.0); Mean Corpuscular Volume 94.3 fL (80.0-98.0); Mean Platelet Volume 9.1 fL (9.4-12.3); Platelet Count 368 X10*3/uL (160-400); Red Blood Count 4.59 X10*6/uL (4.20-5.50); Red Cell Distribution Width 13.2 % (11.0-16.0)
[2021-07-04 07:04] LABS: INTERNATIONAL NORM RATIO 2.3 (0.9-1.1); Prothrombin Time 26.4 SEC (9.9-13.0)
[2021-07-04 07:16] LABS: Anion Gap 12 (12-20); Blood Urea Nitrogen 20 mg/dL (9-16); Carbon Dioxide 28 mmol/L (22-29); Chloride 103 mmol/L (96-108); Creatinine Clr Calc Pharmacy 63.1; Estimated Glomerular Filt Rate > 60; Glucose Random 110 mg/dL (60-115); Sodium 139 mmol/L (135-145)
[2021-07-04] MEDS: Folic Acid 1 MG TABLET PO (08:30)
[2021-07-04] MEDS: 0.9 % Sodium Chloride Flush 3 ML SYRINGE IVFLUSH ×3 (08:30→22:48)
[2021-07-04] MEDS: Magnesium Oxide 400 MG TABLET 200 MG PO (08:30)
[2021-07-04] MEDS: Cyanocobalamin (Vitamin B-12) 1,000 MCG TABLET 1000 MCG PO (08:31)
[2021-07-04] MEDS: Aspirin Enteric Coated 81 MG TABLET.DR PO (08:31)
[2021-07-04] MEDS: Cholecalciferol (Vitamin D3) 25 MCG TABLET PO (08:31)
[2021-07-04] MEDS: Atorvastatin Calcium 40 MG TABLET PO (08:31)
[2021-07-04] MEDS: Thiamine HCL 100 MG TABLET PO (08:31)
[2021-07-04] MEDS: Metoprolol Succinate ER 25 MG TAB.ER.24H PO (08:31)
--- NOTE | 2021-07-04 08:50 | MHC.CM.PN ---
PATIENT ASKS FOR A REFERRAL TO [facility]. CASE MANAGEMENT FOLLOWING
--- NOTE | 2021-07-04 10:02 | P.PNIM_ITS ---
Subjective Subjective Date of Service: 07/04/21 Interval History: follow-up on exacerbation of interstitial lung disease. Interval history: She still feels short of breath and oxygen drop significantly with minimal activity. Review of Systems Shortness of breath, no cough no fever Physical Exam Vital Signs: Vital Signs: Last Vital Signs Temp 97.5 F 07/04/21 07:29 Pulse 106 H 07/04/21 09:27 Resp 22 H 07/04/21 09:27 BP 135/85 07/04/21 08:01 Pulse Ox 97 07/04/21 08:01 Oxygen Flow Rate 2 06/27/21 20:05 BMI result Body Mass Index 29.1 Const: Other: General: AO X 3, no acute distress Resp: CTA bilateral, no accessory muscle use mild tachypnea noted CVS: S1,S2,RRR GI: +BS, NT, no distention Skin: No rash Neuro: motor grossly intact Psych: appropriate affect Objective Data Active Medications Acetaminophen (Acetaminophen 325 Mg Tablet) 650 mg PO Q6H PRN PRN Reason: Pain, Mild (Pain Scale 1-3) Last Admin: 07/04/21 04:31 Dose: 650 mg Documented by: FRACISCO Albuterol/Ipratropium (Albuterol/Iprat 2.5/0.5mg 3 Ml Ampul.Neb) 3 ml INHALE Q3H PRN PRN Reason: sob Last Admin: 07/04/21 05:23 Dose: 3 ml Documented by: ZENON Albuterol/Ipratropium (Albuterol/Iprat 2.5/0.5mg 3 Ml Ampul.Neb) 3 ml INHALE RQ4H WHILE AWAKE REPLACED BY [facility] Last Admin: 07/04/21 09:26 Dose: 3 ml Documented by: MERT Aspirin (Aspirin Enteric Coated 81 Mg Tablet.) 81 mg PO DAILY [facility]PLAC[facility] BY [facility] Last Admin: 07/04/21 08:31 Dose: 81 mg Documented by: TRACI Atorvastatin Calcium (Atorvastatin Calcium 40 Mg Tablet) 40 mg PO DAILY [facility]PLAC[facility] BY [facility] Last Admin: 07/04/21 08:31 Dose: 40 mg Documented by: TRACI Azithromycin (Azithromycin 250 Mg Tablet) 250 mg PO Q24H REPLACED BY [facility] Last Admin: 07/03/21 13:16 Dose: 250 mg Documented by: KRISTINA Cefuroxime Axetil (Cefuroxime Axetil 500 Mg Tablet) 500 mg PO Q12H REPLACED BY [facility] Last Admin: 07/03/21 23:56 Dose: 500 mg Documented by: FRACISCO Cyanocobalamin (Cyanocobalamin (Vitamin B-12) 1,000 Mcg Tablet) 1,000 mcg PO DAILY [facility] BY [facility] Last Admin: 07/04/21 08:31 Dose: 1,000 mcg Documented by: COTEMA Folic Acid (Folic Acid 1 Mg Tablet) 1 mg PO DAILY REPLACED BY [facility] Last Admin: 07/04/21 08:30 Dose: 1 mg Documented by: COTEMA Magnesium Oxide (Magnesium Oxide 400 Mg Tablet) 200 mg PO DAILY REPLACED BY [facility] Last Admin: 07/04/21 08:30 Dose: 200 mg Documented by: COTEMA Methylprednisolone Sodium Succinate (Methylprednisolone Sod Succ 40 Mg/Ml Vial) 40 mg IVPUSH Q8H REPLACED BY [facility] Last Admin: 07/04/21 04:31 Dose: 40 mg Documented by: FRACISCO Metoprolol Succinate (Metoprolol Succinate Er 25 Mg Tab.Er.24h) 25 mg PO DAILY [facility]PL[facility]ED BY [facility]; Protocol Last Admin: 07/04/21 08:31 Dose: 25 mg Documented by: TRACI Omeprazole (Omeprazole 40 Mg Capsule.Dr) 40 mg PO BID@0630,1630 REPLACED BY [facility] Last Admin: 07/04/21 05:32 Dose: 40 mg Documented by: FRACISCO Pharmacy Consult (Consult Rx Perform Med Rec) 1 each MISCELLANE ONCE PRN PRN Reason: Consult order Sodium Chloride (0.9 % Sodium Chloride Flush 3 Ml Syringe) 3 ml IVFLUSH QSHIFT REPLACED BY [facility] Last Admin: 07/04/21 08:30 Dose: 3 ml Documented by: TRACI Thiamine HCl (Thiamine Hcl 100 Mg Tablet) 100 mg PO DAILY REPLACED BY [facility] Last Admin: 07/04/21 08:31 Dose: 100 mg Documented by: AJITEMA Trazodone HCl (Trazodone Hcl 25 Mg Halftab) 25 mg PO BEDTIME PRN PRN Reason: insomnia Last Admin: 07/03/21 21:28 Dose: 25 mg Documented by: FRACISCO Vitamin D (Cholecalciferol (Vitamin D3) 25 Mcg Tablet) 25 mcg PO DAILY REPLACED BY [facility] Last Admin: 07/04/21 08:31 Dose: 25 mcg Documented by: COTEMA Warfarin Sodium (Warfarin Sodium 2 Mg Tablet) 2 mg PO DAILY@1800 [facility] Last Admin: 07/03/21 17:12 Dose: 2 mg Documented by: KRISTINA Labs CBC & Chem 7: 07/04/21 06:46 07/04/21 06:46 Labs: Laboratory Results - last 24 hr 07/04/21 07/04/21 07/04/21 06:46 06:46 06:46 MCV 94.3 MCH 30.3 MCHC 32.1 RDW 13.2 Plt Count 368 MPV 9.1 L Absolute Nucleated RBC 0.000 Nucleated RBC % (auto) 0.0 PT 26.4 H INR 2.3 H Anion Gap 12 Estim Creat Clear Calc 63.1 Estimated GFR > 60 Random Glucose 110 Calcium 9.0 Assessment and Plan (1) ILD (interstitial lung disease): Status: Acute (2) Acute hypoxemic respiratory failure: Status: Acute Plan 75 y/o f with past medical history anxiety, a flutter, COPD, ETOH use hyperlipidemia: 1. Acute hypoxemic respiratory failure secondary interstitial lung disease, with superimposed pneumonia. Persistent hypoxia, better overall improving, still with some difficulty breathing. - Continue IV steroid for today and switch to oral prednisone by tomorrow per pulmonology recommendation. - Continue azithromycin and cefuroxime For pneumonia 2. elevated bnp, echo in 11/15 seems fine-less likely chf. no other signs of CHF. Does not need Lasix at this time. ? 4. Chronic AFib: Rate controlled, continue metoprolol and anticoagulation with Coumadin. 5. etoh use: no signs of withdrawal continue thiamine ,folic acid dvt prophylax : on warfrain PT is recommended short-term rehab patient is agreeable inpatient need :Acute and persistent hypoxemic respiratory failure secondary to Pneumonia,copd/ILD excerbation requiring IV steroid until the end of today and case management working on a placement Quality Stroke Does the patient have a stroke diagnosis?: No VTE Prior VTE?: No VTE Risk Level:: Medical - moderate - high VTE Device Contraindication: N/A - Device Ordered VTE Drug Contraindication: N/A - Med Ordered
[2021-07-04] MEDS: Azithromycin 250 MG TABLET PO (12:04)
--- NOTE | 2021-07-04 14:32 | MHC.CM.PN ---
PER PATIENT REQUEST, THIS MECHANICAL PRODUCT ENGINEER CALLED SON GUILLERMO @ [phone]. MESSAGE LEFT WITH CONTACT NUMBER FOR THIS MECHANICAL PRODUCT ENGINEER, WELL POTENTIAL PLAN FOR Saturday07/05/21 TRANSFER/DISCHARGE TO [facility]
--- NOTE | 2021-07-04 15:14 | MHC.CM.PN ---
PATIENT'S SON GUILLERMO [phone] AWARE OF PLAN FOR PATIENT TO DC TO [facility] IN [place] TOMORROW
[2021-07-04] MEDS: Warfarin Sodium 2 MG TABLET PO (17:21)
[2021-07-04] MEDS: traZODone HCL 25 MG HALFTAB PO (22:47)
[2021-07-05 03:09] VITALS: BP 141/82; PULSE 91; RESP 16; TEMP 36.1; O2SAT 98
[2021-07-05] MEDS: Omeprazole 40 MG CAPSULE.DR PO (05:04)
[2021-07-05] MEDS: methylPREDNISolone Sod Succ 40 MG/ML VIAL IVPUSH (05:04)
[2021-07-05] MEDS: Acetaminophen 325 MG TABLET 650 MG PO (05:04)
[2021-07-05 07:37] VITALS: BP 121/79; PULSE 75; RESP 20; TEMP 36.6; O2SAT 98
[2021-07-05] MEDS: predniSONE 10 MG TABLET 30 MG PO (09:23)
[2021-07-05] MEDS: Aspirin Enteric Coated 81 MG TABLET.DR PO (09:24)
[2021-07-05] MEDS: Metoprolol Succinate ER 25 MG TAB.ER.24H PO (09:24)
[2021-07-05] MEDS: Folic Acid 1 MG TABLET PO (09:24)
[2021-07-05] MEDS: Cyanocobalamin (Vitamin B-12) 1,000 MCG TABLET 1000 MCG PO (09:24)
[2021-07-05] MEDS: Cholecalciferol (Vitamin D3) 25 MCG TABLET PO (09:24)
[2021-07-05] MEDS: Thiamine HCL 100 MG TABLET PO (09:24)
[2021-07-05] MEDS: Magnesium Oxide 400 MG TABLET 200 MG PO (09:24)
[2021-07-05] MEDS: Atorvastatin Calcium 40 MG TABLET PO (09:24)
[2021-07-05] MEDS: 0.9 % Sodium Chloride Flush 3 ML SYRINGE IVFLUSH (09:25)
--- NOTE | 2021-07-05 09:30 | P.PNPL_ITS ---
Subjective Subjective Date of Service: 07/05/21 Principal diagnosis: ILD /PNEUMONIA Interval history: This patient has slowly and gradually improved, but remains weak and debilitated. No cough or wheezing, but she still requires O2 at 2 L/minute. Objective Data Labs CBC & Chem 7: 07/04/21 06:46 07/04/21 06:46 Microbiology Microbiology Results: Microbiology 06/27/21 13:11 Blood - Venous Blood Culture - Final No growth after 5 days. 06/27/21 13:11 Blood - Venous Blood Culture - Final No growth after 5 days. Review of Systems Review of Systems Yes all other systems are reviewed and are negative Constitutional: Reports weakness Eyes: Reports no additional eye complaints Reports system reviewed and no additional complaints, except as documented Cardiovascular: Denies chest pain, Reports leg edema and Reports dyspnea Respiratory: Reports as per HPI and Reports dyspnea Gastrointestinal: Reports no additional gastrointestinal complaints Genitourinary: Reports no additional female genitourinary complaints Musculoskeletal: Reports muscle weakness Skin/Breast: Reports system reviewed and no additional complaints, except as do cu Reports system reviewed and no additional complaints, except as documented and Reports weakness Physical Exam Vital Signs: Vital Signs: Last Vital Signs Temp 97.8 F 07/05/21 07:37 Pulse 75 07/05/21 07:37 Resp 20 07/05/21 07:37 BP 121/79 07/05/21 07:37 Pulse Ox 98 07/05/21 07:37 Oxygen Flow Rate 2 06/27/21 20:05 BMI result Body Mass Index 29.1 Procedures Date of Service Date of Service: 07/05/21 Assessment and Plan Assessment and plan (1) ILD (interstitial lung disease): Status: Acute (2) Acute hypoxemic respiratory failure: Status: Acute (3) Pneumonia: Status: Acute Plan This patient with longstanding chronic interstitial lung disease, Was admitted with acute exacerbation due to acute super added respiratory infection ( questionable pneumonia ) She does have past history of smoking and also alcohol abuse. She has gradually improved, still requires O2 2 L/minute. She still quite debilitated, and would benefit from placement in a she short- term rehab program. [place] : At this point she should be on prednisone by mouth 40 mg a day for 1 week and then reduce by 10 mg every week. Went down to 10 mg a day she may have to stay on this dose for a few more weeks. Complete course of antibiotic. Slade bolaños Q 6 hours while awake would be helpful. O2 2 L/minute but wean off if should her O2 sats remain above 90%. When discharge from the rehab unit, she should be followed up as outpatient, and the rehab facility or the patient would call for making an appointment. Time Spent With Patient Time: Total time spent is greater than 50% in coordination of care (as documented) at patient's floor/unit and/or counseling patient: Progress Note: Quality Stroke Does the patient have a stroke diagnosis?: No
[2021-07-05 09:43] VITALS: BP 121/79; PULSE 75; O2SAT 98
[2021-07-05 10:03] LABS: INTERNATIONAL NORM RATIO 2.3 (0.9-1.1)
--- NOTE | 2021-07-05 10:25 | P.PNIM_ITS ---
Subjective Subjective Date of Service: 07/05/21 Interval History: follow-up on exacerbation of interstitial lung disease. Interval history: Shortness of breath is better Review of Systems Shortness of breath, no cough no fever Physical Exam Vital Signs: Vital Signs: Last Vital Signs Temp 97.8 F 07/05/21 07:37 Pulse 75 07/05/21 09:43 Resp 20 07/05/21 07:37 BP 121/79 07/05/21 09:43 Pulse Ox 98 07/05/21 09:43 Oxygen Flow Rate 2 06/27/21 20:05 BMI result Body Mass Index 29.1 Const: Other: General: AO X 3, no acute distress Resp: CTA bilateral, no accessory muscle use mild tachypnea noted CVS: S1,S2,RRR GI: +BS, NT, no distention Skin: No rash Neuro: motor grossly intact Psych: appropriate affect Objective Data Active Medications Acetaminophen (Acetaminophen 325 Mg Tablet) 650 mg PO Q6H PRN PRN Reason: Pain, Mild (Pain Scale 1-3) Last Admin: 07/05/21 05:04 Dose: 650 mg Documented by: JUDD Aspirin (Aspirin Enteric Coated 81 Mg Tablet.) 81 mg PO DAILY [facility] Last Admin: 07/05/21 09:24 Dose: 81 mg Documented by: DESTINEY Atorvastatin Calcium (Atorvastatin Calcium 40 Mg Tablet) 40 mg PO DAILY [facility] Last Admin: 07/05/21 09:24 Dose: 40 mg Documented by: DESTINEY Azithromycin (Azithromycin 250 Mg Tablet) 250 mg PO Q24H [facility] Last Admin: 07/04/21 12:04 Dose: 250 mg Documented by: TRACI Cefuroxime Axetil (Cefuroxime Axetil 500 Mg Tablet) 500 mg PO Q12H [facility] Last Admin: 07/05/21 01:23 Dose: 500 mg Documented by: JUDD Cyanocobalamin (Cyanocobalamin (Vitamin B-12) 1,000 Mcg Tablet) 1,000 mcg PO DAILY [facility] Last Admin: 07/05/21 09:24 Dose: 1,000 mcg Documented by: DESTINEY Folic Acid (Folic Acid 1 Mg Tablet) 1 mg PO DAILY [facility] Last Admin: 07/05/21 09:24 Dose: 1 mg Documented by: DESTINEY Magnesium Oxide (Magnesium Oxide 400 Mg Tablet) 200 mg PO DAILY [facility] Last Admin: 07/05/21 09:24 Dose: 200 mg Documented by: DESTINEY Metoprolol Succinate (Metoprolol Succinate Er 25 Mg Tab.Er.24h) 25 mg PO DAILY [facility]; Protocol Last Admin: 07/05/21 09:24 Dose: 25 mg Documented by: DESTINEY Omeprazole (Omeprazole 40 Mg Capsule.Dr) 40 mg PO BID@0630,1630 [facility] Last Admin: 07/05/21 05:04 Dose: 40 mg Documented by: JUDD Pharmacy Consult (Consult Rx Perform Med Rec) 1 each MISCELLANE ONCE PRN PRN Reason: Consult order Prednisone (Prednisone 10 Mg Tablet) 30 mg PO DAILY [facility] Last Admin: 07/05/21 09:23 Dose: 30 mg Documented by: DESTINEY Sodium Chloride (0.9 % Sodium Chloride Flush 3 Ml Syringe) 3 ml IVFLUSH QSHIFT [facility] Last Admin: 07/05/21 09:25 Dose: 3 ml Documented by: DESTINYE Thiamine HCl (Thiamine Hcl 100 Mg Tablet) 100 mg PO DAILY [facility] Last Admin: 07/05/21 09:24 Dose: 100 mg Documented by: DESTINEY Trazodone HCl (Trazodone Hcl 25 Mg Halftab) 25 mg PO BEDTIME PRN PRN Reason: insomnia Last Admin: 07/04/21 22:47 Dose: 25 mg Documented by: JUDD Vitamin D (Cholecalciferol (Vitamin D3) 25 Mcg Tablet) 25 mcg PO DAILY [facility] Last Admin: 07/05/21 09:24 Dose: 25 mcg Documented by: DESTINEY Warfarin Sodium (Warfarin Sodium 2 Mg Tablet) 2 mg PO DAILY@1800 [facility] Last Admin: 07/04/21 17:21 Dose: 2 mg Documented by: TRACI Labs CBC & Chem 7: 07/04/21 06:46 07/04/21 06:46 Labs: Laboratory Results - last 24 hr 07/05/21 09:38 PT 27.0 H INR 2.3 H Assessment and Plan (1) ILD (interstitial lung disease): Status: Acute (2) Acute hypoxemic respiratory failure: Status: Acute Plan 75 y/o f with past medical history anxiety, a flutter, COPD, ETOH use hyperlipidemia: 1. Acute hypoxemic respiratory failure secondary interstitial lung disease, with superimposed pneumonia. Persistent hypoxia, better overall improving, still with some difficulty breathing. - Continue IV steroid for today and switch to oral prednisone by today per pulmonology recommendation. - Continue azithromycin and cefuroxime For pneumonia for total of 7 days 2. elevated bnp, echo in 11/15 seems fine-less likely chf. no other signs of CHF. Does not need Lasix at this time. ? 4. Chronic AFib: Rate controlled, continue metoprolol and anticoagulation with Coumadin INR 2.2. 5. Etoh use: no signs of withdrawal continue thiamine ,folic acid dvt prophylax : on warfrain PT is recommended short-term rehab patient is agreeable inpatient need :Acute and persistent hypoxemic respiratory failure secondary to Pneumonia,copd/ILD excerbation, changing to oral steroid today and maybe discharge if rehab bed available for safe dischrge Quality Stroke Does the patient have a stroke diagnosis?: No VTE Prior VTE?: No VTE Risk Level:: Medical - moderate - high VTE Device Contraindication: N/A - Device Ordered VTE Drug Contraindication: N/A - Med Ordered
--- NOTE | 2021-07-05 10:38 | PM.DS ---
DS: Providers Provider Date of Service: 07/05/21 Date of admission: 06/27/21 16:57 Primary care physician: Brisa Cortes MD Consults: 07/02/21 11:20 Consult to Pulmonology Routine Consulting Provider: [facility] Reason for consultation: acute hypoxemic respiratory failure sec to ILD. Has provider been notified: No DS: Diagnosis Discharge Diagnosis (1) ILD (interstitial lung disease): Status: Acute (2) Acute hypoxemic respiratory failure: Status: Acute DS: Summary Hospital Course Hospital Course: Attending physician on admission: Josh Martinez Chief Complaint: pneumonia 75-year-old F with past medical history anxiety, a flutter, COPD, ETOH use hyperlipidemia:? Patient came to the hospital because of progressive shortness of breath she said it started last Saturday and subsequently she was feeling more short of breath since then not to the point she is difficult to move even to the bathroom.? She says that see also feels some chest tightness, which relieves with a her added albuterol and standing up, not reproducible, nonradiating. She has some dry cough, denies any fever or chills or nausea or vomiting or weakness or numbness or any abdominal pain. Because patient was getting short of breath progressive getting worse decided to come to the hospital-ED physician's saw the patient and patient is sats in 80's range with with minimal walking decided to admit admit patient for possible pneumonia. Social history patient lives with partner, has 25 year pack history of smoking, quit 8 months ago, started drinking alcohol 8 month ago 6-7 drinks of wine (4 oz each) a day, no recreation drug use. Surgical history: Knee replacement a year ago as per patient. Lab imaging EKG reviewed: Chest x-ray:? Pulmonary congestion versus pneumonia versus interstitial lung disease. Troponin x1 flat, EKG NSR. BNP 102, procalcitonin level pending. Hospital course: Essentially this patient presented with shortness of breath and found to have pneumonia and exacerbation of intersitial lung disease. 1. Acute hypoxemic respiratory failure secondary? interstitial lung disease,? with superimposed pneumonia. The underlying pneumonia was treated with ceftriaxone and azithromycin. She has completed 9 days course of antitibiotics with Ceftriaxone and Azithro. Interstitial lung disease was managed with IV steroid, bronchodilators by nebulizer. She was seen by prepress operator Dr. Chapin who was recommended steroid taper upon discharge and oxygen use to keep oxygen saturation above 90% 2.? Chronic AFib:? Rate controlled, continue metoprolol and anticoagulation with ? Coumadin INR 2.2. for diagnosis: Acute hypoxic respiratory failure acute exacerbation of interstitial lung disease acute exacerbation of COPD chronic atrial fibrillation Time Spent with Patient Time attestation: Total time spent providing and/or coordinating discharge services: Discharge coordination time: Greater than 30 minutes Quality: Safe Use of Opioids Does Pt have an Active Cancer Diagnosis on the Problem List?: No Quality: Stroke Does the patient have a stroke diagnosis?: No Physical Exam Vital Signs: Vital Signs: Last Vital Signs Temp 97.8 F 07/05/21 07:37 Pulse 75 07/05/21 09:43 Resp 20 07/05/21 07:37 BP 121/79 07/05/21 09:43 Pulse Ox 98 07/05/21 09:43 Oxygen Flow Rate 2 06/27/21 20:05 BMI result Body Mass Index 29.1 DS: Data Data Completed and Pending Labs on day of discharge: Laboratory Results - last 24 hr 07/05/21 09:38 PT 27.0 H INR 2.3 H Discharge Plan Discharge Anticipated Discharge Date/Time: 07/05/21 10:43 Patient Disposition: Xfer SNF Discharge Diagnosis: acute hypoxic respiratory failure due to interstitial lung disease pneumonia and COPD. Referrals: [facility] [Other] - 1 Week Brisa Cortes MD [Primary Care Provider] - 1 Week Discharge Medications: New prednisone 10 mg tablet See Taper mg PO DAILY Qty: 20 0RF Taper: Prednisone 40 mg daily for 3 Days and 0 Hour 30 mg daily for 3 Days and 0 Hour 20 mg daily for 3 Days and 0 Hour 10 mg daily for 3 Days and 0 Hour Continued cyanocobalamin (vitamin B-12) 1,000 mcg tablet 1,000 mcg PO DAILY Qty: 90 3RF atorvastatin 40 mg tablet 40 mg PO DAILY Qty: 90 3RF thiamine HCl (vitamin B1) 100 mg tablet 100 mg PO DAILY Qty: 90 3RF Incruse Ellipta 62.5 mcg/actuation blister with device 1 inh inhalation DAILY Qty: 180 3RF metoprolol succinate 25 mg tablet extended release 24 hr 25 mg PO DAILY Qty: 90 3RF folic acid 1 mg tablet 1 mg PO DAILY Qty: 90 3RF cholecalciferol (vitamin D3) [Vitamin D3] 25 mcg (1,000 unit) Tablet 25 mcg PO DAILY 0RF warfarin 1 mg Tablet 2 mg PO MOWEFR@2099 0RF warfarin 1 mg tablet 3 mg PO SUTUTHSA@2099 0RF Protocol: Dose Management Condition: Saturday (Week One) Dose/Route: 3 mg Instruction: 3 x 1 mg tablets Condition: Saturday Dose/Route: 2 mg Instruction: 2 x 1 mg tablets Condition: Saturday Dose/Route: 3 mg Instruction: 3 x 1 mg tablets Condition: Saturday Dose/Route: 2 mg Instruction: 2 x 1 mg tablets Condition: Dose/Route: 3 mg Instruction: 3 x 1 mg tablets Condition: Saturday Dose/Route: 2 mg Instruction: 2 x 1 mg tablets Condition: Saturday Dose/Route: 3 mg Instruction: 3 x 1 mg tablets Condition: Saturday (Week Two) Dose/Route: 3 mg Instruction: 3 x 1 mg tablets Condition: Saturday Dose/Route: 2 mg Instruction: 2 x 1 mg tablets Condition: Saturday Dose/Route: 3 mg Instruction: 3 x 1 mg tablets Condition: Saturday Dose/Route: 2 mg Instruction: 2 x 1 mg tablets Condition: Dose/Route: 3 mg Instruction: 3 x 1 mg tablets Condition: Saturday Dose/Route: 2 mg Instruction: 2 x 1 mg tablets Condition: Saturday Dose/Route: 3 mg Instruction: 3 x 1 mg tablets Protocol Text: Adjustment Start Date: Saturday06/21/21 INR Value: 2.1 INR Date: 06/21/21 Recheck Date: 07/12/21 valerian root 450 mg Capsule 1,350 mg PO DAILY 0RF albuterol sulfate 90 mcg/actuation HFA aerosol inhaler 2 puff inhalation Q6H PRN (Reason: shortness of breath or wheezing) Qty: 8.5 3RF fluticasone propion-salmeterol [Advair Diskus] 250-50 mcg/dose blister with device 1 inh inhalation BID Qty: 60 6RF magnesium 250 mg tablet 250 mg PO DAILY 0RF aspirin 81 mg tablet,delayed release (DR/EC) 81 mg PO DAILY 0RF Discharge Orders: Discharge Order (Routine); Ordered 07/05/21 Ordered By: Anthony Mlapah Diet: advance to usual diet Activity on Discharge: As tolerated Stand Alone Forms: Patient Portal Discharge page Care Plan Goals: Full recovery from acute hypoxic respiratory failure Health Concerns: interstitial lung disease, COPD, pneumonia. Plan of Treatment: Use oxygen as directed, Continue use of Coumadin for atrial fibrillation and stroke prevention INR 2.2 today. Follow-up with your doctor within a week up appointment. Take Prednisone as recommended Assessment: As above
[2021-07-05 11:56] VITALS: BP 119/73; PULSE 65; RESP 17; TEMP 36; O2SAT 96
[2021-07-05] MEDS: Azithromycin 250 MG TABLET PO (12:21)
[2021-07-05 12:54] LABS: COVID-19 Test Negative (Negative); IDNOW Serial# 16C4AD1C
--- NOTE | 2021-07-05 13:05 | MHC.CM.PN ---
PATIENT TO DC TO [facility] FOR 1600 TRANSPORT [facility]IA [facility] PATIENT, RN, AND PATIENT'S SON RAY ([phone]) MADE AWARE. IMM 07/04 IN CHART
[2021-07-05 14:53] VITALS: BP 114/73; PULSE 73; RESP 18; TEMP 36.9; O2SAT 96
== END 2021-07-05 16:45 | disposition skilled nursing facility (03) | DRG 196 ==
LOC: HO.ED 16:15 → HO.EDOVER 17:11 → HO.S3 06-28 00:14
PROVIDERS: Admitting Provider Internal Medicine; Emergency Provider Emergency Medicine; PCP Internal Medicine; Visit Provider Internal Medicine
DX: J84.114 Acute interstitial pneumonitis (principal); J96.01 Acute respiratory failure with hypoxia; J44.0 Chronic obstructive pulmonary disease with (acute) lower respiratory infection; J44.1 Chronic obstructive pulmonary disease with (acute) exacerbation; I48.20 Chronic atrial fibrillation, unspecified; R91.1 Solitary pulmonary nodule; Z20.822 Contact with and (suspected) exposure to COVID-19; Z87.891 Personal history of nicotine dependence; Z79.01 Long term (current) use of anticoagulants; Z79.51 Long term (current) use of inhaled steroids; Z79.52 Long term (current) use of systemic steroids; Z79.82 Long term (current) use of aspirin; Z79.899 Other long term (current) drug therapy
CPT/HCPCS: 36415; 71045; 71046; 71275; 80048; 82803; 83605; 83880; 84145; 84484; 85025; 85027; 85379; 85610; 87040; 87502; 87633; 87635; 93005; 93306; 96361; 96365; 96367; 97116; 97162; 99285; J0456; J0696; J1940; J2920; Q9967

== ENCOUNTER 2021-07-17 12:01 | Outpatient (REF) | payer OTHER, MEDICARE, SELFPAY ==
--- NOTE | ~2021-07-17 | CT_ITS ---
EXAMINATION: CT ANGIOGRAM OF THE CHEST WITH AND WITHOUT CONTRAST (CT PULMONARY ANGIOGRAM FOR PE) CLINICAL INFORMATION: Reason for Exam SOB,R/O PE COMPARISON: None TECHNIQUE: Prior to contrast administration, noncontrast localization images were obtained. Subsequently, multidetector volumetric imaging was performed from the thoracic inlet to below the diaphragms following the administration of 80 mL Omnipaque 350 intravenous contrast. No contrast reaction reported Sagittal, coronal, and MIP oblique sagittal reformatted images were obtained on the CT workstation, uploaded to PACS, and reviewed. This CT examination was performed using dose optimization techniques as appropriate, variously including the following: *Automated exposure control *Adjustment of mA and/or kV according to patient size (this includes techniques or standardized protocols for targeted exams where dose is matched to indication/reason for exam; i.e. extremities or head) *Use of iterative reconstruction technique Total exam dose-length product 104 mGy-cm FINDINGS: QUALITY OF STUDY/CONTRAST BOLUS: Satisfactory. PULMONARY ARTERIES: No central or segmental pulmonary emboli. THORACIC AORTA: No aneurysm or dissection. LUNG: The lungs are well-expanded with diffuse increased interstitial intralobular and interlobular and 6 subpleural thickening likely chronic scarring. There is subpleural lung honeycombing seen throughout both lungs all consistent with chronic interstitial fibrosis no obvious pulmonary nodule or mass seen. PLEURA: No pleural effusion or pneumothorax. MEDIASTINUM: Heart size is slightly enlarged. Pulmonary vascularity is within normal limits. No pedicle effusion. There is trace coronary artery calcifications. No abnormal size mediastinal or hilar lymph nodes seen. The central trachea and bronchi widely patent. Thyroid lobes are symmetrical but normal size. CHEST WALL/AXILLA: No axillary or internal mammary lymphadenopathy. OSSEOUS STRUCTURES: No acute or suspicious osseous abnormality. UPPER ABDOMEN: Unremarkable. No reflux of contrast into the hepatic veins to suggest elevated right heart pressures. CT/CT angio chest PE protocol IMPRESSION: No evidence of PE. No evidence of aortic dissection or aneurysm. Diffuse chronic interstitial fibrosis without consolidation. No pleural effusion. No abnormal mediastinal or axillary lymphadenopathy. VTE: negative
[2021-07-17] MEDS: iohexoL 350 MG/ML 100 ML INFUS..BTL 65 ML IV (12:34)
== END 2021-07-17 12:02 | disposition home or self-care (01) ==
LOC: HO.CT 12:01
PROVIDERS: PCP Internal Medicine; Visit Provider Internal Medicine
DX: R06.02 Shortness of breath (principal)
CPT/HCPCS: 71275; Q9967

== ENCOUNTER → 2021-07-20 15:15 | Outpatient (BNVA) | payer MEDICARE, SELFPAY | PROVIDERS: PCP Internal Medicine; Visit Provider Internal Medicine | DX: I48.0 Paroxysmal atrial fibrillation (principal); Z79.01 Long term (current) use of anticoagulants; Z51.81 Encounter for therapeutic drug level monitoring | CPT/HCPCS: Q3014 ==

== ENCOUNTER → 2021-07-25 15:07 | Outpatient (BNVA) | payer MEDICARE, SELFPAY | PROVIDERS: PCP Internal Medicine; Visit Provider Internal Medicine | DX: I48.0 Paroxysmal atrial fibrillation (principal); Z79.01 Long term (current) use of anticoagulants; Z51.81 Encounter for therapeutic drug level monitoring | CPT/HCPCS: Q3014 ==

== ENCOUNTER 2021-07-27 08:49 | Inpatient (IN) | payer MEDICARE, SELFPAY ==
[2021-07-27] VITALS (18 sets, daily range): BP systolic 99–125; BP diastolic 50–82; PULSE 80–138; RESP 17–30; TEMP 36.1–37.2; O2SAT 81–95; BMI 26.0
--- NOTE | ~2021-07-27 | XR_ITS ---
EXAMINATION: XR CHEST CLINICAL INFORMATION: Hypoxia COMPARISON: Previous chest x-ray most recent 07/31/2021 TECHNIQUE: Frontal view of the chest was obtained. FINDINGS: The cardiac and mediastinal contours are stable. There is diffuse airspace disease. This may be slightly improved from recent exams. There is no pleural effusion or pneumothorax. No acute bone abnormality. XR/XR chest 1V IMPRESSION: Question slight interval improvement in the diffuse bilateral airspace disease from recent exams.
--- NOTE | ~2021-07-27 | XR_ITS ---
EXAMINATION: XR CHEST CLINICAL INFORMATION: Shortness of breath. COMPARISON: 07/27/2021 chest radiograph and chest CTA dated 07/17/2021. TECHNIQUE: Frontal view of the chest was obtained. FINDINGS: Diffuse increased initial markings are seen with interval development of bilateral patchy infiltrates. The heart and mediastinal structures are unremarkable. XR/XR chest 1V IMPRESSION: Known chronic interstitial changes with interval increase in bilateral patchy infiltrates which could represent an overlying acute infectious/inflammatory process. A cardiogenic etiology cannot be excluded. Correlate clinically.
--- NOTE | ~2021-07-27 | XR_ITS ---
EXAMINATION: XR CHEST CLINICAL INFORMATION: Hypoxia COMPARISON: Previous chest x-ray most recent from yesterday TECHNIQUE: Frontal view of the chest was obtained. FINDINGS: The cardiac and mediastinal contours are stable. There is diffuse bilateral airspace disease. This is slightly increased from previous exams. Differential would include pulmonary edema, pneumonia and acute alveolitis. There is no pleural effusion or pneumothorax. There are degenerative changes of the spine. XR/XR chest 1V IMPRESSION: Worsening diffuse bilateral airspace disease. Differential would include pulmonary edema, pneumonia and acute alveolitis related interstitial disease.
--- NOTE | ~2021-07-27 | XR_ITS ---
EXAMINATION: XR CHEST CLINICAL INFORMATION: Dyspnea COMPARISON: 07/02/2021 TECHNIQUE: Frontal view of the chest was obtained. FINDINGS: Cardiac leads overlie the chest. Diffuse bronchial wall thickening with patchy opacities throughout the lungs. No pleural effusion or pneumothorax. The cardiomediastinal silhouette is within normal limits. No acute osseous abnormality. XR/XR chest 1V IMPRESSION: Diffuse bronchial wall thickening with patchy opacities throughout the lungs. Similar appearance to previous imaging. This is suggestive of chronic fibrotic process.
--- NOTE | 2021-07-27 09:01 | ECG_ITS ---
Test Reason : sob Blood Pressure : / mmHG Vent. Rate : 139 BPM Atrial Rate : 000 BPM P-R Int : 000 ms QRS Dur : 076 ms QT Int : 294 ms P-R-T Axes : 000 -31 207 degrees QTc Int : 447 ms Atrial fibrillation with rapid ventricular response Left axis deviation Left ventricular hypertrophy with repolarization abnormality ( R in aVL ) Abnormal ECG When compared with ECG of 27-JUN-2021 10:24, Atrial fibrillation with rapid ventricular response has replaced Normal sinus rhythm Vent. rate has increased BY [address] now depressed in Inferior leads ST now depressed in Anterolateral leads T wave inversion now evident in Inferior leads T wave inversion now evident in Lateral leads Referred By: Stacie Carrillo Electronically Signed By:JAN NOYOLA MD
--- NOTE | 2021-07-27 09:09 | ED_ITS ---
HPI - SOB/Dyspnea General Chief Complaint: Upper Respiratory Symptoms Stated Complaint: SOB Time Seen by Provider: 07/27/21 08:58 Source: patient and old records reviewed Mode of arrival: EMS Limitations: no limitations History of Present Illness MD elicited complaint: shortness of breath Pertinent past history: pneumonia and other (ILD O2 dependent) Onset (ago): day(s) (last night but worse this AM) Context: recent illness (treated for pneumonia here and DC on 07/05) Timing: progressively worsening Severity: moderate Exacerbating factors: exertion and coughing Relieving factors: oxygen and rest Known history of: recurrent pneumonia Associated symptoms: cough, wheezing, sputum production and syncope (trying to walk to the bathroom was almost near syncopal, took no AM medications) Treatment prior to arrival: oxygen (EMS did note she had about 50 feet of O2 tubing in the house) Related Data Home Medications Medication Instructions Recorded Confirmed cholecalciferol (vitamin D3) 25 25 mcg PO DAILY 09/11/20 07/27/21 mcg (1,000 unit) tablet (Vitamin D3) aspirin 81 mg tablet,delayed 81 mg PO DAILY 06/21/21 07/27/21 release warfarin 1 mg tablet 2 mg PO MOWEFR@1800 06/27/21 07/27/21 warfarin 1 mg tablet 3 mg PO SUTUTHSA@1800 06/27/21 07/27/21 alprazolam 0.25 mg tablet (Xanax) 0.25 mg PO BID PRN 07/20/21 07/27/21 furosemide 20 mg tablet 20 mg PO DAILY tab 07/20/21 07/27/21 prednisone 20 mg tablet 40 mg PO DAILY tab 07/20/21 07/27/21 atorvastatin 40 mg tablet 40 mg PO BEDTIME 07/27/21 07/27/21 metoprolol succinate 50 mg 1 tab PO DAILY 07/27/21 07/27/21 tablet,extended release 24 hr pantoprazole 40 mg tablet,delayed 1 tab PO QAM 07/27/21 07/27/21 release trazodone 50 mg tablet 1 tab PO BEDTIME 07/27/21 07/27/21 Previous Rx's Medication Instructions Recorded cyanocobalamin (vitamin B-12) 1,000 mcg PO DAILY #90 tab 05/05/20 1,000 mcg tablet albuterol sulfate 90 mcg/actuation 2 puff INHALATION Q6H PRN #8.5 g 05/02/21 aerosol inhaler thiamine HCl (vitamin B1) 100 mg 100 mg PO DAILY #90 tab 05/02/21 tablet fluticasone 250 mcg-salmeterol 50 1 inh INHALATION BID #60 ea 05/19/21 mcg/dose blistr powdr for inhalation (Advair Diskus) umeclidinium 62.5 mcg/actuation 1 inh INHALATION DAILY #180 ea 05/26/21 blister powder for inhalation (Incruse Ellipta) folic acid 1 mg tablet 1 mg PO DAILY #90 tab 06/26/21 Allergies Allergy/AdvReac Type Severity Reaction Status Date / Time citalopram AdvReac Unknown nausea Verified 07/20/21 15:21 Review of Systems Review of Systems: Constitutional : No Fever, No Chills ENT/Mouth : No sore throat, No Rhinorrhea, No Swallowing Difficulty Eyes: No Eye Pain, No Swelling, No Redness Cardiovascular : No Chest Pain, positive SOB, No Orthopnea, no Edema Respiratory : pos Cough, pos Sputum, pos Wheezing, positive dyspnea Gastrointestinal : No Nausea, No Vomiting, No Diarrhea, No abdominal Pain, No Hematochezia, No Melena Genitourinary : No Dysuria, No Urinary Frequency, No Hematuria Musculoskeletal : No joint pain, No Myalgias Skin : No Skin Lesions, No rash Neuro : No Weakness, No Numbness, pos Dizziness, No Headache Psych : No Anxiety/Panic, No Depression Heme/Lymph: No Bruising, No Lymphadenopathy Endocrine : No Polyuria, No Polydipsia All other systems reviewed and are negative PMFSH Past Medical History Attestation statement: The following information was validated with the patient. Source: old records reviewed Medical History AAA (abdominal aortic aneurysm) Anxiety Atrial flutter COPD (chronic obstructive pulmonary disease) Elevated troponin level not due myocardial infarction ETOH abuse HLD (hyperlipidemia) Insomnia Mammogram declined Osteopenia Pure hypercholesterolemia Right upper lobe pulmonary nodule Sciatica Smoking Spinal stenosis Surgical History H/O colonoscopy History of cardiac catheterization (~08/2020) No pertinent past surgical history Total knee replacement status (~12/2019) Family History Family History Father CVD (cardiovascular disease) Stomach cancer History of heart attack Mother No problems noted. Sister Brain tumor Brother No problems noted. Sister No problems noted. Social History Social History Household Members: Friend(s) Housing: House Do you presently have visiting nurse or other home services: No Alcohol intake: current Alcohol intake frequency: a few times a week Alcohol type: wine Patient Tobacco Use Status: Former Tobacco user Cigarette Packs Per Day: 0.01 Cigarettes Per Day: 2 Years Smoked: 50+ e-Cigarette/Vaping Use: Never Used Second Hand Smoke Exposure: No Advance Directives: Yes Advance Directives on File: Yes Advance Directives Date on File: 06/27/21 service: No Current occupational status: retired Physical Exam Vital Signs: Vital Signs: Last Vital Signs Temp 97.7 F 07/27/21 08:56 Pulse 111 H 07/27/21 10:12 Resp 22 H 07/27/21 10:12 BP 113/82 07/27/21 10:12 Pulse Ox 87 L 07/27/21 10:12 Oxygen Flow Rate 4 07/27/21 08:56 BMI result Body Mass Index 26.0 Appearance: Alert. Oriented X3. Mild acute distress. Eyes: Pupils equal, round and reactive to light. ENT: Pharynx normal. Neck: Normal inspection. Neck supple. CVS: irregular tachycardic heart rate and rhythm. Pulses normal. Respiratory: Mild respiratory distress. Breath sounds very diminished - tachy pnea and retractions. Abdomen: Soft and nontender. Skin: Skin warm and dry. Normal skin color. Normal skin turgor. Extremities: No lower extremity edema. No calf ttp Neuro: Oriented X 3. No motor deficit. No sensory deficit. Course Course Course Narrative: BNP at baseline unchanged CXR, HR improving with PO medications, 91-93% on 3L NC repeat trop pending INR therapeutic doubt PE lactic acidosis due to hypoxia and not infection or severe sepsis, leukocytosis due to steroids and not infection or severe sepsis patient has been talking on the phone in no distress up to commode HR up to 130s, O2 76% will repeat dilt 5mg, xopenex ordered will admit at this time possible infection suspected [id number] will give dose of ceftriaxone, doxy MDM - SOB/Dyspnea MDM Narrative Medical decision making narrative: 75 yo female with hx of ILD on home O2, afib on coumadin, AAA, HTN, HLD, recent pneumonia and DC from hospital 07/05, chronic steroid use comes in feeling dyspneic this AM with c/o excessive O2 tubing at home per EMS - will obtain labs, CXR for pneumonia, cultures, xopenex, IV steroids, IV dilt for rate control PE unlikely given coumadin use. Dispo per results and findings. Lab Data Result diagrams: 07/27/21 09:20 07/27/21 09:20 Labs: Lab Results 07/27/21 07/27/21 07/27/21 Range/Units 09:20 09:20 09:20 WBC 13.8 H (4.8-10.8) X10*3/uL RBC 5.06 (4.20-5.50) X10*6/uL Hgb 15.2 (12.0-16.0) g/dl Hct 45.4 (37.0-47.0) % MCV 89.7 (80.0-98.0) fL MCH 30.0 (27.0-33.0) pg MCHC 33.5 (31.0-35.0) g/dl RDW 13.3 (11.0-16.0) % Plt Count 420 H (160-400) X10*3/uL MPV 8.9 L (9.4-12.3) fL Immature Gran % (Auto) 0.9 H (0.0-0.4) % Neut % (Auto) 73.8 H (45-73) % Lymph % (Auto) 8.1 L (20-40) % [place] % (Auto) 13.3 H (2-11) % Eos % (Auto) 3.7 (0-4) % Baso % (Auto) 0.2 (0-2) % Lymph # (Auto) 1.1 L (1.2-4.9) X10*3/uL [place] # (Auto) 1.8 H (0.1-1.2) X10*3/uL Eos # (Auto) 0.5 H (0.0-0.4) X10*3/uL Baso # (Auto) 0.0 (0.0-0.2) X10*3/uL Abs Immat Gran (auto) 0.13 H (0.00-0.03) X10*3/uL Absolute Neuts (auto) 10.1 H (2.0-8.3) x10*3/uL Absolute Nucleated RBC 0.000 (0.0-0.012) X10*3/uL Nucleated RBC % (auto) 0.0 (0.0-0.2) /100WBC Smear Tech's Comments VERIFIED PT 25.0 H (9.9-13.0) SEC INR 2.2 H (0.9-1.1) APTT 37.9 (24.1-38.0) SEC VBG pH (7.32-7.43) VBG pCO2 mmHg VBG pO2 mmHg VBG HCO3 (22-26) mmol/L VBG O2 Saturation % VBG Base Excess mmol/L Sodium 139 (135-145) mmol/L Potassium 3.2 L (3.3-5.1) mmol/L Chloride 100 (96-108) mmol/L Carbon Dioxide 25 (22-29) mmol/L Anion Gap 17 (12-20) BUN 13 (9-16) mg/dL Creatinine 0.78 (0.5-1.4) mg/dL Estim Creat Clear Calc 53.6 Estimated GFR > 60 Random Glucose 117 H (60-115) mg/dL Lactic Acid (0.5-2.0) mmol/L Lactic Acid F/U @ 2Hr (0.5-2.0) mmol/L Calcium 9.6 D (8.4-10.2) mg/dL Magnesium 2.2 (1.6-2.6) mg/dL Total Bilirubin 1.1 H (0.0-1.0) mg/dL Direct Bilirubin 0.5 (0.0-0.5) mg/dL AST 30 (5-31) U/L ALT 54 H (0-31) U/L Alkaline Phosphatase 111 (39-117) U/L Troponin I High Sens (<3.5-17.0) ng/L B-Natriuretic Peptide (<100) pg/mL Total Protein 6.9 (6.5-8.0) g/dL Albumin 4.0 (3.5-5.0) g/dL Ethyl Alcohol mg/dL COVID-19 ([facility]) (Negative) COVID-19 Clin Com 07/27/21 07/27/21 07/27/21 Range/Units 09:20 09:20 09:20 WBC (4.8-10.8) X10*3/uL RBC (4.20-5.50) X10*6/uL Hgb (12.0-16.0) g/dl Hct (37.0-47.0) % MCV (80.0-98.0) fL MCH (27.0-33.0) pg MCHC (31.0-35.0) g/dl RDW (11.0-16.0) % Plt Count (160-400) X10*3/uL MPV (9.4-12.3) fL Immature Gran % (Auto) (0.0-0.4) % Neut % (Auto) (45-73) % Lymph % (Auto) (20-40) % [place] % (Auto) (2-11) % Eos % (Auto) (0-4) % Baso % (Auto) (0-2) % Lymph # (Auto) (1.2-4.9) X10*3/uL [place] # (Auto) (0.1-1.2) X10*3/uL Eos # (Auto) (0.0-0.4) X10*3/uL Baso # (Auto) (0.0-0.2) X10*3/uL Abs Immat Gran (auto) (0.00-0.03) X10*3/uL Absolute Neuts (auto) (2.0-8.3) x10*3/uL Absolute Nucleated RBC (0.0-0.012) X10*3/uL Nucleated RBC % (auto) (0.0-0.2) /100WBC Smear Tech's Comments PT (9.9-13.0) SEC INR (0.9-1.1) APTT (24.1-38.0) SEC VBG pH (7.32-7.43) VBG pCO2 mmHg VBG pO2 mmHg VBG HCO3 (22-26) mmol/L VBG O2 Saturation % VBG Base Excess mmol/L Sodium (135-145) mmol/L Potassium (3.3-5.1) mmol/L Chloride (96-108) mmol/L Carbon Dioxide (22-29) mmol/L Anion Gap (12-20) BUN (9-16) mg/dL Creatinine (0.5-1.4) mg/dL Estim Creat Clear Calc Estimated GFR Random Glucose (60-115) mg/dL Lactic Acid 3.3 H* (0.5-2.0) mmol/L Lactic Acid F/U @ 2Hr (0.5-2.0) mmol/L Calcium (8.4-10.2) mg/dL Magnesium (1.6-2.6) mg/dL Total Bilirubin (0.0-1.0) mg/dL Direct Bilirubin (0.0-0.5) mg/dL AST (5-31) U/L ALT (0-31) U/L Alkaline Phosphatase (39-117) U/L Troponin I High Sens 12.0 D (<3.5-17.0) ng/L B-Natriuretic Peptide 155 H (<100) pg/mL Total Protein (6.5-8.0) g/dL Albumin (3.5-5.0) g/dL Ethyl Alcohol mg/dL COVID-19 ([facility]) Negative (Negative) COVID-19 Clin Com See Note 07/27/21 07/27/21 07/27/21 Range/Units 09:20 09:24 11:26 WBC (4.8-10.8) X10*3/uL RBC (4.20-5.50) X10*6/uL Hgb (12.0-16.0) g/dl Hct (37.0-47.0) % MCV (80.0-98.0) fL MCH (27.0-33.0) pg MCHC (31.0-35.0) g/dl RDW (11.0-16.0) % Plt Count (160-400) X10*3/uL MPV (9.4-12.3) fL Immature Gran % (Auto) (0.0-0.4) % Neut % (Auto) (45-73) % Lymph % (Auto) (20-40) % [place] % (Auto) (2-11) % Eos % (Auto) (0-4) % Baso % (Auto) (0-2) % Lymph # (Auto) (1.2-4.9) X10*3/uL [place] # (Auto) (0.1-1.2) X10*3/uL Eos # (Auto) (0.0-0.4) X10*3/uL Baso # (Auto) (0.0-0.2) X10*3/uL Abs Immat Gran (auto) (0.00-0.03) X10*3/uL Absolute Neuts (auto) (2.0-8.3) x10*3/uL Absolute Nucleated RBC (0.0-0.012) X10*3/uL Nucleated RBC % (auto) (0.0-0.2) /100WBC Smear Tech's Comments PT (9.9-13.0) SEC INR (0.9-1.1) APTT (24.1-38.0) SEC VBG pH 7.45 H (7.32-7.43) VBG pCO2 36 mmHg VBG pO2 59 mmHg VBG HCO3 25 (22-26) mmol/L VBG O2 Saturation 86.0 % VBG Base Excess 2.1 mmol/L Sodium (135-145) mmol/L Potassium (3.3-5.1) mmol/L Chloride (96-108) mmol/L Carbon Dioxide (22-29) mmol/L Anion Gap (12-20) BUN (9-16) mg/dL Creatinine (0.5-1.4) mg/dL Estim Creat Clear Calc Estimated GFR Random Glucose (60-115) mg/dL Lactic Acid (0.5-2.0) mmol/L Lactic Acid F/U @ 2Hr (0.5-2.0) mmol/L Calcium (8.4-10.2) mg/dL Magnesium (1.6-2.6) mg/dL Total Bilirubin (0.0-1.0) mg/dL Direct Bilirubin (0.0-0.5) mg/dL AST (5-31) U/L ALT (0-31) U/L Alkaline Phosphatase (39-117) U/L Troponin I High Sens 22.0 H D (<3.5-17.0) ng/L B-Natriuretic Peptide (<100) pg/mL Total Protein (6.5-8.0) g/dL Albumin (3.5-5.0) g/dL Ethyl Alcohol < 10 mg/dL COVID-19 ([facility]) (Negative) COVID-19 Clin Com 07/27/21 Range/Units 11:35 WBC (4.8-10.8) X10*3/uL RBC (4.20-5.50) X10*6/uL Hgb (12.0-16.0) g/dl Hct (37.0-47.0) % MCV (80.0-98.0) fL MCH (27.0-33.0) pg MCHC (31.0-35.0) g/dl RDW (11.0-16.0) % Plt Count (160-400) X10*3/uL MPV (9.4-12.3) fL Immature Gran % (Auto) (0.0-0.4) % Neut % (Auto) (45-73) % Lymph % (Auto) (20-40) % [place] % (Auto) (2-11) % Eos % (Auto) (0-4) % Baso % (Auto) (0-2) % Lymph # (Auto) (1.2-4.9) X10*3/uL [place] # (Auto) (0.1-1.2) X10*3/uL Eos # (Auto) (0.0-0.4) X10*3/uL Baso # (Auto) (0.0-0.2) X10*3/uL Abs Immat Gran (auto) (0.00-0.03) X10*3/uL Absolute Neuts (auto) (2.0-8.3) x10*3/uL Absolute Nucleated RBC (0.0-0.012) X10*3/uL Nucleated RBC % (auto) (0.0-0.2) /100WBC Smear Tech's Comments PT (9.9-13.0) SEC INR (0.9-1.1) APTT (24.1-38.0) SEC VBG pH (7.32-7.43) VBG pCO2 mmHg VBG pO2 mmHg VBG HCO3 (22-26) mmol/L VBG O2 Saturation % VBG Base Excess mmol/L Sodium (135-145) mmol/L Potassium (3.3-5.1) mmol/L Chloride (96-108) mmol/L Carbon Dioxide (22-29) mmol/L Anion Gap (12-20) BUN (9-16) mg/dL Creatinine (0.5-1.4) mg/dL Estim Creat Clear Calc Estimated GFR Random Glucose (60-115) mg/dL Lactic Acid (0.5-2.0) mmol/L Lactic Acid F/U @ 2Hr 1.2 (0.5-2.0) mmol/L Calcium (8.4-10.2) mg/dL Magnesium (1.6-2.6) mg/dL Total Bilirubin (0.0-1.0) mg/dL Direct Bilirubin (0.0-0.5) mg/dL AST (5-31) U/L ALT (0-31) U/L Alkaline Phosphatase (39-117) U/L Troponin I High Sens (<3.5-17.0) ng/L B-Natriuretic Peptide (<100) pg/mL Total Protein (6.5-8.0) g/dL Albumin (3.5-5.0) g/dL Ethyl Alcohol mg/dL COVID-19 ([facility]) (Negative) COVID-19 Clin Com ECG Data Attestation: I personally reviewed and interpreted this ECG as follows: ECG interpretation date: 07/27/21 ECG interpretation time: 09:17 Interpretation: Rate: 130s Rhythm: afib [place]: left LVH Normal QRS complex. ST T wave : no VARUN, nonspecific, subtle lateral depressions qTC: normal prior studies: prior findings noted no acute ischemia The study has been interpreted contemporaneously by me. Critical Care Time Critical Care Time Critical Care Time: Yes Total Critical Care Time: 60 Attestation: review of records, repeat IV dilt, repeat nebs, O2 supplementation, IV steroids I attest to this time spent taking care of the patient Discharge Plan Discharge Clinical Impression: A-fib, Acute hypokalemia, Chronic interstitial lung disease, Chronic dyspnea, Hypoxia Patient Disposition: Admitted As Inpatient
[2021-07-27 09:31] LABS: Venous Blood Gas Refer to POC result
[2021-07-27 09:32] LABS: Basophils Percent Auto 0.2 % (0-2); Eosinophils Absolute Auto 0.5 X10*3/uL (0.0-0.4); Eosinophils Percent Auto 3.7 % (0-4); Hematocrit 45.4 % (37.0-47.0); Hemoglobin 15.2 g/dl (12.0-16.0); Imm Gran Abs Auto 0.13 X10*3/uL (0.00-0.03); Imm Gran Pct Auto 0.9 % (0.0-0.4); Lymphocytes Absolute Auto 1.1 X10*3/uL (1.2-4.9); Lymphocytes Percent Auto 8.1 % (20-40); MANUAL DIFF FLAG SCAN; Mean Corpuscular HGB Conc 33.5 g/dl (31.0-35.0); Mean Corpuscular Volume 89.7 fL (80.0-98.0); Mean Platelet Volume 8.9 fL (9.4-12.3); Monocytes Absolute Auto 1.8 X10*3/uL (0.1-1.2); Monocytes Percent Auto 13.3 % (2-11); Neutrophils Absolute Auto 10.1 x10*3/uL (2.0-8.3); Neutrophils Percent Auto 73.8 % (45-73); Platelet Count 420 X10*3/uL (160-400); Red Blood Count 5.06 X10*6/uL (4.20-5.50); Red Cell Distribution Width 13.3 % (11.0-16.0); SCAN SMEAR FLAG 1; White Blood Count 13.8 X10*3/uL (4.8-10.8)
[2021-07-27 09:32] LABS: VBG Base Excess 2.1 mmol/L; VBG HCO3 25 mmol/L (22-26); VBG pCO2 36 mmHg; VBG pH 7.45 (7.32-7.43); VBG pO2 59 mmHg
[2021-07-27 09:41] LABS: INTERNATIONAL NORM RATIO 2.2 (0.9-1.1)
[2021-07-27 09:43] LABS: Ethanol < 10 mg/dL
[2021-07-27 09:44] LABS: Partial Thromboplastin Time 37.9 SEC (24.1-38.0)
[2021-07-27 09:45] LABS: Lactic Acid 3.3 mmol/L (0.5-2.0)
[2021-07-27 09:47] LABS: Alanine Aminotransferase 54 U/L (0-31); Alkaline Phosphatase 111 U/L (39-117); Anion Gap 17 (12-20); Aspartate Amino Transferase 30 U/L (5-31); Bilirubin Direct 0.5 mg/dL (0.0-0.5); Bilirubin Total 1.1 mg/dL (0.0-1.0); Blood Urea Nitrogen 13 mg/dL (9-16); Calcium 9.6 mg/dL (8.4-10.2); Carbon Dioxide 25 mmol/L (22-29); Chloride 100 mmol/L (96-108); Creatinine Clr Calc Pharmacy 53.6; Estimated Glomerular Filt Rate > 60; Glucose Random 117 mg/dL (60-115); Magnesium 2.2 mg/dL (1.6-2.6); Potassium 3.2 mmol/L (3.3-5.1); Sodium 139 mmol/L (135-145); Total Protein 6.9 g/dL (6.5-8.0)
[2021-07-27 09:48] LABS: COVID-19 Test Negative (Negative)
[2021-07-27 09:51] LABS: B Type Natriuretic Peptide 155 pg/mL (<100)
[2021-07-27] MEDS: 0.9 % Sodium Chloride 500 ML IV (09:54)
[2021-07-27] MEDS: Magnesium Sulfate/H2O 2 GM/50 ML PIGGYBACK IV (09:56)
--- NOTE | 2021-07-27 09:57 | PHA.MEDREC ---
Pharmacy Consult ? Medication Reconciliation Pharmacy has completed the medication reconciliation. Patient had discharge summary from [facility] and reported that list is accurate to what is at home. She confirmed warfarin dose as well inhalers. Alicia Gomez, DiamD
[2021-07-27] MEDS: methylPREDNISolone Sod Succ 125 MG/2 ML VIAL IVPUSH (09:58)
[2021-07-27] MEDS: dilTIAZem HCL 50 MG/10 ML VIAL IVPUSH (09:59)
[2021-07-27] MEDS: Metoprolol Succinate ER 50 MG TAB.ER.24H PO (10:11)
[2021-07-27 10:20] LABS: SLIDE REVIEW VERIFIED
[2021-07-27 11:26] LABS: Reflex Lactate? Lactic Acid Added
[2021-07-27 11:53] LABS: ~Lactic Acid-LAB USE ONLY 1.2 mmol/L (0.5-2.0)
[2021-07-27] MEDS: Potassium Chloride ER 20 MEQ TAB.ER.PRT PO (12:01)
[2021-07-27] MEDS: cefTRIAXone sodium 1 GM in 0.9 % Sodium Chloride 50 ML IV (12:18)
[2021-07-27] MEDS: Doxycycline Hyclate 100 MG in 0.9 % Sodium Chloride 250 ML 166.67 MG IV (12:48)
[2021-07-27 14:41] LABS: Procalcitonin 0.33 ng/mL
--- NOTE | 2021-07-27 15:01 | PM.IMHP ---
History of Present Illness Date of Service: 07/27/21 Chief Complaint: shortness of breath Ms Robert is a 75 year-old woman with interstitial lung disease that was only recently diagnosed, but with radiographic evidence dating back to 2016, who was just admitted to [facility] 06/27-07/05/21 with pneumonia and ILD exacerbation. She was treated with antibiotics and steroids, then discharged on oxygen, which was a new requirement for her. She is on 3L of O2 at rest and 4L with exertion. She was also discharged on a prednisone taper. Pulmonology was consulted during that admission, and she has not yet seen the grocery store associate as an outpatient. She woke up at 2am today with dyspnea, tachypnea, and cough. She tried to walk to the bathroom and almost passed out. No actual LOC, though. Her oxygen tubing is very long [50 feet], and she is concerned that it may have become kinked. She came in to the [facility] ED and was noted to be in AF/RVR with rate in the 130s, tachypneic in the 20s, and hypoxic with SaO2 88% on 4L via NC, dropping to the 70s with exertion. CXR showed chronic fibrotic changes. She is on warfarin for stroke prevention with AF, and INR is 2.2. Lactate was 3.3 initially, now 1.2. Potassium was 3.2. High-sensitivity troponin-I was 12, then 22. She was given 15 mg of IV diltiazem, 125 mg of IV methylprednisolone, 20 mEq of PO KCl, 500 mL of IV normal saline, 50 mg of metoprolol succinate, 2g of magnesium sulfate, 1g of IV ceftriaxone, and 100mg of IV doxycycline. Current SaO2 is 93% on 4L via NC and she is in AF with ventricular rate in the 120s. She endorses ongoing dyspnea, and also chest tightness. No fever. Review of Systems Review of Systems: Yes all other systems are reviewed and are negative [facility] Medical History AAA (abdominal aortic aneurysm) Anxiety Atrial flutter COPD (chronic obstructive pulmonary disease) Elevated troponin level not due myocardial infarction ETOH abuse HLD (hyperlipidemia) Insomnia Mammogram declined Osteopenia Pure hypercholesterolemia Right upper lobe pulmonary nodule Sciatica Smoking Spinal stenosis Family History Father CVD (cardiovascular disease) Stomach cancer History of heart attack Mother No problems noted. Sister Brain tumor Brother No problems noted. Sister No problems noted. Surgical History H/O colonoscopy History of cardiac catheterization (~08/2020) No pertinent past surgical history Total knee replacement status (~12/2019) Social History Household Members: Friend(s) Housing: House Do you presently have visiting nurse or other home services: No Alcohol intake: former Patient Tobacco Use Status: Former Tobacco user Cigarette Packs Per Day: 0.01 Cigarettes Per Day: 2 Years Smoked: 50+ Smoked in Last 30 Days: No e-Cigarette/Vaping Use: Never Used Second Hand Smoke Exposure: No Use of substances other than those prescribed or required for medical reasons: No Advance Directives: Yes Advance Directives on File: Yes Advance Directives Date on File: 06/27/21 service: No Current occupational status: retired [employer] Allergies Allergy/AdvReac Type Severity Reaction Status Date / Time citalopram AdvReac Unknown nausea Verified 07/20/21 15:21 Active Medications: Current Medications Alprazolam (Alprazolam 0.25 Mg Tablet) 0.25 mg PO BID PRN PRN Reason: anxiety Aspirin (Aspirin Enteric Coated 81 Mg Tablet.) 81 mg PO DAILY [facility] Atorvastatin Calcium (Atorvastatin Calcium 40 Mg Tablet) 40 mg PO BEDTIME [facility] Cyanocobalamin (Cyanocobalamin (Vitamin B-12) 1,000 Mcg Tablet) 1,000 mcg PO DAILY [facility] Fluticasone/Vilanterol (Fluticasone/Vilanterol 100/25 Blst.W.Dev) 1 puff INHALE RDAILY [facility] Folic Acid (Folic Acid 1 Mg Tablet) 1 mg PO DAILY [facility] Furosemide (Furosemide 20 Mg Tablet) 20 mg PO DAILY [facility]; Protocol Ipratropium [place] (Ipratropium [place] 0.5 Mg/2.5 Ml Solution) 0.5 mg INHALE RQ4H WHILE AWAKE [facility] Levalbuterol HCl (Levalbuterol Hcl 1.25 Mg/0.5 Ml Vial.Neb) 1.25 mg INHALE RQ4H WHILE AWAKE [facility] Levalbuterol HCl (Levalbuterol Hcl 1.25 Mg/0.5 Ml Vial.Neb) 1.25 mg INHALE Q2H PRN PRN Reason: shortness of breath Methylprednisolone Sodium Succinate (Methylprednisolone Sod Succ 125 Mg/2 Ml Vial) 60 mg IVPUSH Q12H [facility] Metoprolol Succinate (Metoprolol Succinate Er 50 Mg Tab.Er.24h) 50 mg PO DAILY [facility]; Protocol Non-Formulary Medication (Umeclidinium [Incruse Ellipta]) 1 inhalation INHALE DAILY [facility] Omeprazole (Omeprazole 20 Mg Capsule.Dr) 20 mg PO DAILY@0630 [facility] Pharmacy Consult (Consult Rx Perform Med Rec) 1 each MISCELLANE ONCE PRN PRN Reason: Consult order Thiamine HCl (Thiamine Hcl 100 Mg Tablet) 100 mg PO DAILY [facility] Trazodone HCl (Trazodone Hcl 50 Mg Tablet) 50 mg PO BEDTIME [facility] Vitamin D (Cholecalciferol (Vitamin D3) 25 Mcg Tablet) 25 mcg PO DAILY [facility] Warfarin Sodium (Warfarin Sodium 3 Mg Tablet) 3 mg PO SUTUTHSA@1800 [facility] Warfarin Sodium (Warfarin Sodium 2 Mg Tablet) 2 mg PO MOWEFR@1800 [facility] Home Medications Medication Instructions Recorded Confirmed Last Taken Type cholecalciferol (vitamin D3) 25 25 mcg PO DAILY 09/11/20 07/27/21 07/26/21 History mcg (1,000 unit) tablet (Vitamin D3) aspirin 81 mg tablet,delayed 81 mg PO DAILY 06/21/21 07/27/21 07/26/21 History release warfarin 1 mg tablet 2 mg PO MOWEFR@1800 06/27/21 07/27/21 07/26/21 History warfarin 1 mg tablet 3 mg PO SUTUTHSA@1800 06/27/21 07/27/21 07/26/21 History alprazolam 0.25 mg tablet (Xanax) 0.25 mg PO BID PRN 07/20/21 07/27/21 07/26/21 History furosemide 20 mg tablet 20 mg PO DAILY tab 07/20/21 07/27/21 07/26/21 History prednisone 20 mg tablet 40 mg PO DAILY tab 07/20/21 07/27/21 07/26/21 History atorvastatin 40 mg tablet 40 mg PO BEDTIME 07/27/21 07/27/21 07/26/21 History metoprolol succinate 50 mg 1 tab PO DAILY 07/27/21 07/27/21 07/26/21 History tablet,extended release 24 hr pantoprazole 40 mg tablet,delayed 1 tab PO QAM 07/27/21 07/27/21 07/26/21 History release trazodone 50 mg tablet 1 tab PO BEDTIME 07/27/21 07/27/21 07/26/21 History Physical Exam Vital Signs and Narrative: Vital Signs: Last Vital Signs Temp 97.7 F 07/27/21 08:56 Pulse 109 H 07/27/21 13:56 Resp 23 H 07/27/21 13:56 BP 115/73 07/27/21 12:00 Pulse Ox 90 L 07/27/21 12:00 Oxygen Flow Rate 5 07/27/21 11:59 BMI result Body Mass Index 26.0 Gen: in moderate respiratory distress, unable to speak in complete sentences HEENT: sclera anicteric, moist mucus membranes Neck: supple Lungs: dry inspiratory crackles diffusely Heart: irregularly irregular, rapid, no murmurs Abd: soft, non-tender, non-distended Ext: no edema, no cyanosis Skin: warm/well-perfused Neuro: alert and oriented x3, no focal findings Psych: appropriate affect Results Labs CBC and Chem 7: 07/27/21 09:20 07/27/21 09:20 Labs: Laboratory Results - last 24 hr 07/27/21 07/27/21 07/27/21 09:20 09:20 09:20 MCV 89.7 MCH 30.0 MCHC 33.5 RDW 13.3 Plt Count 420 H MPV 8.9 L Immature Gran % (Auto) 0.9 H Neut % (Auto) 73.8 H Lymph % (Auto) 8.1 L [place] % (Auto) 13.3 H Eos % (Auto) 3.7 Baso % (Auto) 0.2 Lymph # (Auto) 1.1 L [place] # (Auto) 1.8 H Eos # (Auto) 0.5 H Baso # (Auto) 0.0 Abs Immat Gran (auto) 0.13 H Absolute Neuts (auto) 10.1 H Absolute Nucleated RBC 0.000 Nucleated RBC % (auto) 0.0 Smear Tech's Comments VERIFIED PT 25.0 H INR 2.2 H APTT 37.9 VBG pH VBG pCO2 VBG pO2 VBG HCO3 VBG O2 Saturation VBG Base Excess Anion Gap 17 Estim Creat Clear Calc 53.6 Estimated GFR > 60 Random Glucose 117 H Lactic Acid Lactic Acid F/U @ 2Hr Calcium 9.6 D Magnesium 2.2 Total Bilirubin 1.1 H Direct Bilirubin 0.5 AST 30 ALT 54 H Alkaline Phosphatase 111 Troponin I High Sens B-Natriuretic Peptide Total Protein 6.9 Albumin 4.0 Procalcitonin Ethyl Alcohol COVID-19 ([facility]) COVID-19 Clin Com 07/27/21 07/27/21 07/27/21 09:20 09:20 09:20 MCV MCH MCHC RDW Plt Count MPV Immature Gran % (Auto) Neut % (Auto) Lymph % (Auto) [place] % (Auto) Eos % (Auto) Baso % (Auto) Lymph # (Auto) [place] # (Auto) Eos # (Auto) Baso # (Auto) Abs Immat Gran (auto) Absolute Neuts (auto) Absolute Nucleated RBC Nucleated RBC % (auto) Smear Tech's Comments PT INR APTT VBG pH VBG pCO2 VBG pO2 VBG HCO3 VBG O2 Saturation VBG Base Excess Anion Gap Estim Creat Clear Calc Estimated GFR Random Glucose Lactic Acid 3.3 H* Lactic Acid F/U @ 2Hr Calcium Magnesium Total Bilirubin Direct Bilirubin AST ALT Alkaline Phosphatase Troponin I High Sens 12.0 D B-Natriuretic Peptide 155 H Total Protein Albumin Procalcitonin Ethyl Alcohol COVID-19 ([facility]) Negative COVID-19 Clin Com See Note 07/27/21 07/27/21 07/27/21 09:20 09:20 09:24 MCV MCH MCHC RDW Plt Count MPV Immature Gran % (Auto) Neut % (Auto) Lymph % (Auto) [place] % (Auto) Eos % (Auto) Baso % (Auto) Lymph # (Auto) [place] # (Auto) Eos # (Auto) Baso # (Auto) Abs Immat Gran (auto) Absolute Neuts (auto) Absolute Nucleated RBC Nucleated RBC % (auto) Smear Tech's Comments PT INR APTT VBG pH 7.45 H VBG pCO2 36 VBG pO2 59 VBG HCO3 25 VBG O2 Saturation 86.0 VBG Base Excess 2.1 Anion Gap Estim Creat Clear Calc Estimated GFR Random Glucose Lactic Acid Lactic Acid F/U @ 2Hr Calcium Magnesium Total Bilirubin Direct Bilirubin AST ALT Alkaline Phosphatase Troponin I High Sens B-Natriuretic Peptide Total Protein Albumin Procalcitonin 0.33 Ethyl Alcohol < 10 COVID-19 ([facility]) COVID-19 [employer] I Com 07/27/21 07/27/21 11:26 11:35 MCV MCH MCHC RDW Plt Count MPV Immature Gran % (Auto) Neut % (Auto) Lymph % (Auto) [place] % (Auto) Eos % (Auto) Baso % (Auto) Lymph # (Auto) [place] # (Auto) Eos # (Auto) Baso # (Auto) Abs Immat Gran (auto) Absolute Neuts (auto) Absolute Nucleated RBC Nucleated RBC % (auto) Smear Tech's Comments PT INR APTT VBG pH VBG pCO2 VBG pO2 VBG HCO3 VBG O2 Saturation VBG Base Excess Anion Gap Estim Creat Clear Calc Estimated GFR Random Glucose Lactic Acid Lactic Acid F/U @ 2Hr 1.2 Calcium Magnesium Total Bilirubin Direct Bilirubin AST ALT Alkaline Phosphatase Troponin I High Sens 22.0 H D B-Natriuretic Peptide Total Protein Albumin Procalcitonin Ethyl Alcohol COVID-19 ([facility]) COVID-19 Clin Com Imaging Radiologist's Impressions: Impressions Chest X-Ray 07/27/21 09:45 IMPRESSION: Diffuse bronchial wall thickening with patchy opacities throughout the lungs. Similar appearance to previous imaging. This is suggestive of chronic fibrotic process. Assessment and Plan (1) A-fib: Qualifiers: Atrial fibrillation type: longstanding persistent Qualified Code(s): I48.11 - Longstanding persistent atrial fibrillation Status: Acute (2) Chronic interstitial lung disease: Status: Acute Plan 75yo F with ILD, chronic hypoxic respiratory failure [recent O2 dependence], and AF on warfarin who was recently admitted here for PNA and ILD exacerbation 06/27-07/05/21 and returns with hypoxic respiratory failure due to ILD exacerbation; also AF/RVR # ILD exacerbation - admit to [facility]. give IV methylprednisolone and standing nebulized ipratropium and levalbuterol, also prn levalbuterol. continue triple controller therapy. consult Pulmonology. supplemental O2. no evidence of pneumonia and the SIRS physiology is due to ILD and AF, not sepsis; lactic acidosis due to bronchodilators # [id number] hypoxic respiratory failure - continuous SaO2, supplemental O2 via NC, baseline requirement 3L at rest/4L with exertion # AF/RVR - diltiazem gtt + continue PO metoprolol succinate for rate control - continue warfarin, monitor INR # Tn-I elevation - likely demand from RVR but will consult Cardiology # hypoK, mild - replete, recheck BMP in AM chronic/inactive issues: # HLD: continue statin # GERD: continue PPI # anxiety: continue alprazolam # VTE ppx: warfarin # code: full I anticipate that the patient will stay at least 2 midnights in hospital due to the above reasons. It is not reasonable or safe to care for them in a less acute setting. Quality Stroke Does the patient have a stroke diagnosis?: No VTE Prior VTE?: No VTE Risk Level:: Medical - moderate - high VTE Device Contraindication: N/A - Device Ordered VTE Drug Contraindication: N/A - Med Ordered
[2021-07-27] MEDS: Ipratropium Bromide 0.5 MG/2.5 ML SOLUTION INHALE (15:27)
--- NOTE | 2021-07-27 15:28 | PC.NURSE ---
Dilt gtt mixed and placed at bedside per primary RN request. HR at this time is 100s-112
[2021-07-27] MEDS: dilTIAZem HCL 125 MG in 0.9 % Sodium Chloride 100 ML IVCONT (16:50)
[2021-07-27] MEDS: 0.9 % Sodium Chloride Flush 3 ML SYRINGE IVFLUSH ×2 (16:53→21:28)
--- NOTE | 2021-07-27 18:07 | PM.EVENT ---
Event Note Date of Service: 07/27/21 Event Note: PULM. NOTE ; I have talked to the patient and examined her . Notes from her previous admission, and discharge note from the rehab facility as well as current history is reviewed. THIS PATIENT HAS ADVANCED CHRONIC INTERSTITIAL LUNG DISEASE/PULMONARY FIBROSIS. AT HOME STILL TAKING PREDNISONE 40 MG A DAY. SHE GOT WORSE AND PANICY SHE WAS NOT GETTING ENOUGH OXYGEN AT HOME THROUGH HER TUBING. SHE HAS HAD NO FEVER OR CHILLS. ON EXAMINATION SHE IS MODERATELY TACHYPNEIC, SOMEWHAT ANXIOUS. CHEST AUSCULTATION REVEALS THE SCATTERED INSPIRATORY CRACKLES. CHEST X-RAY SHOWS BILATERAL DIFFUSE INTERSTITIAL DENSITIES CONSISTENT WITH CHRONIC INTERSTITIAL LUNG DISEASE. NO NEW CHANGE COMPARED TO PREVIOUS X-RAYS. RECC . AGREE WITH THE CURRENT MANAGEMENT, PATIENT WOULD NEED IV SOLU-MEDROL FOR A FEW DAYS AGAIN, BEFORE SHE IS STARTED ON PREDNISONE TAPER. OXYGEN SUPPLEMENTATION TO KEEP O2 SAT ABOVE 90%.
[2021-07-27] MEDS: Warfarin Sodium 3 MG TABLET PO (18:31)
--- NOTE | 2021-07-27 20:10 | PC.NURSE ---
report [place] to [place] [facility]
[2021-07-27] MEDS: methylPREDNISolone Sod Succ 125 MG/2 ML VIAL 60 MG IVPUSH (20:22)
[2021-07-27] MEDS: traZODone HCL 50 MG TABLET PO (20:22)
[2021-07-27] MEDS: Atorvastatin Calcium 40 MG TABLET PO (20:23)
[2021-07-27] MEDS: ALPRAZolam 0.25 MG TABLET PO (21:26)
--- NOTE | 2021-07-27 22:15 | PC.NURSE ---
At 22:14 Cardizem drip paused. Patient's heart rate sustained between 60-80 bpm. Overnight hospitalist made aware.
[2021-07-28] VITALS (10 sets, daily range): BP systolic 99–126; BP diastolic 60–82; PULSE 74–101; RESP 17–22; TEMP 36.2–36.9; O2SAT 84–93
--- NOTE | 2021-07-28 | ECG_ITS ---
Test Reason : sob Blood Pressure : / mmHG Vent. Rate : 087 BPM Atrial Rate : 087 BPM P-R Int : 150 ms QRS Dur : 084 ms QT Int : 370 ms P-R-T Axes : 056 -19 015 degrees QTc Int : 445 ms Normal sinus rhythm Minimal voltage criteria for LVH, may be normal variant ( R in aVL ) Borderline ECG When compared with ECG of 27-JUL-2021 09:00, Normal sinus rhythm has replaced Atrial fibrillation ST no longer depressed in Inferior leads ST no longer depressed in Anterolateral leads T wave inversion less evident in Inferior leads T wave inversion no longer evident in Lateral leads Referred By: Moi Kohler Electronically Signed By:MOI KOHLER MD
[2021-07-28] MEDS: Omeprazole 20 MG CAPSULE.DR PO (05:38)
[2021-07-28 06:25] LABS: Hematocrit 39.6 % (37.0-47.0); Mean Corpuscular HGB Conc 32.8 g/dl (31.0-35.0); Mean Corpuscular Hemoglobin 30.4 pg (27.0-33.0); Mean Corpuscular Volume 92.5 fL (80.0-98.0); Mean Platelet Volume 9.3 fL (9.4-12.3); Platelet Count 372 X10*3/uL (160-400); Red Blood Count 4.28 X10*6/uL (4.20-5.50); Red Cell Distribution Width 13.8 % (11.0-16.0); White Blood Count 14.5 X10*3/uL (4.8-10.8)
[2021-07-28 07:06] LABS: Blood Urea Nitrogen 14 mg/dL (9-16); Calcium 9.2 mg/dL (8.4-10.2); Carbon Dioxide 28 mmol/L (22-29); Chloride 104 mmol/L (96-108); Creatinine Clr Calc Pharmacy 58.1; Estimated Glomerular Filt Rate > 60; Glucose Random 127 mg/dL (60-115); Sodium 140 mmol/L (135-145)
[2021-07-28 07:07] LABS: Anion Gap 13 (12-20); INTERNATIONAL NORM RATIO 2.7 (0.9-1.1); Potassium 4.2 mmol/L (3.3-5.1); Prothrombin Time 31.2 SEC (9.9-13.0)
[2021-07-28] MEDS: methylPREDNISolone Sod Succ 125 MG/2 ML VIAL 60 MG IVPUSH ×2 (07:29→20:17)
[2021-07-28] MEDS: 0.9 % Sodium Chloride Flush 3 ML SYRINGE IVFLUSH ×3 (07:32→20:18)
[2021-07-28] MEDS: Fluticasone/Vilanterol 100/25 BLST.W.DEV 1 PUFF INHALE (07:33)
[2021-07-28] MEDS: Ipratropium Bromide 0.5 MG/2.5 ML SOLUTION INHALE ×4 (07:33→19:58)
[2021-07-28] MEDS: Folic Acid 1 MG TABLET PO (07:33)
[2021-07-28] MEDS: Furosemide 20 MG TABLET PO (07:33)
[2021-07-28] MEDS: Metoprolol Succinate ER 50 MG TAB.ER.24H PO (07:34)
[2021-07-28] MEDS: Cyanocobalamin (Vitamin B-12) 1,000 MCG TABLET 1000 MCG PO (07:34)
[2021-07-28] MEDS: Aspirin Enteric Coated 81 MG TABLET.DR PO (07:34)
[2021-07-28] MEDS: Thiamine HCL 100 MG TABLET PO (07:34)
[2021-07-28] MEDS: Cholecalciferol (Vitamin D3) 25 MCG TABLET PO (07:34)
[2021-07-28 08:34] LABS: Appearance Urine CLEAR; Color Urine YELLOW; Glucose Urine UA NEG (NEG); Leukocyte Esterase Urine NEG (NEG); Nitrite Urine NEG (NEG); Specific Gravity - Urine 1.025 (1.005-1.025); UACC Culture Trigger NO; Urine Blood TRACE (NEG); Urine Ketones NEG (NEG); Urine Protein NEG (NEG-TRACE)
[2021-07-28 08:53] LABS: Mucus Urine 1+ /LPF; Renal Epithelial Cells Urine TRACE /LPF; Squamous Epithelial Cell Urine TRACE /LPF
[2021-07-28 08:54] LABS: WBC Urine 0-2 /HPF (0-4)
--- NOTE | 2021-07-28 09:33 | MHC.CM.PN ---
met with pt ,pt lives her partner has home 02 and receives ot and rn servcies from [facility] she has her own ride home
--- NOTE | 2021-07-28 10:02 | P.CONPL_ITS ---
History of Present Illness History of Present Illness Consult date: 07/27/21 Chief complaint: Hypoxia, ILD exacerbation, AF/RVR Narrative: I was us to see this patient on an urgent basis and saw her, in the evening of She presented to the emergency room in carton stenciler hours because of increased shortness of breath. Patient was discharged from the rehab facility just a few days earlier, she was still on oxygen and still on her prednisone 40 mg a day. She describes that the long oxygen tubing gotten tangled and she was not getting enough oxygen. Anyway she became quite distressed and had to come to the emergency room by ambulance. During the last few days she has had no fever or chills and no chest pain, but she remained short of breath as usual. This patient was admitted to [facility] on 06/27/21 with increased respiratory distress and was found to have extensive interstitial lung disease. She was treated with IV steroids followed by prednisone 40 mg a day, in addition to a course of antibiotics. Even at the time of discharge she required oxygen by nasal cannula 4 L/minute. In the rehab facility she has they try to wean her down on prednisone but could not, and she was discharged home on 07/19, still advised to continue prednisone 40 mg a day along with oxygen 4 L/minute. The reason for her acute progressive interstitial lung disease is not clear. But she does have past history of smoking and quit only a few months ago. She also has history of alcohol abuse, and other non pulmonary issues. Looking back at her CT scans, since 2016, she does have evidence of interstitial lung disease. A CT scan of the chest in August 2020, report shows that she did have bilateral interstitial lung disease somewhat worse than 2016 . Review of Systems Review of Systems: Patient is quite dyspneic, and not able to describe any other symptoms than what is noted in HPI Yes all other systems are reviewed and are negative [facility] Past Medical History Medical History (Updated 07/28/21 @ 10:15 by Vitaly Chapin MD) AAA (abdominal aortic aneurysm) Anxiety Atrial flutter COPD (chronic obstructive pulmonary disease) Elevated troponin level not due myocardial infarction ETOH abuse HLD (hyperlipidemia) Insomnia Mammogram declined Osteopenia Pure hypercholesterolemia Respiratory failure with hypoxia Right upper lobe pulmonary nodule Sciatica Smoking Spinal stenosis Family History Family History Father CVD (cardiovascular disease) Stomach cancer History of heart attack Mother No problems noted. Sister Brain tumor Brother No problems noted. Sister No problems noted. Surgical History Surgical History H/O colonoscopy History of cardiac catheterization (~08/2020) No pertinent past surgical history Total knee replacement status (~12/2019) Social History Social History Household Members: Significant Other Housing: House Do you presently have visiting nurse or other home services: No Alcohol intake: former Patient Tobacco Use Status: Former Tobacco user Cigarette Packs Per Day: 0.01 Cigarettes Per Day: 2 Years Smoked: 50+ e-Cigarette/Vaping Use: Never Used Second Hand Smoke Exposure: No Advance Directives Date on File: 06/27/21 service: No Current occupational status: retired Meds Allergies Allergy/AdvReac Type Severity Reaction Status Date / Time citalopram AdvReac Unknown nausea Verified 07/20/21 15:21 Active Medications: Current Medications Acetaminophen (Acetaminophen 325 Mg Tablet) 650 mg PO Q6H PRN PRN Reason: Pain, Mild (Pain Scale 1-3) Alprazolam (Alprazolam 0.25 Mg Tablet) 0.25 mg PO BID PRN PRN Reason: anxiety Last Admin: 07/27/21 21:26 Dose: 0.25 mg Documented by: Aspirin (Aspirin Enteric Coated 81 Mg Tablet.) 81 mg PO DAILY [facility] Last Admin: 07/28/21 07:34 Dose: 81 mg Documented by: Atorvastatin Calcium (Atorvastatin Calcium 40 Mg Tablet) 40 mg PO BEDTIME [facility] Last Admin: 07/27/21 20:23 Dose: 40 mg Documented by: Cyanocobalamin (Cyanocobalamin (Vitamin B-12) 1,000 Mcg Tablet) 1,000 mcg PO DAILY [facility] Last Admin: 07/28/21 07:34 Dose: 1,000 mcg Documented by: Fluticasone/Vilanterol (Fluticasone/Vilanterol 100/25 Blst.W.Dev) 1 puff INHALE RDAILY [facility] Last Admin: 07/28/21 07:33 Dose: 1 puff Documented by: Folic Acid (Folic Acid 1 Mg Tablet) 1 mg PO DAILY [facility] Last Admin: 07/28/21 07:33 Dose: 1 mg Documented by: Furosemide (Furosemide 20 Mg Tablet) 20 mg PO DAILY [facility]; Protocol Last Admin: 07/28/21 07:33 Dose: 20 mg Documented by: Diltiazem HCl 125 mg/ Sodium (Chloride) 125 mls @ 0 mls/hr IVCONT .Q0M [facility]; Protocol Last Titration: 07/27/21 22:14 Dose: 0 mg/hr, 0 mls/hr Documented by: Ipratropium Alden (Ipratropium Alden 0.5 Mg/2.5 Ml Solution) 0.5 mg INHALE RQ4H WHILE AWAKE [facility] Last Admin: 07/28/21 07:33 Dose: 0.5 mg Documented by: Levalbuterol HCl (Levalbuterol Hcl 1.25 Mg/0.5 Ml Vial.Neb) 1.25 mg INHALE RQ4H WHILE AWAKE [facility] Last Admin: 07/28/21 07:33 Dose: 1.25 mg Documented by: Levalbuterol HCl (Levalbuterol Hcl 1.25 Mg/0.5 Ml Vial.Neb) 1.25 mg INHALE Q2H PRN PRN Reason: shortness of breath Methylprednisolone Sodium Succinate (Methylprednisolone Sod Succ 125 Mg/2 Ml Vial) 60 mg IVPUSH Q12H [facility] Last Admin: 07/28/21 07:29 Dose: 60 mg Documented by: Metoprolol Succinate (Metoprolol Succinate Er 50 Mg Tab.Er.24h) 50 mg PO DAILY [facility]; Protocol Last Admin: 07/28/21 07:34 Dose: 50 mg Documented by: Omeprazole (Omeprazole 20 Mg Capsule.) 20 mg PO DAILY@0630 [facility] Last Admin: 07/28/21 05:38 Dose: 20 mg Documented by: Ondansetron HCl (Ondansetron Hcl 4 Mg/2 Ml Vial) 4 mg IVPUSH Q8H PRN PRN Reason: Nausea and Vomiting Pharmacy Consult (Consult Rx Perform Med Rec) 1 each MISCELLANE ONCE PRN PRN Reason: Consult order Sodium Chloride (0.9 % Sodium Chloride Flush 3 Ml Syringe) 3 ml IVFLUSH QSHIFT [facility] Last Admin: 07/28/21 07:32 Dose: 3 ml Documented by: Thiamine HCl (Thiamine Hcl 100 Mg Tablet) 100 mg PO DAILY [facility] Last Admin: 07/28/21 07:34 Dose: 100 mg Documented by: Tiotropium Alden (Tiotropium Alden 18 Mcg Cap.W.Dev) 1 puff INHALE RDAILY [facility] Trazodone HCl (Trazodone Hcl 50 Mg Tablet) 50 mg PO BEDTIME [facility] Last Admin: 07/27/21 20:22 Dose: 50 mg Documented by: Vitamin D (Cholecalciferol (Vitamin D3) 25 Mcg Tablet) 25 mcg PO DAILY [facility] Last Admin: 07/28/21 07:34 Dose: 25 mcg Documented by: Warfarin Sodium (Warfarin Sodium 3 Mg Tablet) 3 mg PO SUTUTHSA@1800 [facility] Last Admin: 07/27/21 18:31 Dose: 3 mg Documented by: Warfarin Sodium (Warfarin Sodium 2 Mg Tablet) 2 mg PO MOWEFR@1800 [facility] Home Medications Medication Instructions Recorded Confirmed Last Taken Type cholecalciferol (vitamin D3) 25 25 mcg PO DAILY 09/11/20 07/27/21 07/26/21 History mcg (1,000 unit) tablet (Vitamin D3) aspirin 81 mg tablet,delayed 81 mg PO DAILY 06/21/21 07/27/21 07/26/21 History release warfarin 1 mg tablet 2 mg PO MOWEFR@1800 06/27/21 07/27/21 07/26/21 History warfarin 1 mg tablet 3 mg PO SUTUTHSA@1800 06/27/21 07/27/21 07/26/21 History alprazolam 0.25 mg tablet (Xanax) 0.25 mg PO BID PRN 07/20/21 07/27/21 07/26/21 History furosemide 20 mg tablet 20 mg PO DAILY tab 07/20/21 07/27/21 07/26/21 History prednisone 20 mg tablet 40 mg PO DAILY tab 07/20/21 07/27/21 07/26/21 History atorvastatin 40 mg tablet 40 mg PO BEDTIME 07/27/21 07/27/21 07/26/21 History metoprolol succinate 50 mg 1 tab PO DAILY 07/27/21 07/27/21 07/26/21 History tablet,extended release 24 hr pantoprazole 40 mg tablet,delayed 1 tab PO QAM 07/27/21 07/27/21 07/26/21 History release trazodone 50 mg tablet 1 tab PO BEDTIME 07/27/21 07/27/21 07/26/21 History Physical Exam Vital Signs: Vital Signs: Last Vital Signs Temp 97.6 F 07/28/21 07:18 Pulse 81 07/28/21 07:42 Resp 20 07/28/21 07:42 BP 99/66 07/28/21 07:18 Pulse Ox 90 L 07/28/21 07:18 Oxygen Flow Rate 5 07/27/21 11:59 BMI result Body Mass Index 26.0 Const: Other: Patient is the tachypneic during conversation, General: alert and awake Orientation/consciousness: patient oriented x3 HEENT: Head: Yes normal to inspection General nose exam: No nasal polyps present and No nasal discharge present Face and sinus: Yes sinuses nontender Mouth: oropharynx normal Throat: Yes posterior oropharynx normal Eyes: General: appearance normal, both eyes and all related structures Neck: Neck: Yes normal visual inspection, Yes no lymphadenopathy, Yes trachea midline and Yes no JVD Thyroid: Thyroid normal Chest: Chest palpation & inspection: normal inspection of the chest, normal palpation of entire chest wall and no tenderness Resp: Other: Percussion note is resonant, she does have breath sounds on both sides, they are somewhat harsh. She has inspiratory crackles over the both lower lobes and mid chest. Cardio: Palpation: normal PMI Rate: regular rate and tachycardic Rhythm: regular rhythm Heart sounds: no gallops and no murmurs GI: Palpation (GI): Soft to palpation, nontender, No hepatosplenomegaly pres ent and no masses Auscultation: normal bowel sounds Back/Spine/Pelvis: Other: Not examine Skin: General skin exam: no rashes or lesions noted Neuro: General: patient oriented x3 and no focal motor deficits Cranial nerves: Yes CN's II-XII intact bilaterally Extrem: General: Yes normal to inspection, Yes no clubbing, cyanosis or edema and Yes no calf tenderness Psych: Appearance: grossly normal Speech and movement: Normal speech and movement present Affect: Anxious affect present Results Laboratory Findings CBC and BMP: 07/28/21 05:46 07/28/21 05:46 ABG, PT/INR, D-dimer: PT/INR, D-dimer PT 31.2 SEC (9.9-13.0) H 07/28/21 05:46 INR 2.7 (0.9-1.1) H 07/28/21 05:46 Abnormal lab findings: Abnormal Labs 07/27/21 07/27/21 07/27/21 09:20 09:20 09:20 WBC 13.8 H Plt Count 420 H MPV 8.9 L Immature Gran % (Auto) 0.9 H Neut % (Auto) 73.8 H Lymph % (Auto) 8.1 L Mcduffie % (Auto) 13.3 H Lymph # (Auto) 1.1 L Mcduffie # (Auto) 1.8 H Eos # (Auto) 0.5 H Abs Immat Gran (auto) 0.13 H Absolute Neuts (auto) 10.1 H PT 25.0 H INR 2.2 H VBG pH Potassium 3.2 L Random Glucose 117 H Lactic Acid Total Bilirubin 1.1 H ALT 54 H Troponin I High Sens B-Natriuretic Peptide 07/27/21 07/27/21 07/27/21 09:20 09:20 09:24 WBC Plt Count MPV Immature Gran % (Auto) Neut % (Auto) Lymph % (Auto) Mcduffie % (Auto) Lymph # (Auto) Mcduffie # (Auto) Eos # (Auto) Abs Immat Gran (auto) Absolute Neuts (auto) PT INR VBG pH 7.45 H Potassium Random Glucose Lactic Acid 3.3 H* Total Bilirubin ALT Troponin I High Sens B-Natriuretic Peptide 155 H 07/27/21 07/28/21 07/28/21 11:26 05:46 05:46 WBC 14.5 H Plt Count MPV 9.3 L Immature Gran % (Auto) Neut % (Auto) Lymph % (Auto) [place]duffie % (Auto) Lymph # (Auto) [place]duff[place] # (Auto) Eos # (Auto) Abs Immat Gran (auto) Absolute Neuts (auto) PT 31.2 H INR 2.7 H VBG pH Potassium Random Glucose Lactic Acid Total Bilirubin ALT Troponin I High Sens 22.0 H D B-Natriuretic Peptide 07/28/21 05:46 WBC Plt Count MPV Immature Gran % (Auto) Neut % (Auto) Lymph % (Auto) Mcduffie % (Auto) Lymph # (Auto) [place]duffie # (Auto) Eos # (Auto) Abs Immat Gran (auto) Absolute Neuts (auto) PT INR VBG pH Potassium Random Glucose 127 H Lactic Acid Total Bilirubin ALT Troponin I High Sens B-Natriuretic Peptide Diagnostic Findings Chest x-ray: report reviewed and image reviewed CT scan - chest: report reviewed and image reviewed Assessment and Plan (1) ILD (interstitial lung disease): Status: Acute (2) Respiratory failure with hypoxia: Status: Acute Plan This patient has progressive interstitial lung disease/pulmonary fibrosis. I do not think that she has active respiratory infection, leukocytosis is probably due to use of steroids. She is developing increasing respiratory distress due to increasing hypoxemia, and needs higher concentrations of oxygen. She is also quite anxious. Recc . IV Solu-Medrol 125 mg q.12 hours for the 1st few days, then wean down slowly. Oxygen by nasal cannula or facemask as needed to keep O2 sat above 90%. May use the levalbuterol solution for nebulizer Q 4 hours p.r.n. for acute distress ( avoid albuterol because of tachycardia ) Anxiolytics agents as needed . Once the patient stabilizes she would need to be followed as outpatient, As outpatient we may consider using anti fibrotic agents such as O FEV . And immune modulating agents such as Cellcept . Procedures Date of Service Date of Service: 07/27/21
--- NOTE | 2021-07-28 10:44 | PM.CNCAR ---
History of Present Illness History of Present Illness Date of Service: 07/28/21 Requesting physician: Perico May Consult reason: atrial fibrillation Chief complaint: Hypoxia, ILD exacerbation, AF/RVR Narrative: I was consulted to see daughter is in cardiology consultation today for atrial fibrillation on presentation to the emergency room when she came in for hypoxic respiratory failure secondary to exacerbation of her interstitial lung disease. Patient with prior history of paroxysmal atrial fibrillation, nonobstructive coronary artery disease by cardiac catheterization, chronic respiratory failure secondary to interstitial lung disease with recurrent exacerbation with respiratory failure admission, surprisingly not seeing a pulmonary as outpatient. Patient on chronic anticoagulation warfarin. Patient came in yesterday because she was not able to breathe despite being on prednisone as outpatient. Noted to have interstitial lung disease exacerbation however on presentation all also noted to have atrial fibrillation rapid ventricular response. With initiation of treatment and oxygenation and correction of hypoxemia she has converted back to sinus rhythm. Currently maintaining sinus rhythm. However without oxygen she remains significantly symptomatic and has significant shortness of breath with minimal exertion like going from bed to the commode. She denies any clear palpitations or lightheadedness. No significant symptoms of chest discomfort. Denies any clear orthopnea PND or leg edema. Takes all her medications. Review of Systems Constitutional: Constitutional: Denies chills, Reports fatigue and Denies fever(s) Eyes: Eyes: Reports no additional eye complaints Cardiovascular: Cardiovascular: Denies chest pain, Denies leg edema, Denies lightheadedness, Denies Loss of Consciousness, Denies palpitations, Reports dyspnea on exertion and Denies orthopnea Respiratory: Respiratory: Reports no additional respiratory complaints and Reports dyspnea on exertion Gastrointestinal: Gastrointestinal: Reports no additional gastrointestinal complaints Musculoskeletal: Musculoskeletal: Reports no additional musculoskeletal complaints Neurologic: Reports system reviewed and no additional complaints, except as documented Psychiatric: Psychiatric: Reports no additional psychiatric complaints Endocrine: Endocrine: Reports no additional endocrine complaints, Reports fatigue and Denies palpitations Hematologic/Lymphatic: Hematologic/Lymphatic: Reports no additional hematologic/lymphatic complaints PMFSH Past Medical History Medical History AAA (abdominal aortic aneurysm) Anxiety Atrial flutter COPD (chronic obstructive pulmonary disease) Elevated troponin level not due myocardial infarction ETOH abuse HLD (hyperlipidemia) Insomnia Mammogram declined Osteopenia Pure hypercholesterolemia Respiratory failure with hypoxia Right upper lobe pulmonary nodule Sciatica Smoking Spinal stenosis Family History Family History Father CVD (cardiovascular disease) Stomach cancer History of heart attack Mother No problems noted. Sister Brain tumor Brother No problems noted. Sister No problems noted. Surgical History Surgical History H/O colonoscopy History of cardiac catheterization (~08/2020) No pertinent past surgical history Total knee replacement status (~12/2019) Social History Social History Household Members: Significant Other Housing: House Do you presently have visiting nurse or other home services: No Alcohol intake: former Patient Tobacco Use Status: Former Tobacco user Cigarette Packs Per Day: 0.01 Cigarettes Per Day: 2 Years Smoked: 50+ e-Cigarette/Vaping Use: Never Used Second Hand Smoke Exposure: No Advance Directives Date on File: 06/27/21 service: No Current occupational status: retired Meds Allergies Allergy/AdvReac Type Severity Reaction Status Date / Time citalopram AdvReac Unknown nausea Verified 07/20/21 15:21 Active Medications: Current Medications Acetaminophen (Acetaminophen 325 Mg Tablet) 650 mg PO Q6H PRN PRN Reason: Pain, Mild (Pain Scale 1-3) Alprazolam (Alprazolam 0.25 Mg Tablet) 0.25 mg PO BID PRN PRN Reason: anxiety Last Admin: 07/27/21 21:26 Dose: 0.25 mg Documented by: Aspirin (Aspirin Enteric Coated 81 Mg Tablet.) 81 mg PO DAILY [facility] Last Admin: 07/28/21 07:34 Dose: 81 mg Documented by: Atorvastatin Calcium (Atorvastatin Calcium 40 Mg Tablet) 40 mg PO BEDTIME [facility] Last Admin: 07/27/21 20:23 Dose: 40 mg Documented by: Cyanocobalamin (Cyanocobalamin (Vitamin B-12) 1,000 Mcg Tablet) 1,000 mcg PO DAILY [facility] Last Admin: 07/28/21 07:34 Dose: 1,000 mcg Documented by: Flecainide Acetate (Flecainide Acetate 50 Mg Tablet) 100 mg PO BID [facility] Fluticasone/Vilanterol (Fluticasone/Vilanterol 100/25 Blst.W.Dev) 1 puff INHALE RDAILY [facility] Last Admin: 07/28/21 07:33 Dose: 1 puff Documented by: Folic Acid (Folic Acid 1 Mg Tablet) 1 mg PO DAILY [facility] Last Admin: 07/28/21 07:33 Dose: 1 mg Documented by: Furosemide (Furosemide 20 Mg Tablet) 20 mg PO DAILY [facility]; Protocol Last Admin: 07/28/21 07:33 Dose: 20 mg Documented by: Diltiazem HCl 125 mg/ Sodium (Chloride) 125 mls @ 0 mls/hr IVCONT .Q0M [facility]; Protocol Last Titration: 07/27/21 22:14 Dose: 0 mg/hr, 0 mls/hr Documented by: Ipratropium [place] (Ipratropium [place] 0.5 Mg/2.5 Ml Solution) 0.5 mg INHALE RQ4H WHILE AWAKE [facility] Last Admin: 07/28/21 07:33 Dose: 0.5 mg Documented by: Levalbuterol HCl (Levalbuterol Hcl 1.25 Mg/0.5 Ml Vial.Neb) 1.25 mg INHALE RQ4H WHILE AWAKE [facility] Last Admin: 07/28/21 07:33 Dose: 1.25 mg Documented by: Levalbuterol HCl (Levalbuterol Hcl 1.25 Mg/0.5 Ml Vial.Neb) 1.25 mg INHALE Q2H PRN PRN Reason: shortness of breath Methylprednisolone Sodium Succinate (Methylprednisolone Sod Succ 125 Mg/2 Ml Vial) 60 mg IVPUSH Q12H [facility] Last Admin: 07/28/21 07:29 Dose: 60 mg Documented by: Metoprolol Succinate (Metoprolol Succinate Er 50 Mg Tab.Er.24h) 50 mg PO DAILY [facility]; Protocol Last Admin: 07/28/21 07:34 Dose: 50 mg Documented by: Omeprazole (Omeprazole 20 Mg Capsule.Dr) 20 mg PO DAILY@0630 [facility] Last Admin: 07/28/21 05:38 Dose: 20 mg Documented by: Ondansetron HCl (Ondansetron Hcl 4 Mg/2 Ml Vial) 4 mg IVPUSH Q8H PRN PRN Reason: Nausea and Vomiting Pharmacy Consult (Consult Rx Perform Med Rec) 1 each MISCELLANE ONCE PRN PRN Reason: Consult order Sodium Chloride (0.9 % Sodium Chloride Flush 3 Ml Syringe) 3 ml IVFLUSH QSHIFT [facility] Last Admin: 07/28/21 07:32 Dose: 3 ml Documented by: Thiamine HCl (Thiamine Hcl 100 Mg Tablet) 100 mg PO DAILY [facility] Last Admin: 07/28/21 07:34 Dose: 100 mg Documented by: Tiotropium [place] (Tiotropium [place] 18 Mcg Cap.W.Dev) 1 puff INHALE RDAILY [facility] Trazodone HCl (Trazodone Hcl 50 Mg Tablet) 50 mg PO BEDTIME [facility] Last Admin: 07/27/21 20:22 Dose: 50 mg Documented by: Vitamin D (Cholecalciferol (Vitamin D3) 25 Mcg Tablet) 25 mcg PO DAILY [facility] Last Admin: 07/28/21 07:34 Dose: 25 mcg Documented by: Warfarin Sodium (Warfarin Sodium 3 Mg Tablet) 3 mg PO SUTUTHSA@1800 [facility] Last Admin: 07/27/21 18:31 Dose: 3 mg Documented by: Warfarin Sodium (Warfarin Sodium 2 Mg Tablet) 2 mg PO MOWEFR@1800 [facility] Home Medications Medication Instructions Recorded Confirmed Last Taken Type cholecalciferol (vitamin D3) 25 25 mcg PO DAILY 09/11/20 07/27/21 07/26/21 History mcg (1,000 unit) tablet (Vitamin D3) aspirin 81 mg tablet,delayed 81 mg PO DAILY 06/21/21 07/27/21 07/26/21 History release warfarin 1 mg tablet 2 mg PO MOWEFR@1800 06/27/21 07/27/21 07/26/21 History warfarin 1 mg tablet 3 mg PO SUTUTHSA@1800 06/27/21 07/27/21 07/26/21 History alprazolam 0.25 mg tablet (Xanax) 0.25 mg PO BID PRN 07/20/21 07/27/21 07/26/21 History furosemide 20 mg tablet 20 mg PO DAILY tab 07/20/21 07/27/21 07/26/21 History prednisone 20 mg tablet 40 mg PO DAILY tab 07/20/21 07/27/21 07/26/21 History atorvastatin 40 mg tablet 40 mg PO BEDTIME 07/27/21 07/27/21 07/26/21 History metoprolol succinate 50 mg 1 tab PO DAILY 07/27/21 07/27/21 07/26/21 History tablet,extended release 24 hr pantoprazole 40 mg tablet,delayed 1 tab PO QAM 07/27/21 07/27/21 07/26/21 History release trazodone 50 mg tablet 1 tab PO BEDTIME 07/27/21 07/27/21 07/26/21 History Physical Exam Vital Signs: Vital Signs: Last Vital Signs Temp 97.6 F 07/28/21 07:18 Pulse 81 07/28/21 07:42 Resp 20 07/28/21 07:42 BP 99/66 07/28/21 07:18 Pulse Ox 90 L 07/28/21 07:18 Oxygen Flow Rate 5 07/27/21 11:59 BMI result Body Mass Index 26.0 Const: General: cooperative, comfortable, alert, awake and in distress moderate and respiratory Nutritional Appearance: average body habitus Orientation/consciousness: patient oriented x3 HEENT: Head: Yes normocephalic and Yes atraumatic Neck: Neck: Yes trachea midline, Yes supple and Yes no JVD Chest: Chest palpation & inspection: normal inspection of the chest Resp: Effort & Inspection: normal respiratory effort Auscultation: crackles (Coarse) bilateral at the base and no wheezes Cardio: Jugular venous distension: no JVD Palpation: normal PMI Rate: regular rate Rhythm: regular rhythm Heart sounds: S1 normal heart sound present, S2 normal heart sound present, no click, no gallops, no murmurs and no rubs GI: Auscultation: normal bowel sounds Skin: General skin exam: no rashes or lesions noted Neuro: General: patient oriented x3 and no focal motor deficits Extrem: General: Yes no clubbing, cyanosis or edema Psych: Appearance: grossly normal Objective Labs and Meds Result diagrams: 07/28/21 05:46 07/28/21 05:46 Lab results: Laboratory Results - last 24 hr 07/27/21 07/27/21 07/27/21 09:20 11:26 11:35 WBC RBC Hgb Hct MCV MCH MCHC RDW Plt Count MPV Absolute Nucleated RBC Nucleated RBC % (auto) PT INR Sodium Potassium Chloride Carbon Dioxide Anion Gap BUN Creatinine Estim Creat Clear Calc Estimated GFR Random Glucose Lactic Acid F/U @ 2Hr 1.2 Calcium Troponin I High Sens 22.0 H D Procalcitonin 0.33 Urine Color Urine Appearance Urine pH Ur Specific [place] Urine Protein Urine Glucose (UA) Urine Ketones Urine Blood Urine Nitrite Ur Leukocyte Esterase Urine RBC Urine WBC Ur Squamous Epith Cells Ur Renal Epithelial Cell Urine Bacteria Urine Mucus 07/28/21 07/28/21 07/28/21 05:46 05:46 05:46 WBC 14.5 H RBC 4.28 Hgb 13.0 Hct 39.6 MCV 92.5 MCH 30.4 MCHC 32.8 RDW 13.8 Plt Count 372 MPV 9.3 L Absolute Nucleated RBC 0.000 Nucleated RBC % (auto) 0.0 PT 31.2 H INR 2.7 H Sodium 140 Potassium 4.2 D Chloride 104 Carbon Dioxide 28 Anion Gap 13 BUN 14 Creatinine 0.72 Estim Creat Clear Calc 58.1 Estimated GFR > 60 Random Glucose 127 H Lactic Acid F/U @ 2Hr Calcium 9.2 Troponin I High Sens Procalcitonin Urine Color Urine Appearance Urine pH Ur Specific [place] Urine Protein Urine Glucose (UA) Urine Ketones Urine Blood Urine Nitrite Ur Leukocyte Esterase Urine RBC Urine WBC Ur Squamous Epith Cells Ur Renal Epithelial Cell Urine Bacteria Urine Mucus 07/28/21 07:55 WBC RBC Hgb Hct MCV MCH MCHC RDW Plt Count MPV Absolute Nucleated RBC Nucleated RBC % (auto) PT INR Sodium Potassium Chloride Carbon Dioxide Anion Gap BUN Creatinine Estim Creat Clear Calc Estimated GFR Random Glucose Lactic Acid F/U @ 2Hr Calcium Troponin I High Sens Procalcitonin Urine Color YELLOW Urine Appearance CLEAR Urine pH 6.0 Ur Specific [place] 1.025 Urine Protein NEG Urine Glucose (UA) NEG Urine Ketones NEG Urine Blood TRACE Urine Nitrite NEG Ur Leukocyte Esterase NEG Urine RBC 1-4 Urine WBC 0-2 Ur Squamous Epith Cells TRACE Ur Renal Epithelial Cell TRACE Urine Bacteria NONE Urine Mucus 1+ Assessment and Plan (1) Paroxysmal A-fib: Status: Acute Paroxysmal atrial fibrillation most likely triggered by her acute respiratory illness with hypoxic respiratory failure. Has resolved with treatment. However given her recurrent presentation and to reduce hospitalization would pursue rhythm control approach. She is already on Toprol-XL will start on flecainide 100 mg b.i.d. given that she has nonobstructive CAD and normal LV systolic function. This was discussed with her. She understands and agrees. EKG today prior to initiation flecainide and again tomorrow after initiation flecainide to assess for QRS duration should be pursued. Continue full oral anticoagulation warfarin with target INR between 2 and 3. This is being [facility]. Continue to optimize the pulmonary function and pulmonary team is on consult. Will sign of the case and set up for outpatient Holter and follow-up with Dr. Schmid Procedures Date of Service Date of Service: 07/28/21
[2021-07-28] MEDS: Flecainide Acetate 50 MG TABLET 100 MG PO ×2 (11:38→20:16)
--- NOTE | 2021-07-28 11:50 | HO.PM.IMPN ---
Subjective Subjective Date of Service: 07/28/21 Interval History: F/u on ILD flare, AFIB Interval history: Still feels very SOB Review of Systems no fever +s0b Physical Exam Vital Signs: Vital Signs: Last Vital Signs Temp 98.5 F 07/28/21 11:07 Pulse 87 07/28/21 11:20 Resp 22 H 07/28/21 11:20 BP 112/66 07/28/21 11:07 Pulse Ox 93 07/28/21 11:07 Oxygen Flow Rate 5 07/27/21 11:59 BMI result Body Mass Index 26.0 Const: Other: General: AO X 3, no acute distress, anxiious Resp: fine rales CVS: S1,S2, iregulr iregulr GI: +BS, NT, no distention Skin: No rash Neuro: motor grossly intact Psych: appropriate affect Objective Data Active Medications Acetaminophen (Acetaminophen 325 Mg Tablet) 650 mg PO Q6H PRN PRN Reason: Pain, Mild (Pain Scale 1-3) Alprazolam (Alprazolam 0.25 Mg Tablet) 0.25 mg PO BID PRN PRN Reason: anxiety Last Admin: 07/27/21 21:26 Dose: 0.25 mg Documented by: ROWDY Aspirin (Aspirin Enteric Coated 81 Mg Tablet.) 81 mg PO DAILY [facility] Last Admin: 07/28/21 07:34 Dose: 81 mg Documented by: SOFIYA Atorvastatin Calcium (Atorvastatin Calcium 40 Mg Tablet) 40 mg PO BEDTIME [facility] Last Admin: 07/27/21 20:23 Dose: 40 mg Documented by: DORIS Cyanocobalamin (Cyanocobalamin (Vitamin B-12) 1,000 Mcg Tablet) 1,000 mcg PO DAILY [facility] Last Admin: 07/28/21 07:34 Dose: 1,000 mcg Documented by: SOFIYA Flecainide Acetate (Flecainide Acetate 50 Mg Tablet) 100 mg PO BID [facility] Last Admin: 07/28/21 11:38 Dose: 100 mg Documented by: SOFIYA Fluticasone/Vilanterol (Fluticasone/Vilanterol 100/25 Blst.W.Dev) 1 puff INHALE RDAILY [facility] Last Admin: 07/28/21 07:33 Dose: 1 puff Documented by: POP Folic Acid (Folic Acid 1 Mg Tablet) 1 mg PO DAILY [facility] Last Admin: 07/28/21 07:33 Dose: 1 mg Documented by: SOFIYA Furosemide (Furosemide 20 Mg Tablet) 20 mg PO DAILY [facility]; Protocol Last Admin: 07/28/21 07:33 Dose: 20 mg Documented by: SOFIYA Diltiazem HCl 125 mg/ Sodium (Chloride) 125 mls @ 0 mls/hr IVCONT .Q0M [facility]; Protocol Last Titration: 07/27/21 22:14 Dose: 0 mg/hr, 0 mls/hr Documented by: ROWDY Ipratropium [place] (Ipratropium [place] 0.5 Mg/2.5 Ml Solution) 0.5 mg INHALE RQ4H WHILE AWAKE [facility] Last Admin: 07/28/21 11:17 Dose: 0.5 mg Documented by: PPO Levalbuterol HCl (Levalbuterol Hcl 1.25 Mg/0.5 Ml Vial.Neb) 1.25 mg INHALE RQ4H WHILE AWAKE [facility] Last Admin: 07/28/21 11:17 Dose: 1.25 mg Documented by: POP Levalbuterol HCl (Levalbuterol Hcl 1.25 Mg/0.5 Ml Vial.Neb) 1.25 mg INHALE Q2H PRN PRN Reason: shortness of breath Methylprednisolone Sodium Succinate (Methylprednisolone Sod Succ 125 Mg/2 Ml Vial) 60 mg IVPUSH Q12H [facility] Last Admin: 07/28/21 07:29 Dose: 60 mg Documented by: SOFIYA Metoprolol Succinate (Metoprolol Succinate Er 50 Mg Tab.Er.24h) 50 mg PO DAILY [facility]; Protocol Last Admin: 07/28/21 07:34 Dose: 50 mg Documented by: SOFIYA Omeprazole (Omeprazole 20 Mg Capsule.) 20 mg PO DAILY@0630 [facility] Last Admin: 07/28/21 05:38 Dose: 20 mg Documented by: ROWDY Ondansetron HCl (Ondansetron Hcl 4 Mg/2 Ml Vial) 4 mg IVPUSH Q8H PRN PRN Reason: Nausea and Vomiting Pharmacy Consult (Consult Rx Perform Med Rec) 1 each MISCELLANE ONCE PRN PRN Reason: Consult order Sodium Chloride (0.9 % Sodium Chloride Flush 3 Ml Syringe) 3 ml IVFLUSH QSHIFT [facility] Last Admin: 07/28/21 07:32 Dose: 3 ml Documented by: SOFIYA Thiamine HCl (Thiamine Hcl 100 Mg Tablet) 100 mg PO DAILY [facility] Last Admin: 07/28/21 07:34 Dose: 100 mg Documented by: SOFIYA Tiotropium [place] (Tiotropium [place] 18 Mcg Cap.W.Dev) 1 puff INHALE RDAILY [facility] Trazodone HCl (Trazodone Hcl 50 Mg Tablet) 50 mg PO BEDTIME [facility] Last Admin: 07/27/21 20:22 Dose: 50 mg Documented by: DORIS Vitamin D (Cholecalciferol (Vitamin D3) 25 Mcg Tablet) 25 mcg PO DAILY [facility] Last Admin: 07/28/21 07:34 Dose: 25 mcg Documented by: SOFIYA Warfarin Sodium (Warfarin Sodium 3 Mg Tablet) 3 mg PO SUTUTHSA@1800 [facility] Last Admin: 07/27/21 18:31 Dose: 3 mg Documented by: RAYMOND Warfarin Sodium (Warfarin Sodium 2 Mg Tablet) 2 mg PO MOWEFR@1800 [facility] Labs CBC & Chem 7: 07/28/21 05:46 07/28/21 05:46 Labs: Laboratory Results - last 24 hr 07/27/21 07/27/21 07/27/21 09:20 11:26 11:35 MCV MCH MCHC RDW Plt Count MPV Absolute Nucleated RBC Nucleated RBC % (auto) PT INR Anion Gap Estim Creat Clear Calc Estimated GFR Random Glucose Lactic Acid F/U @ 2Hr 1.2 Calcium Troponin I High Sens 22.0 H D Procalcitonin 0.33 Urine Color Urine Appearance Urine pH Ur Specific [place] Urine Protein Urine Glucose (UA) Urine Ketones Urine Blood Urine Nitrite Ur Leukocyte Esterase Urine RBC Urine WBC Ur Squamous Epith Cells Ur Renal Epithelial Cell Urine Bacteria Urine Mucus 07/28/21 07/28/21 07/28/21 05:46 05:46 05:46 MCV 92.5 MCH 30.4 MCHC 32.8 RDW 13.8 Plt Count 372 MPV 9.3 L Absolute Nucleated RBC 0.000 Nucleated RBC % (auto) 0.0 PT 31.2 H INR 2.7 H Anion Gap 13 Estim Creat Clear Calc 58.1 Estimated GFR > 60 Random Glucose 127 H Lactic Acid F/U @ 2Hr Calcium 9.2 Troponin I High Sens Procalcitonin Urine Color Urine Appearance Urine pH Ur Specific [place] Urine Protein Urine Glucose (UA) Urine Ketones Urine Blood Urine Nitrite Ur Leukocyte Esterase Urine RBC Urine WBC Ur Squamous Epith Cells Ur Renal Epithelial Cell Urine Bacteria Urine Mucus 07/28/21 07:55 MCV MCH MCHC RDW Plt Count MPV Absolute Nucleated RBC Nucleated RBC % (auto) PT INR Anion Gap Estim Creat Clear Calc Estimated GFR Random Glucose Lactic Acid F/U @ 2Hr Calcium Troponin I High Sens Procalcitonin Urine Color YELLOW Urine Appearance CLEAR Urine pH 6.0 Ur Specific [place] 1.025 Urine Protein NEG Urine Glucose (UA) NEG Urine Ketones NEG Urine Blood TRACE Urine Nitrite NEG Ur Leukocyte Esterase NEG Urine RBC 1-4 Urine WBC 0-2 Ur Squamous Epith Cells TRACE Ur Renal Epithelial Cell TRACE Urine Bacteria NONE Urine Mucus 1+ Microbiology Microbiology Results: Microbiology 07/27/21 09:28 Blood Culture - Preliminary Blood - Venous No growth after 24 hours. 07/27/21 09:20 Blood Culture - Preliminary Blood - Venous No growth after 24 hours. Assessment and Plan (1) Respiratory failure with hypoxia: Status: Acute (2) A-fib: Status: Acute (3) Acute hypokalemia: Status: Acute (4) Chronic interstitial lung disease: Status: Acute (5) Chronic dyspnea: Status: Acute Plan 75yo F with ILD, chronic hypoxic respiratory failure [recent O2 dependence], and AF on warfarin who was recently admitted here for PNA and ILD exacerbation 06/27-07/05/21 and returns with hypoxic respiratory failure due to ILD exacerbation; also AF/RVR # ILD exacerbation .-give IV methylprednisolone and standing nebulized ipratropium and levalbuterol, also prn levalbuterol.? continue triple controller therapy.? consult Pulmonology.? supplemental O2.? no evidence of pneumonia and the SIRS physiology is due to ILD and AF, not sepsis; lactic acidosis due to bronchodilators # [id number] hypoxic respiratory failure - continuous SaO2, supplemental O2 via NC, baseline requirement 3L at rest/4L with exertion # AF/RVR--rate is well controlled, continue Metoprolol, cardiology is starting Sotalol follow ECGS, INR is 2.7 # Tn-I elevation - likely demand from RVR, no further cardiac testing at this time # hypoK, mild and resolved. chronic/inactive issues: # HLD: continue statin # GERD: continue PPI # anxiety: continue alprazolam # VTE ppx: warfarin # code: full Need for inpatient: Acute respiratory with high O2 requiring, initiation on Sotalol that need cardic monitoring and repeat ecgs Quality Stroke Does the patient have a stroke diagnosis?: No VTE Prior VTE?: No VTE Risk Level:: Medical - moderate - high VTE Device Contraindication: N/A - Device Ordered VTE Drug Contraindication: N/A - Med Ordered
[2021-07-28] MEDS: Warfarin Sodium 2 MG TABLET PO (17:36)
[2021-07-28] MEDS: traZODone HCL 50 MG TABLET PO (20:17)
[2021-07-28] MEDS: Atorvastatin Calcium 40 MG TABLET PO (20:17)
[2021-07-29] VITALS (10 sets, daily range): BP systolic 104–138; BP diastolic 73–86; PULSE 68–93; RESP 18–24; TEMP 36.3–37.1; O2SAT 88–93
--- NOTE | 2021-07-29 | ECG_ITS ---
Test Reason : On flecainide Blood Pressure : / mmHG Vent. Rate : 085 BPM Atrial Rate : 085 BPM P-R Int : 170 ms QRS Dur : 098 ms QT Int : 406 ms P-R-T Axes : 054 -22 030 degrees QTc Int : 483 ms Normal sinus rhythm Moderate voltage criteria for LVH, may be normal variant ( R in aVL , [place] product ) Borderline ECG When compared with ECG of 28-JUL-2021 10:51, No significant change was found Referred By: Moi Kohler Electronically Signed By:MOI KOHLER MD
[2021-07-29] MEDS: ALPRAZolam 0.25 MG TABLET PO (03:20)
[2021-07-29] MEDS: Omeprazole 20 MG CAPSULE.DR PO (06:12)
[2021-07-29 06:13] LABS: INTERNATIONAL NORM RATIO 4.3 (0.9-1.1); Prothrombin Time 50.6 SEC (9.9-13.0)
--- NOTE | 2021-07-29 06:18 | PC.NURSE ---
over night pt o2 at times low in the 70's with activity. o2 in the low 80's with sleep. pt noted with sob and anxiety as well throughout the night. prn xanax given with some result, resp notified and prn given with little to no result. o2 increased form 10 to 11 to 13 to 15 through out the night with the goal of keeping o2 in the 88-92. md notified. note; pt is not in any distress. will cont to moniotor
[2021-07-29] MEDS: Ipratropium Bromide 0.5 MG/2.5 ML SOLUTION INHALE ×4 (07:32→20:02)
[2021-07-29] MEDS: Fluticasone/Vilanterol 100/25 BLST.W.DEV 1 PUFF INHALE (07:32)
[2021-07-29] MEDS: Cholecalciferol (Vitamin D3) 25 MCG TABLET PO (07:54)
[2021-07-29] MEDS: Flecainide Acetate 50 MG TABLET 100 MG PO ×2 (07:54→20:01)
[2021-07-29] MEDS: Aspirin Enteric Coated 81 MG TABLET.DR PO (07:54)
[2021-07-29] MEDS: Furosemide 20 MG TABLET PO (07:54)
[2021-07-29] MEDS: Cyanocobalamin (Vitamin B-12) 1,000 MCG TABLET 1000 MCG PO (07:55)
[2021-07-29] MEDS: Thiamine HCL 100 MG TABLET PO (07:55)
[2021-07-29] MEDS: Metoprolol Succinate ER 50 MG TAB.ER.24H PO (07:55)
[2021-07-29] MEDS: methylPREDNISolone Sod Succ 125 MG/2 ML VIAL 60 MG IVPUSH ×2 (07:55→20:01)
[2021-07-29] MEDS: 0.9 % Sodium Chloride Flush 3 ML SYRINGE IVFLUSH ×3 (07:55→20:02)
[2021-07-29] MEDS: Folic Acid 1 MG TABLET PO (07:55)
--- NOTE | 2021-07-29 09:44 | HO.PM.IMPN ---
Subjective Subjective Date of Service: 07/29/21 Interval History: F/u on ILD flare, AFIB Interval history: Still feeling very SOB Review of Systems no fever +s0b Physical Exam Vital Signs: Vital Signs: Last Vital Signs Temp 97.5 F 07/29/21 07:16 Pulse 88 07/29/21 07:33 Resp 20 07/29/21 07:33 BP 127/84 07/29/21 07:16 Pulse Ox 93 07/29/21 07:16 Oxygen Flow Rate 5 07/27/21 11:59 BMI result Body Mass Index 26.0 Const: Other: General: AO X 3, no acute distress, anxiious Resp: fine rales diffusely CVS: S1,S2, iregulr iregulr GI: +BS, NT, no distention Skin: No rash Neuro: motor grossly intact Psych: appropriate affect Objective Data Active Medications Acetaminophen (Acetaminophen 325 Mg Tablet) 650 mg PO Q6H PRN PRN Reason: Pain, Mild (Pain Scale 1-3) Alprazolam (Alprazolam 0.25 Mg Tablet) 0.25 mg PO BID PRN PRN Reason: anxiety Last Admin: 07/29/21 03:20 Dose: 0.25 mg Documented by: RANDY Aspirin (Aspirin Enteric Coated 81 Mg Tablet.) 81 mg PO DAILY [facility] Last Admin: 07/29/21 07:54 Dose: 81 mg Documented by: KRISTINA Atorvastatin Calcium (Atorvastatin Calcium 40 Mg Tablet) 40 mg PO BEDTIME [facility] Last Admin: 07/28/21 20:17 Dose: 40 mg Documented by: RANDY Cyanocobalamin (Cyanocobalamin (Vitamin B-12) 1,000 Mcg Tablet) 1,000 mcg PO DAILY [facility] Last Admin: 07/29/21 07:55 Dose: 1,000 mcg Documented by: KRISTINA Flecainide Acetate (Flecainide Acetate 50 Mg Tablet) 100 mg PO BID [facility] Last Admin: 07/29/21 07:54 Dose: 100 mg Documented by: KRISTINA Fluticasone/Vilanterol (Fluticasone/Vilanterol 100/25 Blst.W.Dev) 1 puff INHALE RDAILY [facility] Last Admin: 07/29/21 07:32 Dose: 1 puff Documented by: MARBELLA Folic Acid (Folic Acid 1 Mg Tablet) 1 mg PO DAILY [facility] Last Admin: 07/29/21 07:55 Dose: 1 mg Documented by: KRISTINA Furosemide (Furosemide 20 Mg Tablet) 20 mg PO DAILY [facility]; Protocol Last Admin: 07/29/21 07:54 Dose: 20 mg Documented by: KRISTINA Guaifenesin (Guaifenesin 100 Mg/5 Ml Liquid) 5 ml PO Q4H PRN PRN Reason: Cough Diltiazem HCl 125 mg/ Sodium (Chloride) 125 mls @ 0 mls/hr IVCONT .Q0M [facility]; Protocol Last Titration: 07/28/21 17:37 Dose: 0 mg/hr, 0 mls/hr Documented by: SOFIYA Ipratropium Edna (Ipratropium Edna 0.5 Mg/2.5 Ml Solution) 0.5 mg INHALE RQ4H WHILE AWAKE [facility] Last Admin: 07/29/21 07:32 Dose: 0.5 mg Documented by: MARBELLA Levalbuterol HCl (Levalbuterol Hcl 1.25 Mg/0.5 Ml Vial.Neb) 1.25 mg INHALE RQ4H WHILE AWAKE [facility] Last Admin: 07/29/21 07:32 Dose: 1.25 mg Documented by: MARBELLA Levalbuterol HCl (Levalbuterol Hcl 1.25 Mg/0.5 Ml Vial.Neb) 1.25 mg INHALE Q2H PRN PRN Reason: shortness of breath Last Admin: 07/29/21 03:30 Dose: 1.25 mg Documented by: ZENON Methylprednisolone Sodium Succinate (Methylprednisolone Sod Succ 125 Mg/2 Ml Vial) 60 mg IVPUSH Q12H [facility] Last Admin: 07/29/21 07:55 Dose: 60 mg Documented by: KRISTINA Metoprolol Succinate (Metoprolol Succinate Er 50 Mg Tab.Er.24h) 50 mg PO DAILY [facility]; Protocol Last Admin: 07/29/21 07:55 Dose: 50 mg Documented by: KRISTINA Omeprazole (Omeprazole 20 Mg Capsule.Dr) 20 mg PO DAILY@0630 [facility] Last Admin: 07/29/21 06:12 Dose: 20 mg Documented by: RANDY Ondansetron HCl (Ondansetron Hcl 4 Mg/2 Ml Vial) 4 mg IVPUSH Q8H PRN PRN Reason: Nausea and Vomiting Pharmacy Consult (Consult Rx Perform Med Rec) 1 each MISCELLANE ONCE PRN PRN Reason: Consult order Sodium Chloride (0.9 % Sodium Chloride Flush 3 Ml Syringe) 3 ml IVFLUSH QSHIFT [facility] Last Admin: 07/29/21 07:55 Dose: 3 ml Documented by: KRISTINA Thiamine HCl (Thiamine Hcl 100 Mg Tablet) 100 mg PO DAILY [facility] Last Admin: 07/29/21 07:55 Dose: 100 mg Documented by: KRISTINA Tiotropium Edna (Tiotropium Edna 18 Mcg Cap.W.Dev) 1 puff INHALE RDAILY [facility] Last Admin: 07/29/21 07:33 Dose: 1 puff Documented by: MARBELLA Trazodone HCl (Trazodone Hcl 50 Mg Tablet) 50 mg PO BEDTIME [facility] Last Admin: 07/28/21 20:17 Dose: 50 mg Documented by: RANDY Vitamin D (Cholecalciferol (Vitamin D3) 25 Mcg Tablet) 25 mcg PO DAILY [facility] Last Admin: 07/29/21 07:54 Dose: 25 mcg Documented by: KRISTINA Warfarin Sodium (Warfarin Sodium 3 Mg Tablet) 3 mg PO SUTUTHSA@1800 [facility] Last Admin: 07/27/21 18:31 Dose: 3 mg Documented by: RAYMOND Warfarin Sodium (Warfarin Sodium 2 Mg Tablet) 2 mg PO MOWEFR@1800 [facility] Last Admin: 07/28/21 17:36 Dose: 2 mg Documented by: SOFIYA Labs CBC & Chem 7: 07/28/21 05:46 07/28/21 05:46 Labs: Laboratory Results - last 24 hr 07/29/21 05:41 PT 50.6 H INR 4.3 H Microbiology Microbiology Results: Microbiology 07/27/21 09:28 Blood Culture - Preliminary Blood - Venous No growth after 24 hours. 07/27/21 09:20 Blood Culture - Preliminary Blood - Venous No growth after 24 hours. Assessment and Plan (1) Respiratory failure with hypoxia: Status: Acute (2) A-fib: Status: Acute (3) Acute hypokalemia: Status: Acute (4) Chronic interstitial lung disease: Status: Acute (5) Chronic dyspnea: Status: Acute Plan 75yo F with ILD, chronic hypoxic respiratory failure [recent O2 dependence], and AF on warfarin who was recently admitted here for PNA and ILD exacerbation 06/27-07/05/21 and returns with hypoxic respiratory failure due to ILD exacerbation; also AF/RVR # ILD exacerbation .-give IV methylprednisolone and standing nebulized ipratropium and levalbuterol, also prn levalbuterol.? continue triple controller therapy.? Pulmonology following.? supplemental O2.? no evidence of pneumonia and the SIRS physiology is due to ILD and AF, not sepsis; lactic acidosis due to bronchodilators # [id number] hypoxic respiratory failure - continuous SaO2, supplemental O2 via NC, baseline requirement 3L at rest/4L with exertion, goal of O2 sat 92 or better # AF/RVR--rate is well controlled, continue Metoprolol, INR 4.3, hold coumadin today # Tn-I elevation - likely demand from RVR, no further cardiac testing at this time # hypoK, mild and resolved. chronic/inactive issues: # HLD: continue statin # GERD: continue PPI # anxiety: continue alprazolam # VTE ppx: warfarin # code: full Need for inpatient: Acute respiratory with high amount of O2 and close monitoring Quality Stroke Does the patient have a stroke diagnosis?: No VTE Prior VTE?: No VTE Risk Level:: Medical - moderate - high VTE Device Contraindication: N/A - Device Ordered VTE Drug Contraindication: N/A - Med Ordered
--- NOTE | 2021-07-29 10:45 | P.PNPL_ITS ---
Subjective Subjective Date of Service: 07/29/21 Principal diagnosis: ILD Interval history: This 75 years old female a case of advanced to interstitial lung disease/p ulmonary fibrosis, Continues to be anxious and very short of breath, she is requiring O2 by OxyMask at 14 L/minute. Her anxiety level is getting somewhat worse. No fever chills or chest pain. She has intermittent cough which is mostly dry. Objective Data Labs CBC & Chem 7: 07/28/21 05:46 07/28/21 05:46 Labs: Laboratory Results - last 24 hr 07/29/21 05:41 PT 50.6 H INR 4.3 H Microbiology Microbiology Results: Microbiology 07/27/21 09:28 Blood - Venous Blood Culture - Preliminary No growth after 24 hours. 07/27/21 09:20 Blood - Venous Blood Culture - Preliminary No growth after 24 hours. Review of Systems Review of Systems Her main issue is shortness of breath, cough , anxiety and general weakness. Physical Exam Vital Signs: Vital Signs: Last Vital Signs Temp 97.5 F 07/29/21 07:16 Pulse 88 07/29/21 07:33 Resp 20 07/29/21 07:33 BP 127/84 07/29/21 07:16 Pulse Ox 93 07/29/21 07:16 Oxygen Flow Rate 5 07/27/21 11:59 BMI result Body Mass Index 26.0 Procedures Date of Service Date of Service: 07/29/21 Assessment and Plan Assessment and plan (1) Chronic interstitial lung disease: Status: Acute (2) Respiratory failure with hypoxia: Status: Acute Plan This the patient with advanced interstitial lung disease/pulmonary fibrosis, has severe we Q abnormality , and respiratory distress. She is requiring higher concentrations of O2, currently 15 L/minute by OxyMask. She is on IV Solu-Medrol, antibiotics, oxygen supplements , and not getting much better so for. I think she has reached an end stage, and prognosis is guarded. She is mentally intact and becoming quite anxious . Recc . At this point we should continue the current treatment. Have the respiratory department try to use nasal cannula, within Oxymizer, and see if her O2 sat can be maintained above 90%. Once she is stable than try to wean down on steroids. I do not think she needs antibiotics. Note : At the request of the patient I called her son,GUILLERMO and talked to her in detail. I apprised him about the diagnosis and guarded prognosis. I also explained that she may not be able to go home and she may need to go to a long-term facility for continued care. Time Spent With Patient Time: Total time spent is greater than 50% in coordination of care (as documented) at patient's floor/unit and/or counseling patient: Progress Note: Quality Stroke Does the patient have a stroke diagnosis?: No
--- NOTE | 2021-07-29 13:27 | PM.PNCARD ---
Subjective Subjective Date of Service: 07/29/21 Principal diagnosis: ILD Interval history: Patient with no recurrent atrial fibrillation. Tolerating flecainide therapy. EKG today appears okay. However she does not feel well from pulmonary perspective and is significantly short of breath. Review of Systems Constitutional: Reports no additional constitutional complaints Cardiovascular: Denies chest pain, Denies palpitations and Reports dyspnea Respiratory: Reports dyspnea Gastrointestinal: Reports no additional gastrointestinal complaints Genitourinary: Reports no additional female genitourinary complaints Musculoskeletal: Reports no additional musculoskeletal complaints Reports system reviewed and no additional complaints, except as documented Psychiatric: Reports no additional psychiatric complaints Endocrine: Reports no additional endocrine complaints and Denies palpitations Hematologic/Lymphatic: Reports no additional hematologic/lymphatic complaints Allergic/Immunologic: Reports no additional allergic/immunologic complaints Physical Exam Vital Signs: Last Vital Signs Temp 98.3 F 07/29/21 11:11 Pulse 83 07/29/21 11:39 Resp 24 H 07/29/21 11:39 BP 118/79 07/29/21 11:11 Pulse Ox 91 L 07/29/21 11:11 Oxygen Flow Rate 5 07/27/21 11:59 BMI result Body Mass Index 26.0 Const General: cooperative and in distress moderate and respiratory Nutritional Appearance: average body habitus Orientation/consciousness: patient oriented x3 Neck Neck: Yes trachea midline, Yes supple and Yes no JVD Resp Effort & Inspection: normal respiratory effort and tachypneic Auscultation: crackles (Coarse) bilateral Cardio Jugular venous distension: no JVD Palpation: normal PMI Rate: regular rate Rhythm: regular rhythm Heart sounds: S1 normal heart sound present, S2 normal heart sound present, no click, no gallops and no murmurs Neuro General: patient oriented x3 Extrem General: Yes no clubbing, cyanosis or edema Objective Labs and Meds Result diagrams: 07/28/21 05:46 07/28/21 05:46 Lab results: Laboratory Results - last 24 hr 07/29/21 05:41 PT 50.6 H INR 4.3 H Progress Note: A&P Assessment and plan (1) Paroxysmal A-fib: Status: Acute Assessment and Plan: Paroxysmal atrial fibrillation LAD with nonobstructive CAD and normal LV systolic function on most likely triggered by her acute pulmonary decompensation. At this time maintaining rhythm. Continue flecainide therapy. Continue concomitant metoprolol therapy to slow AV conduction. Continue full oral anticoagulation. Continue to optimize pulmonary function which will potentially trigger more episodes of atrial fibrillation. However to avoid hospitalization related atrial fibrillation will continue to pursue antiarrhythmic drug therapy. Will sign of the case. Thank you for allowing me to partake in her care Time Spent With Patient Time: Total time spent is greater than 50% in coordination of care (as documented) at patient's floor/unit and/or counseling patient: Progress Note: Quality Stroke Does the patient have a stroke diagnosis?: No Procedures Date of Service Date of Service: 07/29/21
[2021-07-29] MEDS: Atorvastatin Calcium 40 MG TABLET PO (20:01)
[2021-07-29] MEDS: traZODone HCL 50 MG TABLET PO (20:01)
[2021-07-30] VITALS (14 sets, daily range): BP systolic 108–144; BP diastolic 64–91; PULSE 71–87; RESP 18–32; TEMP 36.1–37.6; O2SAT 89–97
[2021-07-30] MEDS: ALPRAZolam 0.25 MG TABLET PO ×2 (00:42→07:40)
[2021-07-30] MEDS: Omeprazole 20 MG CAPSULE.DR PO (05:33)
[2021-07-30] MEDS: Ipratropium Bromide 0.5 MG/2.5 ML SOLUTION INHALE ×4 (07:00→20:22)
[2021-07-30] MEDS: Fluticasone/Vilanterol 100/25 BLST.W.DEV 1 PUFF INHALE (07:00)
[2021-07-30 07:33] LABS: INTERNATIONAL NORM RATIO 4.5 (0.9-1.1); Prothrombin Time 52.3 SEC (9.9-13.0)
[2021-07-30] MEDS: Flecainide Acetate 50 MG TABLET 100 MG PO ×2 (07:40→20:26)
[2021-07-30] MEDS: Aspirin Enteric Coated 81 MG TABLET.DR PO (07:40)
[2021-07-30] MEDS: Furosemide 20 MG TABLET PO (07:41)
[2021-07-30] MEDS: Metoprolol Succinate ER 50 MG TAB.ER.24H PO (07:41)
[2021-07-30 07:46] LABS: Anion Gap 15 (12-20); Blood Urea Nitrogen 18 mg/dL (9-16); Carbon Dioxide 30 mmol/L (22-29); Chloride 103 mmol/L (96-108); Creatinine Clr Calc Pharmacy 53.6; Estimated Glomerular Filt Rate > 60; Glucose Random 115 mg/dL (60-115); Potassium 4.5 mmol/L (3.3-5.1); Sodium 143 mmol/L (135-145)
[2021-07-30] MEDS: Albuterol/Iprat 2.5/0.5MG 3 ML AMPUL.NEB INHALE (07:46)
[2021-07-30 07:48] LABS: Hematocrit 39.5 % (37.0-47.0); Hemoglobin 12.9 g/dl (12.0-16.0); Mean Corpuscular HGB Conc 32.7 g/dl (31.0-35.0); Mean Corpuscular Hemoglobin 30.4 pg (27.0-33.0); Mean Corpuscular Volume 93.2 fL (80.0-98.0); Mean Platelet Volume 9.2 fL (9.4-12.3); Platelet Count 402 X10*3/uL (160-400); Red Blood Count 4.24 X10*6/uL (4.20-5.50); Red Cell Distribution Width 14.1 % (11.0-16.0); White Blood Count 21.7 X10*3/uL (4.8-10.8)
[2021-07-30] MEDS: Throat Lozenge, Medicated LOZENGE 1 LOZENGE MUCOUS MEM (07:48)
[2021-07-30] MEDS: Fluconazole 100 MG TABLET PO (07:48)
[2021-07-30] MEDS: 0.9 % Sodium Chloride Flush 3 ML SYRINGE IVFLUSH ×3 (07:49→20:26)
[2021-07-30] MEDS: Cholecalciferol (Vitamin D3) 25 MCG TABLET PO (08:37)
[2021-07-30] MEDS: Thiamine HCL 100 MG TABLET PO (08:37)
[2021-07-30] MEDS: Folic Acid 1 MG TABLET PO (08:37)
[2021-07-30] MEDS: Cyanocobalamin (Vitamin B-12) 1,000 MCG TABLET 1000 MCG PO (08:37)
[2021-07-30] MEDS: Mag&Al/Sim/Diphenhyd/Lidocaine 10 ML ORAL.SUSP PO ×3 (08:47→20:26)
--- NOTE | 2021-07-30 09:16 | PC.NURSE ---
Patient receiving nebulizer treatment. Stating she can't breathe. Cyanotic and in respiratory distress. Sats in 70's. Dr. Reyes and Toshia SANDOVAL up to assess patient. Patient continues on NRB. Sats 90-92%. RR 28. Given an additional nebulizer treatment, xanax and 125mg IV solumedrol. Patient in no respiratory distress at present. RR 20. o2 sat 94% on NRB 15L. Patient also complaining of sore throat. Dr. Reyes did oral exam and found thrush. Diflucan and magic mouthwash ordered and given.
--- NOTE | 2021-07-30 12:39 | P.PNIM_ITS ---
Subjective Subjective Date of Service: 07/30/21 Interval History: seen and examined this morning follow up for ILD/respiratory failure called to see patient due to SOB this morning. Placed on NRB overnight. oxygen saturations dipping into 70s -80s on NRB patient reports shortness of breath, anxiety Review of Systems Review of Systems: Yes all other systems are reviewed and are negative Constitutional Constitutional: Denies chills and Denies fever(s) Cardiovascular Cardiovascular: Denies chest pain, Denies palpitations, Reports dyspnea and Denies dyspnea on exertion Respiratory Respiratory: Denies cough, Reports dyspnea and Denies dyspnea on exertion Gastrointestinal Gastrointestinal: Denies abdominal pain, Denies nausea and Denies vomiting Endocrine Endocrine: Denies palpitations Physical Exam Vital Signs: Vital Signs: Last Vital Signs Temp 97.2 F 07/30/21 11:13 Pulse 87 07/30/21 11:13 Resp 20 07/30/21 11:13 BP 131/91 H 07/30/21 11:13 Pulse Ox 95 07/30/21 11:49 Oxygen Flow Rate 15 07/30/21 11:49 BMI result Body Mass Index 26.0 Const: Other: anxious appearing, dyspnic, although able to speak in full sentences General: alert and awake Nutritional Appearance: average body habitus Orientation/consciousness: patient oriented x3 Resp: Other: dry primarily inspiratory crackles Effort & Inspection: tachypneic Neuro: General: patient oriented x3 Objective Data Active Medications Acetaminophen (Acetaminophen 325 Mg Tablet) 650 mg PO Q6H PRN PRN Reason: Pain, Mild (Pain Scale 1-3) Alprazolam (Alprazolam 0.25 Mg Tablet) 0.25 mg PO BID PRN PRN Reason: anxiety Last Admin: 07/30/21 00:42 Dose: 0.25 mg Documented by: JUDD Aspirin (Aspirin Enteric Coated 81 Mg Tablet.) 81 mg PO DAILY [facility] Last Admin: 07/30/21 07:40 Dose: 81 mg Documented by: ERICK Atorvastatin Calcium (Atorvastatin Calcium 40 Mg Tablet) 40 mg PO BEDTIME [facility] Last Admin: 07/29/21 20:01 Dose: 40 mg Documented by: JUDD Benzocaine (Throat Lozenge, Medicated Lozenge) 1 lozenge MUCOUS MEM Q2H PRN PRN Reason: Sore Throat Last Admin: 07/30/21 07:48 Dose: 1 lozenge Documented by: ERICK Cyanocobalamin (Cyanocobalamin (Vitamin B-12) 1,000 Mcg Tablet) 1,000 mcg PO DAILY [facility] Last Admin: 07/30/21 08:37 Dose: 1,000 mcg Documented by: ERICK Flecainide Acetate (Flecainide Acetate 50 Mg Tablet) 100 mg PO BID [facility] Last Admin: 07/30/21 07:40 Dose: 100 mg Documented by: ERICK Fluconazole (Fluconazole 100 Mg Tablet) 100 mg PO DAILY [facility] Stop: 08/09/21 08:59 Last Admin: 07/30/21 07:48 Dose: 100 mg Documented by: ERICK Fluticasone/Vilanterol (Fluticasone/Vilanterol 100/25 Blst.W.Dev) 1 puff INHALE RDAILY [facility] Last Admin: 07/30/21 07:00 Dose: 1 puff Documented by: MARBELLA Folic Acid (Folic Acid 1 Mg Tablet) 1 mg PO DAILY [facility] Last Admin: 07/30/21 08:37 Dose: 1 mg Documented by: ERICK Furosemide (Furosemide 20 Mg Tablet) 20 mg PO DAILY [facility]; Protocol Last Admin: 07/30/21 07:41 Dose: 20 mg Documented by: ERICK Guaifenesin (Guaifenesin 100 Mg/5 Ml Liquid) 5 ml PO Q4H PRN PRN Reason: Cough Ipratropium Ferron (Ipratropium Ferron 0.5 Mg/2.5 Ml Solution) 0.5 mg INHALE RQ4H WHILE AWAKE [facility] Last Admin: 07/30/21 11:06 Dose: 0.5 mg Documented by: MARBELLA Levalbuterol HCl (Levalbuterol Hcl 1.25 Mg/0.5 Ml Vial.Neb) 1.25 mg INHALE RQ4H WHILE AWAKE [facility] Last Admin: 07/30/21 11:06 Dose: 1.25 mg Documented by: MARBELLA Levalbuterol HCl (Levalbuterol Hcl 1.25 Mg/0.5 Ml Vial.Neb) 1.25 mg INHALE Q2H PRN PRN Reason: shortness of breath Last Admin: 07/29/21 03:30 Dose: 1.25 mg Documented by: ZENON Lidocaine/Diphenhydr/Alum/Mg/Simeth (Mag&Al/Sim/Diphenhyd/Lidocaine 10 Ml Oral.Susp) 10 ml PO Q6H [facility]; Protocol Stop: 08/06/21 07:59 Last Admin: 07/30/21 08:47 Dose: 10 ml Documented by: ERICK Methylprednisolone Sodium Succinate (Methylprednisolone Sod Succ 125 Mg/2 Ml Vial) 60 mg IVPUSH Q12H [facility] Last Admin: 07/30/21 08:39 Dose: Not Given Documented by: ERICK Non-Admin Reason: Previously Administered Metoprolol Succinate (Metoprolol Succinate Er 50 Mg Tab.Er.24h) 50 mg PO DAILY [facility]; Protocol Last Admin: 07/30/21 07:41 Dose: 50 mg Documented by: ERICK Omeprazole (Omeprazole 20 Mg Capsule.Dr) 20 mg PO DAILY@0630 [facility] Last Admin: 07/30/21 05:33 Dose: 20 mg Documented by: JUDD Ondansetron HCl (Ondansetron Hcl 4 Mg/2 Ml Vial) 4 mg IVPUSH Q8H PRN PRN Reason: Nausea and Vomiting Pharmacy Consult (Consult Rx Perform Med Rec) 1 each MISCELLANE ONCE PRN PRN Reason: Consult order Sodium Chloride (0.9 % Sodium Chloride Flush 3 Ml Syringe) 3 ml IVFLUSH QSHIFT [facility] Last Admin: 07/30/21 07:49 Dose: 3 ml Documented by: ERICK Thiamine HCl (Thiamine Hcl 100 Mg Tablet) 100 mg PO DAILY [facility] Last Admin: 07/30/21 08:37 Dose: 100 mg Documented by: ERICK Tiotropium Ferron (Tiotropium Ferron 18 Mcg Cap.W.Dev) 1 puff INHALE RDAILY [facility] Last Admin: 07/30/21 07:00 Dose: 1 puff Documented by: MARBELLA Trazodone HCl (Trazodone Hcl 50 Mg Tablet) 50 mg PO BEDTIME [facility] Last Admin: 07/29/21 20:01 Dose: 50 mg Documented by: JUDD Vitamin D (Cholecalciferol (Vitamin D3) 25 Mcg Tablet) 25 mcg PO DAILY [facility] Last Admin: 07/30/21 08:37 Dose: 25 mcg Documented by: ERICK Warfarin Sodium (Warfarin Sodium 3 Mg Tablet) 3 mg PO SUTUTHSA@1800 [facility] Last Admin: 07/27/21 18:31 Dose: 3 mg Documented by: RAYMOND Warfarin Sodium (Warfarin Sodium 2 Mg Tablet) 2 mg PO MOWEFR@1800 [facility] Last Admin: 07/28/21 17:36 Dose: 2 mg Documented by: SOFIYA Labs CBC & Chem 7: 07/30/21 06:27 07/30/21 06:27 Labs: Laboratory Results - last 24 hr 07/30/21 07/30/21 07/30/21 06:27 06:27 06:27 MCV 93.2 MCH 30.4 MCHC 32.7 RDW 14.1 Plt Count 402 H MPV 9.2 L Absolute Nucleated RBC 0.000 Nucleated RBC % (auto) 0.0 PT 52.3 H INR 4.5 H Anion Gap 15 Estim Creat Clear Calc 53.6 Estimated GFR > 60 Random Glucose 115 Calcium 9.0 Microbiology Microbiology Results: Microbiology 07/27/21 09:28 Blood Culture - Preliminary Blood - Venous No growth after 48 hours. 07/27/21 09:20 Blood Culture - Preliminary Blood - Venous No growth after 48 hours. Assessment and Plan (1) Respiratory failure with hypoxia: Status: Acute (2) Chronic interstitial lung disease: Status: Acute Plan 75yo F with ILD, chronic hypoxic respiratory failure [recent O2 dependence], and AF on warfarin who was recently admitted here for PNA and ILD exacerbation 06/27-07/05/21 and returns with hypoxic respiratory failure due to ILD exacerbation; also AF/RVR ILD exacerbation. Oxygen requirements increasing - per pulm note overall prognosis guarded Given additional dose of steroids this am continue with scheduled solu-medrol continue scheduled/prn breathing treatments? Pulmonology following continue supplemental O2 with goal to keep o2 >90 no evidence of pneumonia and the SIRS physiology is due to ILD and AF, not sepsis; lactic acidosis due to bronchodilators [id number] hypoxic respiratory failure secondary to pulmonary fibrosis/ILD Was set to start supplemental oxygen 3L at rest/4L with exertion but presented to the hospital before it was delivered to her house currently on NRB to maintain o2 above 90% oral thrush diflucan 10 day course AF/RVR- HR controlled, continue Metoprolol INR 4.5, hold coumadin today follow INR anxiety: continue alprazolam Tn-I elevation - likely demand from RVR, no further cardiac testing at this time hypoK, mild and resolved. HLD: continue statin GERD: continue PPI HFpEF: echo from 06/28 showing preserved EF no evidence of fluid overload continue baseline dose of lasix VTE ppx: warfarin code: full attending: dr. campbell Dispo: probable STR If patient doesn't begin to show signs of improvement goals of care discussion should be repeated. As of right now she wants to maintain code status as full code Need for inpatient: Acute respiratory failure with high amount of O2 and close monitoring Quality Stroke Does the patient have a stroke diagnosis?: No VTE Prior VTE?: No VTE Risk Level:: Medical - moderate - high VTE Device Contraindication: N/A - Device Ordered VTE Drug Contraindication: N/A - Med Ordered
[2021-07-30] MEDS: ALPRAZolam 0.5 MG TABLET PO (14:10)
[2021-07-30] MEDS: Furosemide 40 MG/4 ML VIAL IVPUSH (15:39)
[2021-07-30] MEDS: Doxycycline Hyclate 100 MG in 0.9 % Sodium Chloride 250 ML 166.67 MG IV (15:40)
[2021-07-30] MEDS: methylPREDNISolone Sod Succ 125 MG/2 ML VIAL 60 MG IVPUSH (20:25)
[2021-07-30] MEDS: traZODone HCL 50 MG TABLET PO (20:26)
[2021-07-30] MEDS: Melatonin 3 MG TABLET PO (20:26)
[2021-07-30] MEDS: Atorvastatin Calcium 40 MG TABLET PO (20:26)
[2021-07-31] VITALS (16 sets, daily range): BP systolic 125–148; BP diastolic 65–78; PULSE 76–89; RESP 16–24; TEMP 36.2–36.7; O2SAT 87–96
[2021-07-31] MEDS: ALPRAZolam 0.5 MG TABLET PO (03:48)
[2021-07-31] MEDS: Doxycycline Hyclate 100 MG in 0.9 % Sodium Chloride 250 ML 166.67 MG IV ×2 (03:51→16:33)
[2021-07-31] MEDS: Omeprazole 20 MG CAPSULE.DR PO (05:51)
[2021-07-31 07:19] LABS: INTERNATIONAL NORM RATIO 4.8 (0.9-1.1)
[2021-07-31 07:36] LABS: B Type Natriuretic Peptide 121 pg/mL (<100)
[2021-07-31 07:56] LABS: Anion Gap 15 (12-20); Blood Urea Nitrogen 21 mg/dL (9-16); Calcium 9.2 mg/dL (8.4-10.2); Carbon Dioxide 31 mmol/L (22-29); Chloride 99 mmol/L (96-108); Creatinine Clr Calc Pharmacy 63.4; Estimated Glomerular Filt Rate > 60; Glucose Random 111 mg/dL (60-115); Potassium 3.9 mmol/L (3.3-5.1); Sodium 141 mmol/L (135-145)
[2021-07-31] MEDS: Ipratropium Bromide 0.5 MG/2.5 ML SOLUTION INHALE ×4 (08:28→20:03)
[2021-07-31] MEDS: Fluticasone/Vilanterol 100/25 BLST.W.DEV 1 PUFF INHALE (08:29)
--- NOTE | 2021-07-31 09:25 | P.PNPL_ITS ---
Subjective Subjective Date of Service: 07/31/21 Principal diagnosis: ILD Interval history: The patient was seen on exam. Her oxygen requirements are increasing. Now on high-flow 100%. Has evidence of work of breathing. I did evaluate her imaging studies even from 2012 she had evidence of interstitial lung disease with traction bronchiectasis suggesting of an IPF UIP pattern. More recently she appeared to have worsening interstitial disease along with areas of ground-glass opacities at the bases suggesting an acute on chronic process. She was treated with steroids and antibiotics. Now she is back with worsening respiratory symptoms. The patient does complaint of some arthritis but minimal. Denies any rashes. Denies ever been diagnosed with connective tissue disease. She is currently on Solu-Medrol 60 mg twice a day. Based on the fact that the patient has already been on multiple courses of antibiotics will go ahead and treat her for an acute exacerbation of her IPF. The patient is too ill for any diagnostic bronchoscopic intervention. Will request blood work to see if we can determine the etiology of the interstitial lung disease. Objective Data Labs CBC & Chem 7: 07/30/21 06:27 07/31/21 06:26 Labs: Laboratory Results - last 24 hr 07/31/21 07/31/21 07/31/21 06:26 06:26 06:26 PT 57.0 H INR 4.8 H Sodium 141 Potassium 3.9 Chloride 99 Carbon Dioxide 31 H Anion Gap 15 BUN 21 H Creatinine 0.66 Estim Creat Clear Calc 63.4 Estimated GFR > 60 Random Glucose 111 Calcium 9.2 B-Natriuretic Peptide 121 H Microbiology Microbiology Results: Microbiology 07/27/21 09:28 Blood - Venous Blood Culture - Preliminary No growth after 48 hours. 07/27/21 09:20 Blood - Venous Blood Culture - Preliminary No growth after 48 hours. Review of Systems Constitutional: Reports fatigue and Denies fever(s) Eyes: Denies change in vision Denies facial pain and Denies mouth pain Cardiovascular: Denies chest pain and Reports dyspnea Respiratory: Reports dyspnea Gastrointestinal: Denies abdominal pain Musculoskeletal: Reports arthralgias Reports system reviewed and no additional complaints, except as documented Endocrine: Reports fatigue Physical Exam Vital Signs: Vital Signs: Last Vital Signs Temp 97.8 F 07/31/21 07:47 Pulse 86 07/31/21 08:35 Resp 20 07/31/21 08:56 BP 143/77 H 07/31/21 07:47 Pulse Ox 94 07/31/21 07:47 Oxygen Flow Rate 15 07/30/21 11:49 BMI result Body Mass Index 26.0 Const: General: alert and in distress mild and respiratory Neck: Neck: Yes normal visual inspection, Yes full ROM and Yes no lymphadenopathy Chest: Chest palpation & inspection: normal inspection of the chest Resp: Auscultation: rales bilateral and diminished lung sounds Cardio: Rate: regular rate Rhythm: regular rhythm Heart sounds: S1 normal heart sound present and S2 normal heart sound present GI: Palpation (GI): Soft to palpation and nontender Auscultation: normal b owel sounds Skin: General skin exam: rashes and/or lesions noted Extrem: General: Yes clubbing, No cyanosis and No edema Procedures Date of Service Date of Service: 07/31/21 Assessment and Plan Assessment and plan (1) Acute and chronic respiratory failure: Status: Acute (2) IPF (idiopathic pulmonary fibrosis): Status: Acute (3) Pneumonitis: Status: Acute (4) ILD (interstitial lung disease): Status: Acute Plan Bloodwork Pulse dose solumedrol x 3 days Continue HF VBG CXR Spoke to the son. He is aware that the patient is very sick, guarded condition. Full code Time Spent With Patient Time: Total time spent is greater than 50% in coordination of care (as documented) at patient's floor/unit and/or counseling patient: Progress Note: Quality Stroke Does the patient have a stroke diagnosis?: No
[2021-07-31] MEDS: Cyanocobalamin (Vitamin B-12) 1,000 MCG TABLET 1000 MCG PO (10:32)
[2021-07-31] MEDS: 0.9 % Sodium Chloride Flush 3 ML SYRINGE IVFLUSH ×3 (10:32→20:19)
[2021-07-31] MEDS: Metoprolol Succinate ER 50 MG TAB.ER.24H PO (10:32)
[2021-07-31] MEDS: Flecainide Acetate 50 MG TABLET 100 MG PO ×2 (10:33→20:19)
[2021-07-31] MEDS: Aspirin Enteric Coated 81 MG TABLET.DR PO (10:33)
[2021-07-31] MEDS: Cholecalciferol (Vitamin D3) 25 MCG TABLET PO (10:33)
[2021-07-31] MEDS: Furosemide 20 MG TABLET PO (10:33)
[2021-07-31] MEDS: Folic Acid 1 MG TABLET PO (10:33)
[2021-07-31] MEDS: Fluconazole 100 MG TABLET PO (10:33)
[2021-07-31] MEDS: Mag&Al/Sim/Diphenhyd/Lidocaine 10 ML ORAL.SUSP PO ×3 (10:34→20:19)
[2021-07-31] MEDS: Thiamine HCL 100 MG TABLET PO (10:34)
[2021-07-31] MEDS: methylPREDNISolone Sod Succ 1,000 MG in 0.9 % Sodium Chloride 50 ML 66 MG IV (10:37)
[2021-07-31 10:57] LABS: Erythrocyte Sedimentation Rate 23 MM/HR (0-20)
[2021-07-31 11:14] LABS: VBG Base Excess 12.4 mmol/L; VBG HCO3 37 mmol/L (22-26); VBG pCO2 49 mmHg; VBG pH 7.49 (7.32-7.43); VBG pO2 33 mmHg
[2021-07-31 11:14] LABS: Venous Blood Gas Refer to POC result
[2021-07-31 11:27] LABS: ABG Base Excess 11.8 mmol/L; ABG HCO3 35 mmol/L (22-26); ABG pCO2 41 mmHg (32-45); ABG pH 7.54 (7.35-7.45); ABG pO2 75 mmHg (83-108)
[2021-07-31 11:28] LABS: Procalcitonin 0.02 ng/mL
--- NOTE | 2021-07-31 11:28 | P.PNIM_ITS ---
Subjective Subjective Date of Service: 07/31/21 Interval History: F/u on ILD flare, AFIB, rate controlled Interval history: Still feeling very SOB progressive hypoxia and had to be put on high flow now Review of Systems no fever +s0b Physical Exam Vital Signs: Vital Signs: Last Vital Signs Temp 97.8 F 07/31/21 07:47 Pulse 84 07/31/21 11:07 Resp 20 07/31/21 11:14 BP 132/77 07/31/21 11:07 Pulse Ox 90 L 07/31/21 11:07 Oxygen Flow Rate 15 07/30/21 11:49 BMI result Body Mass Index 26.0 Const: Other: General: AO X 3, anxious, early resp distress Resp: fine rales diffusely, with some accessory muslcle use CVS: S1,S2, iregulr iregulr GI: +BS, NT, no distention Skin: No rash Neuro: motor grossly intact Psych: appropriate affect Objective Data Active Medications Acetaminophen (Acetaminophen 325 Mg Tablet) 650 mg PO Q6H PRN PRN Reason: Pain, Mild (Pain Scale 1-3) Alprazolam (Alprazolam 0.5 Mg Tablet) 0.5 mg PO TID PRN PRN Reason: anxiety Last Admin: 07/31/21 03:48 Dose: 0.5 mg Documented by: ROBERT Aspirin (Aspirin Enteric Coated 81 Mg Tablet.) 81 mg PO DAILY [facility] Last Admin: 07/31/21 10:33 Dose: 81 mg Documented by: MARIE Atorvastatin Calcium (Atorvastatin Calcium 40 Mg Tablet) 40 mg PO BEDTIME [facility] Last Admin: 07/30/21 20:26 Dose: 40 mg Documented by: ROBERT Benzocaine (Throat Lozenge, Medicated Lozenge) 1 lozenge MUCOUS MEM Q2H PRN PRN Reason: Sore Throat Last Admin: 07/30/21 07:48 Dose: 1 lozenge Documented by: ERICK Cyanocobalamin (Cyanocobalamin (Vitamin B-12) 1,000 Mcg Tablet) 1,000 mcg PO DAILY [facility] Last Admin: 07/31/21 10:32 Dose: 1,000 mcg Documented by: MARIE Flecainide Acetate (Flecainide Acetate 50 Mg Tablet) 100 mg PO BID [facility] Last Admin: 07/31/21 10:33 Dose: 100 mg Documented by: MARIE Fluconazole (Fluconazole 100 Mg Tablet) 100 mg PO DAILY [facility] Stop: 08/09/21 08:59 Last Admin: 07/31/21 10:33 Dose: 100 mg Documented by: MARIE Fluticasone/Vilanterol (Fluticasone/Vilanterol 100/25 Blst.W.Dev) 1 puff INHALE RDAILY [facility] Last Admin: 07/31/21 08:29 Dose: 1 puff Documented by: MERT Folic Acid (Folic Acid 1 Mg Tablet) 1 mg PO DAILY [facility] Last Admin: 07/31/21 10:33 Dose: 1 mg Documented by: MARIE Furosemide (Furosemide 20 Mg Tablet) 20 mg PO DAILY [facility]; Protocol Last Admin: 07/31/21 10:33 Dose: 20 mg Documented by: MARIE Guaifenesin (Guaifenesin 100 Mg/5 Ml Liquid) 5 ml PO Q4H PRN PRN Reason: Cough Doxycycline Hyclate 100 mg/ (Sodium Chloride) 250 mls @ 166.67 mls/hr IV Q12H [facility] Last Infusion: 07/31/21 05:35 Dose: 0 mls/hr Documented by: ROBERT Ipratropium [place] (Ipratropium [place] 0.5 Mg/2.5 Ml Solution) 0.5 mg INHALE RQ4H WHILE AWAKE [facility] Last Admin: 07/31/21 11:05 Dose: 0.5 mg Documented by: RISSA Levalbuterol HCl (Levalbuterol Hcl 1.25 Mg/0.5 Ml Vial.Neb) 1.25 mg INHALE RQ4H WHILE AWAKE [facility] Last Admin: 07/31/21 11:05 Dose: 1.25 mg Documented by: RISSA Levalbuterol HCl (Levalbuterol Hcl 1.25 Mg/0.5 Ml Vial.Neb) 1.25 mg INHALE Q2H PRN PRN Reason: shortness of breath Last Admin: 07/29/21 03:30 Dose: 1.25 mg Documented by: ZENON Lidocaine/Diphenhydr/Alum/Mg/Simeth (Mag&Al/Sim/Diphenhyd/Lidocaine 10 Ml Oral.Susp) 10 ml PO Q6H [facility]; Protocol Stop: 08/06/21 07:59 Last Admin: 07/31/21 10:34 Dose: 10 ml Documented by: MARIE Melatonin (Melatonin 3 Mg Tablet) 3 mg PO BEDTIME [facility] Last Admin: 07/30/21 20:26 Dose: 3 mg Documented by: ROBERT Metoprolol Succinate (Metoprolol Succinate Er 50 Mg Tab.Er.24h) 50 mg PO DAILY [facility]; Protocol Last Admin: 07/31/21 10:32 Dose: 50 mg Documented by: MARIE Omeprazole (Omeprazole 20 Mg Capsule.Dr) 20 mg PO DAILY@0630 [facility] Last Admin: 07/31/21 05:51 Dose: 20 mg Documented by: ROBERT Ondansetron HCl (Ondansetron Hcl 4 Mg/2 Ml Vial) 4 mg IVPUSH Q8H PRN PRN Reason: Nausea and Vomiting Pharmacy Consult (Consult Rx Perform Med Rec) 1 each MISCELLANE ONCE PRN PRN Reason: Consult order Sodium Chloride (0.9 % Sodium Chloride Flush 3 Ml Syringe) 3 ml IVFLUSH QSHIFT [facility] Last Admin: 07/31/21 10:32 Dose: 3 ml Documented by: MARIE Thiamine HCl (Thiamine Hcl 100 Mg Tablet) 100 mg PO DAILY [facility] Last Admin: 07/31/21 10:34 Dose: 100 mg Documented by: MARIE Tiotropium [place] (Tiotropium [place] 18 Mcg Cap.W.Dev) 1 puff INHALE RDAILY [facility] Last Admin: 07/31/21 08:29 Dose: 1 puff Documented by: MERT Trazodone HCl (Trazodone Hcl 50 Mg Tablet) 50 mg PO BEDTIME [facility] Last Admin: 07/30/21 20:26 Dose: 50 mg Documented by: ROBERT Vitamin D (Cholecalciferol (Vitamin D3) 25 Mcg Tablet) 25 mcg PO DAILY [facility] Last Admin: 07/31/21 10:33 Dose: 25 mcg Documented by: MARIE Warfarin Sodium (Warfarin Sodium 3 Mg Tablet) 3 mg PO SUTUTHSA@1800 [facility] Last Admin: 07/27/21 18:31 Dose: 3 mg Documented by: RAYMOND Warfarin Sodium (Warfarin Sodium 2 Mg Tablet) 2 mg PO MOWEFR@1800 [facility] Last Admin: 07/28/21 17:36 Dose: 2 mg Documented by: SOFIYA Labs CBC & Chem 7: 07/30/21 06:27 07/31/21 06:26 Labs: Laboratory Results - last 24 hr 07/31/21 07/31/21 07/31/21 06:26 06:26 06:26 ESR PT 57.0 H INR 4.8 H O2 Saturation ABG pH at Pt Temp ABG pCO2 at Pt Temp ABG pO2 at Pt Temp ABG HCO3 ABG Base Excess (Actual) VBG pH VBG pCO2 VBG pO2 VBG HCO3 VBG O2 Saturation VBG Base Excess Anion Gap 15 Estim Creat Clear Calc 63.4 Estimated GFR > 60 Random Glucose 111 Calcium 9.2 B-Natriuretic Peptide 121 H 07/31/21 07/31/21 07/31/21 09:49 10:28 11:04 ESR 23 H PT INR O2 Saturation 95.0 ABG pH at Pt Temp 7.54 H ABG pCO2 at Pt Temp 41 ABG pO2 at Pt Temp 75 L ABG HCO3 35 H ABG Base Excess (Actual) 11.8 VBG pH 7.49 H VBG pCO2 49 VBG pO2 33 VBG HCO3 37 H VBG O2 Saturation 46.0 VBG Base Excess 12.4 Anion Gap Estim Creat Clear Calc Estimated GFR Random Glucose Calcium B-Natriuretic Peptide Assessment and Plan (1) Respiratory failure with hypoxia: Status: Acute (2) Chronic interstitial lung disease: Status: Acute Plan 75yo F with ILD, chronic hypoxic respiratory failure [recent O2 dependence], and AF on warfarin who was recently admitted here for PNA and ILD exacerbation 06/27- 07/05/21 and returns with hypoxic respiratory failure due to ILD exacerbation; also AF/RVR # ILD exacerbation .-IV methylprednisolone -standing nebulized ipratropium and levalbuterol, also prn levalbuterol.? c Pulmonology following.? supplemental O2 via high flow .? no evidence of pneumonia and the SIRS physiology is due to ILD and AF, not sepsis; lactic acidosis due to bronchodilators -ICU consult # [id number] hypoxic respiratory failure - continuous high flow, goal of 92% #Odynopagia--likely from thrush, Nystatin s/s, gi eval # AF/RVR--rate is well controlled, continue Metoprolol, INR 4.8, hold coumadin today # Tn-I elevation - likely demand from RVR, no further cardiac testing at this time # hypoK, mild and resolved. chronic/inactive issues: # HLD: continue statin # GERD: continue PPI # anxiety: continue alprazolam # VTE ppx: warfarin # code: full Need for inpatient: Acute respiratory with high amount of O2 by high flow and close monitoring for decompendsation Quality Stroke Does the patient have a stroke diagnosis?: No VTE Prior VTE?: No VTE Risk Level:: Medical - moderate - high VTE Device Contraindication: N/A - Device Ordered VTE Drug Contraindication: N/A - Med Ordered
--- NOTE | 2021-07-31 13:54 | MHC.CM.PN ---
per rounds pt has aflutter rvr and requiring iv cardizem not ready for dc
--- NOTE | 2021-07-31 14:02 | MHC.CM.PN ---
per rounds pt has acute respiratory failure and is not ready for dc
--- NOTE | 2021-07-31 19:23 | PC.NURSE ---
09:00 Pt stated she is short of breath and asked for respiratory treatment. Pt provided treatment and respiratory status did not show improvement. Pt was transitioned from 15L NRB to High flow oxygen 60L 100%. Lung sounds were crackles in the bases. Pt was evaluated at the bedside by snowmaker who placed new orders for IV solumedrol 1G. Pt was also evaluated by percussion instrument tuner at the bedside. MD hospitalist discussed plan with patient to use high flow oxygen and IV solumedrol and re-evaluate respiratory status. Pt remained short of breath with activity pivoting to commode but respiratory status improved after IV steroid treatment.
--- NOTE | 2021-07-31 19:44 | P.EN_ITS ---
Event Note Date of Service: 07/31/21 Event Note: GI Consult-Full note dictated Imp: Given her clinical history of steroid and antibiotic use for her chronic pulmonary disease, and the recent onset of her odynophagia, I would agree with the empiric treatment with Diflucan in regard to suspected esophageal candid iasis. I don't see evidence of oral thrush at the present time, but that does not rule out esophageal candidiasis. Rec: Treat with at least 10 days of oral diflucan and observe. Diet as tolerated . Continue PPI. If symptoms persist, or relapse, she may need an eventual upper endoscopy to further assess for things like viral esophagitis including CMC/HSV. However, given her significant pulmonary disease I would try to avoid any invasive procedures if at all possible. D/W patient. She is comfortable with this plan. Thanks.
[2021-07-31] MEDS: traZODone HCL 50 MG TABLET PO (20:19)
[2021-07-31] MEDS: Melatonin 3 MG TABLET PO (20:19)
[2021-07-31] MEDS: Atorvastatin Calcium 40 MG TABLET PO (20:19)
[2021-08-01] VITALS (14 sets, daily range): BP systolic 119–164; BP diastolic 78–97; PULSE 75–94; RESP 12–28; TEMP 36.1–37.1; O2SAT 83–98
[2021-08-01] MEDS: Mag&Al/Sim/Diphenhyd/Lidocaine 10 ML ORAL.SUSP PO ×4 (03:27→20:00)
[2021-08-01] MEDS: Doxycycline Hyclate 100 MG in 0.9 % Sodium Chloride 250 ML 166.67 MG IV (03:28)
[2021-08-01] MEDS: ALPRAZolam 0.5 MG TABLET PO (03:31)
--- NOTE | 2021-08-01 03:42 | CONS_ITS ---
DATE OF SERVICE: 07/31/2021 REASON FOR CONSULTATION: Odynophagia. HISTORY OF PRESENT ILLNESS: This has been obtained from the patient and medical record. The patient is a 75-year-old female with underlying significant pulmonary disease due to interstitial lung disease that was recently diagnosed. She had been here in early June with pneumonia and exacerbation of the underlying lung disease. She was treated with antibiotics and steroids at that time and discharged on oxygen. She has been on a prednisone taper. She was readmitted here on July 27 with some worsening respiratory status. Since admitted here, she has been on IV antibiotics and IV steroids. She apparently describes at least 2 days of some burning in the back of her throat and a sense of discomfort and pain when she swallows. She describes the pain as being localized in the throat area. She denies having had this before. She denies any significant reflux at home nor any particular upper GI complaints in general. She denies any previous history of dysphagia. She has had some nausea, but no vomiting. She denies any abdominal pain nor any signs of bleeding. She is a former smoker and does not use any significant alcohol. Due to the onset of the symptoms here in the hospital, she has been started on oral Diflucan. She may have had some oral thrush noted as well. CURRENT MEDICATIONS: Acetaminophen, aspirin 81 mg, atorvastatin, vitamin D, doxycycline IV, Tambocor, Diflucan 100 mg orally daily, inhalers, folic acid, Lasix, melatonin, IV methylprednisolone, metoprolol, omeprazole, morphine p.r.n., Zofran p.r.n., thiamin, and throat lozenges. PAST MEDICAL/SURGICAL HISTORY: 1. Left knee replacement. 2. Interstitial lung disease diagnosed earlier this year. 3. History of pneumonia. 4. Atrial fibrillation. 5. History of abdominal aortic aneurysm that is being followed. 6. Coronary artery disease. 7. History of reflux. 8. Anxiety. 9. Spinal stenosis. SOCIAL HISTORY: As above. Former smoker and no significant alcohol. FAMILY HISTORY: Noncontributory. REVIEW OF SYSTEMS: CONSTITUTIONAL: She has been feeling somewhat poorly in relation to her breathing. CARDIAC: No chest pain. PULMONARY: No hemoptysis. GASTROINTESTINAL: As above. PHYSICAL EXAMINATION: GENERAL: The patient is an alert female, wearing a nasal high-flow oxygen. SKIN: Warm and dry. HEENT: Anicteric sclerae. Examination the oropharynx with a flashlight does not reveal any obvious oral thrush. NECK: Supple without lymphadenopathy. ABDOMEN: Soft, nondistended, nontender. IMPRESSION: Given the patient's clinical history of chronic illness, steroid use, antibiotic use, and now her current symptoms of some odynophagia, I would agree with the most likely diagnosis of being that of esophageal candidiasis. As such, I would agree with the empiric treatment with the Diflucan. I would continue treatment for at least 10 days and then observe her. If she has recurrent symptoms or simply does not get better, then we would need to consider upper endoscopy to make a more definitive diagnosis of either the esophageal candidiasis that might require longer treatment, or to rule out any other possibilities such as herpes or cytomegalovirus infection. However, given her fragile pulmonary status, I would like to avoid any invasive procedures requiring anesthesia if at all possible. I would otherwise continue her diet as tolerated and continue supportive care. I would continue her oral proton pump inhibitor as well. This has been discussed with the patient in detail and she is comfortable with that plan. Thank you for the consultation. MD AGATA Gong/PJ / [phone] MTDD
[2021-08-01] MEDS: Omeprazole 20 MG CAPSULE.DR PO (05:08)
[2021-08-01 06:27] LABS: ABG Refer to POC result
[2021-08-01 06:41] LABS: Prothrombin Time 60.8 SEC (9.9-13.0)
[2021-08-01 07:35] LABS: INTERNATIONAL NORM RATIO 5.2 (0.9-1.1)
[2021-08-01] MEDS: Ipratropium Bromide 0.5 MG/2.5 ML SOLUTION INHALE ×3 (07:40→20:03)
[2021-08-01] MEDS: Fluticasone/Vilanterol 100/25 BLST.W.DEV 1 PUFF INHALE (07:40)
--- NOTE | 2021-08-01 08:59 | P.PNPL_ITS ---
Subjective Subjective Date of Service: 08/01/21 Principal diagnosis: ILD Interval history: The patient was seen on exam. Her oxygen requirements are continue to increase. She did receive Solu-Medrol 1 g yesterday. Her venous gas demonstrated a metabolic alkalosis. I do believe that it was due to contraction. I did recommend IV fluids. He looks better today. She continues to have a very significantly low PF ratio consistent with her degree of hypoxemia. Her chest x-ray demonstrated worsening interstitial process. Again, there is a longevity with evidence of pulmonary fibrosis now for many years. This is likely an IPF exacerbation. Objective Data Labs CBC & Chem 7: 07/30/21 06:27 07/31/21 06:26 Labs: Laboratory Results - last 24 hr 07/31/21 07/31/21 07/31/21 09:49 09:49 10:28 ESR 23 H PT INR O2 Saturation 95.0 ABG pH at Pt Temp 7.54 H ABG pCO2 at Pt Temp 41 ABG pO2 at Pt Temp 75 L ABG HCO3 35 H ABG Base Excess (Actual) 11.8 VBG pH VBG pCO2 VBG pO2 VBG HCO3 VBG O2 Saturation VBG Base Excess Procalcitonin 0.02 07/31/21 08/01/21 11:04 05:42 ESR PT 60.8 H INR 5.2 H* O2 Saturation ABG pH at Pt Temp ABG pCO2 at Pt Temp ABG pO2 at Pt Temp ABG HCO3 ABG Base Excess (Actual) VBG pH 7.49 H VBG pCO2 49 VBG pO2 33 VBG HCO3 37 H VBG O2 Saturation 46.0 VBG Base Excess 12.4 Procalcitonin Microbiology Microbiology Results: Microbiology 07/31/21 18:15 Throat Throat Culture - Preliminary Culture in progress. 07/27/21 09:28 Blood - Venous Blood Culture - Preliminary No growth after 48 hours. 07/27/21 09:20 Blood - Venous Blood Culture - Preliminary No growth after 48 hours. Review of Systems Constitutional: Reports difficulty sleeping and Denies fever(s) Eyes: Denies change in vision Denies facial pain and Denies mouth pain Cardiovascular: Denies chest pain and Reports dyspnea Respiratory: Reports dyspnea Gastrointestinal: Denies abdominal pain Musculoskeletal: Reports arthralgias Reports system reviewed and no additional complaints, except as documented Psychiatric: Reports anxiety Physical Exam Vital Signs: Vital Signs: Last Vital Signs Temp 97.8 F 08/01/21 07:50 Pulse 80 08/01/21 07:50 Resp 24 H 08/01/21 07:50 BP 138/79 08/01/21 07:50 Pulse Ox 90 L 08/01/21 07:50 Oxygen Flow Rate 15 07/30/21 11:49 BMI result Body Mass Index 26.0 Const: General: alert, in distress moderate and respiratory and anxious Neck: Neck: Yes normal visual inspection, Yes full ROM and Yes no lymphadenopathy Chest: Chest palpation & inspection: normal inspection of the chest Resp: Auscultation: rales bilateral and diminished lung sounds Cardio: Rate: regular rate Rhythm: regular rhythm Heart sounds: S1 normal heart sound present and S2 normal heart sound present GI: Palpation (GI): Soft to palpation and nontender Auscultation: normal bowel sounds Skin: General skin exam: rashes and/or lesions noted Procedures Date of Service Date of Service: 08/01/21 Assessment and Plan Assessment and plan (1) Acute and chronic respiratory failure: Status: Acute (2) IPF (idiopathic pulmonary fibrosis): Status: Acute (3) Pneumonitis: Status: Acute Plan Continue pulse dose solumedrol Switch to bactrim PO Continue HF/NRB Bloodwork still pending The patient is taking about changing code status to DNR and talking about end of life. 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 For now would continue current therapy guarded Time Spent With Patient Time: Total time spent is greater than 50% in coordination of care (as documented) at patient's floor/unit and/or counseling patient: Progress Note: Quality Stroke Does the patient have a stroke diagnosis?: No
[2021-08-01] MEDS: 0.9 % Sodium Chloride Flush 3 ML SYRINGE IVFLUSH ×3 (09:25→20:00)
[2021-08-01] MEDS: Metoprolol Succinate ER 50 MG TAB.ER.24H PO (09:26)
[2021-08-01] MEDS: Thiamine HCL 100 MG TABLET PO (09:26)
[2021-08-01] MEDS: Flecainide Acetate 50 MG TABLET 100 MG PO ×2 (09:26→20:00)
[2021-08-01] MEDS: Furosemide 20 MG TABLET PO (09:26)
[2021-08-01] MEDS: Fluconazole 100 MG TABLET PO (09:26)
[2021-08-01] MEDS: Aspirin Enteric Coated 81 MG TABLET.DR PO (09:26)
[2021-08-01] MEDS: Cyanocobalamin (Vitamin B-12) 1,000 MCG TABLET 1000 MCG PO (09:26)
[2021-08-01] MEDS: Cholecalciferol (Vitamin D3) 25 MCG TABLET PO (09:27)
[2021-08-01] MEDS: Folic Acid 1 MG TABLET PO (09:27)
--- NOTE | 2021-08-01 09:36 | P.PNIM_ITS ---
Subjective Subjective Date of Service: 08/01/21 Interval History: F/u on ILD flare with acute severe respiratory failure Interval history: She is sill having significant hard time breathing, very discouraged and has asked for her status to be changed to DNR/DNI Review of Systems no fever +s0b Physical Exam Vital Signs: Vital Signs: Last Vital Signs Temp 97.8 F 08/01/21 07:50 Pulse 80 08/01/21 07:50 Resp 24 H 08/01/21 07:50 BP 138/79 08/01/21 07:50 Pulse Ox 90 L 08/01/21 07:50 Oxygen Flow Rate 15 07/30/21 11:49 BMI result Body Mass Index 26.0 Const: Other: General: AO X 3, anxious, respiratory distress Resp: fine rales diffusely, with some accessory muslcle use CVS: S1,S2, iregulr iregulr GI: +BS, NT, no distention Skin: No rash Neuro: motor grossly intact Psych: appropriate affect Objective Data Active Medications Acetaminophen (Acetaminophen 325 Mg Tablet) 650 mg PO Q6H PRN PRN Reason: Pain, Mild (Pain Scale 1-3) Alprazolam (Alprazolam 0.5 Mg Tablet) 0.5 mg PO TID PRN PRN Reason: anxiety Last Admin: 08/01/21 03:31 Dose: 0.5 mg Documented by: ROBERT Aspirin (Aspirin Enteric Coated 81 Mg Tablet.Dr) 81 mg PO DAILY [facility] Last Admin: 08/01/21 09:26 Dose: 81 mg Documented by: MARIE Atorvastatin Calcium (Atorvastatin Calcium 40 Mg Tablet) 40 mg PO BEDTIME [facility] Last Admin: 07/31/21 20:19 Dose: 40 mg Documented by: ROBERT Benzocaine (Throat Lozenge, Medicated Lozenge) 1 lozenge MUCOUS MEM Q2H PRN PRN Reason: Sore Throat Last Admin: 07/30/21 07:48 Dose: 1 lozenge Documented by: ERICK Cyanocobalamin (Cyanocobalamin (Vitamin B-12) 1,000 Mcg Tablet) 1,000 mcg PO DAILY [facility] Last Admin: 08/01/21 09:26 Dose: 1,000 mcg Documented by: MARIE Flecainide Acetate (Flecainide Acetate 50 Mg Tablet) 100 mg PO BID [facility] Last Admin: 08/01/21 09:26 Dose: 100 mg Documented by: MARIE Fluconazole (Fluconazole 100 Mg Tablet) 100 mg PO DAILY [facility] Stop: 08/09/21 08:59 Last Admin: 08/01/21 09:26 Dose: 100 mg Documented by: MARIE Fluticasone/Vilanterol (Fluticasone/Vilanterol 100/25 Blst.W.Dev) 1 puff INHALE RDAILY [facility] Last Admin: 08/01/21 07:40 Dose: 1 puff Documented by: POP Folic Acid (Folic Acid 1 Mg Tablet) 1 mg PO DAILY [facility] Last Admin: 08/01/21 09:27 Dose: 1 mg Documented by: MARIE Furosemide (Furosemide 20 Mg Tablet) 20 mg PO DAILY [facility]; Protocol Last Admin: 08/01/21 09:26 Dose: 20 mg Documented by: MARIE Guaifenesin (Guaifenesin 100 Mg/5 Ml Liquid) 5 ml PO Q4H PRN PRN Reason: Cough Methylprednisolone Sodium Succinate 1,000 mg/ Sodium Chloride 66 mls @ 66 mls/hr IV ONCE ONE Stop: 08/01/21 10:29 Ipratropium [place] (Ipratropium [place] 0.5 Mg/2.5 Ml Solution) 0.5 mg INHALE RQ4H WHILE AWAKE [facility] Last Admin: 08/01/21 07:40 Dose: 0.5 mg Documented by: POP Levalbuterol HCl (Levalbuterol Hcl 1.25 Mg/0.5 Ml Vial.Neb) 1.25 mg INHALE RQ4H WHILE AWAKE [facility] Last Admin: 08/01/21 07:40 Dose: 1.25 mg Documented by: POP Levalbuterol HCl (Levalbuterol Hcl 1.25 Mg/0.5 Ml Vial.Neb) 1.25 mg INHALE Q2H PRN PRN Reason: shortness of breath Last Admin: 07/29/21 03:30 Dose: 1.25 mg Documented by: ZENON Lidocaine/Diphenhydr/Alum/Mg/Simeth (Mag&Al/Sim/Diphenhyd/Lidocaine 10 Ml Oral.Susp) 10 ml PO Q6H [facility]; Protocol Stop: 08/06/21 07:59 Last Admin: 08/01/21 09:25 Dose: 10 ml Documented by: MARIE Melatonin (Melatonin 3 Mg Tablet) 3 mg PO BEDTIME [facility] Last Admin: 07/31/21 20:19 Dose: 3 mg Documented by: ROBERT Metoprolol Succinate (Metoprolol Succinate Er 50 Mg Tab.Er.24h) 50 mg PO DAILY [facility]; Protocol Last Admin: 08/01/21 09:26 Dose: 50 mg Documented by: MARIE Morphine Sulfate (Morphine Sulfate 4 Mg/Ml Cartridge) 2 mg IVPUSH Q4H PRN; Protocol PRN Reason: respiratory distrress Omeprazole (Omeprazole 20 Mg Capsule.Dr) 20 mg PO DAILY@0630 [facility] Last Admin: 08/01/21 05:08 Dose: 20 mg Documented by: ROBERT Ondansetron HCl (Ondansetron Hcl 4 Mg/2 Ml Vial) 4 mg IVPUSH Q8H PRN PRN Reason: Nausea and Vomiting Pharmacy Consult (Consult Rx Perform Med Rec) 1 each MISCELLANE ONCE PRN PRN Reason: Consult order Sodium Chloride (0.9 % Sodium Chloride Flush 3 Ml Syringe) 3 ml IVFLUSH QSHIFT [facility] Last Admin: 08/01/21 09:25 Dose: 3 ml Documented by: MARIE Thiamine HCl (Thiamine Hcl 100 Mg Tablet) 100 mg PO DAILY [facility] Last Admin: 08/01/21 09:26 Dose: 100 mg Documented by: MARIE Tiotropium [place] (Tiotropium [place] 18 Mcg Cap.W.Dev) 1 puff INHALE RDAILY [facility] Last Admin: 08/01/21 07:40 Dose: 1 puff Documented by: POP Trazodone HCl (Trazodone Hcl 50 Mg Tablet) 50 mg PO BEDTIME [facility] Last Admin: 07/31/21 20:19 Dose: 50 mg Documented by: ROBERT Trimethoprim/Sulfamethoxazole (Sulfamethox/Trimeth 800/160 Tablet) 2 tab PO Q12H [facility] Vitamin D (Cholecalciferol (Vitamin D3) 25 Mcg Tablet) 25 mcg PO DAILY [facility] Last Admin: 08/01/21 09:27 Dose: 25 mcg Documented by: MARIE Labs CBC & Chem 7: 07/30/21 06:27 07/31/21 06:26 Labs: Laboratory Results - last 24 hr 07/31/21 07/31/21 07/31/21 09:49 09:49 10:28 ESR 23 H PT INR O2 Saturation 95.0 ABG pH at Pt Temp 7.54 H ABG pCO2 at Pt Temp 41 ABG pO2 at Pt Temp 75 L ABG HCO3 35 H ABG Base Excess (Actual) 11.8 VBG pH VBG pCO2 VBG pO2 VBG HCO3 VBG O2 Saturation VBG Base Excess Procalcitonin 0.02 07/31/21 08/01/21 11:04 05:42 ESR PT 60.8 H INR 5.2 H* O2 Saturation ABG pH at Pt Temp ABG pCO2 at Pt Temp ABG pO2 at Pt Temp ABG HCO3 ABG Base Excess (Actual) VBG pH 7.49 H VBG pCO2 49 VBG pO2 33 VBG HCO3 37 H VBG O2 Saturation 46.0 VBG Base Excess 12.4 Procalcitonin Microbiology Microbiology Results: Microbiology 07/31/21 18:15 Throat Culture - Preliminary Throat Culture in progress. Assessment and Plan (1) Respiratory failure with hypoxia: Status: Acute (2) Chronic interstitial lung disease: Status: Acute Plan 75yo F with ILD, chronic hypoxic respiratory failure [recent O2 dependence], and AF on warfarin who was recently admitted here for PNA and ILD exacerbation 06/27-07/05/21 and returns with hypoxic respiratory failure due to ILD exacerbation; also AF/RVR # ILD exacerbation .-IV methylprednisolone per pulmonology recomendation -standing nebulized ipratropium and levalbuterol, also prn levalbuterol.? c Pulmonology following.? supplemental O2 via high flow or nonrebreather, no evidence of pneumonia and the SIRS physiology is due to ILD and AF, not sepsis; lactic acidosis due to bronchodilators -ICU evaluated yesterday # [id number] hypoxic respiratory failure - continuous high flow, goal of 92% #Odynopagia--likely from thrush, Nystatin s/s, gi recommend Diflucan for 10 days # AF/RVR--rate is well controlled, continue Metoprolol, INR > 5, continue holding coumadin, give 1 mg of Vi K # Tn-I elevation - likely demand from RVR, no further cardiac testing at this time # hypoK, mild and resolved. chronic/inactive issues: # HLD: continue statin # GERD: continue PPI # anxiety: continue alprazolam # VTE ppx: warfarin # code: full Need for inpatient: Acute severe respiratory failurewith high amount of O2 by high flow and close monitoring for decompendsation Overall poor prognosis: Patient asked to be made DNR/DNI, she understand the implications...Nurse witniessed the conversation Quality Stroke Does the patient have a stroke diagnosis?: No VTE Prior VTE?: No VTE Risk Level:: Medical - moderate - high VTE Device Contraindication: N/A - Device Ordered VTE Drug Contraindication: N/A - Med Ordered
--- NOTE | 2021-08-01 09:37 | MHC.CM.PN ---
met with pt who wanted to talk with md mccormick bout code status
[2021-08-01] MEDS: Morphine Sulfate 4 MG/ML CARTRIDGE 2 MG IVPUSH (09:56)
[2021-08-01] MEDS: methylPREDNISolone Sod Succ 1,000 MG in 0.9 % Sodium Chloride 50 ML 66 MG IV (10:04)
[2021-08-01] MEDS: Sulfamethox/Trimeth 800/160 TABLET 2 TAB PO ×2 (12:57→20:00)
[2021-08-01] MEDS: Phytonadione (Vit K1) Oral 10 MG/ML AMPUL PO (12:58)
[2021-08-01 16:27] LABS: Scleroderma 70 Antibody <1.0 NEG AI (<1.0 NEG)
[2021-08-01 19:51] LABS: Immunoglobulin E 90 kU/L (<OR=114)
[2021-08-01] MEDS: Atorvastatin Calcium 40 MG TABLET PO (19:59)
[2021-08-01] MEDS: traZODone HCL 50 MG TABLET PO (19:59)
[2021-08-01] MEDS: Melatonin 3 MG TABLET PO (19:59)
[2021-08-02] VITALS (21 sets, daily range): BP systolic 119–147; BP diastolic 62–88; PULSE 71–107; RESP 14–30; TEMP 35.9–37.1; O2SAT 82–96
[2021-08-02] MEDS: Mag&Al/Sim/Diphenhyd/Lidocaine 10 ML ORAL.SUSP PO ×4 (01:47→20:18)
[2021-08-02] MEDS: Morphine Sulfate 4 MG/ML CARTRIDGE 2 MG IVPUSH ×8 (05:25→23:36)
[2021-08-02] MEDS: Omeprazole 20 MG CAPSULE.DR PO (05:25)
[2021-08-02] MEDS: Sodium Chloride 0.65 % Nasal 44 ML SPRBTL 1 SPRAY NOSTRIL-B (05:25)
[2021-08-02 06:34] LABS: INTERNATIONAL NORM RATIO 3.8 (0.9-1.1); Prothrombin Time 44.9 SEC (9.9-13.0)
[2021-08-02] MEDS: Ipratropium Bromide 0.5 MG/2.5 ML SOLUTION INHALE ×4 (07:36→20:00)
[2021-08-02] MEDS: Fluticasone/Vilanterol 100/25 BLST.W.DEV 1 PUFF INHALE (07:36)
[2021-08-02] MEDS: Cholecalciferol (Vitamin D3) 25 MCG TABLET PO (08:21)
[2021-08-02] MEDS: Flecainide Acetate 50 MG TABLET 100 MG PO ×2 (08:21→20:19)
[2021-08-02] MEDS: Fluconazole 100 MG TABLET PO (08:21)
[2021-08-02] MEDS: Sulfamethox/Trimeth 800/160 TABLET 2 TAB PO ×2 (08:22→20:19)
[2021-08-02] MEDS: Furosemide 20 MG TABLET PO (08:23)
[2021-08-02] MEDS: Folic Acid 1 MG TABLET PO (08:23)
[2021-08-02] MEDS: Thiamine HCL 100 MG TABLET PO (08:24)
[2021-08-02] MEDS: Metoprolol Succinate ER 50 MG TAB.ER.24H PO (08:24)
[2021-08-02] MEDS: Cyanocobalamin (Vitamin B-12) 1,000 MCG TABLET 1000 MCG PO (08:24)
[2021-08-02] MEDS: 0.9 % Sodium Chloride Flush 3 ML SYRINGE IVFLUSH ×3 (08:25→20:19)
[2021-08-02] MEDS: Aspirin Enteric Coated 81 MG TABLET.DR PO (08:37)
--- NOTE | 2021-08-02 09:28 | P.PNPL_ITS ---
Subjective Subjective Date of Service: 08/02/21 Principal diagnosis: ILD Interval history: The patient was seen on exam. Overall she does not feel any better. Although her chest x-ray demonstrates significant improvement. I did reassure her that based on the improvement of the x-ray she should start feeling better. Still, she does have extensive airspace disease at baseline. Today will be her 3rd dose of 1 g of Solu-Medrol. After that she can be switched over to prednisone. Her blood work evaluation for vasculitides in connective tissue conditions still pending. The patient currently is a DNR. She is getting morphine as needed for work of breathing. She continues on the high-flow and also on the non- rebreather. Her condition is still considered guarded. Objective Data Labs CBC & Chem 7: 07/30/21 06:27 07/31/21 06:26 Labs: Laboratory Results - last 24 hr 07/31/21 07/31/21 08/02/21 09:49 14:16 04:07 PT 44.9 H INR 3.8 H IgE 90 Scl-70 Scleroderma Ab <1.0 NEG Microbiology Microbiology Results: Microbiology 07/31/21 18:15 Throat Throat Culture - Final No Group A Beta-hemolytic Streptococci isolated. 07/27/21 09:28 Blood - Venous Blood Culture - Final No growth after 5 days. 07/27/21 09:20 Blood - Venous Blood Culture - Final No growth after 5 days. Review of Systems Constitutional: Reports difficulty sleeping and Denies fever(s) Eyes: Denies change in vision Denies facial pain and Denies mouth pain Cardiovascular: Denies chest pain and Reports dyspnea Respiratory: Reports dyspnea Gastrointestinal: Denies abdominal pain Musculoskeletal: Reports arthralgias Reports system reviewed and no additional complaints, except as documented Psychiatric: Reports anxiety Physical Exam Vital Signs: Vital Signs: Last Vital Signs Temp 97.9 F 08/02/21 07:56 Pulse 96 08/02/21 07:56 Resp 20 08/02/21 07:56 BP 138/79 08/02/21 07:56 Pulse Ox 96 08/02/21 07:56 O2 Del Method 08/02/21 07:56 O2 Flow Rate 60 08/02/21 07:56 FiO2 90 08/02/21 03:20 Oxygen Flow Rate 15 07/30/21 11:49 BMI result Body Mass Index 26.0 Const: General: alert and anxious HEENT: Head: Yes normal to inspection Neck: Neck: Yes normal visual inspection Chest: Chest palpation & inspection: normal inspection of the chest Resp: Auscultation: rales Cardio: Rate: regular rate Rhythm: regular rhythm Heart sounds: S1 normal heart sound present and S2 normal heart sound present GI: Inspection: Yes normal to inspection Skin: Rashes: no rashes Extrem: General: No cyanosis and No edema Procedures Date of Service Date of Service: 08/02/21 Assessment and Plan Assessment and plan (1) Pneumonitis: Status: Acute (2) IPF (idiopathic pulmonary fibrosis): Status: Acute (3) Acute and chronic respiratory failure: Status: Acute Plan Third dose of 1 g of Solu-Medrol today then okay to switch over to prednisone Continue Bactrim Morphine for work of breathing as needed Awaiting blood work evaluation Continue with high-flow and non-rebreather. Hopefully the patient starts feeling better based on the fact that her x-rays is indeed showing improvement. However, if her conditions worsens in the patient is no better than the goals of care should be discussed with the family. She is already DNR. Time Spent With Patient Time: Total time spent is greater than 50% in coordination of care (as documented) at patient's floor/unit and/or counseling patient: Progress Note: Quality Stroke Does the patient have a stroke diagnosis?: No
[2021-08-02] MEDS: methylPREDNISolone Sod Succ 1,000 MG in 0.9 % Sodium Chloride 50 ML 66 MG IV (10:30)
--- NOTE | 2021-08-02 11:21 | HO.PM.IMPN ---
Subjective Subjective Date of Service: 08/02/21 Interval History: F/u on ILD flare with acute severe respiratory failure Interval history: persistent hypoxia, persistent respiratory distress, anxiety, didn't sleep well Review of Systems no fever +s0b Physical Exam Vital Signs: Vital Signs: Last Vital Signs Temp 97.9 F 08/02/21 07:56 Pulse 91 08/02/21 11:15 Resp 30 H 08/02/21 11:17 BP 138/79 08/02/21 07:56 Pulse Ox 96 08/02/21 07:56 O2 Del Method 08/02/21 07:56 O2 Flow Rate 60 08/02/21 07:56 FiO2 90 08/02/21 03:20 Oxygen Flow Rate 15 07/30/21 11:49 BMI result Body Mass Index 26.0 Const: Other: General: AO X 3, anxious, respiratory distress Resp: fine rales diffusely, with some accessory muslcle use CVS: S1,S2, iregulr iregulr GI: +BS, NT, no distention Skin: No rash Neuro: motor grossly intact Psych: appropriate affect Objective Data Active Medications Acetaminophen (Acetaminophen 325 Mg Tablet) 650 mg PO Q6H PRN PRN Reason: Pain, Mild (Pain Scale 1-3) Alprazolam (Alprazolam 0.5 Mg Tablet) 0.5 mg PO TID PRN PRN Reason: anxiety Last Admin: 08/01/21 03:31 Dose: 0.5 mg Documented By: ROBERT Aspirin (Aspirin Enteric Coated 81 Mg Tablet.) 81 mg PO DAILY [facility] Last Admin: 08/02/21 08:37 Dose: 81 mg Documented By: SUSIE Atorvastatin Calcium (Atorvastatin Calcium 40 Mg Tablet) 40 mg PO BEDTIME [facility] Last Admin: 08/01/21 19:59 Dose: 40 mg Documented By: OZZY Benzocaine (Throat Lozenge, Medicated Lozenge) 1 lozenge MUCOUS MEM Q2H PRN PRN Reason: Sore Throat Last Admin: 07/30/21 07:48 Dose: 1 lozenge Documented By: ERICK Cyanocobalamin (Cyanocobalamin (Vitamin B-12) 1,000 Mcg Tablet) 1,000 mcg PO DAILY [facility] Last Admin: 08/02/21 08:24 Dose: 1,000 mcg Documented By: SUSIE Flecainide Acetate (Flecainide Acetate 50 Mg Tablet) 100 mg PO BID [facility] Last Admin: 08/02/21 08:21 Dose: 100 mg Documented By: SUSIE Fluconazole (Fluconazole 100 Mg Tablet) 100 mg PO DAILY [facility] Stop: 08/09/21 08:59 Last Admin: 08/02/21 08:21 Dose: 100 mg Documented By: SUSIE Fluticasone/Vilanterol (Fluticasone/Vilanterol 100/25 Blst.W.Dev) 1 puff INHALE RDAILY [facility] Last Admin: 08/02/21 07:36 Dose: 1 puff Documented By: POP Folic Acid (Folic Acid 1 Mg Tablet) 1 mg PO DAILY [facility] Last Admin: 08/02/21 08:23 Dose: 1 mg Documented By: SUSIE Furosemide (Furosemide 20 Mg Tablet) 20 mg PO DAILY [facility]; Protocol Last Admin: 08/02/21 08:23 Dose: 20 mg Documented By: SUSIE Guaifenesin (Guaifenesin 100 Mg/5 Ml Liquid) 5 ml PO Q4H PRN PRN Reason: Cough Ipratropium [place] (Ipratropium [place] 0.5 Mg/2.5 Ml Solution) 0.5 mg INHALE RQ4H WHILE AWAKE [facility] Last Admin: 08/02/21 11:10 Dose: 0.5 mg Documented By: POP Levalbuterol HCl (Levalbuterol Hcl 1.25 Mg/0.5 Ml Vial.Neb) 1.25 mg INHALE RQ4H WHILE AWAKE [facility] Last Admin: 08/02/21 11:10 Dose: 1.25 mg Documented By: POP Levalbuterol HCl (Levalbuterol Hcl 1.25 Mg/0.5 Ml Vial.Neb) 1.25 mg INHALE Q2H PRN PRN Reason: shortness of breath Last Admin: 07/29/21 03:30 Dose: 1.25 mg Documented By: ZENON Lidocaine/Diphenhydr/Alum/Mg/Simeth (Mag&Al/Sim/Diphenhyd/Lidocaine 10 Ml Oral.Susp) 10 ml PO Q6H [facility]; Protocol Stop: 08/06/21 07:59 Last Admin: 08/02/21 08:24 Dose: 10 ml Documented By: SUSIE Melatonin (Melatonin 3 Mg Tablet) 3 mg PO BEDTIME [facility] Last Admin: 08/01/21 19:59 Dose: 3 mg Documented By: OZZY Metoprolol Succinate (Metoprolol Succinate Er 50 Mg Tab.Er.24h) 50 mg PO DAILY [facility]; Protocol Last Admin: 08/02/21 08:24 Dose: 50 mg Documented By: SUSIE Morphine Sulfate (Morphine Sulfate 4 Mg/Ml Cartridge) 2 mg IVPUSH Q2H PRN; Protocol PRN Reason: respiratory distrress Last Admin: 08/02/21 10:38 Dose: 2 mg Documented By: SUSIE Omeprazole (Omeprazole 20 Mg Capsule.Dr) 20 mg PO DAILY@0630 [facility] Last Admin: 08/02/21 05:25 Dose: 20 mg Documented By: OZZY Ondansetron HCl (Ondansetron Hcl 4 Mg/2 Ml Vial) 4 mg IVPUSH Q8H PRN PRN Reason: Nausea and Vomiting Pharmacy Consult (Consult Rx Perform Med Rec) 1 each MISCELLANE ONCE PRN PRN Reason: Consult order Sodium Chloride (0.9 % Sodium Chloride Flush 3 Ml Syringe) 3 ml IVFLUSH QSHIFT [facility] Last Admin: 08/02/21 08:25 Dose: 3 ml Documented By: SUSIE Sodium Chloride (Sodium Chloride 0.65 % Nasal 44 Ml Sprbtl) 1 spray NOSTRIL-B Q1H PRN PRN Reason: Dryness Last Admin: 08/02/21 05:25 Dose: 1 spray Documented By: OZZY Thiamine HCl (Thiamine Hcl 100 Mg Tablet) 100 mg PO DAILY [facility] Last Admin: 08/02/21 08:24 Dose: 100 mg Documented By: SUSIE Tiotropium [place] (Tiotropium [place] 18 Mcg Cap.W.Dev) 1 puff INHALE RDAILY [facility] Last Admin: 08/02/21 07:36 Dose: 1 puff Documented By: BRESNE Trazodone HCl (Trazodone Hcl 50 Mg Tablet) 50 mg PO BEDTIME [facility] Last Admin: 08/01/21 19:59 Dose: 50 mg Documented By: OZZY Trimethoprim/Sulfamethoxazole (Sulfamethox/Trimeth 800/160 Tablet) 2 tab PO Q12H [facility] Last Admin: 08/02/21 08:22 Dose: 2 tab Documented By: SUSIE Vitamin D (Cholecalciferol (Vitamin D3) 25 Mcg Tablet) 25 mcg PO DAILY [facility] Last Admin: 08/02/21 08:21 Dose: 25 mcg Documented By: SUSIE Labs CBC & Chem 7: 07/30/21 06:27 07/31/21 06:26 Labs: Laboratory Results - last 24 hr 07/31/21 07/31/21 08/02/21 09:49 14:16 04:07 PT 44.9 H INR 3.8 H IgE 90 Scl-70 Scleroderma Ab <1.0 NEG Microbiology Microbiology Results: Microbiology 07/31/21 18:15 Throat Culture - Final Throat No Group A Beta-hemolytic Streptococci isolated. 07/27/21 09:28 Blood Culture - Final Blood - Venous No growth after 5 days. 07/27/21 09:20 Blood Culture - Final Blood - Venous No growth after 5 days. Assessment and Plan (1) Respiratory failure with hypoxia: Status: Acute (2) Chronic interstitial lung disease: Status: Acute Plan 75yo F with ILD, chronic hypoxic respiratory failure [recent O2 dependence], and AF on warfarin who was recently admitted here for PNA and ILD exacerbation 06/27-07/05/21 and returns with hypoxic respiratory failure due to ILD exacerbation; also AF/RVR # ILD exacerbation with acute hypoxic respriatory failure on chronic hypoxia .-Continue I methylprednisolone per pulmonology recomendation -standing nebulized ipratropium and levalbuterol, also prn levalbuterol.? Pulmonology following.? supplemental O2 via high flow or nonrebreather, no evidence of pneumonia and the SIRS physiology is due to ILD and AF, not sepsis; lactic acidosis due to bronchodilatorsre - continuous high flow, goal of 92% -Morphine for acute respriatory distress and xanax for anxiety - in the event that she continued to decline, goals of care will be extended to comfort care /hospice #Odynopagia--likely from thrush, Nystatin s/s, gi recommend Diflucan for 10 days # AF/RVR--rate is well controlled, continue Metoprolol, INR 3. 8, hold coumadin # Tn-I elevation - likely demand from RVR, no further cardiac testing at this time # hypoK, mild and resolved. chronic/inactive issues: # HLD: continue statin # GERD: continue PPI # anxiety: continue alprazolam # VTE ppx: warfarin # code: full Need for inpatient: Acute severe respiratory failurewith high amount of O2 by high flow and close monitoring for decompendsation Overall poor prognosis: ongoing discussion with patient, family, spoke to daughter today, she still doesn't want intubation or CPR Quality Stroke Does the patient have a stroke diagnosis?: No VTE Prior VTE?: No VTE Risk Level:: Medical - moderate - high VTE Device Contraindication: N/A - Device Ordered VTE Drug Contraindication: N/A - Med Ordered
[2021-08-02] MEDS: ALPRAZolam 0.5 MG TABLET PO (13:23)
--- NOTE | 2021-08-02 13:25 | MHC.CM.PN ---
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
--- NOTE | 2021-08-02 16:43 | PC.NURSE ---
Early dose of PRN morphine given per Dr Roque verbal instruction. Order readback and confirmed by Dr Roque. Nurse Orly pruitt
[2021-08-02] MEDS: Phytonadione (Vit K1) 2.5 MG in 0.9 % Sodium Chloride 50 ML 50.25 MG IV (17:27)
[2021-08-02] MEDS: Atorvastatin Calcium 40 MG TABLET PO (20:19)
[2021-08-02] MEDS: traZODone HCL 50 MG TABLET PO (20:19)
[2021-08-02] MEDS: Melatonin 3 MG TABLET PO (20:19)
[2021-08-02 21:36] LABS: Anti Nuclear Antibody Pattern Nuclear, Homogeneous; Anti Nuclear Antibody Screen POSITIVE (NEGATIVE); Anti Nuclear Antibody Titer 1:40 titer
[2021-08-02 22:36] LABS: Cyclic Citrullinated Peptide <16 UNITS
[2021-08-03] VITALS (12 sets, daily range): BP systolic 107–145; BP diastolic 70–88; PULSE 69–92; RESP 16–24; TEMP 35.8–36.7; O2SAT 81–94
[2021-08-03] MEDS: Morphine Sulfate 4 MG/ML CARTRIDGE 2 MG IVPUSH ×2 (03:05→08:20)
[2021-08-03] MEDS: ALPRAZolam 0.5 MG TABLET PO (03:57)
[2021-08-03 05:49] LABS: INTERNATIONAL NORM RATIO 1.3 (0.9-1.1); Prothrombin Time 14.5 SEC (9.9-13.0)
[2021-08-03] MEDS: Ipratropium Bromide 0.5 MG/2.5 ML SOLUTION INHALE ×3 (07:41→15:18)
[2021-08-03] MEDS: Fluticasone/Vilanterol 100/25 BLST.W.DEV 1 PUFF INHALE (07:41)
[2021-08-03] MEDS: ondansetron HCL 4 MG/2 ML VIAL IVPUSH (08:20)
[2021-08-03] MEDS: Metoprolol Succinate ER 50 MG TAB.ER.24H PO (09:35)
[2021-08-03] MEDS: Aspirin Enteric Coated 81 MG TABLET.DR PO (09:35)
[2021-08-03] MEDS: Furosemide 20 MG TABLET PO (09:35)
[2021-08-03] MEDS: Cyanocobalamin (Vitamin B-12) 1,000 MCG TABLET 1000 MCG PO (09:35)
[2021-08-03] MEDS: Sulfamethox/Trimeth 800/160 TABLET 2 TAB PO ×2 (09:36→21:36)
[2021-08-03] MEDS: Thiamine HCL 100 MG TABLET PO (09:36)
[2021-08-03] MEDS: Folic Acid 1 MG TABLET PO (09:36)
[2021-08-03] MEDS: Flecainide Acetate 50 MG TABLET 100 MG PO ×2 (09:37→21:36)
[2021-08-03] MEDS: Fluconazole 100 MG TABLET PO (09:38)
[2021-08-03] MEDS: Cholecalciferol (Vitamin D3) 25 MCG TABLET PO (09:38)
[2021-08-03] MEDS: HYDROmorphone HCl 1 MG/ML SYRINGE 0.5 MG IVPUSH ×6 (10:33→21:36)
--- NOTE | 2021-08-03 10:43 | HO.PM.IMPN ---
Subjective Subjective Date of Service: 08/03/21 Interval History: F/u on ILD flare with acute severe respiratory failure Interval history: persistent severe hypoxia, persistent respiratory distress, anxiety, not sleeping--both high flow and NRB and not able to keep O2 up, intermittent nose bleed Review of Systems no fever +s0b Physical Exam Vital Signs: Vital Signs: Last Vital Signs Temp 97.2 F 08/03/21 08:00 Pulse 83 08/03/21 08:00 Resp 20 08/03/21 08:00 BP 118/75 08/03/21 08:00 Pulse Ox 88 L 08/03/21 08:00 O2 Del Method 08/03/21 08:00 O2 Flow Rate 15 08/03/21 08:00 FiO2 90 08/02/21 03:20 Oxygen Flow Rate 15 07/30/21 11:49 BMI result Body Mass Index 26.0 Const: Other: General: AO X 3, anxious, respiratory distress Resp: fine rales diffusely, with some accessory muslcle use CVS: S1,S2, iregulr iregulr GI: +BS, NT, no distention Skin: No rash Neuro: motor grossly intact Psych: appropriate affect Objective Data Active Medications Acetaminophen (Acetaminophen 325 Mg Tablet) 650 mg PO Q6H PRN PRN Reason: Pain, Mild (Pain Scale 1-3) Alprazolam (Alprazolam 0.5 Mg Tablet) 0.5 mg PO TID PRN PRN Reason: anxiety Last Admin: 08/03/21 03:57 Dose: 0.5 mg Documented By: GRACIE Aspirin (Aspirin Enteric Coated 81 Mg Tablet.) 81 mg PO DAILY [facility] Last Admin: 08/03/21 09:35 Dose: 81 mg Documented By: EDWARD Atorvastatin Calcium (Atorvastatin Calcium 40 Mg Tablet) 40 mg PO BEDTIME [facility] Last Admin: 08/02/21 20:19 Dose: 40 mg Documented By: GRACIE Benzocaine (Throat Lozenge, Medicated Lozenge) 1 lozenge MUCOUS MEM Q2H PRN PRN Reason: Sore Throat Last Admin: 07/30/21 07:48 Dose: 1 lozenge Documented By: ERICK Cyanocobalamin (Cyanocobalamin (Vitamin B-12) 1,000 Mcg Tablet) 1,000 mcg PO DAILY [facility] Last Admin: 08/03/21 09:35 Dose: 1,000 mcg Documented By: EDWARD Flecainide Acetate (Flecainide Acetate 50 Mg Tablet) 100 mg PO BID [facility] Last Admin: 08/03/21 09:37 Dose: 100 mg Documented By: EDWARD Fluconazole (Fluconazole 100 Mg Tablet) 100 mg PO DAILY [facility] Stop: 08/09/21 08:59 Last Admin: 08/03/21 09:38 Dose: 100 mg Documented By: EDWARD Fluticasone/Vilanterol (Fluticasone/Vilanterol 100/25 Blst.W.Dev) 1 puff INHALE RDAILY [facility] Last Admin: 08/03/21 07:41 Dose: 1 puff Documented By: JOHNATHON Folic Acid (Folic Acid 1 Mg Tablet) 1 mg PO DAILY [facility] Last Admin: 08/03/21 09:36 Dose: 1 mg Documented By: EDWARD Furosemide (Furosemide 20 Mg Tablet) 20 mg PO DAILY [facility]; Protocol Last Admin: 08/03/21 09:35 Dose: 20 mg Documented By: EDWARD Guaifenesin (Guaifenesin 100 Mg/5 Ml Liquid) 5 ml PO Q4H PRN PRN Reason: Cough Hydromorphone HCl (Hydromorphone Hcl 1 Mg/Ml Syringe) 0.5 mg IVPUSH Q2H PRN; Protocol PRN Reason: comfort Last Admin: 08/03/21 10:33 Dose: 0.5 mg Documented By: DEWARD Ipratropium [employer] (Ipratropium [employer] 0.5 Mg/2.5 Ml Solution) 0.5 mg INHALE RQ4H WHILE AWAKE [facility] Last Admin: 08/03/21 07:41 Dose: 0.5 mg Documented By: JOHNATHON Levalbuterol HCl (Levalbuterol Hcl 1.25 Mg/0.5 Ml Vial.Neb) 1.25 mg INHALE RQ4H WHILE AWAKE [facility] Last Admin: 08/03/21 08:20 Dose: 1.25 mg Documented By: JOHNATHON Levalbuterol HCl (Levalbuterol Hcl 1.25 Mg/0.5 Ml Vial.Neb) 1.25 mg INHALE Q2H PRN PRN Reason: shortness of breath Last Admin: 07/29/21 03:30 Dose: 1.25 mg Documented By: ZENON Lidocaine/Diphenhydr/Alum/Mg/Simeth (Mag&Al/Sim/Diphenhyd/Lidocaine 10 Ml Oral.Susp) 10 ml PO Q6H [facility]; Protocol Stop: 08/06/21 07:59 Last Admin: 08/03/21 09:32 Dose: Not Given Documented By: EDWARD Non-Admin Reason: unable to tolerate po Melatonin (Melatonin 3 Mg Tablet) 3 mg PO BEDTIME [facility] Last Admin: 08/02/21 20:19 Dose: 3 mg Documented By: GRACIE Metoprolol Succinate (Metoprolol Succinate Er 50 Mg Tab.Er.24h) 50 mg PO DAILY [facility]; Protocol Last Admin: 08/03/21 09:35 Dose: 50 mg Documented By: EDWARD Omeprazole (Omeprazole 20 Mg Capsule.Dr) 20 mg PO DAILY@0630 [facility] Last Admin: 08/03/21 05:37 Dose: Not Given Documented By: GRACIE Non-Admin Reason: Patient Asleep Ondansetron HCl (Ondansetron Hcl 4 Mg/2 Ml Vial) 4 mg IVPUSH Q8H PRN PRN Reason: Nausea and Vomiting Last Admin: 08/03/21 08:20 Dose: 4 mg Documented By: EDWARD Pharmacy Consult (Consult Rx Perform Med Rec) 1 each MISCELLANE ONCE PRN PRN Reason: Consult order Sodium Chloride (0.9 % Sodium Chloride Flush 3 Ml Syringe) 3 ml IVFLUSH QSHIFT [facility] Last Admin: 08/03/21 09:32 Dose: Not Given Documented By: EDWARD Non-Admin Reason: Previously Administered Sodium Chloride (Sodium Chloride 0.65 % Nasal 44 Ml Sprbtl) 1 spray NOSTRIL-B Q1H PRN PRN Reason: Dryness Last Admin: 08/02/21 05:25 Dose: 1 spray Documented By: OZZY Thiamine HCl (Thiamine Hcl 100 Mg Tablet) 100 mg PO DAILY [facility] Last Admin: 08/03/21 09:36 Dose: 100 mg Documented By: EDWARD Tiotropium [employer] [place] (Tiotropium [employer] [place] 18 Mcg Cap.W.Dev) 1 puff INHALE RDAILY [facility] Last Admin: 08/03/21 07:41 Dose: 1 puff Documented By: JOHNATHON Trazodone HCl (Trazodone Hcl 50 Mg Tablet) 50 mg PO BEDTIME [facility] Last Admin: 08/02/21 20:19 Dose: 50 mg Documented By: GRACIE Trimethoprim/Sulfamethoxazole (Sulfamethox/Trimeth 800/160 Tablet) 2 tab PO Q12H [facility] Last Admin: 08/03/21 09:36 Dose: 2 tab Documented By: EDWARD Vitamin D (Cholecalciferol (Vitamin D3) 25 Mcg Tablet) 25 mcg PO DAILY [facility] Last Admin: 08/03/21 09:38 Dose: 25 mcg Documented By: EDWARD Zolpidem Tartrate (Zolpidem Tartrate 5 Mg Tablet) 5 mg PO BEDTIME PRN PRN Reason: Insomnia Labs CBC & Chem 7: 07/30/21 06:27 07/31/21 06:26 Labs: Laboratory Results - last 24 hr 07/31/21 07/31/21 08/03/21 09:50 14:16 05:33 PT 14.5 H INR 1.3 H D Cycl Citrul Peptide IgG <16 NIELS Screen POSITIVE A NIELS Titer 1:40 H NIELS Pattern Nuclear, Homogeneous A Microbiology Microbiology Results: Microbiology 07/31/21 18:15 Throat Culture - Final Throat No Group A Beta-hemolytic Streptococci isolated. Assessment and Plan (1) Respiratory failure with hypoxia: Status: Acute (2) Chronic interstitial lung disease: Status: Acute Plan 75yo F with ILD, chronic hypoxic respiratory failure [recent O2 dependence], and AF on warfarin who was recently admitted here for PNA and ILD exacerbation 06/27-07/05/21 and returns with hypoxic respiratory failure due to ILD exacerbation; also AF/RVR # ILD exacerbation with acute hypoxic respriatory failure on chronic hypoxia .-Continue Iv methylprednisolone per pulmonology recomendation -standing nebulized ipratropium and levalbuterol, also prn levalbuterol.? Pulmonology following.? supplemental O2 via high flow or nonrebreather, no evidence of pneumonia and the SIRS physiology is due to ILD and AF, not sepsis; lactic acidosis due to bronchodilatorsre - continuous high flow, goal of 92% -Dilaudid for acute respriatory distress and xanax for anxiety - in the event that she continued to decline, goals of care will be extended to comfort care /hospice this has been discussed with son #Odynopagia--likely from thrush, Nystatin s/s, gi recommend Diflucan for 10 days # AF/RVR--rate is well controlled, continue Metoprolol, INR 3. 8, hold coumadin d/t nose bleed # Tn-I elevation - likely demand from RVR, no further cardiac testing at this time # hypoK, mild and resolved. chronic/inactive issues: # HLD: continue statin # GERD: continue PPI # anxiety: continue alprazolam # VTE ppx: warfarin # code:DNR/DNI Need for inpatient: Acute severe respiratory failurewith high amount of O2 by high flow and close monitoring for decompendsation Overall poor prognosis: ongoing discussion with patient, family, spoke to daughter today, she still doesn't want intubation or CPR Quality Stroke Does the patient have a stroke diagnosis?: No VTE Prior VTE?: No VTE Risk Level:: Medical - moderate - high VTE Device Contraindication: N/A - Device Ordered VTE Drug Contraindication: N/A - Med Ordered
--- NOTE | 2021-08-03 15:51 | MHC.CM.PN ---
Addendum entered by Chely Vasquez 08/03/21 16:26: Contact was made with pt's son, Gino. Emotional support and encouragement were provided. He confirmed that the goal of care is Comfort measures only. Original Note: Female 75 DX ILD Exacerbation. Called to patients room. Spoke with DTR in law. She informed T/W that the patient and family have decided to change patient status to MANAGER RENEWABLE ENERGY. A call was placed to pts son Gino to confirm MANAGER RENEWABLE ENERGY. A detailed VM was left requesting a return call.
[2021-08-03] MEDS: 0.9 % Sodium Chloride Flush 3 ML SYRINGE IVFLUSH ×2 (17:01→21:37)
[2021-08-03] MEDS: Atorvastatin Calcium 40 MG TABLET PO (21:36)
[2021-08-03] MEDS: Melatonin 3 MG TABLET PO (21:36)
[2021-08-03] MEDS: Mag&Al/Sim/Diphenhyd/Lidocaine 10 ML ORAL.SUSP PO (21:36)
[2021-08-03] MEDS: traZODone HCL 50 MG TABLET PO (21:36)
[2021-08-04] VITALS (19 sets, daily range): BP systolic 127–146; BP diastolic 83–88; PULSE 88–98; RESP 8–32; TEMP 36.3–37.4; O2SAT 88–93
[2021-08-04] MEDS: HYDROmorphone HCl 1 MG/ML SYRINGE 0.5 MG IVPUSH ×4 (00:29→08:12)
[2021-08-04 06:28] LABS: INTERNATIONAL NORM RATIO 1.1 (0.9-1.1); Prothrombin Time 12.9 SEC (9.9-13.0)
[2021-08-04] MEDS: Fluticasone/Vilanterol 100/25 BLST.W.DEV 1 PUFF INHALE (07:24)
[2021-08-04] MEDS: Metoprolol Succinate ER 50 MG TAB.ER.24H PO (08:15)
[2021-08-04] MEDS: Aspirin Enteric Coated 81 MG TABLET.DR PO (08:15)
[2021-08-04] MEDS: Furosemide 20 MG TABLET PO (08:21)
[2021-08-04] MEDS: Flecainide Acetate 50 MG TABLET 100 MG PO (08:22)
[2021-08-04] MEDS: Folic Acid 1 MG TABLET PO (08:22)
[2021-08-04] MEDS: Fluconazole 100 MG TABLET PO (08:22)
[2021-08-04] MEDS: Cholecalciferol (Vitamin D3) 25 MCG TABLET PO (08:22)
[2021-08-04] MEDS: Cyanocobalamin (Vitamin B-12) 1,000 MCG TABLET 1000 MCG PO (08:22)
[2021-08-04] MEDS: 0.9 % Sodium Chloride Flush 3 ML SYRINGE IVFLUSH ×2 (08:22→15:40)
[2021-08-04] MEDS: Sulfamethox/Trimeth 800/160 TABLET 2 TAB PO (08:22)
[2021-08-04] MEDS: Thiamine HCL 100 MG TABLET PO (08:22)
[2021-08-04] MEDS: HYDROmorphone HCl 1 MG/ML SYRINGE IVPUSH ×8 (09:00→17:40)
--- NOTE | 2021-08-04 09:44 | MHC.CM.PN ---
Female 75 ILD exacerbation Patient continues on High Flow Oxygen. She stated that she is not doing well. Emotional support and encouragement provided.
--- NOTE | 2021-08-04 10:09 | P.PNIM_ITS ---
Subjective Subjective Date of Service: 08/04/21 Interval History: F/u on ILD flare with acute severe respiratory failure Interval history:Remains extremely hypoxic with high flow and nrb, and very anxious only thing that help is dilaudid Review of Systems sob, anxious Physical Exam Vital Signs: Vital Signs: Last Vital Signs Temp 97.4 F 08/04/21 07:14 Pulse 92 08/04/21 07:14 Resp 22 H 08/04/21 09:00 BP 146/84 H 08/04/21 07:14 Pulse Ox 88 L 08/04/21 07:14 O2 Del Method Non-Rebreather Ma sk 08/04/21 07:14 O2 Flow Rate 50 08/04/21 07:14 FiO2 94 08/04/21 07:14 Oxygen Flow Rate 15 07/30/21 11:49 BMI result Body Mass Index 26.0 Const: Other: General: AO X 3, anxious, respiratory distress Resp: fine rales diffusely, with some accessory muslcle use CVS: S1,S2, iregulr iregulr GI: +BS, NT, no distention Skin: No rash Neuro: motor grossly intact Psych: appropriate affect Objective Data Active Medications Acetaminophen (Acetaminophen 325 Mg Tablet) 650 mg PO Q6H PRN PRN Reason: Pain, Mild (Pain Scale 1-3) Alprazolam (Alprazolam 0.5 Mg Tablet) 0.5 mg PO TID PRN PRN Reason: anxiety Last Admin: 08/03/21 03:57 Dose: 0.5 mg Documented By: GRACIE Aspirin (Aspirin Enteric Coated 81 Mg Tablet.) 81 mg PO DAILY [facility] Last Admin: 08/04/21 08:15 Dose: 81 mg Documented By: MAEGAN Benzocaine (Throat Lozenge, Medicated Lozenge) 1 lozenge MUCOUS MEM Q2H PRN PRN Reason: Sore Throat Last Admin: 07/30/21 07:48 Dose: 1 lozenge Documented By: ERICK Cyanocobalamin (Cyanocobalamin (Vitamin B-12) 1,000 Mcg Tablet) 1,000 mcg PO DAILY [facility] Last Admin: 08/04/21 08:22 Dose: 1,000 mcg Documented By: MAEGAN Flecainide Acetate (Flecainide Acetate 50 Mg Tablet) 100 mg PO BID [facility] Last Admin: 08/04/21 08:22 Dose: 100 mg Documented By: MAEGAN Fluticasone/Vilanterol (Fluticasone/Vilanterol 100/25 Blst.W.Dev) 1 puff INHALE RDAILY [facility] Last Admin: 08/04/21 07:24 Dose: 1 puff Documented By: JOHNATHON Folic Acid (Folic Acid 1 Mg Tablet) 1 mg PO DAILY [facility] Last Admin: 08/04/21 08:22 Dose: 1 mg Documented By: MAEGAN Furosemide (Furosemide 20 Mg Tablet) 20 mg PO DAILY [facility]; Protocol Last Admin: 08/04/21 08:21 Dose: 20 mg Documented By: MAEGAN Guaifenesin (Guaifenesin 100 Mg/5 Ml Liquid) 5 ml PO Q4H PRN PRN Reason: Cough Hydromorphone HCl (Hydromorphone Hcl 1 Mg/Ml Syringe) 1 mg IVPUSH Q1H PRN; Protocol PRN Reason: comfort Last Admin: 08/04/21 09:00 Dose: 1 mg Documented By: MAEGAN Lidocaine/Diphenhydr/Alum/Mg/Simeth (Mag&Al/Sim/Diphenhyd/Lidocaine 10 Ml Oral.Susp) 10 ml PO Q6H [facility]; Protocol Stop: 08/06/21 07:59 Last Admin: 08/04/21 08:22 Dose: Not Given Documented By: MAEGAN Non-Admin Reason: unable to halie Melatonin (Melatonin 3 Mg Tablet) 3 mg PO BEDTIME [facility] Last Admin: 08/03/21 21:36 Dose: 3 mg Documented By: GRACIE Metoprolol Succinate (Metoprolol Succinate Er 50 Mg Tab.Er.24h) 50 mg PO DAILY [facility]; Protocol Last Admin: 08/04/21 08:15 Dose: 50 mg Documented By: MAEGAN Omeprazole (Omeprazole 20 Mg Capsule.Dr) 20 mg PO DAILY@0630 [facility] Last Admin: 08/04/21 05:47 Dose: Not Given Documented By: GRACIE Non-Admin Reason: unable to crush med Ondansetron HCl (Ondansetron Hcl 4 Mg/2 Ml Vial) 4 mg IVPUSH Q8H PRN PRN Reason: Nausea and Vomiting Last Admin: 08/03/21 08:20 Dose: 4 mg Documented By: EDWARD Pharmacy Consult (Consult Rx Perform Med Rec) 1 each MISCELLANE ONCE PRN PRN Reason: Consult order Sodium Chloride (0.9 % Sodium Chloride Flush 3 Ml Syringe) 3 ml IVFLUSH QSHIFT [facility] Last Admin: 08/04/21 08:22 Dose: 3 ml Documented By: MAEGAN Sodium Chloride (Sodium Chloride 0.65 % Nasal 44 Ml Sprbtl) 1 spray NOSTRIL-B Q1H PRN PRN Reason: Dryness Last Admin: 08/02/21 05:25 Dose: 1 spray Documented By: OZZY Thiamine HCl (Thiamine Hcl 100 Mg Tablet) 100 mg PO DAILY [facility] Last Admin: 08/04/21 08:22 Dose: 100 mg Documented By: MAEGAN Tiotropium [place] (Tiotropium [place] 18 Mcg Cap.W.Dev) 1 puff INHALE RDAILY [facility] Last Admin: 08/04/21 07:24 Dose: 1 puff Documented By: JOHNATHON Trazodone HCl (Trazodone Hcl 50 Mg Tablet) 50 mg PO BEDTIME [facility] Last Admin: 08/03/21 21:36 Dose: 50 mg Documented By: GRACIE Vitamin D (Cholecalciferol (Vitamin D3) 25 Mcg Tablet) 25 mcg PO DAILY [facility] Last Admin: 08/04/21 08:22 Dose: 25 mcg Documented By: MAEGAN Zolpidem Tartrate (Zolpidem Tartrate 5 Mg Tablet) 5 mg PO BEDTIME PRN PRN Reason: Insomnia Labs CBC & Chem 7: 07/30/21 06:27 07/31/21 06:26 Labs: Laboratory Results - last 24 hr 07/31/21 08/04/21 14:16 05:45 PT 12.9 INR 1.1 NIELS Titer 2 TNP NIELS Titer 3 TNP NIELS Pattern 2 TNP NIELS Pattern 3 TNP Assessment and Plan (1) Respiratory failure with hypoxia: Status: Acute (2) Chronic interstitial lung disease: Status: Acute Plan 75yo F with ILD, chronic hypoxic respiratory failure [recent O2 dependence], and AF on warfarin who was recently admitted here for PNA and ILD exacerbation 06/27- 07/05/21 and returns with hypoxic respiratory failure due to ILD exacerbation; also AF/RVR # ILD exacerbation with acute hypoxic respriatory failure on chronic hypoxia not improving despite maximum therapy -Dilaudid for comfort and discuss comfort measures only with family #Odynopagia--likely from thrush, Nystatin s/s, gi recommend Diflucan for 10 days # AF/RVR--rate is well controlled, continue Metoprolol, INR 3. 8, hold coumadin d/t nose bleed # Tn-I elevation - likely demand from RVR, no further cardiac testing at this time # hypoK, mild and resolved. chronic/inactive issues: # HLD: continue statin # GERD: continue PPI # anxiety: continue alprazolam # VTE ppx: warfarin # code:DNR/DNI Need for inpatient: Acute severe respiratory failurewith high amount of O2 by high flow and close monitoring for decompendsation Overall poor prognosis: Poor prognosis, and comfort measures makes the most sense, and will discuss with family Quality Stroke Does the patient have a stroke diagnosis?: No VTE Prior VTE?: No VTE Risk Level:: Medical - moderate - high VTE Device Contraindication: N/A - Device Ordered VTE Drug Contraindication: N/A - Med Ordered
[2021-08-04] MEDS: LORazepam 2 MG/ML VIAL 0.5 MG IVPUSH ×2 (12:44→17:57)
--- NOTE | 2021-08-04 13:42 | P.EN_ITS ---
Event Note Date of Service: 08/04/21 Event Note: Had a conversation with family leb by son Gino and changed status to CARETAKER RESORT, and to stop all meds and interventions not contrubuting to comfort. Dilaudid, Ativa for comfort. 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
[2021-08-04] MEDS: Scopolamine 1.5 MG PATCH.TD.3 EAR-BEHIND (13:58)
[2021-08-04] MEDS: HYDROmorphone HCl/NS 10 MG/50 ML PIGGYBACK 2.5 MG IV (17:51)
--- NOTE | 2021-08-04 19:35 | PC.NURSE ---
Per MD increased the Dilaudid drip to 1.5ml after running at 1ml (increasing by 0.5mg q30 min) when up from 1mg to 1.5,mg and then 30min later to 2.0mg for FILM LIBRARIAN care. MD called pharmacy to change order and is updated in APR. oncnikia RN aware. Reviewed drip with MD in room as well with oncnikia RN
--- NOTE | 2021-08-04 20:57 | PM.EVENT ---
Event Note Date of Service: 08/04/21 Event Note: note: Around 20:40 on 08/04/2021 RN mentioned that patient appears to be , asystole on the monitor. I went to check on the patient, patient not responding, no corneal reflex, pupils are fixed and dilated; Patient pronounced at 20:45 on 08/04/2021. Family was notified the bedside.
--- NOTE | 2021-08-04 21:50 | PM.DDS ---
Discharge Sum: Prov Provider Primary care physician: Brisa Cortes MD Consults: 07/27/21 14:01 Consult to Cardiology Routine Consulting Provider: Moi Kohler Reason for consultation: AF/RVR likely 2/2 ILD/hypoxia, Tn-I doubled likely RVR Consult to Pulmonology Routine Consulting Provider: Vitaly Chapin Reason for consultation: ILD exacerbation, readmit 07/31/21 11:26 Consult to Gastroenterology Routine Consulting Provider: Ethan Rae Reason for consultation: Odynophagia Has provider been notified: No Discharge Sum: Diag Contributing Factors (1) Respiratory failure with hypoxia: (2) Chronic interstitial lung disease: Discharge Sum: Summary Date and Time Date of admission: 07/27/21 14:59 Date of : 08/04/21 Time of : 20:45 Summary Details: Admision HPI by Dr. May Chief Complaint: shortness of breath Ms. Robert is a 75-year-old woman with interstitial lung disease that was only recently diagnosed, but with radiographic evidence dating back to 2015, who was just admitted to [facility] 06/27-07/05/21 with pneumonia and ILD exacerbation.? She was treated with antibiotics and steroids, then discharged on oxygen, which was a new requirement for her.? She is on 3L of O2 at rest and 4L with exertion.? She was also discharged on a prednisone taper.? Pulmonology was consulted during that admission, and she has not yet seen the nuclear weapons mechanical specialist as an outpatient. She woke up at 2 am today with dyspnea, tachypnea, and cough.? She tried to walk to the bathroom and almost passed out.? No actual LOC, though.? Her oxygen tubing is very long [50 feet], and she is concerned that it may have become kinked.? She came into the [facility] and was noted to be in AF/RVR with the rate in the 130s, tachypneic in the 20s, and hypoxic with SaO2 88% on 4L via NC, dropping to the 70s with exertion.? CXR showed chronic fibrotic changes.? She is on warfarin for stroke prevention with AF, and her INR is 2.2.? Lactate was 3.3 initially, now 1.2.? Potassium was 3.2.? High-sensitivity troponin-I was 12, then 22.? She was given 15 mg of IV diltiazem, 125 mg of IV methylprednisolone, 20 mEq of PO KCl, 500 mL of IV normal saline, and 50 mg of metoprolol succinate, 2g of magnesium sulfate, 1g of IV ceftriaxone, and 100mg of IV doxycycline. Current SaO2 is 93% on 4L via NC and she is in AF with a ventricular rate in the 120s.? She endorses ongoing dyspnea, and also chest tightness.? No fever. Hospital course: The patient was admitted for severe acute hypoxic respiratory failure due to exacerbation of underlying interstitial lung disease and despite aggressive treatment with bronchodilators, IV, and support with oxygen by high flow oxygen delivery + NRB, her oxygen saturation could not be maintained and continue to decline and in she and family opted for comfort measure only, other issues addressed SIRS,? included Hypokalemia, AFIB with RVR,? E, elevated troponin. She on 08/04/2021 at 8: 45 pm?and was pronounced by Dr. Chacon Final diagnoses: Acute on chronic hypoxic respiratory Acute flare of interstitial lung disease AFIB with RVR HypOkalemia Elevated troponin Mara esophagitis Other diagnoses: HLD: continue statin GERD: continue PPI Anxiety: continue alprazolam Additional Data Attending physician: Anthony Roque MD
--- NOTE | 2021-08-05 01:06 | PC.NURSE ---
Family, including HCP Esteban, at bedside when patient passed. Dr Chacon pronounced pt at 2044. This RN offered emotional support to patients family, which appeared teary eyed but calm. Son states home to be used is [place] in [place]. This RN spoke with Quynh at [facility], which declined pt. Case# [id number]
[2021-08-06 05:47] LABS: Legionella Ag Urine Not Detected (Not Detected)
[2021-08-06 15:42] LABS: Asperg fumigatus Precip Abs NEGATIVE (NEGATIVE); Micropoly faeni Abs NEGATIVE (NEGATIVE); Pigeon serum Abs NEGATIVE (NEGATIVE); Saccharo pora viridis Abs NEGATIVE (NEGATIVE); Thermo candidus Abs NEGATIVE (NEGATIVE); Thermoa vulgaris #1 NEGATIVE (NEGATIVE)
== END 2021-08-04 20:45 | disposition expired | DRG 196 ==
LOC: HO.ED 11:57 → HO.EDOVER 15:38 → HO.IMC 19:34
PROVIDERS: Hospitalist; Internal Medicine Cardiovascular Disease; Physician Assistant Medical; Admitting Provider Family Medicine; Emergency Provider Emergency Medicine; PCP Internal Medicine; Visit Provider Internal Medicine
DX: J84.112 Idiopathic pulmonary fibrosis (principal); J96.21 Acute and chronic respiratory failure with hypoxia; B37.81 Candidal esophagitis; E87.3 Alkalosis; Z66 Do not resuscitate; Z51.5 Encounter for palliative care; K21.9 Gastro-esophageal reflux disease without esophagitis; F41.9 Anxiety disorder, unspecified; E87.6 Hypokalemia; I48.0 Paroxysmal atrial fibrillation; E78.5 Hyperlipidemia, unspecified; I71.4 Abdominal aortic aneurysm, without rupture; F10.11 Alcohol abuse, in remission; M48.00 Spinal stenosis, site unspecified; Z96.652 Presence of left artificial knee joint; Z99.81 Dependence on supplemental oxygen; Z87.891 Personal history of nicotine dependence; Z79.01 Long term (current) use of anticoagulants; Z79.51 Long term (current) use of inhaled steroids; Z79.82 Long term (current) use of aspirin; Z79.899 Other long term (current) drug therapy
CPT/HCPCS: 36415; 36600; 71045; 80048; 80076; 81001; 82077; 82785; 82803; 83605; 83735; 83880; 84145; 84484; 85025; 85027; 85610; 85652; 85730; 86038; 86039; 86200; 86235; 86331; 86606; 86609; 87040; 87071; 87449; 87635; 93005; 94640; 96365; 96366; 96367; 96375; 96376; 99285; C1758; J0696; J1170; J1940; J2060; J2270; J2405; J2930; J3430; J3475